=== PATIENT | male | born 1940 | race Caucasian/White ===

== ENCOUNTER 2016-11-17 15:06 | Inpatient (IN) | payer MEDICARE, OTHER ==
[~2016-11-17] VITALS: Ht 179.1 cm; Wt 107.3 kg
[~2016-11-17 15:06] MED LIST: AC500T PO; ACET650S13 PO; ACID1TAB PO; ALBU17AE3 IH; ALBU8.5H2 IH; AMIT50TA3 PO; AMT50T PO; CALC-80 PO; GLMP4T PO; HUM100VI4 SQ; INSA10V SC; INSA70301U SC; INSU100I10 SQ; INSU100I13 SQ; INSU100I4 SQ; INSU100V6 SQ; LACT1CAP45 PO; LISI-552 PO; LISI10TA PO; LISI20TA PO; LOVA40TA2 PO; LVF500T GT; LVST20T PO; METO-270 PO; METO25TA PO; METO5TAB79 PO; METR500T PO; MULT-930 PO; MULT-974 PO; MULT1TAB63; OMEP20TA33 PO; PNT40TEC PO; SIMV20TA3 PO
[2016-11-17] MEDS ORDERED: NS IV 1000 ML 1,000 ML IV ONE ×3 (15:18→15:59)
[2016-11-17 15:26] LABS: BASOPHILS % (AUTO) 0 % (0-10); EOSINOPHILS % (AUTO) 0 % (0-10); LYMPHOCYTES # (AUTO) 3.2 X 10^3 (1.0-4.0); LYMPHOCYTES % (AUTO) 15 % (12-44); MEAN CORPUSCULAR HEMOGLOBIN 28 PG (25-34); MEAN CORPUSCULAR HGB CONC 32 G/DL (32-36); MEAN CORPUSCULAR VOLUME 89 FL (80-99); MEAN PLATELET VOLUME 9.2 FL (7.4-10.4); MONOCYTES # (AUTO) 1.9 X 10^3 (0.0-1.0); MONOCYTES % (AUTO) 9 % (0-12); NEUTROPHILS # (AUTO) 15.7 X 10^3 (1.8-7.8); NEUTROPHILS % (AUTO) 75 % (42-75); PLATELET COUNT 265 10^3/uL (130-400); RED BLOOD COUNT 4.79 10^6/uL (4.35-5.85); WHITE BLOOD COUNT 20.9 10^3/uL (4.3-11.0)
[2016-11-17 15:39] LABS: BAND NEUTROPHILS 5 %; LYMPHOCYTES % (MANUAL) 28 %; NEUTROPHILS % (MANUAL) 50 %
[2016-11-17 15:40] LABS: BASOPHILS % (MANUAL) 0 %; EOSINOPHILS % (MANUAL) 0 %; INR 1.4 (0.8-1.4); PROTHROMBIN TIME PATIENT 17.6 SEC (12.2-14.7)
--- NOTE | 2016-11-17 15:42 | Diagnostic Imaging Report ---
INDICATION: Hypotension and chills. Frontal chest obtained at 3:31 p.m. Heart and mediastinal silhouette are normal in appearance. The lungs are clear. There is no pneumothorax or pleural fluid. IMPRESSION: No acute process in the chest. No change from 10/11/2015. Dictated by: Dictated on workstation # [id number]
[2016-11-17 15:47] LABS: ALBUMIN 3.8 GM/DL (3.2-4.5); BILIRUBIN,TOTAL 0.5 MG/DL (0.1-1.0); CALCIUM 10.5 MG/DL (8.5-10.1); CREATININE SERUM 2.33 MG/DL (0.60-1.30); POTASSIUM 3.9 MMOL/L (3.6-5.0); TOTAL PROTEIN 7.6 GM/DL (6.4-8.2)
[2016-11-17] MEDS ORDERED: cefTRIAXone INJECTION 1,000 MG in NS (IVPB) 50 ML IV ONE (16:00)
[2016-11-17 16:15] LABS: BILIRUBIN,URINE NEGATIVE (NEGATIVE); KETONES,URINE NEGATIVE (NEGATIVE); LEUKOCYTE ESTERASE ,URINE NEGATIVE (NEGATIVE); NITRITE,URINE NEGATIVE (NEGATIVE); PH,URINE 6 (5-9); PROTEIN,URINE NEGATIVE (NEGATIVE); UROBILINOGEN,URINE NORMAL (NORMAL)
[2016-11-17] MEDS ORDERED: metroNIDAZOLE 500MG/100ML IVPB 100 ML IV ONE (16:15)
[2016-11-17 16:21] LABS: SQUAMOUS EPITHELIAL CELL,UR 0-2 /HPF
[2016-11-17] MEDS ORDERED: CIPROFLOXACIN IV 400MG/200ML 200 ML IV ONE (17:00)
--- NOTE | 2016-11-17 17:00 | Diagnostic Imaging Report ---
PROCEDURE: CT abdomen and pelvis without contrast. TECHNIQUE: Multiple contiguous axial images were obtained through the abdomen and pelvis without the use of intravenous contrast. INDICATION: Constipation. The patient has not had a bowel movement for four days. FINDINGS: The lung bases demonstrate mild fibrotic changes. There is fluid distention of the stomach and a moderate hiatal hernia that is also distended with fluid. Small bowel loops are generally normal in caliber. There is significant thickening and surrounding inflammatory changes seen within the sigmoid colon and the distal descending colon suggestive of colitis. This is a longer segment than is usually seen with diverticulitis, and other inflammatory or infectious colitis is possible. There is moderate amount of fecal material seen in the rectum and distal sigmoid. The right colon demonstrates mild distention with fluid, particularly the cecum. The appendix is normal. There is no significant free fluid or fluid collection in the abdomen or pelvis seen. The urinary bladder is decompressed with a Thomson catheter. No free air. No air in the portal venous system is seen. The liver, the gallbladder, the spleen, the adrenals, and the pancreas appear unremarkable. The kidneys have no hydronephrosis, and no ureteric stones are seen. The osseous structures demonstrate degenerative changes in the thoracic and lumbar spine. There are surgical clips seen in the pelvis. Correlate with prior surgical history. IMPRESSION: 1. Prominent colonic wall thickening and inflammatory changes are seen in the sigmoid colon and distal descending colon suggestive of colitis which is probably related to inflammatory or infectious etiology rather than diverticulitis based on the appearance. No abscess or evidence of perforation. 2. Moderate amount of fecal material in the colon and distal sigmoid. 3. Fluid distention of the stomach. There is prominent fluid content within a moderate-sized hiatal hernia. The findings were discussed with Dr. Nino at the time of dictation. Dictated by: Dictated on workstation # [id number]
--- NOTE | 2016-11-17 17:30 | ED General ---
General Chief Complaint: Dizziness/Syncope Stated Complaint: SYNCOPAL Nursing Triage Note: PT BROUGHT IN BY [facility] WITH C/O SYNCOPAL EPISODE AT HOME. PT REPORTS TO EMS THAT PT IS ON SEVERAL MEDICATIONS FOR HTN AND HAS HAD SEVERAL SYNCOPAL EPISODES OVER THE LAST FEW DAYS. UPON ARRIVAL TO ED PT IS A&I X 4. HE IS LETHARGIC AND HYPOTENSIVE. Nursing Sepsis Screen: Possible Severe Sepsis Risk Source of Information: Patient Exam Limitations: No Limitations History of Present Illness Time Seen by Provider: 15:07 Initial Comments This 75-year-old gentleman presents to the emergency room via EMS after having a syncopal episode at home. EMS comments that he appeared very chilled when they picked him up where he was sitting under an air conditioner. He is alert and oriented but somnolent and weak. He is afebrile. EMS reported he was hypotensive with systolic blood pressures in the 80s and had oxygen saturations in the 80s prior to application of oxygen by nasal cannula. Patient denied any recent fever, cough, dysuria, vomiting, diarrhea, or pain. His comments he has not had a bowel movement in several days. Patient appeared to have poor perfusion on assessment with easy mottling of skin with application of the blood pressure cuff. Capillary refill was noted to be poor at greater than 6 seconds in the feet. Sepsis was presumed and septic workup was initiated. Initial systolic blood pressure was 89. IV fluids were infusing as started by EMS. Patient denied feeling colder chilled but appeared to be shivering. Allergies and Home Medications Allergies Coded Allergies: No Known Drug Allergies (Verified , 01/29/07) Home Medications Calcium Carbonate/Vitamin D3 1 Each Tablet, 1 TAB PO BID, (Reported) Insulin Glargine,Hum.rec.anlog 100 Unit/1 Ml Insuln.pen, 40 UNITS SQ HS, ( Reported) Insuln Asp Prt/Insulin Aspart 300 Units/3 Ml Solution, 20 UNITS SQ AC, (Reported ) Lisinopril 20 Mg Tablet, 20 MG PO DAILY, (Reported) Lovastatin 40 Mg Tablet, 40 MG PO HS, (Reported) Metoprolol Succinate 25 Mg Tab.er.24h, 25 MG PO DAILY, (Reported) Multivitamin 1 Each Tablet, 1 TAB PO DAILY, (Reported) Omeprazole Magnesium 20 Mg Tablet.dr, 20 MG PO BID, (Reported) Constitutional: see HPI EENTM: no symptoms reported Respiratory: see HPI Cardiovascular: see HPI Gastrointestinal: see HPI Genitourinary: no symptoms reported Musculoskeletal: no symptoms reported Skin: no symptoms reported Psychiatric/Neurological: See HPI Hematologic/Lymphatic: No Symptoms Reported Past Dwgkuen-Eefrsy-Cdbfth Hx Patient Social History Alcohol Use: Denies Use Recreational Drug Use: No Smoking Status: Former Smoker Type Used: Cigarettes Former Smoker, Quit: July 08, 1992 2nd Hand Smoke Exposure: No Recent Foreign Travel: No Contact w/Someone Who Travel: No Recent Infectious Disease Expo: No Recent Hopitalizations: No Physical Abuse: No Sexual Abuse: No Immunizations Up To Date Tetanus Booster (TDap): Unknown Date of Pneumonia Vaccine: Dec 14, 2011 Date of Influenza Vaccine: Feb 13, 2014 Seasonal Allergies Seasonal Allergies: No Surgeries History of Surgeries: Yes (TONSELECTOMY, PROSTATE) Surgeries: Prostatectomy Respiratory History of Respiratory Disorde: Yes Respiratory Disorders: Pneumonia Cardiovascular History of Cardiac Disorders: Yes Cardiac Disorders: High Cholesterol, Hypertension Neurological History of Neurological Disord: Yes (NEUROPATHY DUE TO DIABETES) Reproductive System Hx Reproductive Disorders: No Sexually Transmitted Disease: No HIV/AIDS: No Genitourinary History of Genitourinary Disor: Yes Genitourinary Disorders: Prostate Problems Gastrointestinal History of Gastrointestinal Di: Yes Gastrointestinal Disorders: Colitis, Gastroesophageal Reflux Musculoskeletal History of Musculoskeletal Dis: Yes Musculoskeletal Disorders: Degenerate Disk Disease, Arthritis Endocrine History of Endocrine Disorders: Yes Endocrine Disorders: Diabetes, Insulin dep HEENT History of HEENT Disorders: Yes Hearing Impairment: Hard of Hearing Cancer History of Cancer: Yes Cancer: Prostate Psychosocial History of Psychiatric Problem: No Suicide Risk Score: 0 Integumentary History of Skin or Integumenta: No Blood Transfusions History of Blood Disorders: No Adverse Reaction to a Blood Tr: No Family Medical History Significant Family History: Heart Disease, Cancer, Diabetes, Hypertension Family Medial History: Cancer G8 SISTER ( of lung cancer) History of - disorder 19 MOTHER (mother of old age) History of - respiratory disease 17 FATHER (worked in coal mines of resp disease from working in coal mines) Physical Exam-Suspected Sepsis Physical Exam Vital Signs Vital Sign - Last 12Hours 11/17/16 15:06 Temp 96.4 Pulse 106 Resp 20 B/P (MAP) 89/64 Pulse Ox 95 O2 Delivery Nasal Cannula O2 Flow Rate 2.00 Capillary Refill : Less Than 3 Seconds Blood Pressure Mean: 72 General Appearance: WD/WN, Mild Distress, Other (appears uncomfortable and chilled) HEENT: PERRL/EOMI, Normal ENT Inspection, Pharynx Normal Neck: Normal Inspection Respiratory: Lungs Clear, Normal Breath Sounds, No Accessory Muscle Use, No Respiratory Distress Cardiovascular: No Edema, No Murmur, Tachycardia Gastrointestinal: Normal Bowel Sounds, Soft, Distended Extremity: No Pedal Edema, Other (fingers and toes are somewhat cool. Peripheral pulses are normal. Capillary refill is delayed by more than 6 seconds) Neurologic/Psychiatric: Alert, Oriented x3, No Motor/Sensory Deficits, mold forms builder II- XII Norm as Tested, Other (patient's level of alertness is decreased. He appears somnolent with told cognition. He is technically alert and oriented.) Skin: other (see above) Focused Exam Evaluation Sepsis Stage: Severe Sepsis Possible Source: GI Tract/Intra-Abdominal Lactate Level Laboratory Tests 11/17/16 15:10: Lactic Acid Level 11.06*H 11/17/16 17:10: Time of Focused Exam: 17:04 Respiratory: Lungs Clear, Normal Breath Sounds, No Accessory Muscle Use, No Respiratory Distress Cardiovascular: No Edema, Tachycardia Capillary Refill: Greater Than 3 Seconds Skin: normal color, warm/dry, other (skin color has improved and is brighter pink in the distal extremities. Capillary refill is still delayed to about 5 or 6 seconds but has improved from prior) Lactic Acid Level Laboratory Tests Test 11/17/16 15:10 11/17/16 17:10 Lactic Acid Level 11.06 MMOL/L (0.50-2.00) *H Progress/Results/Core Measures Suspected Sepsis Recent Fever Within 48 Hours: No Infection Criteria Present: Suspected New Infection New/Unexplained Altered Menta: No Sepsis Screen: Possible Severe Sepsis Risk Sepsis Diagnosis: SIRS Temperature:96.4 Pulse: 106 Respiratory Rate: 20 Laboratory Tests 11/17/16 15:10: White Blood Count 20.9H Blood Pressure 89 /64 Mean: 72 Laboratory Tests 11/17/16 15:10: Lactic Acid Level 11.06*H 11/17/16 17:10: Laboratory Tests 11/17/16 15:10: Creatinine 2.33H, INR Comment 1.4, Platelet Count 265, Total Bilirubin 0.5 Results/Orders Lab Results Laboratory Tests Test 11/17/16 15:10 11/17/16 16:00 11/17/16 17:10 11/17/16 17:45 Range/Units White Blood Count 20.9 H 4.3-11.0 10^3/uL Red Blood Count 4.79 4.35-5.85 10^6/uL Hemoglobin 13.6 13.3-17.7 G/DL Hematocrit 42 40-54 % Mean Corpuscular Volume 89 80-99 FL Mean Corpuscular Hemoglobin 28 25-34 PG Mean Corpuscular Hemoglobin Concent 32 32-36 G/DL Red Cell Distribution Width 13.0 10.0-14.5 % Platelet Count 265 130-400 10^3/uL Mean Platelet Volume 9.2 7.4-10.4 FL Neutrophils (%) (Auto) 75 42-75 % Lymphocytes (%) (Auto) 15 12-44 % Monocytes (%) (Auto) 9 0-12 % Eosinophils (%) (Auto) 0 0-10 % Basophils (%) (Auto) 0 0-10 % Neutrophils # (Auto) 15.7 H 1.8-7.8 X 10^3 Lymphocytes # (Auto) 3.2 1.0-4.0 X 10^3 Monocytes # (Auto) 1.9 H 0.0-1.0 X 10^3 Eosinophils # (Auto) 0.0 0.0-0.3 10^3/uL Basophils # (Auto) 0.0 0.0-0.1 10^3/uL Neutrophils % (Manual) 50 % Lymphocytes % (Manual) 28 % Monocytes % (Manual) 7 % Eosinophils % (Manual) 0 % Basophils % (Manual) 0 % Band Neutrophils 5 % Blood Morphology Comment NORMAL Prothrombin Time 17.6 H 12.2-14.7 SEC INR Comment 1.4 0.8-1.4 Activated Partial Thromboplast Time 35 24-35 SEC Sodium Level 137 135-145 MMOL/L Potassium Level 3.9 3.6-5.0 MMOL/L Chloride Level 101 98-107 MMOL/L Carbon Dioxide Level 15 L 21-32 MMOL/L Anion Gap 21 H 5-14 MMOL/L Blood Urea Nitrogen 27 H 7-18 MG/DL Creatinine 2.33 H 0.60-1.30 MG/DL Estimat Glomerular Filtration Rate 27 BUN/Creatinine Ratio 12 Glucose Level 257 H 70-105 MG/DL Lactic Acid Level 11.06 *H 0.50-2.00 MMOL/L Calcium Level 10.5 H 8.5-10.1 MG/DL Total Bilirubin 0.5 0.1-1.0 MG/DL Aspartate Amino Transf (AST/SGOT) 35 H 5-34 U/L Alanine Aminotransferase (ALT/SGPT) 25 0-55 U/L Alkaline Phosphatase 77 40-136 U/L Total Protein 7.6 6.4-8.2 GM/DL Albumin 3.8 3.2-4.5 GM/DL Urine Color YELLOW Urine Clarity CLEAR Urine pH 6 5-9 Urine Specific [place] 1.015 L 1.016-1.022 Urine Protein NEGATIVE NEGATIVE Urine Glucose (UA) NEGATIVE NEGATIVE Urine Ketones NEGATIVE NEGATIVE Urine Nitrite NEGATIVE NEGATIVE Urine Bilirubin NEGATIVE NEGATIVE Urine Urobilinogen NORMAL NORMAL MG/DL Urine Leukocyte Esterase NEGATIVE NEGATIVE Urine RBC (Auto) NEGATIVE NEGATIVE Urine RBC NONE /HPF Urine WBC NONE /HPF Urine Squamous Epithelial Cells 0-2 /HPF Urine Crystals NONE /LPF Urine Bacteria NONE /HPF Urine Casts NONE /LPF Urine Mucus NEGATIVE /LPF Urine Culture Indicated NO My Orders Orders - LESTER NINO MD Cbc With Automated Diff (11/17/16 15:18) Comprehensive Metabolic Panel (11/17/16 15:18) Lactic Acid Analyzer (11/17/16 15:18) Blood Culture (11/17/16 15:18) Sputum Culture (11/17/16 15:18) Ua Culture If Indicated (11/17/16 15:18) Protime With Inr (11/17/16 15:18) Partial Thromboplastin Time (11/17/16 15:18) Chest 1 View, Ap/Pa Only (11/17/16 15:18) O2 (11/17/16 15:18) Saline Lock/Iv-Start (11/17/16 15:18) Saline Lock/Iv-Start (11/17/16 15:18) Vital Signs Adult Sepsis Patie Q1HR (11/17/16 15:18) Remove Rings In Anticipation O (11/17/16 15:18) Saline Lock/Iv-Start (11/17/16 15:18) Ns Iv 1000 Ml (Sodium Chloride 0.9%) (11/17/16 15:18) Thomson Cath Insertion (11/17/16 15:19) Manual Differential (11/17/16 15:10) Ekg Tracing (11/17/16 15:36) Ns Iv 1000 Ml (Sodium Chloride 0.9%) (11/17/16 15:48) Ceftriaxone Injection (Rocephin Injectio (11/17/16 16:00) Ct Abdomen/Pelvis Wo (11/17/16 15:59) Ns Iv 1000 Ml (Sodium Chloride 0.9%) (11/17/16 15:59) Metronidazole 500mg/100ml Ivpb (Flagyl 5 (11/17/16 16:15) Ciprofloxacin Iv 400mg/200ml (Cipro Iv S (11/17/16 17:00) Stool Culture (11/17/16 17:01) Fecal Wbc (11/17/16 17:01) C Difficile Ag + Toxin A/B. (11/17/16 17:01) Occult Blood Stool (11/17/16 17:43) Medications Given in ED Current Medications Medications Dose Ordered Sig/Pascale Route Start Time Stop Time Status Last Admin Dose Admin Ceftriaxone Sodium 1000 mg/ Sodium Chloride 50 ml @ 100 mls/hr ONCE ONCE IV 11/17/16 16:00 11/17/16 16:29 DC 11/17/16 17:30 100 MLS/HR Ciprofloxacin/ Dextrose 200 ml @ 200 mls/hr ONCE ONCE IV 11/17/16 17:00 11/17/16 17:59 DC 11/17/16 17:30 200 MLS/HR Metronidazole 100 ml @ 100 mls/hr ONCE ONCE IV 11/17/16 16:15 11/17/16 17:14 DC 11/17/16 17:30 100 MLS/HR Sodium Chloride 1,000 ml @ 0 mls/hr Q0M ONCE IV 11/17/16 15:18 11/17/16 15:20 DC 11/17/16 15:15 0 MLS/HR Sodium Chloride 1,000 ml @ 0 mls/hr Q0M ONCE IV 11/17/16 15:48 11/17/16 15:49 DC 11/17/16 15:45 0 MLS/HR Sodium Chloride 1,000 ml @ 0 mls/hr Q0M ONCE IV 11/17/16 15:59 11/17/16 16:01 DC 11/17/16 17:30 0 MLS/HR Vital Signs/I&O Vital Sign - Last 12Hours 11/17/16 11/17/16 15:06 15:10 Temp 96.4 Pulse 106 Resp 20 B/P (MAP) 89/64 Pulse Ox 95 95 O2 Delivery Nasal Cannula Nasal Cannula O2 Flow Rate 2.00 2.00 Intake and Output 11/18/16 00:00 Intake Total 2500 ml Balance 2500 ml Capillary Refill : Less Than 3 Seconds Blood Pressure Mean: 72 Progress Note #1: Progress Note Septic workup was initiated immediately after patient arrival. Fluid resuscitation was started with normal saline boluses. He received 500 mL as started by EMS. An additional 3 L of saline was ordered in the ER. He was receiving the third liter at the time of admission. This was greater than 30 ML per kilogram. Patient eventually commented that he had abdominal pain although he denied pain on initial assessment. Abdomen was reexamined and found to be somewhat distended and firm. CT of the abdomen was obtained and revealed sigmoid colitis. Patient then had a large liquidy bowel movement that appeared grossly bloody. Broad-spectrum antibiotic therapy was ordered including Rocephin, Cipro, and Flagyl. His abdominal pain improved with the bowel movement. Administration of the antibiotics was delayed a bit due to difficulty drawing the second blood culture. Antibiotics were administered in the emergency room. Stool cultures were sent for processing. Progress Note #2: Time: 18:09 Progress Note Case history and plan reviewed with the eICU physician. ECG Initial ECG Impression Date: Nov 17, 2016 Initial ECG Impression Time: 15:21 Initial ECG Rate: 92 Initial ECG Rhythm: Normal Sinus Comment Normal sinus rhythm with borderline tachycardia. No ST elevation or depression. No axis deviation. Diagnostic Imaging Diagonstic Imaging: Xray Plain Films/CT/US/NM/MRI: chest Comments NAME: ERIC SULLIVAN [facility] REC#: [id number] PT STATUS: REG ER : 1940 PHYSICIAN: LESTER NINO MD ADMIT DATE: 11/17/16/ER Signed Date of Exam: 11/17/16 CHEST 1 VIEW, AP/PA ONLY INDICATION: Hypotension and chills. Frontal chest obtained at 3:31 p.m. Heart and mediastinal silhouette are normal in appearance. The lungs are clear. There is no pneumothorax or pleural fluid. IMPRESSION: No acute process in the chest. No change from 10/11/2015. Dictated by: Dictated on workstation # [id number] Dict: 11/17/16 1540 Trans: 11/17/16 1655 Interpreted by: ARIELLE ALARCON MD Electronically signed by: ARIELLE ALARCON MD 11/17/16 165 Diagonstic Imaging: CT Plain Films/CT/US/NM/MRI: abdomen, pelvis Comments CT abdomen and pelvis viewed by me and report reviewed. See report below: NAME: ERIC SULLIVAN [facility] REC#: [id number] PT STATUS: REG ER : 1940 PHYSICIAN: LESTER NINO MD ADMIT DATE: 11/17/16/ER Signed Date of Exam: 11/17/16 CT ABDOMEN/PELVIS WO PROCEDURE: CT abdomen and pelvis without contrast. TECHNIQUE: Multiple contiguous axial images were obtained through the abdomen and pelvis without the use of intravenous contrast. INDICATION: Constipation. The patient has not had a bowel movement for four days. FINDINGS: The lung bases demonstrate mild fibrotic changes. There is fluid distention of the stomach and a moderate hiatal hernia that is also distended with fluid. Small bowel loops are generally normal in caliber. There is significant thickening and surrounding inflammatory changes seen within the sigmoid colon and the distal descending colon suggestive of colitis. This is a longer segment than is usually seen with diverticulitis, and other inflammatory or infectious colitis is possible. There is moderate amount of fecal material seen in the rectum and distal sigmoid. The right colon demonstrates mild distention with fluid, particularly the cecum. The appendix is normal. There is no significant free fluid or fluid collection in the abdomen or pelvis seen. The urinary bladder is decompressed with a Thomson catheter. No free air. No air in the portal venous system is seen. The liver, the gallbladder, the spleen, the adrenals, and the pancreas appear unremarkable. The kidneys have no hydronephrosis, and no ureteric stones are seen. The osseous structures demonstrate degenerative changes in the thoracic and lumbar spine. There are surgical clips seen in the pelvis. Correlate with prior surgical history. IMPRESSION: 1. Prominent colonic wall thickening and inflammatory changes are seen in the sigmoid colon and distal descending colon suggestive of colitis which is probably related to inflammatory or infectious etiology rather than diverticulitis based on the appearance. No abscess or evidence of perforation. 2. Moderate amount of fecal material in the colon and distal sigmoid. 3. Fluid distention of the stomach. There is prominent fluid content within a moderate-sized hiatal hernia. The findings were discussed with Dr. Nino at the time of dictation. Dictated by: Dictated on workstation # [id number] Dict: 11/17/16 1630 Trans: 11/17/161700 Interpreted by: MAGDY GILLIS MD Electronically signed by: MAGDY GILLIS MD 11/17/161700 Departure Communication (Admissions) Time/Spoke to Admitting Phy: 17:00 Communication Case reviewed with Dr. Dewitt who agrees to admission to the ICU for treatment of severe sepsis and colitis. She is very familiar with this patient and has experienced similar episodes with him in the past. She agrees with the ICU consult. Time/Spoke to Consulting Phy: 16:50 Communication/Consulting Case was reviewed with Dr. Ballard. We discussed antibiotics. Rocephin was the initial antibiotic ordered in the ER. This will be followed by Caridad and Josse to cover for right is. In compliance with the severe sepsis protocols, vancomycin was also ordered. Impression Impression: Primary Impression: Severe sepsis Additional Impressions: Colitis Acute on chronic renal failure Qualified Codes: N17.9 - Acute kidney failure, unspecified; N18.9 - Chronic kidney disease, unspecified Disposition: ADMITTED INPATIENT Condition: Improved Admissions Decision to Admit Reason: Admit from ER (General) Decision to Admit/Date: Nov 17, 2016 Time/Decision to Admit Time: 15:10 Departure-Patient Inst. Referrals: MOISÉS ARMSTRONG MD (PCP/Family) Primary Care Physician LESTER NINO MD Nov 17, 2016 17:30
[2016-11-17 18:40] VITALS: BP 108/51
[2016-11-17 19:00] VITALS: BP 113/78
[2016-11-17] MEDS ORDERED: ONDANSETRON 4 MG/2 ML (SDV) Z0FRAN IV PRN (19:15)
[2016-11-17] MEDS ORDERED: VASOPRESSIN INJECTION 20 UNIT in NS (IVPB) 100 ML IV SCH (19:26)
[2016-11-17] MEDS ORDERED: CATHETER FLUSH 10 ML SYR IV PRN (19:30)
[2016-11-17] MEDS: NS IV 1000 ML 1,000 ML IV SCH (19:38)
[2016-11-17 20:00] VITALS: BP 100/82
[2016-11-17] MEDS ORDERED: VANCOMYCIN 2000 MG/NS 500 ML IVPB IV NR ×2 (20:00)
[2016-11-17] MEDS: PHENYLEPHRINE FOR DRIPS 10 MG in D5W 250 ML (IVPB) 250 ML IV SCH ×2 (20:07→23:49)
[2016-11-17] MEDS: NOREPINEPHRINE 4 MG in D5W 250 ML (IVPB) 250 ML IV SCH ×2 (20:07→22:35)
[2016-11-17] MEDS: inSUlin (REGULAR) HUMAN 1 UNIT/0.01 ML (CHARGE PER UNIT) SC SCH (20:11)
[2016-11-17 21:00] VITALS: BP 87/57
[2016-11-17 22:00] VITALS: BP 103/63
[2016-11-17 23:00] VITALS: BP 114/54
[2016-11-17] MEDS ORDERED: NOREPINEPHRINE 4 MG in D5W 250 ML (IVPB) 250 ML IV SCH (23:00)
[2016-11-18] VITALS (37 sets, daily range): BP systolic 79–142; BP diastolic 40–81
--- NOTE | 2016-11-18 | Consultation ---
History of Present Illness History of Present Illness Patient Consulted On(terri/time) 11/17/16 23:53 Date Seen by Provider: Nov 17, 2016 Time Seen by Provider: 22:37 History of Present Illness Surgery asked to consult regarding abdominal pain, hypotension, sepsis. HPI: This 75-year-old gentleman presented to the emergency room via EMS after having a syncopal episode at home. EMS comments that he appeared very chilled when they picked him up where he was sitting under an air conditioner. He is alert and oriented but somnolent and weak. He is afebrile. EMS reported he was hypotensive with systolic blood pressures in the 80s and had oxygen saturations in the 80s prior to application of oxygen by nasal cannula. Patient denied any recent fever, cough, dysuria, vomiting, or diarrhea. Pt and his state he has not had a bowel movement in several days. Per ER Physician: Patient appeared to have poor perfusion on assessment with easy mottling of skin with application of the blood pressure cuff. Capillary refill was noted to be poor at greater than 6 seconds in the feet. Sepsis was presumed and septic workup was initiated. Initial systolic blood pressure was 89. IV fluids were infusing as started by EMS. Patient denied feeling cold or chilled but appeared to be shivering. When seen in the ICU he has Levophed running through peripheral IV and barely keeping his SBP above 100 and he has already "blown" 3 peripherals. He states he came in for pain but it is better. Appears comfortable. Allergies and Home Medications Allergies Coded Allergies: No Known Drug Allergies (Verified , 01/29/07) Home Medications Calcium Carbonate/Vitamin D3 1 Each Tablet, 1 TAB PO BID, (Reported) Insulin Glargine,Hum.rec.anlog 100 Unit/1 Ml Insuln.pen, 40 UNITS SQ HS, ( Reported) Insuln Asp Prt/Insulin Aspart 300 Units/3 Ml Solution, 20 UNITS SQ AC, (Reported ) Lisinopril 20 Mg Tablet, 20 MG PO DAILY, (Reported) Lovastatin 40 Mg Tablet, 40 MG PO HS, (Reported) Metoprolol Succinate 25 Mg Tab.er.24h, 25 MG PO DAILY, (Reported) Multivitamin 1 Each Tablet, 1 TAB PO DAILY, (Reported) Omeprazole Magnesium 20 Mg Tablet.dr, 20 MG PO BID, (Reported) Past Ucwayrd-Anqneo-Lrbpyt Hx Patient Social History Alcohol Use: Denies Use Recreational Drug Use: No Smoking Status: Former Smoker Former Smoker, Quit: July 08, 1992 Type Used: Cigarettes 2nd Hand Smoke Exposure: No Recent Foreign Travel: No Contact w/Someone Who Travel: No Recent Infectious Disease Expo: No Recent Hopitalizations: No Physical Abuse Screen: No Sexual Abuse: No Immunizations Up To Date Tetanus Booster (TDap): Unknown Date of Pneumonia Vaccine: Dec 14, 2011 Date of Influenza Vaccine: Feb 13, 2014 Seasonal Allergies Seasonal Allergies: No Surgeries History of Surgeries: Yes (TONSELECTOMY, PROSTATE) Surgeries: Prostatectomy Respiratory History of Respiratory Disorde: Yes Respiratory Disorders: Pneumonia Cardiovascular History of Cardiac Disorders: Yes Cardiac Disorders: High Cholesterol, Hypertension Neurological History of Neurological Disord: Yes (NEUROPATHY DUE TO DIABETES) Reproductive System Hx Reproductive Disorders: No Sexually Transmitted Disease: No HIV/AIDS: No Genitourinary History of Genitourinary Disor: Yes Genitourinary Disorders: Prostate Problems Gastrointestinal History of Gastrointestinal Di: Yes Gastrointestinal Disorders: Colitis, Gastroesophageal Reflux Musculoskeletal History of Musculoskeletal Dis: Yes Musculoskeletal Disorders: Degenerate Disk Disease, Arthritis Endocrine History of Endocrine Disorders: Yes Endocrine Disorders: Diabetes, Insulin dep HEENT History of HEENT Disorders: Yes Hearing Impairment: Hard of Hearing Cancer History of Cancer: Yes Cancer: Prostate Psychosocial History of Psychiatric Problem: No Integumentary History of Skin or Integumenta: No Blood Transfusions History of Blood Disorders: No Adverse Reaction to a Blood Tr: No Family Medical History Significant Family History: Heart Disease, Cancer, Diabetes, Hypertension Family Medial History: Cancer G8 SISTER ( of lung cancer) History of - disorder 17 MOTHER (mother of old age) History of - respiratory disease 17 FATHER (worked in coal [place] of resp disease from working in coal mines) Review of Systems-General Constitutional: chills, diaphoresis, dizziness, malaise, weakness EENTM: hearing loss, vision loss, No epistaxis, No throat swelling Respiratory: cough, dyspnea on exertion, No hemoptysis, No stridor Cardiovascular: No chest pain, No edema, No palpitations Gastrointestinal: LLQ, constipation, No hematemesis, No jaundice Genitourinary: frequency, hesitancy, incontinence, nocturia Musculoskeletal: back pain, joint pain, muscle pain, muscle stiffness Skin: No lumps, No pruritus, No rash Psychiatric/Neurological: Denies Anxiety, Denies Depressed, Denies Seizure, Weakness Other Denies heat or cold intolerance. Denies any abnormal bruising or bleeding. Physical Exam-General Problems Physical Exam Vital Signs Vital Sign - Last 12Hours 11/17/16 15:06 Temp 96.4 Pulse 106 Resp 20 B/P (MAP) 89/64 Pulse Ox 95 O2 Delivery Nasal Cannula O2 Flow Rate 2.00 Capillary Refill : Less Than 3 Seconds General Appearance: WD/WN, moderate distress Eyes: Bilateral Eye PERRL, Bilateral Eye EOMI HEENT: pharynx normal, No scleral icterus (R), No scleral icterus (L), No pale conjunctivae (R), No pale conjunctivae (L) Neck: non-tender, supple, No thyromegaly Respiratory: lungs clear, normal breath sounds, accessory muscle use Cardiovascular: no edema, no murmur, tachycardia Gastrointestinal: soft, no organomegaly, tenderness (mild, LLQ and suprapubic) Rectal: deferred Extremities: no pedal edema, no calf tenderness, normal capillary refill Neurologic/Psychiatric: brewery pumper II-XII nml as tested, no motor/sensory deficits, alert, normal mood/affect, oriented x 3 Skin: cool, pallor Lymphatic: no adenopathy (neck, axilla or groin) Data Review Labs Laboratory Tests 11/17/16 15:10: White Blood Count 20.9H, Red Blood Count 4.79, Hemoglobin 13.6, Hematocrit 42, Mean Corpuscular Volume 89, Mean Corpuscular Hemoglobin 28, Mean Corpuscular Hemoglobin Concent 32, Red Cell Distribution Width 13.0, Platelet Count 265, Mean Platelet Volume 9.2, Neutrophils (%) (Auto) 75, Lymphocytes (%) (Auto) 15, Monocytes (%) (Auto) 9, Eosinophils (%) (Auto) 0, Basophils (%) (Auto) 0, Neutrophils # (Auto) 15.7H, Lymphocytes # (Auto) 3.2, Monocytes # (Auto) 1.9H, Eosinophils # (Auto) 0.0, Basophils # (Auto) 0.0, Neutrophils % (Manual) 50, Lymphocytes % (Manual) 28, Monocytes % (Manual) 7, Eosinophils % (Manual) 0, Basophils % (Manual) 0, Band Neutrophils 5, Blood Morphology Comment NORMAL, Prothrombin Time 17.6H, INR Comment 1.4, Activated Partial Thromboplast Time 35 , Sodium Level 137, Potassium Level 3.9, Chloride Level 101, Carbon Dioxide Level 15L, Anion Gap 21H, Blood Urea Nitrogen 27H, Creatinine 2.33H, Estimat Glomerular Filtration Rate 27, BUN/Creatinine Ratio 12, Glucose Level 257H, Lactic Acid Level 11.06*H, Calcium Level 10.5H, Total Bilirubin 0.5, Aspartate Amino Transf (AST/SGOT) 35H, Alanine Aminotransferase (ALT/SGPT) 25, Alkaline Phosphatase 77, Total Protein 7.6, Albumin 3.8 11/17/16 16:00: Urine Color YELLOW, Urine Clarity CLEAR, Urine pH 6, Urine Specific Zoe 1.015L, Urine Protein NEGATIVE, Urine Glucose (UA) NEGATIVE, Urine Ketones NEGATIVE, Urine Nitrite NEGATIVE, Urine Bilirubin NEGATIVE, Urine Urobilinogen NORMAL, Urine Leukocyte Esterase NEGATIVE, Urine RBC (Auto) NEGATIVE, Urine RBC NONE, Urine WBC NONE, Urine Squamous Epithelial Cells 0-2, Urine Crystals NONE, Urine Bacteria NONE, Urine Casts NONE, Urine Mucus NEGATIVE, Urine Culture Indicated NO 11/17/16 17:45: Stool Occult Blood Immunoassay POSITIVEH 11/17/16 18:20: Lactic Acid Level 6.65*H 11/17/16 19:54: Glucometer 261H 11/17/16 21:05: Lactic Acid Level 7.20*H 11/17/16 23:30: Assessment/Plan Assessment/Plan Assessment/Plan 1. Colitis on CT 2. Hypotension/Sepsis 3. Venous Insufficiency 4. Acute on Chronic Renal Failure 5. Leukocytosis 6. Elevated Lactic Acid 7. Dehydration Pt has thickened colon on CT (per radiologist); no free air, free fluid and no mention of pneumotosis. Hemoccult positive, C. Diff study pending. This is most likely the cause of his leukocytosis. He has not been drinking enough fluids and this is probably causing some of his hypotension and Acute renal failure. He has been started on ABX. Needs IVF and Levophed now to keep his MAP above 65. He needs maximal medical managment. He will need a colonoscopy, depending on his C. Diff lab result. At this point he does not need any surgery, but will need a Central line secondary to venous insufficiency and fluid managment. Clinical Quality Measures DVT/VTE Risk/Contraindication: Risk Factor Score Per Nursin RFS Level Per Nursing on Admit: 4+=Very High DIDI REDMAN DO Nov 18, 2016 00:00
--- NOTE | 2016-11-18 00:15 | Progress Note-Post Operative ---
Post-Operative Progess Note Surgeon (s)/Animal Trainer Supervisor (s) Surgeon DIDI REDMAN DO Animal Trainer Supervisor: none Pre-Operative Diagnosis hypotenension, sepsis, Venous insufficiency, Acute renal failure, abd pain Post-Operative Diagnosis same Procedure & Operative Findings Date of Procedure 11/18/16 Procedure Performed/Findings Central line placement, RIJ with US guidance Anesthesia Type local lidocaine Estimated Blood Loss Estimated blood loss (mL): scant Specimens/Packing Specimens Removed none DIDI REDMAN DO Nov 18, 2016 00:15
[2016-11-18] MEDS: NS IV 1000 ML 1,000 ML IV SCH ×4 (00:24→21:18)
[2016-11-18] MEDS: inSUlin (REGULAR) HUMAN 1 UNIT/0.01 ML (CHARGE PER UNIT) SC SCH (00:24)
[2016-11-18] MEDS: PHENYLEPHRINE FOR DRIPS 10 MG in D5W 250 ML (IVPB) 250 ML IV SCH (02:35)
[2016-11-18] MEDS ORDERED: inSUlin REGULAR TPN/DRIP ONLY 250 UNITS in NORMAL SALINE 250 ML IV SCH (04:15)
[2016-11-18] MEDS ORDERED: inSUlin (REGULAR) HUMAN 1 UNIT/0.01 ML (CHARGE PER UNIT) IV ONE (04:15)
[2016-11-18 04:36] LABS: BASOPHILS % (AUTO) 0 % (0-10); EOSINOPHILS % (AUTO) 0 % (0-10); LYMPHOCYTES # (AUTO) 1.1 X 10^3 (1.0-4.0); LYMPHOCYTES % (AUTO) 8 % (12-44); MEAN CORPUSCULAR HEMOGLOBIN 29 PG (25-34); MEAN CORPUSCULAR HGB CONC 33 G/DL (32-36); MEAN CORPUSCULAR VOLUME 87 FL (80-99); MEAN PLATELET VOLUME 9.8 FL (7.4-10.4); MONOCYTES % (AUTO) 7 % (0-12); NEUTROPHILS # (AUTO) 12.1 X 10^3 (1.8-7.8); NEUTROPHILS % (AUTO) 85 % (42-75); PLATELET COUNT 214 10^3/uL (130-400); RED BLOOD COUNT 4.02 10^6/uL (4.35-5.85); RED CELL DISTRIBUTION WIDTH 12.7 % (10.0-14.5); WHITE BLOOD COUNT 14.2 10^3/uL (4.3-11.0)
[2016-11-18 04:46] LABS: INR 1.3 (0.8-1.4); PROTHROMBIN TIME PATIENT 16.4 SEC (12.2-14.7)
[2016-11-18 04:57] LABS: ALBUMIN 2.5 GM/DL (3.2-4.5); BILIRUBIN,TOTAL 0.4 MG/DL (0.1-1.0); CALCIUM 7.1 MG/DL (8.5-10.1); CREATININE SERUM 2.13 MG/DL (0.60-1.30); MAGNESIUM 1.5 MG/DL (1.8-2.4); PHOSPHORUS 1.7 MG/DL (2.3-4.7); TOTAL PROTEIN 4.8 GM/DL (6.4-8.2)
[2016-11-18] MEDS ORDERED: metroNIDAZOLE 500 MG/100 ML IVPB (PRE-MIX) IV SCH (05:00)
[2016-11-18 05:01] LABS: POTASSIUM 6.9 MMOL/L (3.6-5.0)
[2016-11-18] MEDS ORDERED: MAGNESIUM 1 GM/100 ML IVPB 200 ML IV ONE (05:12)
[2016-11-18] MEDS: POTASSIUM CL 10MEQ/50ML IVPB 50 ML IV SCH (05:32)
[2016-11-18] MEDS: MAGNESIUM 1 GM/100 ML IVPB 100 ML IV SCH ×3 (05:32→06:41)
[2016-11-18] MEDS: KCL 20 MEQ TAB (K-DUR) PO SCH (05:33)
[2016-11-18] MEDS ORDERED: SODIUM PHOSPHATE INJ ONE (05:45)
[2016-11-18] MEDS ORDERED: NS INJ ONE (05:45)
[2016-11-18] MEDS ORDERED: CIPROFLOXACIN 400 MG/D5W 200 ML (PRE-MIX) IV SCH (06:00)
[2016-11-18] MEDS: PHENYLEPHRINE INJECTION 10 MG in D5W 250 ML (IVPB) 250 ML IV SCH ×5 (07:09→23:22)
--- NOTE | 2016-11-18 08:26 | History & Physicial ---
History of Present Illness History of Present Illness Reason for visit/HPI PT IS A 75 Y/O MALE WHO IS KNOWN TO ME FROM CLINIC. ERIC HAS HISTORY OF SIMILAR EPISODES OF SUSPECTED SEPSIS WITH HEMATOCHEZIA, HYPOTENSION, LETHARGY - AFTER ONE TO TWO DAYS IN THE HOSPITAL HE HAS RESOLUTION OF SYMPTOMS, WITH RESOLUTION OF ABDOMINAL PAIN AND RETURN TO NORMAL FUNCTION. HIS WORK-UP IN THE PAST HAS BEEN NEGATIVE FOR ANY SPECIFIC COLONIC SOURCE OF DISEASE PROCESS. HE REPORTS THAT ON THIS OCCASION THAT NECESSITATED ADMISSION THROUGH THE EMERGENCY DEPARTMENT, HE HAD NOT HAD A BOWEL MOVEMENT IN OVER 8 DAYS, HE HAD BEEN STRAINING TO HAVE HIS BOWELS MOVE, BUT HAD NOT BEEN SUCCESSFUL. HE REPORTS FEELING BETTER TODAY. Date of Admission Nov 17, 2016 at 17:30 Date Seen by Provider: Nov 18, 2016 Time Seen by Provider: 08:15 I consulted on this patient on 11/18/16 08:20 Attending Physician Moisés Alfaro MD Admitting Physician Moisés Alfaro MD Consult Allergies and Home Medications Allergies Coded Allergies: No Known Drug Allergies (Verified , 01/29/07) Home Medications Amitriptyline HCl 50 Mg Tablet, 50 MG PO BID, (Reported) Calcium Carbonate/Vitamin D3 1 Each Tablet, 1 TAB PO BID, (Reported) Insulin Aspart 100 Unit/1 Ml Susp, 20 UNITS SC AC, (Reported) Insulin Glargine,Hum.rec.anlog 100 Unit/1 Ml Vial, 40 UNITS SC HS, (Reported) Lisinopril 20 Mg Tablet, 20 MG PO DAILY, (Reported) Lovastatin 40 Mg Tablet, 40 MG PO HS, (Reported) Metoprolol Succinate 25 Mg Tab.er.24h, 25 MG PO DAILY, (Reported) Multivitamin 1 Each Tablet, 1 TAB PO DAILY, (Reported) Omeprazole Magnesium 20 Mg Tablet.dr, 20 MG PO BID, (Reported) Past Wxvxpkp-Osrwli-Iqwhrn Hx Patient Social History Marrital Status: Living Status: LIVES AT HOME WITH HIS Employed/Student: retired Alcohol Use: Denies Use Recreational Drug Use: No Smoking Status: Former Smoker Former Smoker, Quit: July 08, 1992 Type Used: Cigarettes 2nd Hand Smoke Exposure: No Physical Abuse Screen: No Sexual Abuse: No Recent Foreign Travel: No Contact w/other who traveled: No Recent Hopitalizations: No Recent Infectious Disease Expo: No Immunizations Up To Date Tetanus Booster (TDap): Unknown Date of Pneumonia Vaccine: Dec 14, 2011 Date of Influenza Vaccine: Feb 13, 2014 Seasonal Allergies Seasonal Allergies: No Surgeries Yes (TONSELECTOMY, PROSTATE) Prostatectomy Respiratory Yes Currently Using CPAP: No Currently Using BIPAP: No Cardiovascular Yes High Cholesterol, Hypertension Neurological Yes (NEUROPATHY DUE TO DIABETES) Reproductive System Hx Reproductive Disorders: No Sexually Transmitted Disease: No HIV/AIDS: No Genitourinary Yes Prostate Problems Gastrointestinal Yes Colitis, Gastroesophageal Reflux Musculoskeletal Yes Degenerate Disk Disease, Arthritis Endocrine History of Endocrine Disorders: Yes Endocrine Disorders: Diabetes, Insulin dep HEENT History of HEENT Disorders: Yes Hearing Impairment: Hard of Hearing Cancer Yes Prostate Psychosocial History of Psychiatric Problem: No Integumentary History of Skin or Integumenta: No Blood Transfusions History of Blood Disorders: No Adverse Reaction to a Blood Tr: No Reviewed Nursing Assessment Reviewed/Agree w Nursing PMH: Yes Family Medical History Significant Family History: Heart Disease, Cancer, Diabetes, Hypertension Family Hx: Cancer G8 SISTER ( of lung cancer) History of - disorder 19 MOTHER (mother of old age) History of - respiratory disease 19 FATHER (worked in coal mines of resp disease from working in coal mines) Constitutional: No chills, No diaphoresis, No fever, weakness EENTM: hearing loss, No mouth pain, No throat swelling Respiratory: No cough, dyspnea on exertion Gastrointestinal: RLQ, LLQ, abdominal pain Genitourinary: no symptoms reported Musculoskeletal: No back pain, No muscle weakness Skin: no symptoms reported Psychiatric/Neurological: Denies Anxiety, Denies Depressed All Other Systems Reviewed Negative Unless Noted: Yes Physical Exam Vital Signs Vital Sign - Last 12Hours 11/17/16 15:06 Temp 96.4 Pulse 106 Resp 20 B/P (MAP) 89/64 Pulse Ox 95 O2 Delivery Nasal Cannula O2 Flow Rate 2.00 Capillary Refill : Less Than 3 Seconds General Appearance: No Apparent Distress, WD/WN Eyes: Bilateral Eye Normal Inspection, Bilateral Eye PERRL, Bilateral Eye EOMI HEENT: PERRL/EOMI Neck: Full Range of Motion, Supple Respiratory: Chest Non Tender, Decreased Breath Sounds, Wheezing Cardiovascular: Regular Rate, Rhythm, No Edema, Systolic Murmur Gastrointestinal: Soft, Tenderness (RLQ, LLQ, SUPRAPUBIC), Other (DECREASED BOWEL SOUNDS) Rectal: Deferred Back: Normal Inspection, No Vertebral Tenderness Extremity: Normal Capillary Refill, Non Tender, No Calf Tenderness, No Pedal Edema Neurologic/Psychiatric: Alert, Oriented x3, Normal Mood/Affect, postdoctoral fellow II-XII Norm as Tested (HEARING LOSS) Skin: Normal Color, Warm/Dry, Tattoos/Piercings (LARGE TATTOO LEFT NECK/ SHOULDER) Lymphatic: No Adenopathy Assessment/Plan Assessment and Plan SEPSIS HYPOTENSION DIARRHEA POOR VENOUS ACCESS ACUTE ON CHRONIC RENAL INSUFFICIENCY HYPERKALEMIA LACTIC ACIDOSIS HYPOMAGNESEMIA HYPOPHOSPHATEMIA HYPONATREMIA DIABETES MELLITUS HYPERLIPIDEMIA PT STARTED ON SEPSIS PROTOCOL. DR. DOBBS NOT AVAILABLE AT THIS TIME - WILL MANAGE PATIENT WITHOUT ICU ATTENDING INPUT. HYPOTENSION- PUSHING IV FLUIDS, PT CURRENTLY ON PRESSORS - WILL WEAN SOON ABLE. - DISCUSSED WITH NURSING STAFF - HE IS ON 5MCG PRESORS - WEANING DOWN PT HAS PRESSURE IN THE 116 - 120/60 RANGE FAIRLY CONSISTENTLY OVER THE PAST 4 HOURS HEMATOCHEZIA/DIARRHEA - CHECK STOOL STUDIES - CDIFF NEGATIVE AT THIS TIME. POOR VENOUS ACCESS - DR. REDMAN HAS BEEN CONSULTED FOR CENTRAL LINE PLACEMENT. ACUTE ON CHRONIC RENAL INSUFFICIENCY - REPLENISH FLUIDS, MONITOR SYMPTOMS, CHECK LABS IN THE MORNING. HYPERKALEMIA - RECHECK POTASSIUM NOW. - IT WAS STILL ELEVATED, PT TO BE GIVEN DOSE OF KAYEXALATE LACTIC ACIDOSIS - IMPROVED FROM ADMISSION - IT WAS 11 ON ADMIT, NOW AT 3.9 HYPONATREMIA - NORMAL SALINE IV, MONITOR LABS. HYPOMAGNESEMIA AND HYPOPHOSPHATEMIA - WILL REPLENISH MAGNESIUM AND PHOS THROUGH IV. DIABETES - STARTED ON INSULIN DRIP - WILL BE TAPERED OFF WELL ONCE BLOOD GLUCOSE READINGS ARE IMPROVED - STARTED LEVEMIR 20 UNITS HS HYPERLIPIDEMIA -HOLD HOME MEDICATIONS DVT PROPHYLAXIS WITH SCD'S - NO LOVENOX DUE TO BLOODY STOOLS GI PROPHYLAXIS WITH PROTONIX BID Problems: Admission Diagnosis SEPSIS HYPOTENSION DIARRHEA POOR VENOUS ACCESS ACUTE ON CHRONIC RENAL INSUFFICIENCY HYPERKALEMIA LACTIC ACIDOSIS HYPOMAGNESEMIA HYPOPHOSPHATEMIA HYPONATREMIA DIABETES MELLITUS HYPERLIPIDEMIA Clinical Quality Measures DVT/VTE Risk/Contraindication: Risk Factor Score Per Nursin RFS Level Per Nursing on Admit: 4+=Very High MOISÉS ALFARO MD Nov 18, 2016 08:26
[2016-11-18] MEDS ORDERED: INSU100V6 SC (08:29)
[2016-11-18] MEDS ORDERED: CALC-6 PO (08:29)
[2016-11-18] MEDS ORDERED: AMIT50TA3 PO (08:29)
[2016-11-18] MEDS ORDERED: INSU100V16 SC (08:29)
[2016-11-18] MEDS ORDERED: MULT-35 PO (08:29)
--- NOTE | 2016-11-18 08:51 | Diagnostic Imaging Report ---
EXAMINATION: Portable upright radiograph of the chest. INDICATION: Dyspnea. FINDINGS: The lungs are clear. The heart size is mildly enlarged. There is a left opacity near the cardiac apex, likely from a prominent pericardial fat pad. No definite pleural effusion. No pneumothorax. There is a right internal jugular venous line with the tip at the SVC level. IMPRESSION: Cardiomegaly. Dictated by: Dictated on workstation # [id number]
[2016-11-18] MEDS ORDERED: SODIUM PHOSPHATE INJ 15 MM in NS (IVPB) 100 ML IV ONE ×2 (09:00→14:00)
[2016-11-18] MEDS ORDERED: PIPERACILLIN/TAZOBACTAM 4.5 GM/NS100 ML IVPB IV NR ×2 (09:11)
[2016-11-18 09:53] LABS: ALBUMIN 2.4 GM/DL (3.2-4.5); CREATININE SERUM 1.94 MG/DL (0.60-1.30); PHOSPHORUS 1.7 MG/DL (2.3-4.7); POTASSIUM 6.1 MMOL/L (3.6-5.0)
[2016-11-18] MEDS: NOREPINEPHRINE 4 MG in D5W 250 ML (IVPB) 250 ML IV SCH ×3 (10:04→21:19)
[2016-11-18] MEDS: PANTOPRAZOLE 40 MG/10 ML (PROTONIX) VIAL IV SCH ×2 (10:18→20:57)
[2016-11-18] MEDS ORDERED: SOD POLYSTERENE 15 GM/60 ML (KAYEXALATE) UNIT DOSE PO NR (11:45)
--- NOTE | 2016-11-18 11:47 | Progress Note ---
Subjective Time Seen by Provider: 11:22 Subjective/Events-last exam Pt seen and examined. He states he is doing ok, did have small BM today. He thinks he does have a little bit more abdominal pain today, compared to yesterday. Nurse states the BM was runny and may have looked "possibly a little bloody". Pt rates pain as 4 out of 10. Review of Systems General: Chills, Fatigue HEENT: No Dysphasia, No Sore Throat Pulmonary: No Dyspnea, No Cough Cardiovascular: No: Palpitations Gastrointestinal: Abdominal Pain, Diarrhea, Constipation, Hematochezia Genitourinary: Frequency, Incontinence Objective Exam Vital Signs Date Time Temp Pulse Resp B/P (MAP) Pulse Ox O2 Delivery O2 Flow Rate FiO2 11/18/16 11:00 99.6 93 28 99/59 98 Nasal Cannula 2.00 11/18/16 09:44 Nasal Cannula 2.00 11/18/16 08:22 99.2 11/18/16 08:00 Nasal Cannula 2.00 11/18/16 07:00 94 11/18/16 06:00 93 101/47 98 Nasal Cannula 2.00 11/18/16 05:00 98 29 91/64 98 Nasal Cannula 2.00 11/18/16 04:00 Nasal Cannula 2.00 11/18/16 04:00 98 36 120/45 97 Nasal Cannula 2.00 11/18/16 03:00 99 33 92/81 98 Nasal Cannula 2.00 11/18/16 02:28 94 Nasal Cannula 2.00 11/18/16 02:00 102 31 105/64 98 Nasal Cannula 2.00 11/18/16 01:13 103 11/18/16 01:00 102 30 122/53 98 Nasal Cannula 2.00 11/18/16 00:00 Nasal Cannula 2.00 11/18/16 00:00 105 29 106/80 98 Nasal Cannula 2.00 11/18/16 00:00 97.4 11/17/16 23:00 Nasal Cannula 2.00 11/17/16 23:00 103 19 114/54 99 Nasal Cannula 2.00 11/17/16 22:00 105 12 103/63 Nasal Cannula 2.00 11/17/16 21:45 96 Nasal Cannula 2.00 11/17/16 21:00 111 12 87/57 Nasal Cannula 2.00 11/17/16 20:00 Nasal Cannula 2.00 11/17/16 20:00 112 32 100/82 Nasal Cannula 2.00 11/17/16 19:46 97.2 Nasal Cannula 2.00 11/17/16 19:10 109 11/17/16 19:00 111 21 113/78 Nasal Cannula 2.00 11/17/16 18:40 97.0 112 14 108/51 96 Nasal Cannula 2.00 11/17/16 18:32 96.4 106 20 95 Nasal Cannula 2.00 11/17/16 15:10 95 Nasal Cannula 2.00 11/17/16 15:06 96.4 106 20 89/64 95 Nasal Cannula 2.00 I & O 11/19/16 07:00 Intake Total 600 ml Output Total 1450 ml Balance -850 ml Capillary Refill : Less Than 3 Seconds General Appearance: WD/WN, Mild Distress, Other HEENT: PERRL/EOMI, Pharynx Normal Neck: Normal Inspection, No Thyromegaly Respiratory: Lungs Clear, Normal Breath Sounds, No Accessory Muscle Use, No Respiratory Distress Cardiovascular: Regular Rate, Rhythm, No Edema Gastrointestinal: soft, no organomegaly, tenderness (more so today compared to yesterday and mostly RLQ and suprapubic, some LLQ) Extremity: No Pedal Edema Neurologic/Psychiatric: Alert, Oriented x3, No Motor/Sensory Deficits, 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 Norm as Tested Results Lab Laboratory Tests 11/17/16 15:10: White Blood Count 20.9H, Red Blood Count 4.79, Hemoglobin 13.6, Hematocrit 42, Mean Corpuscular Volume 89, Mean Corpuscular Hemoglobin 28, Mean Corpuscular Hemoglobin Concent 32, Red Cell Distribution Width 13.0, Platelet Count 265, Mean Platelet Volume 9.2, Neutrophils (%) (Auto) 75, Lymphocytes (%) (Auto) 15, Monocytes (%) (Auto) 9, Eosinophils (%) (Auto) 0, Basophils (%) (Auto) 0, Neutrophils # (Auto) 15.7H, Lymphocytes # (Auto) 3.2, Monocytes # (Auto) 1.9H, Eosinophils # (Auto) 0.0, Basophils # (Auto) 0.0, Neutrophils % (Manual) 50, Lymphocytes % (Manual) 28, Monocytes % (Manual) 7, Eosinophils % (Manual) 0, Basophils % (Manual) 0, Band Neutrophils 5, Blood Morphology Comment NORMAL, Prothrombin Time 17.6H, INR Comment 1.4, Activated Partial Thromboplast Time 35 , Sodium Level 137, Potassium Level 3.9, Chloride Level 101, Carbon Dioxide Level 15L, Anion Gap 21H, Blood Urea Nitrogen 27H, Creatinine 2.33H, Estimat Glomerular Filtration Rate 27, BUN/Creatinine Ratio 12, Glucose Level 257H, Lactic Acid Level 11.06*H, Calcium Level 10.5H, Total Bilirubin 0.5, Aspartate Amino Transf (AST/SGOT) 35H, Alanine Aminotransferase (ALT/SGPT) 25, Alkaline Phosphatase 77, Total Protein 7.6, Albumin 3.8 11/17/16 16:00: Urine Color YELLOW, Urine Clarity CLEAR, Urine pH 6, Urine Specific [place] 1.015L, Urine Protein NEGATIVE, Urine Glucose (UA) NEGATIVE, Urine Ketones NEGATIVE, Urine Nitrite NEGATIVE, Urine Bilirubin NEGATIVE, Urine Urobilinogen NORMAL, Urine Leukocyte Esterase NEGATIVE, Urine RBC (Auto) NEGATIVE, Urine RBC NONE, Urine WBC NONE, Urine Squamous Epithelial Cells 0-2, Urine Crystals NONE, Urine Bacteria NONE, Urine Casts NONE, Urine Mucus NEGATIVE, Urine Culture Indicated NO 11/17/16 17:45: Stool Occult Blood Immunoassay POSITIVEH 11/17/16 18:20: Lactic Acid Level 6.65*H 11/17/16 19:54: Glucometer 261H 11/17/16 21:05: Lactic Acid Level 7.20*H 11/17/16 23:30: Lactic Acid Level 5.94*H 11/18/16 00:16: Glucometer 240H 11/18/16 03:59: Glucometer 344H 11/18/16 04:27: White Blood Count 14.2H, Red Blood Count 4.02L, Hemoglobin 11.7L, Hematocrit 35L , Mean Corpuscular Volume 87, Mean Corpuscular Hemoglobin 29, Mean Corpuscular Hemoglobin Concent 33, Red Cell Distribution Width 12.7, Platelet Count 214, Mean Platelet Volume 9.8, Neutrophils (%) (Auto) 85H, Lymphocytes (%) (Auto) 8L , Monocytes (%) (Auto) 7, Eosinophils (%) (Auto) 0, Basophils (%) (Auto) 0, Neutrophils # (Auto) 12.1H, Lymphocytes # (Auto) 1.1, Monocytes # (Auto) 1.0, Eosinophils # (Auto) 0.0, Basophils # (Auto) 0.0, Prothrombin Time 16.4H, INR Comment 1.3, Activated Partial Thromboplast Time 32, Sodium Level 128L, Potassium Level 6.9#*H, Chloride Level 106, Carbon Dioxide Level 12L, Anion Gap 10, Blood Urea Nitrogen 41H, Creatinine 2.13H, Estimat Glomerular Filtration Rate 30, BUN/Creatinine Ratio 19, Glucose Level 374H, Lactic Acid Level 5.04*H, Calcium Level 7.1L, Phosphorus Level 1.7L, Magnesium Level 1.5L, Total Bilirubin 0.4, Aspartate Amino Transf (AST/SGOT) 32, Alanine Aminotransferase ( ALT/SGPT) 21, Alkaline Phosphatase 40, B-Type Natriuretic Peptide 190.5H, Total Protein 4.8L, Albumin 2.5L 11/18/16 05:58: Glucometer 297H 11/18/16 06:45: Lactic Acid Level 3.90*H 11/18/16 09:30: Sodium Level 126L, Potassium Level 6.1H, Chloride Level 104, Carbon Dioxide Level 16L, Anion Gap 6, Blood Urea Nitrogen 43H, Creatinine 1.94H, Estimat Glomerular Filtration Rate 34, BUN/Creatinine Ratio 22, Glucose Level 303H, Calcium Level 7.0L, Phosphorus Level 1.7L, Albumin 2.4L Microbiology 11/17/16 C. difficile GDH Antigen & Toxins - Final, Complete Assessment/Plan Assessment/Plan Assessment/Plan 1. Colitis on CT - because of the cyclical nature of this, I am leaning more toward an ischemic colitis that occurs with dehydration, etc. 2. Hypotension/Sepsis - improving with IV fluids and ABX, still needing some Levophed 3. Venous Insufficiency- central line placed and being used 4. Acute on Chronic Renal Failure - somewhat better but Cr still basically 2 today, continue fluids gently 5. Leukocytosis - improving 6. Elevated Lactic Acid - coming down 7. Dehydration Pt has thickened colon on CT (per radiologist); no free air, free fluid and no mention of pneumotosis. Hemoccult positive, C. Diff study pending. He needs maximal medical managment. He will need a colonoscopy; timing will be the main question (most likely better to do as outpt, but not wait to long to see if we can get a look at the intestinal thickening). At this point he does not need any surgery. Dr. Walker will cover over the weekend. Clinical Quality Measures DVT/VTE Risk/Contraindication: Risk Factor Score Per Nursin RFS Level Per Nursing on Admit: 4+=Very High Contraindications-Pharm: Other *list below* Other: PT HAD HEMATOCHEZIA ON ADMISSION - CONTRAINDICATION FOR LOVENOX DIDI REDMAN DO Nov 18, 2016 11:47
[2016-11-18] MEDS: methylPREDNISolone 40 MG/ML (Solu-MEDROL) VIAL IV SCH ×3 (12:20→23:21)
--- NOTE | 2016-11-18 12:59 | OPERATIVE REPORT ---
DATE OF SERVICE: 11/17/2016 PREOPERATIVE DIAGNOSES: 1. Hypertension. 2. Sepsis. 3. Venous insufficiency. 4. Colitis. 5. Acute renal failure. 6. Leukocytosis. POSTOPERATIVE DIAGNOSES: 1. Hypertension. 2. Sepsis. 3. Venous insufficiency. 4. Colitis. 5. Acute renal failure. 6. Leukocytosis. PROCEDURE: Insertion of central line right IJ with ultrasound guidance. SURGEON: Dr. Berger. HELMET BINDER: None. ANESTHESIA: Local lidocaine. BLOOD LOSS: Scant. FLUIDS: None. SPECIMENS: None. INDICATION FOR PROCEDURE: The patient is a 75-year-old male who came in with sepsis, constipation, colitis, leukocytosis, hypotension, unable to keep his blood pressure up after fluids, needed a central line and also was having a little bit of abdominal pain. FINDINGS: The patient had a right IJ placed with ultrasound guidance. PROCEDURE NOTE: After informed consent was obtained, the patient was in his bed. He was sterilely prepped and draped in normal fashion. Local lidocaine was used to infiltrate the skin in the neck. Then using an ultrasound probe, watched the needle go into the right IJ. Good flash of blood. Removed the syringe, placed a guidewire down the needle using the Seldinger technique. I checked with ultrasound and I could see the guidewire down the IJ. Removed the needle. At this point then made a stab incision with an #11 blade and then over the guidewire using the Seldinger technique, advanced the dilator. I then removed the dilator and then over the guidewire placed the triple lumen catheter using Seldinger technique. It went in easily. Removed the guidewire and then easily aspirated. Good aspiration of blood and then flushed easily in all 3 ports. Sutured the central line in place with a 2-0 silk suture. Area was then cleaned and dried and the nurse placed the Op-Site with the circular antibiotic sponge around the central line. The patient tolerated the procedure. Job ID: [id number] DocumentID: [id number] Dictated Date: 11/18/2016 00:18:22 Coagulating Bath Mixer Date: 11/18/2016 12:59:18 Dictated By: DIDI BERGER DO
[2016-11-18] MEDS: PIPERACILLIN SODIUM/TAZOBACTAM 4.5 GM in NS (IVPB) 100 ML IV SCH ×2 (15:14→23:21)
[2016-11-18] MEDS ORDERED: VANCOMYCIN 1500 MG/NS 500 ML IVPB IV SCH ×2 (18:00)
[2016-11-18] MEDS: inSUlin DETERMIR 1 UNIT/0.01 ML (LEVEMIR) CHARGE PER UNIT SQ SCH (21:19)
[2016-11-19] VITALS (24 sets, daily range): BP systolic 96–145; BP diastolic 45–103
[2016-11-19] MEDS: PHENYLEPHRINE INJECTION 10 MG in D5W 250 ML (IVPB) 250 ML IV SCH ×5 (03:53→20:14)
[2016-11-19] MEDS: NOREPINEPHRINE 4 MG in D5W 250 ML (IVPB) 250 ML IV SCH ×3 (03:53→18:59)
[2016-11-19 04:28] LABS: BASOPHILS % (AUTO) 0 % (0-10); EOSINOPHILS % (AUTO) 0 % (0-10); LYMPHOCYTES # (AUTO) 0.8 X 10^3 (1.0-4.0); LYMPHOCYTES % (AUTO) 6 % (12-44); MEAN CORPUSCULAR HEMOGLOBIN 29 PG (25-34); MEAN CORPUSCULAR HGB CONC 34 G/DL (32-36); MEAN CORPUSCULAR VOLUME 85 FL (80-99); MEAN PLATELET VOLUME 9.3 FL (7.4-10.4); MONOCYTES # (AUTO) 0.8 X 10^3 (0.0-1.0); MONOCYTES % (AUTO) 5 % (0-12); NEUTROPHILS # (AUTO) 12.4 X 10^3 (1.8-7.8); NEUTROPHILS % (AUTO) 89 % (42-75); PLATELET COUNT 159 10^3/uL (130-400); RED BLOOD COUNT 3.49 10^6/uL (4.35-5.85); RED CELL DISTRIBUTION WIDTH 12.9 % (10.0-14.5)
[2016-11-19 04:39] LABS: INR 1.3 (0.8-1.4); PROTHROMBIN TIME PATIENT 15.8 SEC (12.2-14.7)
[2016-11-19 04:50] LABS: ALBUMIN 2.4 GM/DL (3.2-4.5); BILIRUBIN,TOTAL 0.6 MG/DL (0.1-1.0); CREATININE SERUM 1.73 MG/DL (0.60-1.30); MAGNESIUM 1.7 MG/DL (1.8-2.4); PHOSPHORUS 3.5 MG/DL (2.3-4.7); POTASSIUM 4.7 MMOL/L (3.6-5.0); TOTAL PROTEIN 4.5 GM/DL (6.4-8.2)
[2016-11-19] MEDS: KCL 20 MEQ TAB (K-DUR) PO SCH (05:08)
[2016-11-19] MEDS: POTASSIUM CL 10MEQ/50ML IVPB 50 ML IV SCH (05:08)
[2016-11-19] MEDS: methylPREDNISolone 40 MG/ML (Solu-MEDROL) VIAL IV SCH ×3 (05:19→18:58)
[2016-11-19] MEDS: inSUlin (REGULAR) HUMAN 1 UNIT/0.01 ML (CHARGE PER UNIT) SC SCH ×4 (05:20→21:19)
[2016-11-19] MEDS: NS IV 1000 ML 1,000 ML IV SCH ×3 (05:21→21:19)
[2016-11-19] MEDS: PIPERACILLIN SODIUM/TAZOBACTAM 4.5 GM in NS (IVPB) 100 ML IV SCH ×2 (06:08→15:41)
[2016-11-19] MEDS: MAGNESIUM 1 GM/100 ML IVPB 100 ML IV SCH (06:10)
--- NOTE | 2016-11-19 07:37 | Diagnostic Imaging Report ---
INDICATION: Shortness of breath COMPARISON: 11/18/16 FINDINGS: Single view of the chest demonstrates stable right IJ catheter. The heart is prominent without overt pulmonary edema. There is some basilar atelectasis without infiltrate or effusion. There is no pneumothorax. IMPRESSION: 1. Cardiac enlargement without pulmonary edema 2. New basilar atelectasis Dictated by: Dictated on workstation # [id number]
[2016-11-19] MEDS: PANTOPRAZOLE 40 MG/10 ML (PROTONIX) VIAL IV SCH ×2 (08:39→21:19)
--- NOTE | 2016-11-19 11:00 | Progress Note (SOAP) ---
Subjective Date Seen by Provider: Nov 19, 2016 Time Seen by Provider: 10:50 Subjective/Events-last exam doing better. minimal abdominal pain. mutiple liquid BM's. Objective Exam Vital Signs Date Time Temp Pulse Resp B/P (MAP) Pulse Ox O2 Delivery O2 Flow Rate FiO2 11/19/16 09:00 101 10 145/85 99 Nasal Cannula 2.00 11/19/16 08:00 105 24 120/58 96 Nasal Cannula 2.00 11/19/16 07:30 Nasal Cannula 2.00 11/19/16 07:30 97.3 Nasal Cannula 2.00 11/19/16 07:00 101 11/19/16 07:00 105 26 127/60 96 Nasal Cannula 2.00 11/19/16 06:00 101 26 114/61 98 Nasal Cannula 2.00 11/19/16 05:00 101 112/62 97 Nasal Cannula 2.00 11/19/16 04:00 96 Nasal Cannula 2.00 11/19/16 04:00 99.3 101 111/54 96 Nasal Cannula 2.00 11/19/16 03:00 102 124/68 96 Nasal Cannula 2.00 11/19/16 02:00 101 134/45 97 Nasal Cannula 2.00 11/19/16 01:00 102 11/19/16 01:00 102 18 105/67 97 Nasal Cannula 2.00 11/19/16 00:00 96 Nasal Cannula 2.00 11/19/16 00:00 98.7 103 31 99/52 96 Nasal Cannula 2.00 11/18/16 23:02 105 29 98/67 97 Nasal Cannula 2.00 11/18/16 22:07 Nasal Cannula 2.00 11/18/16 22:01 107 35 121/77 98 Nasal Cannula 2.00 11/18/16 21:00 105 30 117/55 98 Nasal Cannula 2.00 11/18/16 20:00 96 Nasal Cannula 2.00 11/18/16 20:00 97 29 120/40 98 Nasal Cannula 2.00 11/18/16 20:00 98.2 11/18/16 19:00 97 31 142/54 97 Nasal Cannula 2.00 11/18/16 19:00 97 11/18/16 18:00 93 27 95/71 98 Nasal Cannula 2.00 11/18/16 17:00 98 29 107/65 Nasal Cannula 2.00 11/18/16 16:20 97.4 Nasal Cannula 2.00 11/18/16 16:20 Nasal Cannula 2.00 11/18/16 16:00 92 27 102/55 Nasal Cannula 2.00 11/18/16 15:00 96 22 111/67 96 Nasal Cannula 2.00 11/18/16 14:00 99 30 120/62 96 Nasal Cannula 2.00 11/18/16 13:00 98 11/18/16 13:00 96 18 115/66 97 Nasal Cannula 2.00 11/18/16 12:45 98 22 117/62 98 Nasal Cannula 2.00 11/18/16 12:30 93 15 115/65 95 Nasal Cannula 2.00 11/18/16 12:15 99.0 98 35 117/62 98 Nasal Cannula 2.00 11/18/16 12:00 Nasal Cannula 2.00 11/18/16 12:00 101 35 117/62 98 Nasal Cannula 2.00 11/18/16 11:45 98 16 100/74 96 Nasal Cannula 2.00 11/18/16 11:30 96 17 90/52 97 Nasal Cannula 2.00 11/18/16 11:15 96 14 99/59 97 Nasal Cannula 2.00 11/18/16 11:00 99.6 93 28 99/59 98 Nasal Cannula 2.00 I & O 11/20/16 07:00 Intake Total 100 ml Output Total 400 ml Balance -300 ml Capillary Refill : Less Than 3 Seconds General Appearance: No Apparent Distress HEENT: PERRL/EOMI Neck: Full Range of Motion Respiratory: Chest Non Tender, Rales Cardiovascular: Regular Rate, Rhythm Gastrointestinal: normal bowel sounds, soft Extremity: Normal Capillary Refill Neurologic/Psychiatric: Alert, Oriented x3 Skin: Normal Color Lymphatic: No Adenopathy Results Lab Laboratory Tests 11/18/16 11:13: Glucometer 225H 11/18/16 12:01: Glucometer 252H 11/18/16 12:11: Lactic Acid Level 2.17*H 11/18/16 12:58: Glucometer 180H 11/18/16 14:06: Glucometer 134H 11/18/16 14:55: Glucometer 100 11/18/16 14:56: Lactic Acid Level 2.08*H 11/18/16 16:20: Glucometer 70 11/18/16 16:52: Glucometer 75 11/18/16 17:24: Glucometer 84 11/18/16 18:24: Glucometer 98 11/18/16 19:00: Lactic Acid Level 1.84 11/18/16 19:26: Glucometer 132H 11/18/16 21:01: Glucometer 178H 11/18/16 23:18: Glucometer 208H 11/19/16 04:20: White Blood Count 14.0H, Red Blood Count 3.49L, Hemoglobin 10.1L, Hematocrit 30L , Mean Corpuscular Volume 85, Mean Corpuscular Hemoglobin 29, Mean Corpuscular Hemoglobin Concent 34, Red Cell Distribution Width 12.9, Platelet Count 159, Mean Platelet Volume 9.3, Neutrophils (%) (Auto) 89H, Lymphocytes (%) (Auto) 6L , Monocytes (%) (Auto) 5, Eosinophils (%) (Auto) 0, Basophils (%) (Auto) 0, Neutrophils # (Auto) 12.4H, Lymphocytes # (Auto) 0.8L, Monocytes # (Auto) 0.8, Eosinophils # (Auto) 0.0, Basophils # (Auto) 0.0, Prothrombin Time 15.8H, INR Comment 1.3, Activated Partial Thromboplast Time 32, Sodium Level 131L, Potassium Level 4.7, Chloride Level 110H, Carbon Dioxide Level 14L, Anion Gap 7 , Blood Urea Nitrogen 41H, Creatinine 1.73H, Estimat Glomerular Filtration Rate 38, BUN/Creatinine Ratio 24, Glucose Level 254H, Lactic Acid Level 1.58, Calcium Level 7.0L, Phosphorus Level 3.5, Magnesium Level 1.7L, Total Bilirubin 0.6, Aspartate Amino Transf (AST/SGOT) 34, Alanine Aminotransferase (ALT/SGPT) 18, Alkaline Phosphatase 36L, Total Protein 4.5L, Albumin 2.4L Microbiology 11/17/16 Blood Culture - Preliminary, Resulted No growth 11/17/16 C. difficile GDH Antigen & Toxins - Final, Complete Assessment/Plan Assessment/Plan Assess & Plan/Chief Complaint ischemic colitis. continue abx. advance diet. Clinical Quality Measures DVT/VTE Risk/Contraindication: Risk Factor Score Per Nursin RFS Level Per Nursing on Admit: 4+=Very High Contraindications-Pharm: Other *list below* Other: PT HAD HEMATOCHEZIA ON ADMISSION - CONTRAINDICATION FOR LOVENOX MARCELINO RENE MD Nov 19, 2016 11:00
--- NOTE | 2016-11-19 11:59 | Progress Note-Hospitalist ---
Progress Note Progress Notes/Assess & Plan Date Seen 11/19/16 Time Seen by Provider: 11:20 Diagonsis/Assessment & Plan PATIENT DOING MUCH BETTER AND HAS NO ABDOMINAL PAIN CONFERRED WITH RN WHO SPOKE WITH DR. WALKER AND EVERYTHING STABLE ON HIS AND LOOKS MORE MORE LIKE ISCHEMIC COLITIS EPISODES THAT CAUSED THE SEVERELY ELEVATED LACTIC ACID AND SEPSIS WITH NEGATIVE WORKUP IN THE PAST AND BLOODY STOOLS STILL WITH LOOSE STOOLS WORKUP NEGATIVE THUS FAR AFVSS, pleasant, improved, pale, chronically ill RRR, CTAB no rales noted No edema Laboratory Tests 11/19/16 04:[address] Alfaro notes: PT STARTED ON SEPSIS PROTOCOL. EICU FOLLOWING HYPOTENSION- S/P 7 LITERS OF IV FLUIDS ON ADMIT NOW AT 125CC/HR, PT CURRENTLY OFF PRESSORS - DISCUSSED WITH NURSING STAFF - PT HAS PRESSURE IN THE 97/56 AND STABLE HEMATOCHEZIA/DIARRHEA - NEGATIVE STOOL STUDIES THUS FAR - C DIFF NEGATIVE- APPEARS TO BE ISCHEMIC COLITIS EPISODES PER DR WALKER. POOR VENOUS ACCESS - DR. REDMAN PLACED RIJ CENTRAL LINE ON ADMIT. ACUTE ON CHRONIC RENAL INSUFFICIENCY - CONTINUE TO REPLENISH FLUIDS, MONITOR SYMPTOMS, CHECK LABS IN THE MORNING. CREAT 1.73 TODAY HYPERKALEMIA - S/P KAYEXALATE DOSE NOW 4.7 LACTIC ACIDOSIS - IMPROVED FROM ADMISSION - IT WAS 11 ON ADMIT, NOW AT 1.58 HYPONATREMIA - NORMAL SALINE IV, MONITOR LABS. 131 TODAY HYPOMAGNESEMIA AND HYPOPHOSPHATEMIA - WILL REPLENISH MAGNESIUM AND PHOS THROUGH IV PER PROTOCOL BUT GENTLY DUE TO RENAL INSUFF DIABETES - S/P INSULIN DRIP - WILL BE TAPERED OFF WELL ONCE BLOOD GLUCOSE READINGS ARE IMPROVED - STARTED LEVEMIR 20 UNITS HS HYPERLIPIDEMIA -HOLD HOME MEDICATIONS DVT PROPHYLAXIS WITH SCD'S - NO LOVENOX DUE TO BLOODY STOOLS GI PROPHYLAXIS WITH PROTONIX BID Plan: Continue IVF Monitor labs Monitor respiratory status Pain control Assessment and Plan Problems: (1) Hyperglycemia, unspecified Status: Acute Assessment & Plan: On Insulin drip Lantus added (2) Severe sepsis Status: Acute Assessment & Plan: s/p protocol of aggressive IVF of 7 liters NS 125cc/hr currently (3) Colitis Status: Acute Assessment & Plan: Conservative approach currently Dr Walker help appreciated Hold Lovenox due to bloody stools (4) Acute on chronic renal failure Status: Acute Qualifiers: Qualified Codes: N17.9 - Acute kidney failure, unspecified; N18.9 - Chronic kidney disease, unspecified Assessment & Plan: IVF improved (5) Hypotension Status: Acute Qualifiers: Qualified Codes: I95.9 - Hypotension, unspecified Assessment & Plan: due to sepsis (6) Leukocytosis Status: Acute Qualifiers: Qualified Codes: D72.829 - Elevated white blood cell count, unspecified JAIMIE VALENCIA DO Nov 19, 2016 11:59
[2016-11-19] MEDS: inSUlin DETERMIR 1 UNIT/0.01 ML (LEVEMIR) CHARGE PER UNIT SQ SCH (21:19)
[2016-11-20] VITALS (13 sets, daily range): BP systolic 121–162; BP diastolic 67–99
[2016-11-20] MEDS: methylPREDNISolone 40 MG/ML (Solu-MEDROL) VIAL IV SCH ×3 (00:44→20:22)
[2016-11-20] MEDS: PIPERACILLIN SODIUM/TAZOBACTAM 4.5 GM in NS (IVPB) 100 ML IV SCH ×4 (00:44→23:04)
[2016-11-20] MEDS: PHENYLEPHRINE INJECTION 10 MG in D5W 250 ML (IVPB) 250 ML IV SCH ×3 (00:46→09:15)
[2016-11-20] MEDS: NOREPINEPHRINE 4 MG in D5W 250 ML (IVPB) 250 ML IV SCH ×2 (01:09→07:30)
[2016-11-20 04:59] LABS: BASOPHILS % (AUTO) 0 % (0-10); EOSINOPHILS % (AUTO) 0 % (0-10); LYMPHOCYTES # (AUTO) 0.7 X 10^3 (1.0-4.0); LYMPHOCYTES % (AUTO) 6 % (12-44); MEAN CORPUSCULAR HEMOGLOBIN 29 PG (25-34); MEAN CORPUSCULAR HGB CONC 34 G/DL (32-36); MEAN CORPUSCULAR VOLUME 85 FL (80-99); MEAN PLATELET VOLUME 9.7 FL (7.4-10.4); MONOCYTES # (AUTO) 0.8 X 10^3 (0.0-1.0); MONOCYTES % (AUTO) 6 % (0-12); NEUTROPHILS # (AUTO) 11.8 X 10^3 (1.8-7.8); NEUTROPHILS % (AUTO) 88 % (42-75); PLATELET COUNT 156 10^3/uL (130-400); RED BLOOD COUNT 3.13 10^6/uL (4.35-5.85); RED CELL DISTRIBUTION WIDTH 12.9 % (10.0-14.5); WHITE BLOOD COUNT 13.4 10^3/uL (4.3-11.0)
[2016-11-20 05:08] LABS: INR 1.1 (0.8-1.4); PROTHROMBIN TIME PATIENT 14.4 SEC (12.2-14.7)
[2016-11-20 05:19] LABS: ALBUMIN 2.4 GM/DL (3.2-4.5); BILIRUBIN,TOTAL 0.4 MG/DL (0.1-1.0); CALCIUM 6.8 MG/DL (8.5-10.1); CREATININE SERUM 1.29 MG/DL (0.60-1.30); MAGNESIUM 1.6 MG/DL (1.8-2.4); PHOSPHORUS 2.1 MG/DL (2.3-4.7); POTASSIUM 3.7 MMOL/L (3.6-5.0); TOTAL PROTEIN 4.7 GM/DL (6.4-8.2)
[2016-11-20] MEDS: POTASSIUM CL 10MEQ/50ML IVPB 50 ML IV SCH (05:57)
[2016-11-20] MEDS: KCL 20 MEQ TAB (K-DUR) PO SCH (05:57)
[2016-11-20] MEDS: MAGNESIUM 1 GM/100 ML IVPB 100 ML IV SCH ×3 (05:59→07:30)
[2016-11-20] MEDS: NS IV 1000 ML 1,000 ML IV SCH (06:11)
[2016-11-20] MEDS: inSUlin (REGULAR) HUMAN 1 UNIT/0.01 ML (CHARGE PER UNIT) SC SCH ×4 (06:11→21:16)
--- NOTE | 2016-11-20 09:50 | Progress Note (SOAP) ---
Subjective Date Seen by Provider: Nov 20, 2016 Time Seen by Provider: 09:45 Subjective/Events-last exam doing better. tolerating soft diet. still having loose brown BM's. no fever/ chills. Objective Exam Vital Signs Date Time Temp Pulse Resp B/P (MAP) Pulse Ox O2 Delivery O2 Flow Rate FiO2 11/20/16 08:00 98 Nasal Cannula 1.00 11/20/16 08:00 99 11/20/16 07:10 Nasal Cannula 3.00 11/20/16 07:00 96 11/20/16 07:00 98.9 99 17 149/72 94 Nasal Cannula 1.00 11/20/16 06:00 102 21 151/81 99 Nasal Cannula 1.00 11/20/16 05:00 104 24 156/84 99 Nasal Cannula 1.00 11/20/16 04:00 99 Nasal Cannula 1.00 11/20/16 04:00 102 14 151/70 99 Nasal Cannula 1.00 11/20/16 04:00 98.0 11/20/16 03:00 103 35 133/70 100 Nasal Cannula 1.00 11/20/16 02:00 104 23 121/73 100 Nasal Cannula 1.00 11/20/16 01:00 102 11/20/16 01:00 101 26 124/79 99 Nasal Cannula 1.00 11/20/16 00:47 97.2 11/20/16 00:00 97 Nasal Cannula 1.00 11/20/16 00:00 107 19 98 Nasal Cannula 1.00 11/19/16 23:00 106 28 142/87 97 Nasal Cannula 1.00 11/19/16 22:00 101 25 121/81 99 Nasal Cannula 1.00 11/19/16 21:00 108 10 116/103 97 Nasal Cannula 1.00 11/19/16 20:10 98.1 103 24 123/69 98 Nasal Cannula 1.00 11/19/16 20:00 98 Nasal Cannula 1.00 11/19/16 19:00 104 11/19/16 19:00 104 23 123/58 99 Nasal Cannula 1.00 11/19/16 18:00 104 24 125/68 97 Nasal Cannula 1.00 11/19/16 17:00 105 20 124/82 97 Nasal Cannula 1.00 11/19/16 16:13 98.8 Nasal Cannula 1.00 11/19/16 16:00 102 10 109/79 97 Nasal Cannula 1.00 11/19/16 15:00 105 12 106/58 97 Nasal Cannula 1.00 11/19/16 14:00 102 20 123/66 97 Nasal Cannula 1.00 11/19/16 13:00 103 11/19/16 13:00 103 14 126/64 98 Nasal Cannula 1.00 11/19/16 12:00 99 12 109/62 98 Nasal Cannula 1.00 11/19/16 11:37 99 Nasal Cannula 1.00 11/19/16 11:36 97.6 Nasal Cannula 2.00 11/19/16 11:00 100 24 96/69 98 Nasal Cannula 2.00 11/19/16 10:00 100 20 116/50 98 Nasal Cannula 2.00 Capillary Refill : Less Than 3 Seconds General Appearance: No Apparent Distress HEENT: PERRL/EOMI Neck: Full Range of Motion Respiratory: Rales, Rhonci Cardiovascular: Regular Rate, Rhythm Gastrointestinal: soft, tenderness Extremity: Normal Capillary Refill Neurologic/Psychiatric: Alert, Oriented x3 Skin: Normal Color Lymphatic: No Adenopathy Results Lab Laboratory Tests 11/19/16 11:21: Glucometer 244H 11/19/16 16:12: Glucometer 243H 11/19/16 20:48: Glucometer 246H 11/20/16 04:50: White Blood Count 13.4H, Red Blood Count 3.13L, Hemoglobin 9.1L, Hematocrit 27L , Mean Corpuscular Volume 85, Mean Corpuscular Hemoglobin 29, Mean Corpuscular Hemoglobin Concent 34, Red Cell Distribution Width 12.9, Platelet Count 156, Mean Platelet Volume 9.7, Neutrophils (%) (Auto) 88H, Lymphocytes (%) (Auto) 6L , Monocytes (%) (Auto) 6, Eosinophils (%) (Auto) 0, Basophils (%) (Auto) 0, Neutrophils # (Auto) 11.8H, Lymphocytes # (Auto) 0.7L, Monocytes # (Auto) 0.8, Eosinophils # (Auto) 0.0, Basophils # (Auto) 0.0, Prothrombin Time 14.4, INR Comment 1.1, Activated Partial Thromboplast Time 27, Sodium Level 136, Potassium Level 3.7, Chloride Level 114H, Carbon Dioxide Level 15L, Anion Gap 7 , Blood Urea Nitrogen 30H, Creatinine 1.29, Estimat Glomerular Filtration Rate 54, BUN/Creatinine Ratio 23, Glucose Level 188H, Lactic Acid Level 0.77, Calcium Level 6.8L, Phosphorus Level 2.1L, Magnesium Level 1.6L, Total Bilirubin 0.4, Aspartate Amino Transf (AST/SGOT) 30, Alanine Aminotransferase ( ALT/SGPT) 19, Alkaline Phosphatase 35L, Total Protein 4.7L, Albumin 2.4L Microbiology 11/17/16 Blood Culture - Preliminary, Resulted No growth 11/17/16 C. difficile GDH Antigen & Toxins - Final, Complete Assessment/Plan Assessment/Plan Assess & Plan/Chief Complaint ischemic colitis. continue abx. advance diet. transfer to floor. Clinical Quality Measures DVT/VTE Risk/Contraindication: Risk Factor Score Per Nursin RFS Level Per Nursing on Admit: 4+=Very High Contraindications-Pharm: Other *list below* Other: PT HAD HEMATOCHEZIA ON ADMISSION - CONTRAINDICATION FOR LOVENOX MARCELINO RENE MD Nov 20, 2016 09:50
[2016-11-20] MEDS: PANTOPRAZOLE 40 MG/10 ML (PROTONIX) VIAL IV SCH (09:51)
--- NOTE | 2016-11-20 10:17 | Diagnostic Imaging Report ---
INDICATION: Dyspnea. TECHNIQUE: Single-view chest 5:18 AM. CORRELATION STUDY: 11/19/2016. FINDINGS: Heart size enlarged, mediastinum prominent. Vasculature slightly increased from prior study. Additionally, slight increased interstitial markings are present as well. Probable small effusions. No significant infiltrate. A right IJ central line remains in place, tip largely obscured but likely over the level of the right atrium. IMPRESSION: Cardiac enlargement with vasculature slightly increased from prior study. Small effusions with likely minimal basilar atelectasis. Dictated by: Dictated on workstation # [id number]
[2016-11-20] MEDS: PANTOPRAZOLE 40 MG (PROTONIX) TAB PO SCH (11:34)
[2016-11-20] MEDS ORDERED: FUROSEMIDE 40 MG/4 ML INJ (LASIX) IVP ONE (11:45)
--- NOTE | 2016-11-20 12:13 | Progress Note-Hospitalist ---
Progress Note Progress Notes/Assess & Plan Date Seen 11/20/16 Time Seen by Provider: 11:00 Diagonsis/Assessment & Plan Patient doing much better and now blood pressures actually elevated due to volume overload considering amount of fluid that was given due to severe sepsis with hypotension Patient denies any abdominal pain I conferred again with Dr. Walker who also assumes this is ischemic colitis episodes because of all his risk factors Loose stools are much improved Will discontinue catheter Will transfer to fourth floor today Very weak likely will need swing bed or inpatient rehabilitation AFVSS, pleasant, improved, pale, chronically ill, up in chair RRR, CTAB no rales noted Noted 1+ edema all extremities Laboratory Tests 11/20/16 04:[address] Alfaro notes: PT STARTED ON SEPSIS PROTOCOL. now resolved HYPOTENSION- S/P 7 LITERS OF IV FLUIDS ON ADMIT NOW HLIVF DUE TO VOLUME OVERLOAD AND GIVING LASIX HEMATOCHEZIA/DIARRHEA - NEGATIVE STOOL STUDIES THUS FAR - C DIFF NEGATIVE- APPEARS TO BE ISCHEMIC COLITIS EPISODES PER DR WALKER. POOR VENOUS ACCESS - DR. REDMAN PLACED RIJ CENTRAL LINE ON ADMIT. ACUTE ON CHRONIC RENAL INSUFFICIENCY - CONTINUE TO REPLENISH FLUIDS, MONITOR SYMPTOMS, CHECK LABS IN THE MORNING. CREAT 1.73 YESTERDAY BUT NOW 1.29 HYPERKALEMIA - S/P KAYEXALATE DOSE WAS 4.7 YESTERDAY NOW 3.7 LACTIC ACIDOSIS - IMPROVED FROM ADMISSION - IT WAS 11 ON ADMIT, NOW AT .88 HYPONATREMIA - NORMAL SALINE IV, MONITOR LABS. 131 YESTERDAY AND 137 TODAY HYPOMAGNESEMIA AND HYPOPHOSPHATEMIA - REPLENISHED MAGNESIUM AND PHOS THROUGH IV PER PROTOCOL BUT GENTLY DUE TO RENAL INSUFF DIABETES - S/P INSULIN DRIP - TAPERED OFF WELL ONCE BLOOD GLUCOSE READINGS ARE IMPROVED - STARTED LEVEMIR 20 UNITS HS AND ADDED SSI NOW HYPERLIPIDEMIA -HOLD HOME MEDICATIONS DVT PROPHYLAXIS WITH SCD'S - NO LOVENOX DUE TO BLOODY STOOLS GI PROPHYLAXIS WITH PROTONIX BID Severe weakness Plan: HLIVF Monitor labs Transfer to [facility] Pain control Needs rehab? JAIMIE VALENCIA DO Nov 20, 2016 12:13
[2016-11-20] MEDS: AMITRIPTYLINE 50 MG (ELAVIL) TAB PO SCH (20:21)
[2016-11-20] MEDS: inSUlin DETERMIR 1 UNIT/0.01 ML (LEVEMIR) CHARGE PER UNIT SQ SCH (21:16)
[2016-11-21 00:23] VITALS: BP 147/68
[2016-11-21 04:22] VITALS: BP 140/72
[2016-11-21] MEDS: inSUlin (REGULAR) HUMAN 1 UNIT/0.01 ML (CHARGE PER UNIT) SC SCH ×3 (05:18→16:26)
[2016-11-21 05:41] LABS: BASOPHILS % (AUTO) 0 % (0-10); EOSINOPHILS % (AUTO) 0 % (0-10); LYMPHOCYTES # (AUTO) 1.1 X 10^3 (1.0-4.0); LYMPHOCYTES % (AUTO) 11 % (12-44); MEAN CORPUSCULAR HEMOGLOBIN 29 PG (25-34); MEAN CORPUSCULAR HGB CONC 34 G/DL (32-36); MEAN CORPUSCULAR VOLUME 84 FL (80-99); MEAN PLATELET VOLUME 9.4 FL (7.4-10.4); MONOCYTES # (AUTO) 0.6 X 10^3 (0.0-1.0); MONOCYTES % (AUTO) 6 % (0-12); NEUTROPHILS # (AUTO) 8.7 X 10^3 (1.8-7.8); NEUTROPHILS % (AUTO) 84 % (42-75); PLATELET COUNT 162 10^3/uL (130-400); RED BLOOD COUNT 3.08 10^6/uL (4.35-5.85); WHITE BLOOD COUNT 10.4 10^3/uL (4.3-11.0)
[2016-11-21 06:04] LABS: ALBUMIN 2.6 GM/DL (3.2-4.5); BILIRUBIN,TOTAL 0.4 MG/DL (0.1-1.0); CALCIUM 7.1 MG/DL (8.5-10.1); CREATININE SERUM 1.2 MG/DL (0.60-1.30); POTASSIUM 3.4 MMOL/L (3.6-5.0); TOTAL PROTEIN 4.9 GM/DL (6.4-8.2)
[2016-11-21] MEDS: PIPERACILLIN SODIUM/TAZOBACTAM 4.5 GM in NS (IVPB) 100 ML IV SCH ×2 (06:11→15:10)
[2016-11-21] MEDS: PANTOPRAZOLE 40 MG (PROTONIX) TAB PO SCH (06:11)
--- NOTE | 2016-11-21 07:57 | Pulmonary Consultation ---
History of Present Illness History of Present Illness Date of Consultation 11/21/16 07:52 Time Seen by Provider: 07:52 Date of Admission History of Present Illness 75yo presented to ED on 11/17 secondary to syncopal episode and found to have hypotension. Pt was dx with sepsis and admitted to ICU. Pt continued to improve through the weekend and was transferred to 4th floor. I was consulted on admission however I was off. PT is currently doing well on 4th floor. Allergies and Home Medications Allergies Coded Allergies: No Known Drug Allergies (Verified , 01/29/07) Home Medications Amitriptyline HCl 50 Mg Tablet, 50 MG PO BID, (Reported) Calcium Carbonate/Vitamin D3 1 Each Tablet, 1 TAB PO BID, (Reported) Insulin Aspart 100 Unit/1 Ml Susp, 20 UNITS SC AC, (Reported) Insulin Glargine,Hum.rec.anlog 100 Unit/1 Ml Vial, 40 UNITS SC HS, (Reported) Lisinopril 20 Mg Tablet, 20 MG PO DAILY, (Reported) Lovastatin 40 Mg Tablet, 40 MG PO HS, (Reported) Metoprolol Succinate 25 Mg Tab.er.24h, 25 MG PO DAILY, (Reported) Multivitamin 1 Each Tablet, 1 TAB PO DAILY, (Reported) Omeprazole Magnesium 20 Mg Tablet.dr, 20 MG PO BID, (Reported) Past Cpcknlv-Zutdxv-Fhfahl Hx Patient Social History Alcohol Use: Denies Use Recreational Drug Use: No Smoking Status: Former Smoker Type Used: Cigarettes Former Smoker, Quit: July 08, 1992 2nd Hand Smoke Exposure: No Recent Foreign Travel: No Contact w/Someone Who Travel: No Recent Infectious Disease Expo: No Recent Hopitalizations: No Physical Abuse: No Sexual Abuse: No Immunizations Up To Date Tetanus Booster (TDap): Unknown Date of Pneumonia Vaccine: Dec 14, 2011 Date of Influenza Vaccine: Feb 13, 2014 Seasonal Allergies Seasonal Allergies: No Surgeries History of Surgeries: Yes (TONSELECTOMY, PROSTATE) Surgeries: Prostatectomy Respiratory History of Respiratory Disorde: Yes Respiratory Disorders: Pneumonia Currently Using CPAP: No Currently Using BIPAP: No Cardiovascular History of Cardiac Disorders: Yes Cardiac Disorders: High Cholesterol, Hypertension Neurological History of Neurological Disord: Yes (NEUROPATHY DUE TO DIABETES) Reproductive System Hx Reproductive Disorders: No Sexually Transmitted Disease: No HIV/AIDS: No Genitourinary History of Genitourinary Disor: Yes Genitourinary Disorders: Prostate Problems Gastrointestinal History of Gastrointestinal Di: Yes Gastrointestinal Disorders: Colitis, Gastroesophageal Reflux Musculoskeletal History of Musculoskeletal Dis: Yes Musculoskeletal Disorders: Degenerate Disk Disease, Arthritis Endocrine History of Endocrine Disorders: Yes Endocrine Disorders: Diabetes, Insulin dep HEENT History of HEENT Disorders: Yes Hearing Impairment: Hard of Hearing Cancer History of Cancer: Yes Cancer: Prostate Psychosocial History of Psychiatric Problem: No Suicide Risk Score: 0 Integumentary History of Skin or Integumenta: No Blood Transfusions History of Blood Disorders: No Adverse Reaction to a Blood Tr: No Reviewed Nursing Assessment Reviewed/Agree w Nursing PMH: Yes Family Medical History Significant Family History: Heart Disease, Cancer, Diabetes, Hypertension Family Medial History: Cancer G8 SISTER ( of lung cancer) History of - disorder 19 MOTHER (mother of old age) History of - respiratory disease 19 FATHER (worked in coal mines of resp disease from working in coal mines) Review of Systems Time Seen by Provider: 08:23 Constitutional: Fever, Chills, Sweats, Weakness, Malaise, No: Other Eyes: No: Pain, Vision change, Conjunctivae inflammation, Eyelid inflammation, Other, Redness ENT: No: Ear pain, Ear discharge, Nose pain, Nose discharge, Nose congestion, Mouth pain, Mouth swelling, Throat pain, Throat swelling, Other Respiratory: No: Cough, Dry, Shortness of breath, SOB with excertion, Wheezing , Hemoptysis, Pleuritic Pain, Sputum, Wheezing, Other Skin: No: Rash, Lesions, Jaundice, Bruising, Other Neurological: Weakness, Incoordination Exam Exam Vital Signs Date Time Temp Pulse Resp B/P (MAP) Pulse Ox O2 Delivery O2 Flow Rate FiO2 11/21/16 04:22 98.0 93 18 140/72 94 Room Air 11/21/16 00:23 98.7 91 18 147/68 94 Room Air 11/20/16 20:20 98 Room Air 11/20/16 19:46 99.2 106 24 142/76 94 Room Air 0.00 11/20/16 16:00 97.5 107 22 146/67 96 Nasal Cannula 1.00 11/20/16 13:00 98 11/20/16 11:38 98.5 11/20/16 11:00 101 10 162/99 98 Nasal Cannula 1.00 11/20/16 10:00 101 17 152/81 98 Nasal Cannula 1.00 11/20/16 09:00 100 18 143/74 98 Nasal Cannula 1.00 11/20/16 08:00 99 7 149/72 99 Nasal Cannula 1.00 11/20/16 08:00 98 Nasal Cannula 1.00 11/20/16 08:00 99 General Appearance: No Apparent Distress HEENT: PERRL/EOMI Neck: Full Range of Motion Respiratory: Rales, Rhonci Cardiovascular: Regular Rate, Rhythm Capillary Refill: Less Than 3 Seconds Gastrointestinal: soft, tenderness Extremity: Normal Capillary Refill Neurologic/Psychiatric: Alert, Oriented x3 Skin: Normal Color Lymphatic: No Adenopathy Results Lab Laboratory Tests 11/20/16 04:50 11/21/16 05:35 Assessment/Plan Assessment/Plan Sepsis - improved - Pt is improving on zosyn Hypotension- resolved Hematochezia/Diarrhea secondary to ischemic colitis -Surgery consulted -Cdiff negative Labs and radiology reviewed. Surgery is following. PT is on RA with Sp02 around 94%. Case reviewed pt is improving and not having any significant pulmonary issues. I am going to sign off please contact me with any questions or concerns. 254 Diagnosis/Problems Problems/Diagonsis (1) Hyperglycemia, unspecified Status: Acute Assessment & Plan: On Insulin drip Lantus added (2) Severe sepsis Status: Acute Assessment & Plan: s/p protocol of aggressive IVF of 7 liters NS 125cc/hr currently (3) Colitis Status: Acute Assessment & Plan: Conservative approach currently Dr Denise ruff appreciated Hold Lovenox due to bloody stools (4) Acute on chronic renal failure Status: Acute Assessment & Plan: IVF improved Qualifiers: Qualified Codes: N17.9 - Acute kidney failure, unspecified; N18.9 - Chronic kidney disease, unspecified (5) Hypotension Status: Acute Assessment & Plan: due to sepsis Qualifiers: Qualified Codes: I95.9 - Hypotension, unspecified (6) Leukocytosis Status: Acute Qualifiers: Qualified Codes: D72.829 - Elevated white blood cell count, unspecified Clinical Quality Measures DVT/VTE Risk/Contraindication: Risk Factor Score Per Nursin RFS Level Per Nursing on Admit: 4+=Very High Contraindications-Pharm: Other *list below* Other: PT HAD HEMATOCHEZIA ON ADMISSION - CONTRAINDICATION FOR LOVENOX CHAO DOBBS DO Nov 21, 2016 07:57
[2016-11-21 08:00] VITALS: BP 135/62
--- NOTE | 2016-11-21 08:06 | Progress Note (SOAP) ---
Subjective Date Seen by Provider: Nov 21, 2016 Time Seen by Provider: 08:35 Subjective/Events-last exam PT REPORTS THAT HE IS FEELING A LOT BETTER, WOULD LIKE TO GO HOME TODAY, BUT HE IS STILL PRETTY WEAK PER HIS . HE STATES THAT HE IS NOT HAVING CHEST PAIN, SHORTNESS OF BREATH, HE IS NOT HAVING ABDOMINAL PAIN, DIZZINESS. HE REPORTS TWO SMALL BOWEL MOVEMENTS IN THE PAST 24 HOURS. Review of Systems General: No Chills, Fatigue HEENT: No Dysphasia Pulmonary: No Dyspnea, No Cough Cardiovascular: No: Chest Pain Gastrointestinal: No: Nausea, Abdominal Pain Genitourinary: No Dysuria Neurological: No: Weakness, Confusion Objective Exam Vital Signs Date Time Temp Pulse Resp B/P (MAP) Pulse Ox O2 Delivery O2 Flow Rate FiO2 11/21/16 04:22 98.0 93 18 140/72 94 Room Air 11/21/16 00:23 98.7 91 18 147/68 94 Room Air 11/20/16 20:20 98 Room Air 11/20/16 19:46 99.2 106 24 142/76 94 Room Air 0.00 11/20/16 16:00 97.5 107 22 146/67 96 Nasal Cannula 1.00 11/20/16 13:00 98 11/20/16 11:38 98.5 11/20/16 11:00 101 10 162/99 98 Nasal Cannula 1.00 11/20/16 10:00 101 17 152/81 98 Nasal Cannula 1.00 11/20/16 09:00 100 18 143/74 98 Nasal Cannula 1.00 Capillary Refill : Less Than 3 Seconds General Appearance: No Apparent Distress, WD/WN HEENT: PERRL/EOMI, Pharynx Normal Neck: Full Range of Motion, Supple Respiratory: Chest Non Tender, Decreased Breath Sounds, Wheezing Cardiovascular: Regular Rate, Rhythm Gastrointestinal: normal bowel sounds, non tender, soft, no organomegaly Extremity: Normal Capillary Refill, Pedal Edema Neurologic/Psychiatric: Alert, Oriented x3, Normal Mood/Affect Skin: Warm/Dry Lymphatic: No Adenopathy Results Lab Laboratory Tests 11/20/16 11:17: Glucometer 267H 11/20/16 16:08: Glucometer 282H 11/20/16 20:41: Glucometer 181H 11/21/16 05:16: Glucometer 105 11/21/16 05:35: White Blood Count 10.4, Red Blood Count 3.08L, Hemoglobin 8.8L, Hematocrit 26L, Mean Corpuscular Volume 84, Mean Corpuscular Hemoglobin 29, Mean Corpuscular Hemoglobin Concent 34, Red Cell Distribution Width 13.0, Platelet Count 162, Mean Platelet Volume 9.4, Neutrophils (%) (Auto) 84H, Lymphocytes (%) (Auto) 11L , Monocytes (%) (Auto) 6, Eosinophils (%) (Auto) 0, Basophils (%) (Auto) 0, Neutrophils # (Auto) 8.7H, Lymphocytes # (Auto) 1.1, Monocytes # (Auto) 0.6, Eosinophils # (Auto) 0.0, Basophils # (Auto) 0.0, Sodium Level 137, Potassium Level 3.4L, Chloride Level 112H, Carbon Dioxide Level 19L, Anion Gap 6, Blood Urea Nitrogen 27H, Creatinine 1.20, Estimat Glomerular Filtration Rate 59, BUN/ Creatinine Ratio 23, Glucose Level 107H, Calcium Level 7.1L, Total Bilirubin 0.4 , Aspartate Amino Transf (AST/SGOT) 27, Alanine Aminotransferase (ALT/SGPT) 21, Alkaline Phosphatase 33L, Total Protein 4.9L, Albumin 2.6L Microbiology 11/17/16 Blood Culture - Preliminary, Resulted No growth 11/17/16 C. difficile GDH Antigen & Toxins - Final, Complete Assessment/Plan Assessment/Plan Assess & Plan/Chief Complaint SEPSIS HYPOTENSION DIARRHEA 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 HEMATOCHEZIA/DIARRHEA - CHECK STOOL STUDIES - CDIFF NEGATIVE, STOOL CULTURE NEGATIVE DR. RENE IS SUSPICIOUS OF ISCHEMIC COLITIS - DISCUSSION THIS MORNING - HE HAS RECOMMENDED PT TO GO HOME ON ORAL ANTIBIOTICS X 7 DAYS - AUGMENTIN. HE DOES NOT FEEL A REPEAT COLONOSCOPY IS NECESSARY AT THIS TIME HE HAD A COLONOSCOPY ON 09/18/13 - IT SHOWED DIVERTICULOSIS OF SIGMOID COLON. POOR VENOUS ACCESS - DR. REDMAN PLACED CENTRAL LINE. ACUTE ON CHRONIC RENAL INSUFFICIENCY - IMPROVED - CONTINUE SUPPORTIVE CARE. HYPERKALEMIA - RESOLVED AFTER KAYEXALATE. LACTIC ACIDOSIS -RESOLVED - IMPROVED FROM ADMISSION - IT WAS 11 ON ADMIT, NOW NORMAL HYPONATREMIA - RESOLVED WITH IV FLUIDS. HYPOMAGNESEMIA AND HYPOPHOSPHATEMIA - RESOLVED. DIABETES - IMPROVED WITH LESS STEROIDS - CONTINUE WITH LEVEMIR 20 UNITS HS AND SLIDING SCALE INSULIN HYPERLIPIDEMIA -HOLD HOME MEDICATIONS DVT PROPHYLAXIS WITH SCD'S - NO LOVENOX DUE TO BLOODY STOOLS GI PROPHYLAXIS WITH PROTONIX BID PLANNING ON DISCHARGE TO HOME TOMORROW WITH OUTPATIENT PHYSICAL THERAPY, AUGMENTIN, LOW RESIDUE DIET. Clinical Quality Measures DVT/VTE Risk/Contraindication: Risk Factor Score Per Nursin RFS Level Per Nursing on Admit: 4+=Very High Contraindications-Pharm: Other *list below* Other: PT HAD HEMATOCHEZIA ON ADMISSION - CONTRAINDICATION FOR LOVENOX MOISÉS ARMSTRONG MD Nov 21, 2016 08:06
[2016-11-21] MEDS: AMITRIPTYLINE 50 MG (ELAVIL) TAB PO SCH (08:19)
[2016-11-21] MEDS: methylPREDNISolone 40 MG/ML (Solu-MEDROL) VIAL IV SCH (08:19)
[2016-11-21] MEDS ORDERED: lisINopril 20 MG (ZESTRIL) TAB PO SCH (09:00)
[2016-11-21] MEDS ORDERED: DOCUSATE SODIUM 100 MG (COLACE) CAP PO NR (09:30)
[2016-11-21 12:00] VITALS: BP 125/65
--- NOTE | 2016-11-21 13:17 | Physical Therapy Evaluation ---
PT Evaluation-General Medical Diagnosis Admission Date Nov 17, 2016 at 17:30 Medical Diagnosis: sepsis/colitis Onset Date: Nov 17, 2016 Therapy Diagnosis Therapy Diagnosis: debility Height/Weight Height (Feet): 5 Height (Inches): 10.50 Weight (Pounds): 236 Weight (Ounces): 8.0 Precautions Precautions/Isolations: Fall Prevention, Standard Precautions Referral Physician: Dominic Reason for Referral: Evaluation/Treatment Medical History Pertinent Medical History: Arthritis, DM, GERD, HTN, Neuropathy Additional Medical History acute/chronic renal failure Current History EMS to ED secondary to syncopal episode at home Reviewed History: Yes Social History Home: Single Level Current Living Status: Spouse Prior/Core FIM Prior Level of Function Functional Posey Measure 0=Not Assessed/NA 4=Minimal Assistance 1=Total Assistance 5=Supervision or Setup 2=Maximal Assistance 6=Modified Posey 3=Moderate Assistance 7=Complete Posey Bed Mobility: 7 Transfers (B,C,W/C) (FIM): 7 Gait: 7 PT Evaluation-Current Subjective Patient agrees to PT. No c/o at this time. Pain Numeric Pain Scale: 0-No Pain Location: No Pain Reported Objective Patient Orientation: Normal For Age Problem Solving: Good ROM/Strength ROM Lower Extremities bilateral LE WNL Strenght Lower Extremities bilateral LE WNL Integumentary/Posture Integumentary refer to nursing notes Bowel Incontinence: No Bladder Incontinence: No Posture WNL Neuromuscular (Tone, Coordination, Reflexes) grossly intact Sensory Vision: Functional Hearing: Impaired Sensation Right Lower Extremit: Impaired Sensation Left Lower Extremity: Impaired Transfers Functional Posey Measure 0=Not Assessed/NA 4=Minimal Assistance 1=Total Assistance 5=Supervision or Setup 2=Maximal Assistance 6=Modified Posey 3=Moderate Assistance 7=Complete Posey Transfers (B, C, W/C) (FIM): 7 Scootin Rollin Supine to/from Sit: 7 Sit to/from Stand: 7 Gait Mode of Locomotion: Walk Anticipated Mode of Locomotion: Walk Gait (FIM): 6 Distance (FIM): 3=150 ft Distance: 400' Gait Level of Assist: 6 Gait Assistive Device: FWW Comments/Gait Description slight trunk flexed posture in FWW, however, without FWW WNL Balance Sitting Static: Normal Sitting Dynamic: Normal Standing Static: Normal Standing Dynamic: Normal Assessment/Needs 75 y.o. male, will be seen for 2 sessions to ensure patient's functional mobility remains as stated above. Patient agrees to treatment plan. Rehab Potential: Good PT Short Term Goals Short Term Goals Time Frame: Nov 22, 2016 Transfers (B,C,W/C) (FIM): 7 Gait (FIM): 6 Distance (FIM): 3=150 ft Gait Level of Assist: 6 Gait Assistive Device: None, FWW PT Plan Treatment/Plan Treatment Plan: Continue Plan of Care Treatment Plan: Education, Functional Activity [place], Functional Strength, Gait , Safety, Therapeutic Exercise, Transfers Treatment Duration: Nov 21, 2016 Frequency: 2 times per week Estimated Hrs Per Day: .25 hour per day Patient and/or Family Agrees t: Yes Safety Risks/Education Patient Education: Safety Issues Teaching Recipient: Patient Teaching Methods: Discussion Response to Teaching: Verbalize Understanding Discharge Recommendations Therapy D/C Recommendations: Home w/ Family Support Time/GCodes Time In: 1215 Time Out: 1230 Total Billed Treatment Time: 15 Total Billed Treatment 1 visit EVLowC 15 min MELISA LIANG PT Nov 21, 2016 13:17
--- NOTE | 2016-11-21 14:25 | Progress Note ---
Subjective Date Seen by Provider: Nov 21, 2016 Time Seen by Provider: 14:01 Subjective/Events-last exam Pt seen and examined. States no abdominal pain, tolerating diet and liquids. + BM. He is asking if he could go home today. Review of Systems General: No Chills, No Night Sweats Pulmonary: No Dyspnea, No Cough Cardiovascular: No: Chest Pain, Palpitations Gastrointestinal: No: Nausea, Vomiting, Abdominal Pain Objective Exam Vital Signs Date Time Temp Pulse Resp B/P (MAP) Pulse Ox O2 Delivery O2 Flow Rate FiO2 11/21/16 12:00 98.4 96 20 125/65 94 Room Air 11/21/16 09:04 Room Air 11/21/16 08:00 98.5 94 18 135/62 97 Room Air 11/21/16 04:22 98.0 93 18 140/72 94 Room Air 11/21/16 00:23 98.7 91 18 147/68 94 Room Air 11/20/16 20:20 98 Room Air 11/20/16 19:46 99.2 106 24 142/76 94 Room Air 0.00 11/20/16 16:00 97.5 107 22 146/67 96 Nasal Cannula 1.00 I & O 11/22/16 07:00 Intake Total 600 ml Balance 600 ml Capillary Refill : Less Than 3 Seconds General Appearance: No Apparent Distress, WD/WN HEENT: PERRL/EOMI, Pharynx Normal Neck: Full Range of Motion, Supple Respiratory: Chest Non Tender, Lungs Clear, No Accessory Muscle Use Cardiovascular: Regular Rate, Rhythm Gastrointestinal: normal bowel sounds, non tender, soft, no organomegaly Extremity: Normal Capillary Refill, Pedal Edema Neurologic/Psychiatric: Alert, Oriented x3, Normal Mood/Affect Skin: Warm/Dry Lymphatic: No Adenopathy Results Lab Laboratory Tests 11/20/16 16:08: Glucometer 282H 11/20/16 20:41: Glucometer 181H 11/21/16 05:16: Glucometer 105 11/21/16 05:35: White Blood Count 10.4, Red Blood Count 3.08L, Hemoglobin 8.8L, Hematocrit 26L, Mean Corpuscular Volume 84, Mean Corpuscular Hemoglobin 29, Mean Corpuscular Hemoglobin Concent 34, Red Cell Distribution Width 13.0, Platelet Count 162, Mean Platelet Volume 9.4, Neutrophils (%) (Auto) 84H, Lymphocytes (%) (Auto) 11L , Monocytes (%) (Auto) 6, Eosinophils (%) (Auto) 0, Basophils (%) (Auto) 0, Neutrophils # (Auto) 8.7H, Lymphocytes # (Auto) 1.1, Monocytes # (Auto) 0.6, Eosinophils # (Auto) 0.0, Basophils # (Auto) 0.0, Sodium Level 137, Potassium Level 3.4L, Chloride Level 112H, Carbon Dioxide Level 19L, Anion Gap 6, Blood Urea Nitrogen 27H, Creatinine 1.20, Estimat Glomerular Filtration Rate 59, BUN/ Creatinine Ratio 23, Glucose Level 107H, Calcium Level 7.1L, Total Bilirubin 0.4 , Aspartate Amino Transf (AST/SGOT) 27, Alanine Aminotransferase (ALT/SGPT) 21, Alkaline Phosphatase 33L, Total Protein 4.9L, Albumin 2.6L 11/21/16 11:47: Glucometer 186H Microbiology 11/17/16 Blood Culture - Preliminary, Resulted No growth 11/17/16 C. difficile GDH Antigen & Toxins - Final, Complete Assessment/Plan Assessment/Plan Assessment/Plan 1. Hematochezia; most likely secondary to ischemic colitis 2. Sepis, Lactic acidosis, Leukocytosis, Renal insufficiency - all resolved 3. DM - medical managament Had discussion with pt regarding colonoscopy; normally would wait 6 weeks to do , but I believe problem would be resolved by then and we wouldn't see anything. I don't think there is a good reason to do colonoscopy now. Pt was told he must keep hydrated, recommended he severely cut back his pepsi intake and must increase his protein. Labs today show his protein is low, probably Protein Calorie Malnutrition. He does not need to see me in the office, but I would be happy to see him if anything changes (he can also go see Dr. Walker, who he saw before) . I did warn him that if he lets this happen again he could be at risk for perforation. All questions answered to his satisfaction and from surgery standpoint he could go home today if ok with medicine. Diagnosis/Problems Diagnosis/Problems (1) Hyperglycemia, unspecified Status: Acute Assessment & Plan: On Insulin drip Lantus added (2) Severe sepsis Status: Acute Assessment & Plan: s/p protocol of aggressive IVF of 7 liters NS 125cc/hr currently (3) Colitis Status: Acute Assessment & Plan: Conservative approach currently Dr Denise ruff appreciated Hold Lovenox due to bloody stools (4) Acute on chronic renal failure Status: Acute Assessment & Plan: IVF improved Qualifiers: Qualified Codes: N17.9 - Acute kidney failure, unspecified; N18.9 - Chronic kidney disease, unspecified (5) Hypotension Status: Acute Assessment & Plan: due to sepsis Qualifiers: Qualified Codes: I95.9 - Hypotension, unspecified (6) Leukocytosis Status: Acute Qualifiers: Qualified Codes: D72.829 - Elevated white blood cell count, unspecified Clinical Quality Measures DVT/VTE Risk/Contraindication: Risk Factor Score Per Nursin RFS Level Per Nursing on Admit: 4+=Very High Contraindications-Pharm: Other *list below* Other: PT HAD HEMATOCHEZIA ON ADMISSION - CONTRAINDICATION FOR LOVENOX DIDI REDMAN DO Nov 21, 2016 14:25
[2016-11-21 15:25] VITALS: BP 147/79
--- NOTE | 2016-11-21 15:45 | Discharge Summary ---
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 ERIC HAS HISTORY OF SIMILAR EPISODES OF SUSPECTED SEPSIS WITH HEMATOCHEZIA, HYPOTENSION, LETHARGY - AFTER ONE TO TWO DAYS IN THE HOSPITAL HE HAS RESOLUTION OF SYMPTOMS, WITH RESOLUTION OF ABDOMINAL PAIN AND RETURN TO NORMAL FUNCTION. HIS WORK-UP IN THE PAST HAS BEEN NEGATIVE FOR ANY SPECIFIC COLONIC SOURCE OF DISEASE PROCESS. HE REPORTS THAT ON THIS OCCASION THAT NECESSITATED ADMISSION THROUGH THE EMERGENCY DEPARTMENT, HE HAD NOT HAD A BOWEL MOVEMENT IN OVER 8 DAYS, HE HAD BEEN STRAINING TO HAVE HIS BOWELS MOVE, BUT HAD NOT BEEN SUCCESSFUL. HE REPORTS FEELING BETTER TODAY. Discharge Summary Consultations dr. redman Discharge Physical Examination Allergies: Coded Allergies: No Known Drug Allergies (Verified , 01/29/07) Vitals & I&Os Vital Signs Date Time Temp Pulse Resp B/P (MAP) Pulse Ox O2 Delivery O2 Flow Rate FiO2 11/21/16 12:00 98.4 96 20 125/65 94 Room Air 11/20/16 19:46 0.00 General Appearance: Alert, Oriented X3, Cooperative, No Acute Distress HEENT: Atraumatic Respiratory: Clear to Auscultation Cardiovascular: Regular Rate Abdominal: Normal Bowel Sounds, Soft Extremities: No Clubbing Skin: No Rashes Neuro: Cranial Nerves 3-12 NL (hard of hearing) Psych/Mental Status: Mental Status NL, Mood NL Hospital Course SEPSIS HYPOTENSION DIARRHEA 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 HEMATOCHEZIA/DIARRHEA - CHECK STOOL STUDIES - CDIFF NEGATIVE, STOOL CULTURE NEGATIVE DR. RENE IS SUSPICIOUS OF ISCHEMIC COLITIS - DISCUSSION THIS MORNING - HE HAS RECOMMENDED PT TO GO HOME ON ORAL ANTIBIOTICS X 7 DAYS - AUGMENTIN. HE DOES NOT FEEL A REPEAT COLONOSCOPY IS NECESSARY AT THIS TIME HE HAD A COLONOSCOPY ON 09/18/13 - IT SHOWED DIVERTICULOSIS OF SIGMOID COLON. POOR VENOUS ACCESS - DR. REDMAN PLACED CENTRAL LINE. ACUTE ON CHRONIC RENAL INSUFFICIENCY - IMPROVED - CONTINUE SUPPORTIVE CARE. HYPERKALEMIA - RESOLVED AFTER KAYEXALATE. LACTIC ACIDOSIS -RESOLVED - IMPROVED FROM ADMISSION - IT WAS 11 ON ADMIT, NOW NORMAL HYPONATREMIA - RESOLVED WITH IV FLUIDS. HYPOMAGNESEMIA AND HYPOPHOSPHATEMIA - RESOLVED. DIABETES - IMPROVED WITH LESS STEROIDS - CONTINUE WITH LEVEMIR 20 UNITS HS AND SLIDING SCALE INSULIN HYPERLIPIDEMIA -HOLD HOME MEDICATIONS DVT PROPHYLAXIS WITH SCD'S - NO LOVENOX DUE TO BLOODY STOOLS GI PROPHYLAXIS WITH PROTONIX BID PLANNING ON DISCHARGE TO HOME TOMORROW WITH OUTPATIENT PHYSICAL THERAPY, AUGMENTIN, LOW RESIDUE DIET. Pending Labs Laboratory Tests 11/21/16 11:47: Glucometer 186 11/21/16 15:28: Glucometer 278 Discharge Condition at discharge improving Instructions to patient/family Please see electronic discharge instructions given to patient. Discharge Medications Reviewed and agree with Discharge Medication list on patient's Discharge Instruction sheet Clinical Quality Measures DVT/VTE Risk/Contraindication: Risk Factor Score Per Nursin RFS Level Per Nursing on Admit: 4+=Very High Contraindications-Pharm: Other *list below* Other: PT HAD HEMATOCHEZIA ON ADMISSION - CONTRAINDICATION FOR LOVENOX MOISÉS ARMSTRONG MD Nov 21, 2016 15:45
[2016-11-21] MEDS ORDERED: AMOX-358 PO (15:51)
[2016-11-21] MEDS ORDERED: DOCU-143 PO (15:56)
[2016-11-21] MEDS ORDERED: LACT1CAP72 PO (15:56)
--- NOTE | 2016-11-21 15:57 | Discharge Inst-Complex ---
PDI Med Rec & Follow Up Appt. New Medications: Amoxicillin/Potassium Clav (Augmentin 875-125 Tablet) 1 Each Tablet 1 EACH PO BID for 7 Days, #14 TAB Docusate Sodium (Colace) 100 Mg Capsule 100 MG PO DAILY for 30 Days, #30 CAP 6 Refills Lactobacillus Combo No.10 (Probiotic) 1 Each Capsule 1 EACH PO BID for 30 Days, #60 CAP 6 Refills Continued Medications: Amitriptyline HCl (Amitriptyline HCl) 50 Mg Tablet 50 MG PO BID, TAB Calcium Carbonate/Vitamin D3 (Calcium 600 + Vit D 200 Tablet) 1 Each Tablet 1 TAB PO BID, TAB Insulin Aspart (Novolog) 100 Unit/1 Ml Susp 20 UNITS SC AC, EA Insulin Glargine,Hum.rec.anlog (Lantus) 100 Unit/1 Ml Vial 40 UNITS SC HS, EA Lisinopril (Lisinopril) 20 Mg Tablet 20 MG PO DAILY, TAB Lovastatin (Lovastatin) 40 Mg Tablet 40 MG PO HS, TAB Metoprolol Succinate (Metoprolol Succinate) 25 Mg Tab.er.24h 25 MG PO DAILY, TAB Multivitamin (Daily Multiple Vitamin) 1 Each Tablet 1 TAB PO DAILY, TAB Omeprazole Magnesium (Prilosec Otc) 20 Mg Tablet.dr 20 MG PO BID, TAB Prescription: Transmitted to Pharmacy Activity, Diet and PDI Resume Normal Activity: Yes Discharge Diet: Low Residue Diet for 24 Hours: No Hester Foods, No Spicy Foods Diet After 24 Hours: Clear Liquid if Nauseous Drink 6-8 Glasses of Fluid/Day: Yes Driving Instructions: No Driving for 24 Hours Return to The Hospital For: any concern for worsening abdominal pain, increase in constipation, any concern for lifethreatening illness or injury Symptoms to Reoprt to : Appetite Changes, Pain Increased, Fever Over 101 Degrees F, Pain/Pressure in Chest, Cough Up/Vomit Blood, Diarrhea(Persistant), Shortness of Breath For Problems or Questions: Contact Your Physician, Go to Emergency Room MOISÉS ARMSTRONG MD Nov 21, 2016 15:55
[2016-11-21] MEDS ORDERED: DOCUSATE SODIUM 100 MG (COLACE) CAP PO SCH (21:00)
[2016-11-22] MEDS ORDERED: methylPREDNISolone 40 MG/ML (Solu-MEDROL) VIAL IV SCH (09:00)
== END 2016-11-21 17:37 | disposition home or self-care (01) | DRG 872 ==
LOC: EDUNIT# 15:06 → ER 15:07 → ICU 17:30 → 4TH 11-20 14:12
PROVIDERS: ADMIT Family Medicine; ATTEND Family Medicine
PROC: 02HV33Z Insertion of Infusion Device into Superior Vena Cava, Percutaneous Approach (ICD-10-PCS; principal; 2016-11-17)
DX: A41.9 Sepsis, unspecified organism (principal); R65.20 Severe sepsis without septic shock; N17.9 Acute kidney failure, unspecified; K55.9 Vascular disorder of intestine, unspecified; E87.1 Hypo-osmolality and hyponatremia; E46 Unspecified protein-calorie malnutrition; E86.0 Dehydration; I12.9 Hypertensive chronic kidney disease with stage 1 through stage 4 chronic kidney disease, or unspecified chronic kidney disease; N18.9 Chronic kidney disease, unspecified; E78.00 Pure hypercholesterolemia, unspecified; E78.5 Hyperlipidemia, unspecified; E11.40 Type 2 diabetes mellitus with diabetic neuropathy, unspecified; E11.65 Type 2 diabetes mellitus with hyperglycemia; E11.22 Type 2 diabetes mellitus with diabetic chronic kidney disease; I87.2 Venous insufficiency (chronic) (peripheral); K21.9 Gastro-esophageal reflux disease without esophagitis; E87.5 Hyperkalemia; E83.42 Hypomagnesemia; E83.39 Other disorders of phosphorus metabolism; E87.70 Fluid overload, unspecified; M19.91 Primary osteoarthritis, unspecified site; Z79.4 Long term (current) use of insulin; Z87.891 Personal history of nicotine dependence; Z85.46 Personal history of malignant neoplasm of prostate; Z90.79 Acquired absence of other genital organ(s)
CPT/HCPCS: 36415; 51702; 71010; 74176; 80053; 80069; 81000; 82274; 82962; 83605; 83735; 83880; 84100; 84132; 85007; 85025; 85027; 85610; 85730; 87040; 87045; 87046; 87324; 87449; 93005; 96361; 96365; 96367; 96368

== ENCOUNTER → 2016-12-01 | Outpatient (CLI) | payer MEDICARE, OTHER ==
[~2016-12-01] MED LIST changes: +AMOX-358 PO; +CALC-6 PO; +DOCU-143 PO; +INSU100V16 SC; +INSU100V6 SC; +LACT1CAP72 PO; +MULT-35 PO
--- NOTE | 2016-12-01 16:24 | Diagnostic Imaging Report ---
INDICATION: Cough x2 weeks. PA and lateral chest. FINDINGS: Heart size and pulmonary vascularity are normal. Lungs are clear. There are no effusions or pneumothoraces. IMPRESSION: Negative chest. Dictated by: Dictated on workstation # [id number]
== END ==
LOC: RAD 16:08
PROVIDERS: ATTEND Nurse Practitioner Family
DX: R05 Cough (principal)
CPT/HCPCS: 71020

== ENCOUNTER 2018-02-26 14:59 | Inpatient (IN) | payer MEDICARE, OTHER ==
[~2018-02-26] VITALS: Ht 175.3 cm; Wt 104.4 kg
[2018-02-26] VITALS (7 sets, daily range): BP systolic 102–132; BP diastolic 59–71
[~2018-02-26 14:59] MED LIST changes: -METO-270 PO; +METO-387 PO
[2018-02-26] MEDS ORDERED: NS IV 1000 ML 1,000 ML IV SCH (15:22)
[2018-02-26 15:24] LABS: BASOPHILS % (AUTO) 0 % (0-10); EOSINOPHILS % (AUTO) 0 % (0-10); HEMATOCRIT 41 % (40-54); HEMOGLOBIN 13.2 G/DL (13.3-17.7); LYMPHOCYTES # (AUTO) 1.4 X 10^3 (1.0-4.0); LYMPHOCYTES % (AUTO) 7 % (12-44); MEAN CORPUSCULAR HEMOGLOBIN 27 PG (25-34); MEAN CORPUSCULAR HGB CONC 33 G/DL (32-36); MEAN CORPUSCULAR VOLUME 82 FL (80-99); MEAN PLATELET VOLUME 9.3 FL (7.4-10.4); MONOCYTES # (AUTO) 1.5 X 10^3 (0.0-1.0); MONOCYTES % (AUTO) 7 % (0-12); NEUTROPHILS # (AUTO) 18.8 X 10^3 (1.8-7.8); NEUTROPHILS % (AUTO) 86 % (42-75); PLATELET COUNT 275 10^3/uL (130-400); RED BLOOD COUNT 4.93 10^6/uL (4.35-5.85); RED CELL DISTRIBUTION WIDTH 17.2 % (10.0-14.5); WHITE BLOOD COUNT 21.7 10^3/uL (4.3-11.0)
[2018-02-26 15:41] LABS: ANISOCYTOSIS SLIGHT; BAND NEUTROPHILS 0 %; BASOPHILS % (MANUAL) 0 %; EOSINOPHILS % (MANUAL) 0 %; LYMPHOCYTES % (MANUAL) 3 %; MONOCYTES % (MANUAL) 6 %; NEUTROPHILS % (MANUAL) 91 %
[2018-02-26 15:48] LABS: BILIRUBIN,TOTAL 0.5 MG/DL (0.1-1.0); CALCIUM 10.4 MG/DL (8.5-10.1); CREATININE SERUM 2.58 MG/DL (0.60-1.30); POTASSIUM 4.4 MMOL/L (3.6-5.0); TOTAL PROTEIN 7.9 GM/DL (6.4-8.2)
[2018-02-26 16:27] LABS: BILIRUBIN,URINE NEGATIVE (NEGATIVE); CLARITY,URINE CLEAR; COLOR,URINE YELLOW; GLUCOSE, URINE (UA) 2+ (NEGATIVE); KETONES,URINE NEGATIVE (NEGATIVE); LEUKOCYTE ESTERASE ,URINE 1+ (NEGATIVE); NITRITE,URINE NEGATIVE (NEGATIVE); PH,URINE 6 (5-9); PROTEIN,URINE 3+ (NEGATIVE); UROBILINOGEN,URINE 1 MG/DL (NORMAL)
[2018-02-26 16:38] LABS: BACTERIA,URINE NEGATIVE /HPF
--- NOTE | 2018-02-26 16:45 | NUR ---
PT CLEASED OF STOOL AND PLACED IN BRIEF, NEW SHEETS AND BLANKETS PROVIDED
--- NOTE | 2018-02-26 17:10 | ED GI ---
General Chief Complaint: Rect Problems Stated Complaint: RECTAL BLEEDING Nursing Triage Note: PT STATES THAT AFTER A BM THIS AFTERNOON HE HAD INOCENTE BLOOD PRESENT IN HIS STOOL. PT VISIBLY SKAING UPON PRESENTATION, PT STATES HE DOES THIS WHEN HIS BLOOD SUGAR IS HIGH, BLOOD SUGAR RESULTED 296, PROVIDER NOTIFIED. Sepsis Screen: Possible Severe Sepsis Risk Source of Information: Patient Exam Limitations: No Limitations History of Present Illness Date Seen by Provider: Feb 26, 2018 Time Seen by Provider: 15:15 Initial Comments Here by EMS with report of bloody diarrhea. Apparently he had to go to the bathroom was going. He states that he had to push quite a bit and then afterwards had blood. He showed his who then called EMS. He arrives shaking persistently and reports chills. He states this happens when his blood sugar gets high. Denies nausea or vomiting. Blood sugar noted to be 296. Has had persistent episodes of diarrhea since his bowel movement. Denies chest pain or breathing problems. Blood pressure noted to be quite low on arrival Timing/Duration: 1-3 Hours Severity/Quality: Moderate, Cramping Location: Generalized Abdomen Radiation: No Radiation Activities at Onset: None Modifying Factors: Worsens With Defecating; Improves With Resting Associated Symptoms: No Back Pain, No Chest Pain; Fever/Chills, Fatigue; No Nausea/Vomiting, No Shortness of Air; Weakness Allergies and Home Medications Allergies Coded Allergies: No Known Drug Allergies (Verified , 01/29/07) Home Medications Amitriptyline HCl 50 Mg Tablet, 50 MG PO BID, (Reported) Insulin Aspart 100 Unit/1 Ml Susp, 35 UNIT SQ 1200, (Reported) Insulin Aspart 100 Unit/1 Ml Susp, 30 UNIT SQ DINNER, (Reported) Lisinopril 5 Mg Tablet, 5 MG PO DAILY, (Reported) Lovastatin 40 Mg Tablet, 40 MG PO HS, (Reported) Metoprolol Succinate 25 Mg Tab.er.24h, 25 MG PO DAILY, (Reported) Patient Home Medication List Home Medication List Reviewed: Yes Review of Systems Review of Systems Constitutional: see HPI, chills, fever EENTM: No Symptoms Reported Respiratory: Denies Shortness of Air, Denies Wheezing Cardiovascular: Lightheadedness; Denies Palpitations Gastrointestinal: Abdominal Pain, Diarrhea; Denies Nausea; Rectal Bleeding; Denies Vomiting Genitourinary: No Symptoms Reported Musculoskeletal: no symptoms reported Skin: no symptoms reported Psychiatric/Neurological: Tremors, Weakness Endocrine: No Symptoms Reported All Other Systems Reviewed Negative Unless Noted: Yes Past Iknfgrj-Ggzdgi-Jyrgor Hx Past Med/Social Hx: Reviewed Nursing Past Med/Soc Hx Patient Social History Alcohol Use: Denies Use Alcohol Beverage of Choice: Wine Smoking Status: Former Smoker Type Used: Cigarettes Former Smoker, Quit: July 08, 1992 2nd Hand Smoke Exposure: No Recent Foreign Travel: No Contact w/Someone Who Travel: No Recent Infectious Disease Expo: No Recent Hopitalizations: No Immunizations Up To Date Tetanus Booster (TDap): Unknown Date of Pneumonia Vaccine: Dec 14, 2011 Date of Influenza Vaccine: Feb 13, 2014 Seasonal Allergies Seasonal Allergies: No Past Medical History Surgeries: Yes (TONSELECTOMY, PROSTATE) Prostatectomy, Tonsillectomy Respiratory: Yes Pneumonia Currently Using CPAP: No Currently Using BIPAP: No Cardiac: Yes High Cholesterol, Hypertension Neurological: Yes (NEUROPATHY DUE TO DIABETES) Reproductive Disorders: No Sexually Transmitted Disease: No HIV/AIDS: No Genitourinary: Yes Prostate Problems Gastrointestinal: Yes Colitis, Gastroesophageal Reflux Musculoskeletal: Yes Degenerate Disk Disease, Arthritis Endocrine: Yes Diabetes, Insulin dep HEENT: Yes Hearing Impairment: Hard of Hearing Cancer: Yes Prostate Psychosocial: No Integumentary: No Blood Disorders: No Adverse Reaction/Blood Tranf: No Family Medical History Reviewed Nursing Family Hx Cancer G8 SISTER ( of lung cancer) History of - disorder 19 MOTHER (mother of old age) History of - respiratory disease 17 FATHER (worked in coal mines of resp disease from working in coal mines) Heart Disease, Cancer, Diabetes, Hypertension Physical Exam Vital Signs Vital Signs - First Documented 02/26/18 15:00 Temp 97.7 Pulse 109 Resp 22 B/P (MAP) 78/49 (59) Pulse Ox 96 O2 Delivery Room Air Capillary Refill : Less Than 3 Seconds Height/Weight/BMI Height: 5'10.50" Weight: 236lbs. 8.0oz. 107.661662bv; 30.3 BMI Method:Estimated General Appearance: WD/WN, moderate distress HEENT: PERRL/EOMI, pharynx normal Neck: full range of motion, supple Respiratory: lungs clear, normal breath sounds Cardiovascular: no murmur, tachycardia Gastrointestinal: non tender, soft Genital/Rectal: decreased rectal tone, heme positive stool Extremities: non-tender, normal inspection, no pedal edema, no calf tenderness Back: normal inspection, no CVA tenderness, no vertebral tenderness Neurologic/Psychiatric: alert, normal mood/affect Skin: normal color, cool Focused Exam Lactate Level 02/26/18 15:20: Lactic Acid Level 8.99*H Lactic Acid Level Laboratory Tests Test 02/26/18 15:20 Lactic Acid Level 8.99 MMOL/L (0.50-2.00) *H Progress/Results/Core Measures Results/Orders Lab Results Laboratory Tests Test 02/26/18 15:07 02/26/18 15:15 02/26/18 15:20 02/26/18 16:19 Range/Units Glucometer 296 H 70-110 MG/DL White Blood Count 21.7 H 4.3-11.0 10^3/uL Red Blood Count 4.93 4.35-5.85 10^6/uL Hemoglobin 13.2 L 13.3-17.7 G/DL Hematocrit 41 40-54 % Mean Corpuscular Volume 82 80-99 FL Mean Corpuscular Hemoglobin 27 25-34 PG Mean Corpuscular Hemoglobin Concent 33 32-36 G/DL Red Cell Distribution Width 17.2 H 10.0-14.5 % Platelet Count 275 130-400 10^3/uL Mean Platelet Volume 9.3 7.4-10.4 FL Neutrophils (%) (Auto) 86 H 42-75 % Lymphocytes (%) (Auto) 7 L 12-44 % Monocytes (%) (Auto) 7 0-12 % Eosinophils (%) (Auto) 0 0-10 % Basophils (%) (Auto) 0 0-10 % Neutrophils # (Auto) 18.8 H 1.8-7.8 X 10^3 Lymphocytes # (Auto) 1.4 1.0-4.0 X 10^3 Monocytes # (Auto) 1.5 H 0.0-1.0 X 10^3 Eosinophils # (Auto) 0.0 0.0-0.3 10^3/uL Basophils # (Auto) 0.0 0.0-0.1 10^3/uL Neutrophils % (Manual) 91 % Lymphocytes % (Manual) 3 % Monocytes % (Manual) 6 % Eosinophils % (Manual) 0 % Basophils % (Manual) 0 % Band Neutrophils 0 % Anisocytosis SLIGHT Sodium Level 135 135-145 MMOL/L Potassium Level 4.4 3.6-5.0 MMOL/L Chloride Level 101 98-107 MMOL/L Carbon Dioxide Level 13 L 21-32 MMOL/L Anion Gap 21 H 5-14 MMOL/L Blood Urea Nitrogen 30 H 7-18 MG/DL Creatinine 2.58 H 0.60-1.30 MG/DL Estimat Glomerular Filtration Rate 24 BUN/Creatinine Ratio 12 Glucose Level 322 H 70-105 MG/DL Calcium Level 10.4 H 8.5-10.1 MG/DL Corrected Calcium 10.4 H 8.5-10.1 MG/DL Total Bilirubin 0.5 0.1-1.0 MG/DL Aspartate Amino Transf (AST/SGOT) 41 H 5-34 U/L Alanine Aminotransferase (ALT/SGPT) 28 0-55 U/L Alkaline Phosphatase 114 40-136 U/L Total Protein 7.9 6.4-8.2 GM/DL Albumin 4.0 3.2-4.5 GM/DL Amylase Level 268 H 25-125 U/L Lipase 40 8-78 U/L Lactic Acid Level 8.99 *H 0.50-2.00 MMOL/L C-Reactive Protein High Sensitivity 0.76 H 0.00-0.50 MG/DL Urine Color YELLOW Urine Clarity CLEAR Urine pH 6 5-9 Urine Specific [place] 1.010 L 1.016-1.022 Urine Protein 3+ H NEGATIVE Urine Glucose (UA) 2+ H NEGATIVE Urine Ketones NEGATIVE NEGATIVE Urine Nitrite NEGATIVE NEGATIVE Urine Bilirubin NEGATIVE NEGATIVE Urine Urobilinogen 1 NORMAL MG/DL Urine Leukocyte Esterase 1+ H NEGATIVE Urine RBC (Auto) 2+ H NEGATIVE Urine RBC 2-5 H /HPF Urine WBC 2-5 /HPF Urine Crystals NONE /LPF Urine Bacteria NEGATIVE /HPF Urine Casts PRESENT /LPF Urine Hyaline Casts 2-5 H /LPF Urine Mucus LARGE H /LPF Urine Culture Indicated NO Micro Results Microbiology 02/26/18 Blood Culture - Preliminary, Resulted Staph, Coag Neg (CASSERO[employer]) See Comments 02/26/18 Blood Culture - Preliminary, Resulted No growth My Orders Orders - DEBORAH DELACRUZ MD Hs C Reactive Protein (02/26/18 15:22) Lactic Acid Analyzer (02/26/18 15:22) Blood Culture (02/26/18 15:22) Chest 1 View, Ap/Pa Only (02/26/18 15:22) Saline Lock/Iv-Start (02/26/18 15:22) Ns Iv 1000 Ml (Sodium Chloride 0.9%) (02/26/18 15:22) Fecal Occult Bedside (02/26/18 15:22) Ekg Tracing (02/26/18 15:22) Catheter(Urinary) Insert & Ass 03,15 (02/26/18 16:05) Piperacillin Sodium/Tazobactam (Zosyn Vi (02/26/18 17:15) Medications Given in ED Vital Signs/I&O 02/26/18 15:00 Temp 97.7 Pulse 109 Resp 22 B/P (MAP) 78/49 (59) Pulse Ox 96 O2 Delivery Room Air Blood Pressure Mean: 59 Progress Progress Note : Progress Note Seen and evaluated. IV, labs, UA, EKG and chest x-ray ordered. Initial blood pressures 80s over 50s and worsened on the next few checks. Normal saline 1 L bolus initiated and repeated one second IV site initiated. Due to persistence of hypotension, central line will be placed. Consent signed and on chart for emergent placement. Third liter normal saline initiated after lactic acid noted to be greater than 8. Patient tolerated central line procedure well. Pending UA and chest x-ray. 1714: Blood pressure markedly improved after fluids. I did discuss the case with Dr. Hoyt. Since then 4.5 g IV initiated for concerns of pneumonia and septic shock. No need for pressors at this point as blood pressure has improved with fluids. We will continue those in the ICU. I have consulted Dr. Ballard, Dr. Darby and Dr. Walker for evaluation as well per request of Dr. Hoyt. Those were completed at 1720. 1735: I attest to focused exam at this time. Diagnostic Imaging Diagonstic Imaging: Xray Plain Films/CT/US/NM/MRI: chest Comments [facility]. [place], [place] NAME: ERIC [facility] REC#: [id number] PT STATUS: REG ER : 1940 PHYSICIAN: DEBORAH DELACRUZ MD ADMIT DATE: 02/26/18/ER Draft Date of Exam:02/26/18 CHEST 1 VIEW, AP/PA ONLY INDICATION: Line placement. TECHNIQUE: Single view chest at 05:03 p.m. CORRELATION STUDY: 12/01/2016. FINDINGS: Right IJ central has been placed with tip projected over the cavoatrial junction. Heart size is enlarged. Vasculature appears slightly increased from prior study. Scattered pulmonary parenchymal densities particularly in the perihilar and basilar regions appear increased. Probable small effusions. No pneumothorax. IMPRESSION: 1. Right IJ central line has been placed with tip projected over the cavoatrial junction. 2. There appears to be increasing severity of vascular congestion from prior study. Dictated on workstation # [id number] Dict: 02/26/18 1731 Trans: 02/26/18 1741 [id number] Interpreted by: JJ CROFT DO Electronically signed by: Departure Communication (Admissions) Time/Spoke to Admitting Phy: 17:14 Time/Spoke to Consulting Phy: 17:18 Impression Primary Impression: Septic shock Additional Impression: Pneumonia of both lower lobes Qualified Codes: J18.1 - Lobar pneumonia, unspecified organism Disposition: ADMITTED INPATIENT Condition: Stable Admissions Decision to Admit Reason: Admit from ER (General) Decision to Admit/Date: Feb 26, 2018 Time/Decision to Admit Time: 17:14 Departure-Patient Inst. Referrals: MOISÉS ARMSTRONG MD (PCP/Family) Primary Care Physician DEBORAH DELACRUZ MD Feb 26, 2018 17:10
[2018-02-26] MEDS ORDERED: PIPERACILLIN SODIUM/TAZOBACTAM 4.5 GM in NS (IVPB) 100 ML IV ONE (17:15)
--- NOTE | 2018-02-26 17:42 | Diagnostic Imaging Report ---
INDICATION: Line placement. TECHNIQUE: Single view chest at 05:03 p.m. CORRELATION STUDY: 12/01/2016. FINDINGS: Right IJ central has been placed with tip projected over the cavoatrial junction. Heart size is enlarged. Vasculature appears slightly increased from prior study. Scattered pulmonary parenchymal densities particularly in the perihilar and basilar regions appear increased. Probable small effusions. No pneumothorax. IMPRESSION: 1. Right IJ central line has been placed with tip projected over the cavoatrial junction. 2. There appears to be increasing severity of vascular congestion from prior study. Dictated by: Dictated on workstation # [id number]
[2018-02-26] MEDS ORDERED: NS IV 1000 ML 1,000 ML IV ONE (18:34)
[2018-02-26] MEDS: NS IV 1000 ML 1,000 ML IV SCH ×2 (19:13→23:01)
[2018-02-26] MEDS ORDERED: ONDANSETRON 4 MG/2 ML (SDV) Z0FRAN IVP PRN (19:15)
[2018-02-26] MEDS ORDERED: MELATONIN 3 MG TABLET PO PRN (19:15)
[2018-02-26] MEDS ORDERED: diphenhydrAMINE 25 MG TAB (BENADRYL) PO PRN (19:15)
[2018-02-26] MEDS ORDERED: ALPRAZolam 0.25 MG (XANAX) TAB PO PRN (19:15)
[2018-02-26] MEDS ORDERED: DOCUSATE SODIUM 100 MG (COLACE) CAP PO PRN (19:15)
[2018-02-26] MEDS ORDERED: CALCIUM CARBONATE 500 MG (TUMS) TAB.CHEW PO PRN (19:15)
[2018-02-26] MEDS ORDERED: fentaNYL INJECTION 100 MCG/2 ML AMP IVP PRN (19:15)
[2018-02-26] MEDS ORDERED: HYDROcodone/APAP 5 MG/325 MG (LORTAB) TAB PO PRN (19:15)
[2018-02-26] MEDS: ACETAMINOPHEN 500 MG TAB (TYLENOL) PO PRN (19:34)
[2018-02-26] MEDS ORDERED: FLU QUADRIvalent (5+ YOA) 2018-2019 (AFLURIA) 0.5 ML IM ONE (19:45)
[2018-02-26] MEDS: PIPERACILLIN/TAZO 4.5 GM/NS 100 ML IV SCH ×2 (22:59)
[2018-02-26] MEDS: inSUlin ASPART (NovoLOG) 1 UNIT/0.01 ML (CHARGE PER UNIT) SQ SCH (23:10)
[2018-02-27] VITALS (25 sets, daily range): BP systolic 85–142; BP diastolic 49–107
[2018-02-27] MEDS: ACETAMINOPHEN 500 MG TAB (TYLENOL) PO PRN ×3 (01:06→23:38)
[2018-02-27] MEDS: NS IV 1000 ML 1,000 ML IV SCH ×4 (03:03→22:31)
[2018-02-27 03:23] LABS: BASOPHILS % (AUTO) 0 % (0-10); EOSINOPHILS % (AUTO) 0 % (0-10); HEMATOCRIT 31 % (40-54); HEMOGLOBIN 10.3 G/DL (13.3-17.7); LYMPHOCYTES # (AUTO) 1.8 X 10^3 (1.0-4.0); LYMPHOCYTES % (AUTO) 14 % (12-44); MEAN CORPUSCULAR HEMOGLOBIN 27 PG (25-34); MEAN CORPUSCULAR HGB CONC 33 G/DL (32-36); MEAN CORPUSCULAR VOLUME 82 FL (80-99); MEAN PLATELET VOLUME 9.2 FL (7.4-10.4); MONOCYTES # (AUTO) 0.9 X 10^3 (0.0-1.0); MONOCYTES % (AUTO) 7 % (0-12); NEUTROPHILS # (AUTO) 10.8 X 10^3 (1.8-7.8); NEUTROPHILS % (AUTO) 80 % (42-75); PLATELET COUNT 179 10^3/uL (130-400); RED BLOOD COUNT 3.83 10^6/uL (4.35-5.85); RED CELL DISTRIBUTION WIDTH 16.1 % (10.0-14.5); WHITE BLOOD COUNT 13.5 10^3/uL (4.3-11.0)
[2018-02-27 03:50] LABS: ALBUMIN 2.8 GM/DL (3.2-4.5); BILIRUBIN,TOTAL 0.6 MG/DL (0.1-1.0); CALCIUM 7.5 MG/DL (8.5-10.1); CREATININE SERUM 1.87 MG/DL (0.60-1.30); MAGNESIUM 1.3 MG/DL (1.8-2.4); PHOSPHORUS 3.5 MG/DL (2.3-4.7); POTASSIUM 4.5 MMOL/L (3.6-5.0); TOTAL PROTEIN 5.1 GM/DL (6.4-8.2)
[2018-02-27] MEDS: inSUlin ASPART (NovoLOG) 1 UNIT/0.01 ML (CHARGE PER UNIT) SQ SCH ×4 (05:03→23:35)
--- NOTE | 2018-02-27 06:23 | Pulmonary Consultation ---
History of Present Illness History of Present Illness Date of Consultation 02/27/18 06:18 Time Seen by Provider: 06:18 Date of Admission History of Present Illness Pt presented to ED via EMS secondary to diarrhea and hematochezia. No N/V. Pt was found to be hypotensive and tachycardia on admission and BS was 296 on admission. No CP or SOB. PT has been running persistent fever upto 102. He is also very SOB especially with exertion. Since admission he has had 3BRB stools. No prior episodes like this in the past. I am consulted for ICU management. Allergies and Home Medications Allergies Coded Allergies: No Known Drug Allergies (Verified , 01/29/07) Home Medications Amitriptyline HCl 50 Mg Tablet, 50 MG PO BID, (Reported) Amoxicillin/Potassium Clav 1 Each Tablet, 1 EACH PO BID Prescribed by: MOISÉS ARMSTRONG on 11/21/16 155 Calcium Carbonate/Vitamin D3 1 Each Tablet, 1 TAB PO BID, (Reported) Docusate Sodium 100 Mg Capsule, 100 MG PO DAILY Prescribed by: MOISÉS ARMSTRONG on 11/21/161555 Insulin Aspart 100 Unit/1 Ml Susp, 20 UNITS SC AC, (Reported) Insulin Glargine,Hum.rec.anlog 100 Unit/1 Ml Vial, 40 UNITS SC HS, (Reported) Lactobacillus Combo No.10 1 Each Capsule, 1 EACH PO BID Prescribed by: MOISÉS ARMSTRONG on 11/21/161555 Lisinopril 20 Mg Tablet, 20 MG PO DAILY, (Reported) Lovastatin 40 Mg Tablet, 40 MG PO HS, (Reported) Metoprolol Succinate 25 Mg Tab.er.24h, 25 MG PO DAILY, (Reported) Multivitamin 1 Each Tablet, 1 TAB PO DAILY, (Reported) Omeprazole Magnesium 20 Mg Tablet.dr, 20 MG PO BID, (Reported) Past Jcmfwvd-Rgmkaa-Dlslfn Hx Past Med/Social Hx: Reviewed Nursing Past Med/Soc Hx Patient Social History Alcohol Use: Denies Use Alcohol Beverage of Choice: Wine Recreational Drug Use: No Smoking Status: Former Smoker Type Used: Cigarettes Former Smoker, Quit: July 08, 1992 2nd Hand Smoke Exposure: No Recent Foreign Travel: No Contact w/Someone Who Travel: No Recent Infectious Disease Expo: No Recent Hopitalizations: No Immunizations Up To Date Tetanus Booster (TDap): Unknown PED Vaccines UTD: Yes Date of Pneumonia Vaccine: Dec 14, 2011 Date of Influenza Vaccine: Feb 13, 2014 Seasonal Allergies Seasonal Allergies: No Past Medical History Surgeries: Yes (TONSELECTOMY, PROSTATE) Prostatectomy, Tonsillectomy Respiratory: Yes Pneumonia Currently Using CPAP: No Currently Using BIPAP: No Cardiac: Yes High Cholesterol, Hypertension Neurological: Yes (NEUROPATHY DUE TO DIABETES) Reproductive Disorders: No Sexually Transmitted Disease: No HIV/AIDS: No Genitourinary: Yes Prostate Problems Gastrointestinal: Yes Colitis, Gastroesophageal Reflux Musculoskeletal: Yes Degenerate Disk Disease, Arthritis Endocrine: Yes Diabetes, Insulin dep HEENT: Yes Hearing Impairment: Hard of Hearing Cancer: Yes Prostate Psychosocial: No Integumentary: No Blood Disorders: No Adverse Reaction/Blood Tranf: No Family Medical History Reviewed Nursing Family Hx Cancer G8 SISTER ( of lung cancer) History of - disorder 19 MOTHER (mother of old age) History of - respiratory disease 17 FATHER (worked in [place] of resp disease from working in coal mines) Heart Disease, Cancer, Diabetes, Hypertension Review of Systems Time Seen by Provider: 06:33 Constitutional: Fever, Chills, Sweats, Weakness, Malaise, Other Eyes: No: Pain, Vision change, Conjunctivae inflammation, Eyelid inflammation, Other, Redness ENT: No: Ear pain, Ear discharge, Nose pain, Nose discharge, Nose congestion, Mouth pain, Mouth swelling, Throat pain, Throat swelling, Other Respiratory: Cough, Dry, Shortness of breath, SOB with excertion, Wheezing, Wheezing; No: Hemoptysis, Pleuritic Pain, Sputum Cardiovascular: Palpitations, Orthopnea, Paroxysmal Noc. Dyspnea; No: Chest Pain Gastrointestinal: Abdominal Pain, Diarrhea, Hematochezia Genitourinary: No Dysuria, No Frequency, No Incontinence, No Hematuria, No Retention, No Other Neurological: Weakness, Incoordination, Confusion Sepsis Event Evaluation Height, Weight, BMI Height: 5'9.00" Weight: 211lbs. 4.0oz. 95.185445yn; 31.2 BMI Method:Estimated Exam Exam Vital Signs Date Time Temp Pulse Resp B/P (MAP) Pulse Ox O2 Delivery O2 Flow Rate FiO2 02/27/18 06:00 86 28 117/107 (110) 100 Nasal Cannula 2.00 02/27/18 05:00 87 20 108/53 (71) 100 Nasal Cannula 2.00 02/27/18 04:00 98 Room Air 2.00 02/27/18 04:00 86 21 103/55 (71) 100 Nasal Cannula 2.00 02/27/18 03:00 87 26 107/53 (71) 99 Nasal Cannula 2.00 02/27/18 02:00 90 16 105/67 (80) 100 Nasal Cannula 2.00 02/27/18 01:17 101.0 02/27/18 01:00 97 22 127/95 (106) 100 Nasal Cannula 2.00 02/27/18 01:00 97 02/27/18 00:00 100 20 101/67 (78) 100 Nasal Cannula 2.00 02/27/18 00:00 97 Room Air 2.00 02/26/18 23:17 Nasal Cannula 2.00 02/26/18 23:00 99 22 130/62 (84) 100 Nasal Cannula 2.00 02/26/18 22:00 101.8 02/26/18 22:00 100 25 132/59 (83) 100 Nasal Cannula 2.00 02/26/18 21:52 107 99 28 02/26/18 21:00 100 12 128/62 (84) 100 Nasal Cannula 2.00 02/26/18 20:00 97 Room Air 2.00 02/26/18 20:00 102.9 02/26/18 20:00 107 24 111/71 (84) 99 Nasal Cannula 2.00 02/26/18 19:35 111 02/26/18 19:01 98.3 107 22 114/63 (80) 96 Nasal Cannula 2.00 02/26/18 19:00 101.9 116 24 102/67 (79) 99 Nasal Cannula 2.00 02/26/18 18:55 101.9 116 12 102/67 (79) 98 Nasal Cannula 2.00 02/26/18 18:20 98.5 110 22 104/36 96 Nasal Cannula 2.00 02/26/18 15:00 97.7 109 22 78/49 (59) 96 Room Air I & O 02/27/18 07:00 Intake Total 4450 ml Output Total 500 ml Balance 3950 ml Height & Weight Height: 5'9.00" Weight: 211lbs. 4.0oz. 95.394939al; 31.2 BMI Method:Estimated General Appearance: Anxious, Moderate Distress HEENT: Normal ENT Inspection, Pharynx Normal Neck: Full Range of Motion, Non Tender, Supple Respiratory: Chest Non Tender, Accessory Muscle Use, Crackles, Decreased Breath Sounds Cardiovascular: Regular Rate, Rhythm, No Murmur, Normal Peripheral Pulses Capillary Refill: Less Than 3 Seconds Gastrointestinal: non tender, soft Extremity: Normal Capillary Refill, Normal Inspection Neurologic/Psychiatric: Alert, Oriented x3 Skin: Normal Color, Warm/Dry Lymphatic: No Adenopathy Results Lab Laboratory Tests 02/26/18 15:15 02/27/18 03:18 Assessment/Plan Assessment/Plan Acute GIB probable lower with hematochezia -Check stool cultures and Cdiff -Surgery is following -IVF -Serial Q6H&H -Protonix 40mg IV BID Pneumonia with severe sepsis -IVF -Severe sepsis protocol -Continue Zosyn Metabolic acidosis -2 amps of bicarb -IVF continue NS at 150 Acute renal failure -IVF -Monitor Hyponatremia -Monitor Hypotension - resolved -PT has received about 5 liters of NS Dehydration Hypomag -replace CHAO DOBBS DO Feb 27, 2018 06:23
[2018-02-27] MEDS ORDERED: SODIUM BICARB 8.4% 50 MEQ/50 ML (ABBOTT) SYR IV ONE (06:30)
[2018-02-27] MEDS: RT-ALBUTEROL/IPRATROPIUM 3 ML (DUONEB) VIAL INH SCH ×2 (06:34→21:34)
[2018-02-27] MEDS: MAGNESIUM 1 GM/100 ML IVPB 100 ML IV SCH ×3 (06:39→08:47)
[2018-02-27] MEDS: PIPERACILLIN/TAZO 4.5 GM/NS 100 ML IV SCH ×6 (06:40→23:30)
[2018-02-27] MEDS: PANTOPRAZOLE 40 MG (PROTONIX) VIAL IV SCH ×2 (08:12→20:33)
--- NOTE | 2018-02-27 08:39 | Consultation-Cardiology ---
HPI-Cardiology Cardiology Consultation Date of Consultation 02/27/18 Date of Admission Time Seen by Provider: 08:33 Indication: hypotension HPI 77 years old gentleman with a history of diabetes mellitus. Started to having bright red blood per rectum. He has been having some shortness of breath. Came into the emergency room and noted to be hypotensive and septic. Blood sugar was elevated. He denied any chest pain. Denied any palpitation. Denied any syncope. Currently feeling better, blood pressure is better after receiving IV fluid. Home Medications & Allergies Allergies: Coded Allergies: No Known Drug Allergies (Verified , 01/29/07) Home Medication List Reviewed: Yes [id number]-[id number] Hx Patient Social History Employed/Student: retired Alcohol Use: Denies Use Recreational Drug Use: No Smoking Status: Former Smoker Former smoker/When Quit: Dec 13, 1996 Type Used: Cigarettes 2nd Hand Smoke Exposure: No Recent Foreign Travel: No Recent Infectious Disease Expo: No Recent Hopitalizations: No Immunizations Up To Date Tetanus Booster (TDap): Unknown Date of Pneumonia Vaccine: Dec 14, 2011 Date of Influenza Vaccine: Feb 13, 2014 Past Medical History past medical history as described below Family Medical History Significant Family History: Heart Disease, Cancer, Diabetes, Hypertension Family History: Cancer G8 SISTER ( of lung cancer) History of - disorder 19 MOTHER (mother of old age) History of - respiratory disease 19 FATHER (worked in coal 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 of resp disease from working in coal mines) Review of Systems Constitutional: see HPI, malaise EENTM: see HPI, no symptoms reported Respiratory: see HPI, cough, dyspnea on exertion; No hemoptysis, No orthopnea, No phlegm, No short of breath, No stridor, No wheezing, No other Cardiovascular: see HPI; No chest pain, No edema, No Hx of Intervention, No palpitations, No syncope, No vascular heart diseas, No other Gastrointestinal: no symptoms reported, see HPI, other (blood in the stool) Genitourinary: no symptoms reported, see HPI Musculoskeletal: no symptoms reported, see HPI Skin: no symptoms reported, see HPI Psychiatric/Neurological: No Symptoms Reported, See HPI Reviewed Test Results Reviewed Test Results Lab Laboratory Tests Test 02/26/18 15:07 02/26/18 15:15 02/26/18 15:20 02/26/18 16:19 Range/Units Glucometer 296 H 70-110 MG/DL White Blood Count 21.7 H 4.3-11.0 10^3/uL Red Blood Count 4.93 4.35-5.85 10^6/uL Hemoglobin 13.2 L 13.3-17.7 G/DL Hematocrit 41 40-54 % Mean Corpuscular Volume 82 80-99 FL Mean Corpuscular Hemoglobin 27 25-34 PG Mean Corpuscular Hemoglobin Concent 33 32-36 G/DL Red Cell Distribution Width 17.2 H 10.0-14.5 % Platelet Count 275 130-400 10^3/uL Mean Platelet Volume 9.3 7.4-10.4 FL Neutrophils (%) (Auto) 86 H 42-75 % Lymphocytes (%) (Auto) 7 L 12-44 % Monocytes (%) (Auto) 7 0-12 % Eosinophils (%) (Auto) 0 0-10 % Basophils (%) (Auto) 0 0-10 % Neutrophils # (Auto) 18.8 H 1.8-7.8 X 10^3 Lymphocytes # (Auto) 1.4 1.0-4.0 X 10^3 Monocytes # (Auto) 1.5 H 0.0-1.0 X 10^3 Eosinophils # (Auto) 0.0 0.0-0.3 10^3/uL Basophils # (Auto) 0.0 0.0-0.1 10^3/uL Neutrophils % (Manual) 91 % Lymphocytes % (Manual) 3 % Monocytes % (Manual) 6 % Eosinophils % (Manual) 0 % Basophils % (Manual) 0 % Band Neutrophils 0 % Anisocytosis SLIGHT Sodium Level 135 135-145 MMOL/L Potassium Level 4.4 3.6-5.0 MMOL/L Chloride Level 101 98-107 MMOL/L Carbon Dioxide Level 13 L 21-32 MMOL/L Anion Gap 21 H 5-14 MMOL/L Blood Urea Nitrogen 30 H 7-18 MG/DL Creatinine 2.58 H 0.60-1.30 MG/DL Estimat Glomerular Filtration Rate 24 BUN/Creatinine Ratio 12 Glucose Level 322 H 70-105 MG/DL Calcium Level 10.4 H 8.5-10.1 MG/DL Corrected Calcium 10.4 H 8.5-10.1 MG/DL Total Bilirubin 0.5 0.1-1.0 MG/DL Aspartate Amino Transf (AST/SGOT) 41 H 5-34 U/L Alanine Aminotransferase (ALT/SGPT) 28 0-55 U/L Alkaline Phosphatase 114 40-136 U/L Total Protein 7.9 6.4-8.2 GM/DL Albumin 4.0 3.2-4.5 GM/DL Amylase Level 268 H 25-125 U/L Lipase 40 8-78 U/L Lactic Acid Level 8.99 *H 0.50-2.00 MMOL/L C-Reactive Protein High Sensitivity 0.76 H 0.00-0.50 MG/DL Urine Color YELLOW Urine Clarity CLEAR Urine pH 6 5-9 Urine Specific [place] 1.010 L 1.016-1.022 Urine Protein 3+ H NEGATIVE Urine Glucose (UA) 2+ H NEGATIVE Urine Ketones NEGATIVE NEGATIVE Urine Nitrite NEGATIVE NEGATIVE Urine Bilirubin NEGATIVE NEGATIVE Urine Urobilinogen 1 NORMAL MG/DL Urine Leukocyte Esterase 1+ H NEGATIVE Urine RBC (Auto) 2+ H NEGATIVE Urine RBC 2-5 H /HPF Urine WBC 2-5 /HPF Urine Crystals NONE /LPF Urine Bacteria NEGATIVE /HPF Urine Casts PRESENT /LPF Urine Hyaline Casts 2-5 H /LPF Urine Mucus LARGE H /LPF Urine Culture Indicated NO Test 02/26/18 18:40 02/26/18 23:06 02/27/18 03:18 02/27/18 08:21 Range/Units Lactic Acid Level 3.65 *H 1.43 0.50-2.00 MMOL/L Glucometer 198 H 70-110 MG/DL White Blood Count 13.5 H 4.3-11.0 10^3/uL Red Blood Count 3.83 L 4.35-5.85 10^6/uL Hemoglobin 10.3 #L 13.3-17.7 G/DL Hematocrit 31 L 40-54 % Mean Corpuscular Volume 82 80-99 FL Mean Corpuscular Hemoglobin 27 25-34 PG Mean Corpuscular Hemoglobin Concent 33 32-36 G/DL Red Cell Distribution Width 16.1 H 10.0-14.5 % Platelet Count 179 130-400 10^3/uL Mean Platelet Volume 9.2 7.4-10.4 FL Neutrophils (%) (Auto) 80 H 42-75 % Lymphocytes (%) (Auto) 14 12-44 % Monocytes (%) (Auto) 7 0-12 % Eosinophils (%) (Auto) 0 0-10 % Basophils (%) (Auto) 0 0-10 % Neutrophils # (Auto) 10.8 H 1.8-7.8 X 10^3 Lymphocytes # (Auto) 1.8 1.0-4.0 X 10^3 Monocytes # (Auto) 0.9 0.0-1.0 X 10^3 Eosinophils # (Auto) 0.0 0.0-0.3 10^3/uL Basophils # (Auto) 0.0 0.0-0.1 10^3/uL Sodium Level 134 L 135-145 MMOL/L Potassium Level 4.5 3.6-5.0 MMOL/L Chloride Level 110 H 98-107 MMOL/L Carbon Dioxide Level 14 L 21-32 MMOL/L Anion Gap 10 5-14 MMOL/L Blood Urea Nitrogen 26 H 7-18 MG/DL Creatinine 1.87 H 0.60-1.30 MG/DL Estimat Glomerular Filtration Rate 35 BUN/Creatinine Ratio 14 Glucose Level 175 H 70-105 MG/DL Calcium Level 7.5 L 8.5-10.1 MG/DL Corrected Calcium 8.5 8.5-10.1 MG/DL Phosphorus Level 3.5 2.3-4.7 MG/DL Magnesium Level 1.3 L 1.8-2.4 MG/DL Total Bilirubin 0.6 0.1-1.0 MG/DL Aspartate Amino Transf (AST/SGOT) 32 5-34 U/L Alanine Aminotransferase (ALT/SGPT) 20 0-55 U/L Alkaline Phosphatase 53 40-136 U/L Total Protein 5.1 L 6.4-8.2 GM/DL Albumin 2.8 L 3.2-4.5 GM/DL Physical Exam Vital Signs Vital Signs - First Documented 02/26/18 02/26/18 02/26/18 15:00 18:20 21:52 Temp 97.7 Pulse 109 Resp 22 B/P (MAP) 78/49 (59) Pulse Ox 96 O2 Delivery Room Air O2 Flow Rate 2.00 FiO2 28 Capillary Refill : Less Than 3 Seconds Height, Weight, BMI Height: 5'9.00" Weight: 223lbs. 4.0oz. 101.049400rl; 31.2 BMI Method:Estimated General Appearance: No Apparent Distress, WD/WN Eyes: Bilateral Eye Normal Inspection, Bilateral Eye PERRL, Bilateral Eye EOMI HEENT: PERRL/EOMI, TMs Normal, Normal ENT Inspection, Pharynx Normal Neck: Full Range of Motion, Normal Inspection, Non Tender, Supple, Carotid Bruit Respiratory: Chest Non Tender, Lungs Clear, Normal Breath Sounds, No Accessory Muscle Use, No Respiratory Distress Cardiovascular: Regular Rate, Rhythm, No Edema, No Gallop, No JVD, No Murmur, Normal Peripheral Pulses Gastrointestinal: Normal Bowel Sounds, No Organomegaly, No Pulsatile Mass, Non Tender, Soft Back: Normal Inspection, No CVA Tenderness, No Vertebral Tenderness Extremity: Normal Capillary Refill, Normal Inspection, Normal Range of Motion, Non Tender, No Calf Tenderness, No Pedal Edema Neurologic/Psychiatric: Alert, Oriented x3, No Motor/Sensory Deficits, Normal Mood/Affect Skin: Normal Color, Warm/Dry Lymphatic: No Adenopathy A/P-Cardiology Admission Diagnosis Pneumonia Sepsis Lower GI bleed Hypotension Assessment/Plan Pneumonia with sepsis, started on antibiotic, improving, and is by primary care team. Hematochezia, started yesterday. Still having bleeding at this time. Workup is in progress, surgery were consulted. Hypotension secondary to above, responded to IV fluid. Improving. Continue to monitor History of hypertension, old blood pressure medication for now and monitor blood pressure Hyperlipidemia, maintained on lovastatin as an outpatient, hold it for now and monitor Acute on chronic renal failure, improving, continue to monitor renal function, continue on IV fluid No reported previous cardiac history. Diabetes mellitus, but sugar is better controlled at this time. Continue to monitor Clinical Quality Measures DVT/VTE Risk/Contraindication: Risk Factor Score Per Nursin RFS Level Per Nursing on Admit: 4+=Very High INDIGO BULL MD Feb 27, 2018 08:38
--- NOTE | 2018-02-27 10:42 | CONSULTATION REPORT ---
DATE OF SERVICE: 02/27/2018 ATTENDING PRIMARY CARE PHYSICIAN: Marybeth Alfaro MD. ADMITTING PHYSICIAN: Melissa Hoyt DO. HISTORY OF PRESENT ILLNESS: The patient is a 77-year-old male who we have seen before in the past. He has a history of coronary artery disease, hypertension, diabetes as well as prostate cancer. This gentleman presented with a syncopal episode. He reports straining upon defecation and did have a hard large bowel movement and this was followed by rectal bleeding. He also felt short of breath and also felt mild tremors which he normally does when he becomes hyperglycemic, which he was found to be in the Emergency Department. Upon further evaluation, he was found to have a pneumonia. Since being admitted, he has been stable. He has had some loose stools with some blood mixed with it. We have done a previous colonoscopy on him before in 2013, where he was found to have a moderate sigmoid diverticulosis as well as hemorrhoids. Due to his history of hemorrhoids, as well as diverticulosis and the history of constipation, the most likely etiology of his bleeding is secondary to a diverticular bleed or hemorrhoids. At this time, as he is stable, we will proceed with conservative management and continue to monitor his hemoglobin to allow the bleeding to stop on its own. PAST MEDICAL HISTORY: Hypertension, coronary artery disease, diabetes, and prostate cancer. PAST SURGICAL HISTORY: Prostatectomy in 2002, tonsillectomy. ALLERGIES: No known drug allergies. MEDICATIONS: Amitriptyline 75 mg q.a.m. and 150 mg each day at bedtime, glimepiride 4 mg daily, NovoLog insulin 65 units q.a.m. and 45 units q.p.m., lisinopril 10 mg daily, metoprolol 25 mg daily, omeprazole 20 mg daily, Colace 100 mg daily, and lovastatin 40 mg daily. SOCIAL HISTORY: Previous smoker, negative alcohol. FAMILY HISTORY: Sister, lung cancer. REVIEW OF SYSTEMS: Well-nourished male, currently in no acute distress. He is not experiencing any shortness of breath or difficulty breathing. He does have occasional coughs, which are not productive of sputum. No hemoptysis. No nausea or vomiting. He has had several episodes of loose stools with red blood mixed within. No abdominal pain. He did have fevers at home and none since being admitted. No recent inadvertent weight loss. All other review of systems is negative. PHYSICAL EXAMINATION: VITAL SIGNS: Temperature is 98.0, blood pressure 126/58, pulse 85, respirations 21, and pulse ox 100% on 2 liters nasal cannula. CHEST: Scattered rales and expiratory wheezes bilaterally. HEART: Regular, no murmurs. EXTREMITIES: No lower extremity edema. Negative Homans sign. HEENT: No scleral icterus. NECK: No cervical lymphadenopathy. ABDOMEN: Soft, nontender, and nondistended. SKIN: Warm, dry. LABORATORY DATA: WBC is 13.5, hemoglobin 10.3, hematocrit 31, and platelets 179. BUN is 26, and creatinine 1.87. ASSESSMENT AND PLAN: This is a 77-year-old male with pneumonia, septicemia, hyperglycemia, constipation and rectal bleed, most likely secondary to internal hemorrhoidal irritation versus a diverticular bleed. At this time, he is stable and we will continue to monitor his hemoglobin and allow the hemorrhoid or diverticular bleed to stop on its own, which most do spontaneously over time. If he does have significant continued blood loss, we will then proceed with intervention with a colonoscopy or sigmoidoscopy. For now, we will start a diabetic diet. We will also recommend continued promotion of soft stools with a high fiber diet. Job ID: [id number] DocumentID: [id number] Dictated Date: 02/27/2018 09:58:27 Physics Tutor Date: 02/27/2018 10:42:02 Dictated By: MARCELINO RENE MD
[2018-02-27] MEDS ORDERED: LISI-556 PO (11:43)
[2018-02-27] MEDS ORDERED: INSU100V16 SQ ×2 (11:51)
--- NOTE | 2018-02-27 11:51 | NUR ---
SPOKE TO PATIENT HE WAS UNSURE OF WHAT HE TOOK. CALLED [facility] FOR RECENTLY FILLED MEDICATIONS.
--- NOTE | 2018-02-27 12:34 | History & Physical-Hospitalist ---
History of Present Illness HPI/Chief Complaint CC: Bilateral pneumonia HPI: This is a 77-year-old white male clinic patient of Dr. Alfaro who presented to the ER with hematochezia but was found to have severely low blood pressure of systolic of 60 requiring severe sepsis protocol aggressive IV fluid resuscitation without pressors in the ER. Further workup ensued revealing bilateral pneumonia and acute renal failure with hyperglycemia. reports bloody stools 3 and hemoglobin stable at 13 that require general surgery consultation and case bloody stools recurred. Patient denies any history of pneumonia does not wear oxygen at home and overall feels like he is in pretty good health. Currently he is still a little bit short of breath but feels better but weakened since admission. Patient was placed on IV antibiotics of Zosyn along with nebulizer treatments and oxygen supplementation along with maintained IV fluid resuscitation. Hemoglobin decreased to 11 and renal insufficiency improved with IV fluids. Source: patient, RN/MD Exam Limitations: no limitations Date Seen 02/27/18 Time Seen by a Provider: 11:00 Attending Physician Marybeth Alfaro MD PCP Marybeth Alfaro MD Referring Physician Date of Admission Feb 26, 2018 at 17:24 Home Medications & Allergies Home Medications Reviewed patient Home Medication Reconciliation performed by pharmacy medication reconciliations recycling technician and/or nursing. Patients Allergies have been reviewed. 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) Alcohol Use: Denies Use Alcohol Beverage of Choice: Wine Recreational Drug Use: No Smoking Status: Former Smoker Former Smoker, Quit: July 08, 1992 Type Used: Cigarettes 2nd Hand Smoke Exposure: No Recent Foreign Travel: No Contact w/other who traveled: No Recent Hopitalizations: No Recent Infectious Disease Expo: No Immunizations Up To Date Tetanus Booster (TDap): Unknown Pediatric: Yes Date of Pneumonia Vaccine: Dec 14, 2011 Date of Influenza Vaccine: Feb 13, 2014 Seasonal Allergies Seasonal Allergies: No Past Medical History Surgeries: Prostatectomy, Tonsillectomy Currently Using CPAP: No Currently Using BIPAP: No Cardiac: High Cholesterol, Hypertension Reproductive: No Sexually Transmitted Disease: No HIV/AIDS: No Genitourinary: Prostate Problems Gastrointestinal: Colitis, Gastroesophageal Reflux Musculoskeletal: Degenerate Disk Disease, Arthritis Endocrine: Diabetes, Insulin dep Hearing Impairment: Hard of Hearing Cancer: Prostate History of Blood Disorders: No Adverse Reaction to Blood [place]: No Family History Reviewed Nursing Family Hx Cancer G8 SISTER ( of lung cancer) History of - disorder 19 MOTHER (mother of old age) History of - respiratory disease 19 FATHER (worked in coal mines of resp disease from working in coal mines) Heart Disease, Cancer, Diabetes, Hypertension Review of Systems Constitutional: see HPI, chills, diaphoresis, dizziness, fever, malaise, weakness, weight loss EENTM: no symptoms reported Respiratory: cough, dyspnea on exertion, short of breath, wheezing Cardiovascular: no symptoms reported Gastrointestinal: heartburn, melena Genitourinary: decreased output Musculoskeletal: back pain, joint pain Skin: no symptoms reported Psychiatric/Neurological: No Symptoms Reported All Other Systems Reviewed Negative Unless Noted: Yes Physical Exam Physical Exam Vital Signs Vital Signs - First Documented 02/26/18 02/26/18 02/26/18 15:00 18:20 21:52 Temp 97.7 Pulse 109 Resp 22 B/P (MAP) 78/49 (59) Pulse Ox 96 O2 Delivery Room Air O2 Flow Rate 2.00 FiO2 28 Capillary Refill : Less Than 3 Seconds Height, Weight, BMI Height: 5'9.00" Weight: 223lbs. 4.0oz. 101.863499uo; 31.2 BMI Method:Estimated General Appearance: WD/WN, Anxious, Chronically ill, Mild Distress, Obese Eyes: Bilateral Eye Normal Inspection, Bilateral Eye PERRL HEENT: PERRL/EOMI, Normal ENT Inspection, Pharynx Normal Neck: Full Range of Motion, Normal Inspection, Non Tender, Supple, Carotid Bruit Respiratory: Chest Non Tender, No Accessory Muscle Use, No Respiratory Distress , Crackles, Decreased Breath Sounds, Wheezing Cardiovascular: Regular Rate, Rhythm, No Edema, No Gallop, No JVD, No Murmur, Normal Peripheral Pulses Gastrointestinal: Normal Bowel Sounds, No Organomegaly, No Pulsatile Mass, Non Tender, Soft Back: Normal Inspection, No CVA Tenderness, No Vertebral Tenderness Extremity: Normal Capillary Refill, Normal Inspection, Normal Range of Motion, Non Tender, No Calf Tenderness, No Pedal Edema Neurologic/Psychiatric: Alert, Oriented x3, No Motor/Sensory Deficits, Normal Mood/Affect Skin: Normal Color, Warm/Dry Lymphatic: No Adenopathy Results Results/Procedures Labs Laboratory Tests 02/26/18 15:15 02/27/18 03:18 02/27/18 12:29 Patient resulted labs reviewed. Assessment/Plan Admission Diagnosis Assessment: Acute GIB probable lower with hematochezia Pneumonia with severe sepsis Metabolic acidosis Acute renal failure Hyponatremia Hypotension - resolved Dehydration Hypomag Plan: Maintain in ICU today Monitor closely Monitor hypotension IV antibiotics Appreciate general surgery, cardiology, rheumatology consultations Admission Status: Inpatient Order (span 2 midnights) Reason for Inpatient Admission: Severe sepsis will require aggressive IV fluids and antibiotics Diagnosis/Problems Diagnosis/Problems (1) Severe sepsis Status: Acute (2) Pneumonia of both lower lobes Status: Acute Qualifiers: Pneumonia type: due to unspecified organism Qualified Codes: J18.1 - Lobar pneumonia, unspecified organism (3) Presbycusis Status: Chronic Qualifiers: Laterality: bilateral Qualified Codes: H91.13 - Presbycusis, bilateral (4) Leukocytosis Status: Acute Qualifiers: Leukocytosis type: leukemoid reaction Qualified Codes: D72.823 - Leukemoid reaction (5) GI bleed Status: Acute Qualifiers: GI bleed type/associated pathology: unspecified gastrointestinal hemorrhage type Qualified Codes: K92.2 - Gastrointestinal hemorrhage, unspecified (6) Acute renal failure Status: Acute Qualifiers: Acute renal failure type: unspecified Qualified Codes: N17.9 - Acute kidney failure, unspecified (7) Hyperglycemia, unspecified Status: Acute (8) Hypotension Status: Resolved Qualifiers: Hypotension type: unspecified hypotension type Qualified Codes: I95.9 - Hypotension, unspecified Clinical Quality Measures DVT/VTE Risk/Contraindication: Risk Factor Score Per Nursin RFS Level Per Nursing on Admit: 4+=Very High JAIMIE VALENCIA DO Feb 27, 2018 12:34
[2018-02-27] MEDS: inSUlin ASPART (NovoLOG) 1 UNIT/0.01 ML (CHARGE PER UNIT) SC SCH (17:25)
[2018-02-27 18:22] LABS: HEMOGLOBIN 9.6 G/DL (13.3-17.7)
[2018-02-27] MEDS: AMITRIPTYLINE 50 MG (ELAVIL) TAB PO SCH (20:33)
[2018-02-28] VITALS (14 sets, daily range): BP systolic 101–135; BP diastolic 53–90
[2018-02-28 00:48] LABS: HEMOGLOBIN 8.8 G/DL (13.3-17.7)
[2018-02-28 04:51] LABS: BASOPHILS % (AUTO) 0 % (0-10); EOSINOPHILS # (AUTO) 0.1 10^3/uL (0.0-0.3); EOSINOPHILS % (AUTO) 1 % (0-10); HEMATOCRIT 28 % (40-54); LYMPHOCYTES # (AUTO) 2.4 X 10^3 (1.0-4.0); LYMPHOCYTES % (AUTO) 25 % (12-44); MEAN CORPUSCULAR HEMOGLOBIN 27 PG (25-34); MEAN CORPUSCULAR HGB CONC 32 G/DL (32-36); MEAN CORPUSCULAR VOLUME 83 FL (80-99); MEAN PLATELET VOLUME 9.1 FL (7.4-10.4); MONOCYTES # (AUTO) 0.8 X 10^3 (0.0-1.0); MONOCYTES % (AUTO) 9 % (0-12); NEUTROPHILS # (AUTO) 6.3 X 10^3 (1.8-7.8); NEUTROPHILS % (AUTO) 66 % (42-75); PLATELET COUNT 168 10^3/uL (130-400); RED BLOOD COUNT 3.37 10^6/uL (4.35-5.85); RED CELL DISTRIBUTION WIDTH 16.8 % (10.0-14.5); WHITE BLOOD COUNT 9.6 10^3/uL (4.3-11.0)
[2018-02-28 05:06] LABS: ALBUMIN 2.5 GM/DL (3.2-4.5); BILIRUBIN,TOTAL 0.6 MG/DL (0.1-1.0); CALCIUM 7.4 MG/DL (8.5-10.1); CREATININE SERUM 1.38 MG/DL (0.60-1.30); MAGNESIUM 1.7 MG/DL (1.8-2.4); PHOSPHORUS 2.6 MG/DL (2.3-4.7); POTASSIUM 3.7 MMOL/L (3.6-5.0); TOTAL PROTEIN 4.9 GM/DL (6.4-8.2)
[2018-02-28] MEDS: inSUlin ASPART (NovoLOG) 1 UNIT/0.01 ML (CHARGE PER UNIT) SQ SCH ×4 (05:24→20:35)
[2018-02-28] MEDS: NS IV 1000 ML 1,000 ML IV SCH ×3 (05:27→22:17)
[2018-02-28] MEDS: MAGNESIUM 1 GM/100 ML IVPB 100 ML IV SCH ×2 (05:30→06:28)
[2018-02-28] MEDS ORDERED: POTASSIUM CL 10MEQ/50ML IVPB 50 ML IV SCH (06:00)
[2018-02-28] MEDS ORDERED: MAGNESIUM 1 GM/100 ML IVPB 100 ML IV SCH (06:00)
[2018-02-28] MEDS ORDERED: KCL 20 MEQ TAB (K-DUR) PO SCH (06:00)
[2018-02-28] MEDS: RT-ALBUTEROL/IPRATROPIUM 3 ML (DUONEB) VIAL INH SCH ×2 (06:20→20:22)
--- NOTE | 2018-02-28 07:13 | Pulmonary Progress Note ---
Subjective Time Seen by a Provider: 07:15 Subjective/Events-last exam PT is doing better. SOB is improved but still requiring oxygen. BRBPR has resolved. Sepsis Event Evaluation Height, Weight, BMI Height: 5'9.00" Weight: 230lbs. 4.0oz. 104.789297ii; 31.2 BMI Method:Estimated Focused Exam Lactate Level 02/26/18 15:20: Lactic Acid Level 8.99*H 02/26/18 18:40: Lactic Acid Level 3.65*H 02/27/18 03:18: Lactic Acid Level 1.43 Exam Exam Vital Signs Date Time Temp Pulse Resp B/P (MAP) Pulse Ox O2 Delivery O2 Flow Rate FiO2 02/28/18 06:20 100 Nasal Cannula 2.00 02/28/18 06:00 86 26 119/61 (80) 100 Nasal Cannula 2.00 02/28/18 05:00 89 18 122/66 (84) 100 Nasal Cannula 2.00 02/28/18 04:00 87 19 101/54 (70) 98 Nasal Cannula 2.00 02/28/18 04:00 98.1 02/28/18 04:00 Nasal Cannula 2.00 02/28/18 03:00 90 26 124/59 (80) 100 Nasal Cannula 2.00 02/28/18 02:00 100 22 129/64 (85) 100 Nasal Cannula 2.00 02/28/18 01:00 96 12 108/73 (85) 100 Nasal Cannula 2.00 02/28/18 01:00 96 02/28/18 00:42 100.5 02/28/18 00:08 100.5 02/28/18 00:00 97 23 111/55 (73) 100 Nasal Cannula 2.00 02/28/18 00:00 Nasal Cannula 2.00 02/27/18 23:38 101.3 02/27/18 23:34 101.3 02/27/18 23:00 105 21 128/58 (81) 100 Nasal Cannula 2.00 02/27/18 22:00 107 16 142/55 (84) 100 Nasal Cannula 2.00 02/27/18 21:35 100 Nasal Cannula 2.00 02/27/18 21:00 105 35 103/61 (75) 100 Nasal Cannula 2.00 02/27/18 20:00 98 26 139/74 (95) 100 Nasal Cannula 2.00 02/27/18 20:00 Nasal Cannula 2.00 02/27/18 19:31 100.0 Nasal Cannula 2.00 02/27/18 19:00 95 02/27/18 19:00 95 18 107/62 (77) 100 Nasal Cannula 2.00 02/27/18 18:00 88 21 107/57 (74) 100 Nasal Cannula 2.00 02/27/18 17:00 56 24 110/55 (73) 100 Nasal Cannula 2.00 02/27/18 16:10 90 20 113/54 (73) 100 Nasal Cannula 2.00 02/27/18 16:08 99.8 02/27/18 16:00 89 17 85/56 (66) 100 Nasal Cannula 2.00 02/27/18 15:35 100.4 02/27/18 15:16 100.4 02/27/18 15:02 Nasal Cannula 2.00 02/27/18 15:00 100.6 02/27/18 15:00 92 35 94/64 (74) 100 Nasal Cannula 2.00 02/27/18 14:59 100.6 02/27/18 14:00 87 120/61 (80) 100 Nasal Cannula 2.00 02/27/18 13:00 86 19 119/59 (79) 100 Nasal Cannula 2.00 02/27/18 12:43 90 02/27/18 12:18 99.5 02/27/18 12:14 Nasal Cannula 2.00 02/27/18 12:00 85 16 118/62 (80) 100 Nasal Cannula 2.00 02/27/18 11:24 99.2 02/27/18 11:00 86 22 120/57 (78) 100 Nasal Cannula 2.00 02/27/18 10:41 98.4 02/27/18 10:00 85 22 115/49 (71) 100 Nasal Cannula 2.00 02/27/18 09:00 85 21 126/58 (80) 100 Nasal Cannula 2.00 02/27/18 08:13 98.0 02/27/18 08:00 87 23 118/58 (78) 100 Nasal Cannula 2.00 02/27/18 08:00 Nasal Cannula 2.00 02/27/18 07:10 91 I & O 02/28/18 07:00 Intake Total 3850 ml Output Total 2255 ml Balance 1595 ml Height & Weight Height: 5'9.00" Weight: 230lbs. 4.0oz. 104.023326ld; 31.2 BMI Method:Estimated General Appearance: WD/WN, Anxious, Chronically ill, Mild Distress, Obese HEENT: PERRL/EOMI, Normal ENT Inspection, Pharynx Normal Neck: Full Range of Motion, Normal Inspection, Non Tender, Supple, Carotid Bruit Respiratory: Chest Non Tender, No Accessory Muscle Use, No Respiratory Distress , Crackles, Decreased Breath Sounds, Wheezing Cardiovascular: Regular Rate, Rhythm, No Edema, No Gallop, No JVD, No Murmur, Normal Peripheral Pulses Capillary Refill: Less Than 3 Seconds Gastrointestinal: non tender, soft Extremity: Normal Capillary Refill, Normal Inspection, Normal Range of Motion, Non Tender, No Calf Tenderness, No Pedal Edema Neurologic/Psychiatric: Alert, Oriented x3, No Motor/Sensory Deficits, Normal Mood/Affect Skin: Normal Color, Warm/Dry Lymphatic: No Adenopathy Results Lab Laboratory Tests 02/26/18 15:15 02/27/18 03:18 02/27/18 12:29 02/27/18 18:10 02/28/18 00:45 02/28/18 04:40 Assessment/Plan Assessment/Plan Acute GIB probable lower with hematochezia -BRBPR has resolved -Check stool cultures and Cdiff -Surgery is following -IVF -D/C Serial Q6H&H - HB is stable -Protonix 40mg IV BID - change to po daily Pneumonia with severe sepsis -IVF -Severe sepsis protocol -Continue Zosyn Metabolic acidosis -2 amps of bicarb -IVF continue NS at 150 Acute renal failure -IVF -Monitor Hyponatremia -Monitor Hypotension - resolved -PT has received about 5 liters of NS Dehydration Hypomag -replace If ok with surgery transfer to 4th floor and continue to monitor. CHAO DOBBS DO Feb 28, 2018 07:13
[2018-02-28] MEDS ORDERED: KCL 10 MEQ TAB (MICRO K) PO NR (07:15)
[2018-02-28] MEDS ORDERED: SODIUM BICARB 8.4% 50 MEQ/50 ML (ABBOTT) SYR IV NR (07:15)
[2018-02-28] MEDS: PIPERACILLIN/TAZO 4.5 GM/NS 100 ML IV SCH ×6 (07:41→22:17)
[2018-02-28] MEDS: AMITRIPTYLINE 50 MG (ELAVIL) TAB PO SCH ×2 (07:46→20:35)
[2018-02-28] MEDS: PANTOPRAZOLE 40 MG (PROTONIX) VIAL IV SCH (07:46)
--- NOTE | 2018-02-28 07:55 | Diagnostic Imaging Report ---
INDICATION: Pneumonia and sepsis Comparison is made with prior examination from 02/26/2018. FINDINGS: There is cardiomegaly. There is venous congestion. There is no pleural effusion, pneumothorax or pneumonia. Mediastinum is unremarkable. IMPRESSION: Cardiomegaly and moderate central pulmonary venous congestion. Dictated by: Dictated on workstation # [id number]
--- NOTE | 2018-02-28 08:31 | Progress Note ---
Subjective Date Seen by a Provider: Feb 28, 2018 Time Seen by a Provider: 08:30 Subjective/Events-last exam PT REPORTS THAT HIS ABDOMEN IS NOT HURTING, HE REPORTS THAT HE DOES NOT HAVE ANY MORE DIARRHEA, HE DENIES CHEST PAIN, SHORTNESS OF BREATH. Review of Systems General: No Chills; Fatigue HEENT: No Head Aches Pulmonary: No Dyspnea, No Cough Cardiovascular: No: Chest Pain, Palpitations Gastrointestinal: No: Nausea, Abdominal Pain Genitourinary: No Dysuria; Other (ODELL IN PLACE) Neurological: Weakness; No: Confusion Focused Exam Lactate Level 02/26/18 15:20: Lactic Acid Level 8.99*H 02/26/18 18:40: Lactic Acid Level 3.65*H 02/27/18 03:18: Lactic Acid Level 1.43 Objective Exam Last Set of Vital Signs Vital Signs Date Time Temp Pulse Resp B/P (MAP) Pulse Ox O2 Delivery O2 Flow Rate FiO2 02/28/18 08:20 Nasal Cannula 2.00 02/28/18 07:20 98.3 02/28/18 06:20 100 02/28/18 06:00 86 26 119/61 (80) 02/26/18 21:52 28 Capillary Refill : Less Than 3 Seconds I&O Intake and Output 02/28/18 00:00 Intake Total 4860 ml Output Total 1730 ml Balance 3130 ml Intake Oral 1260 ml IV Total 3600 ml Output Urine Total 1730 ml # Bowel Movements 9 General: Alert, Oriented X3, Cooperative, No Acute Distress HEENT: Atraumatic, PERRLA Neck: Supple Lungs: Clear to Auscultation Heart: Regular Rate Abdomen: Normal Bowel Sounds, Soft Extremities: No Clubbing Psych/Mental Status: Mental Status NL, Mood NL Results Lab Laboratory Tests 02/27/18 11:19: Glucometer 283H 02/27/18 12:29: Hemoglobin 10.0L, Hematocrit 30L 02/27/18 17:19: Glucometer 199H 02/27/18 18:10: Hemoglobin 9.6L, Hematocrit 30L 02/27/18 20:37: Glucometer 55*L 02/27/18 21:03: Glucometer 77 02/27/18 21:54: Glucometer 88 02/27/18 23:31: Glucometer 98 02/28/18 00:45: Hemoglobin 8.8L, Hematocrit 27L 02/28/18 04:40: Hemoglobin 9.0L, Hematocrit 28L, White Blood Count 9.6, Red Blood Count 3.37L, Mean Corpuscular Volume 83, Mean Corpuscular Hemoglobin 27, Mean Corpuscular Hemoglobin Concent 32, Red Cell Distribution Width 16.8H, Platelet Count 168, Mean Platelet Volume 9.1, Neutrophils (%) (Auto) 66, Lymphocytes (%) (Auto) 25, Monocytes (%) (Auto) 9, Eosinophils (%) (Auto) 1, Basophils (%) (Auto) 0, Neutrophils # (Auto) 6.3, Lymphocytes # (Auto) 2.4, Monocytes # (Auto) 0.8, Eosinophils # (Auto) 0.1, Basophils # (Auto) 0.0, Sodium Level 135, Potassium Level 3.7, Chloride Level 111H, Carbon Dioxide Level 15L, Anion Gap 9, Blood Urea Nitrogen 16, Creatinine 1.38H, Estimat Glomerular Filtration Rate 50, BUN/ Creatinine Ratio 12, Glucose Level 118H, Calcium Level 7.4L, Corrected Calcium 8.6, Phosphorus Level 2.6, Magnesium Level 1.7L, Total Bilirubin 0.6, Aspartate Amino Transf (AST/SGOT) 35H, Alanine Aminotransferase (ALT/SGPT) 17, Alkaline Phosphatase 38L, Total Protein 4.9L, Albumin 2.5L Microbiology 02/26/18 Blood Culture - Preliminary, Resulted Staph, Coag Neg (GRAVE DIGGER) See Comments 02/27/18 C. difficile GDH Antigen & Toxins - Final, Resulted 02/27/18 Stool Culture, Resulted Pending 02/27/18 Gram Stain - Final, Resulted 02/27/18 Sputum Culture, Resulted Pending Assessment/Plan Assessment/Plan Assess & Plan/Chief Complaint ACUTE GASTROINTESTINAL BLEEDING WITH HEMATOCHEZIA PNEUMONIA WITH SEVERE SEPSIS METABOLIC ACIDOSIS ACUTE RENAL FAILURE HYPONATREMIA HYPOTENSION DEHYDRATION HYPOMAGNESEMIA ACUTE GASTROINTESTINAL BLEEDING WITH HEMATOCHEZIA - DEFER TO DR. RENE - PT HAD COLONOSCOPY IN 2013 AFTER HIS LAST EPISODE LIKE THIS - CONTINUE WITH SUPPORTIVE CARE, CHECK SERIAL HGB. PNEUMONIA WITH SEVERE SEPSIS - CONTINUE WITH BROAD SPECTRUM IV ANTIBIOTICS. METABOLIC ACIDOSIS - SUPPORTIVE CARE - SYMPTOMS IMPROVED. ACUTE RENAL FAILURE - IMPROVED WITH IV FLUIDS HYPONATREMIA - IMPROVED WITH IV FLUIDS. HYPOTENSION - IMPROVED DEHYDRATION - IMPROVED WITH HYDRATION HYPOMAGNESEMIA - REPLENISH WITH IV FLUIDS Clinical Quality Measures DVT/VTE Risk/Contraindication: Risk Factor Score Per Nursin RFS Level Per Nursing on Admit: 4+=Very High MOISÉS ARMSTRONG MD Feb 28, 2018 08:30
--- NOTE | 2018-02-28 08:54 | Cardiology Progress Note ---
Subjective Date Seen by Provider: Feb 28, 2018 Time Seen by Provider: 08:52 Subjective/Events-last exam patient is sitting in a chair, feeling better, reporting improvement in his dyspnea. Review of Systems General: No Chills, No Night Sweats, No Fatigue, No Malaise, No Appetite, No Other HEENT: No Head Aches, No Visual Changes, No Eye Pain, No Ear Pain, No Dysphasia , No Sinus Congestion, No Post Nasal Drip, No Sore Throat, No Other Pulmonary: No Dyspnea, No Cough, No Pleuritic Chest Pain, No Other Cardiovascular: Edema; No: Chest Pain, Palpitations, Orthopnea, Paroxysmal Noc. Dyspnea, Lt Headedness, Other Focused Exam Lactate Level 02/26/18 15:20: Lactic Acid Level 8.99*H 02/26/18 18:40: Lactic Acid Level 3.65*H 02/27/18 03:18: Lactic Acid Level 1.43 Objective-Cardiology Exam Last Set of Vital Signs Vital Signs 02/26/18 02/28/18 02/28/18 02/28/18 02/28/18 21:52 06:00 06:20 07:20 08:20 Temp 98.3 Pulse 86 Resp 26 B/P (MAP) 119/61 (80) Pulse Ox 100 O2 Delivery Nasal Cannula O2 Flow Rate 2.00 FiO2 28 Capillary Refill : Less Than 3 Seconds I&O Intake and Output 02/28/18 00:00 Intake Total 4860 ml Output Total 1730 ml Balance 3130 ml Intake Oral 1260 ml IV Total 3600 ml Output Urine Total 1730 ml # Bowel Movements 9 General: Alert, Oriented X3, Cooperative HEENT: Atraumatic, PERRLA Neck: Supple, No JVD, No Thyromegaly Lungs: Normal Air Movement, Other (bilateral rhonchi) Heart: Regular Rate, Normal S1, Normal S2, No Murmurs Abdomen: Normal Bowel Sounds, Soft, No Tenderness, No Hepatosplenomegaly, No Masses Extremities: No Clubbing, No Cyanosis, No Edema, Normal Pulses, No Tenderness/ Swelling Skin: No Rashes, No Breakdown, No Significant Lesion Neuro: Normal Gait, Normal Speech, Strength at 5/5 X4 Ext, Normal Tone, Sensation Intact Psych/Mental Status: Mental Status NL, Mood NL Results Lab Laboratory Tests 1/1/19 12:29 02/27/18 18:10 02/28/18 00:45 02/28/18 04:40 A/P-Cardiology Admission Diagnosis Pneumonia Sepsis Lower GI bleed Hypotension Assessment/Plan Pneumonia with sepsis, receiving antibiotic, reporting improvement. Managed by primary care team Hematochezia, bright red blood per rectum, improved today, H&H is monitored and surgical consult for cold. Hypotension better at this time, continue to monitor blood pressure History of hypertension, continue to hold medication and monitor blood pressure Hyperlipidemia, maintained on lovastatin as an outpatient, hold it for now and monitor Acute on chronic renal failure, improving, continue to monitor renal function, No reported previous cardiac history. Diabetes mellitus, followed and managed by primary care physician Clinical Quality Measures DVT/VTE Risk/Contraindication: Risk Factor Score Per Nursin RFS Level Per Nursing on Admit: 4+=Very High INDIGO BULL MD Feb 28, 2018 08:54
--- NOTE | 2018-02-28 10:58 | NUR ---
PT TRANSFERRED TO ROOM 405 VIA W/ STAFF, FAMILY AND PERSONAL BELONGINGS. REPORT GIVEN TO MANDY WHATLEY, NO QUESTIONS/CONCERNS VOICED.
--- NOTE | 2018-02-28 11:44 | Progress Note (SOAP) ---
Subjective Date Seen by a Provider: Feb 28, 2018 Time Seen by a Provider: 11:00 Subjective/Events-last exam doing well today. more solid brown BM today. tolerating diet. respiratory status improving. Focused Exam Lactate Level 02/26/18 15:20: Lactic Acid Level 8.99*H 02/26/18 18:40: Lactic Acid Level 3.65*H 02/27/18 03:18: Lactic Acid Level 1.43 Objective Exam Vital Signs Date Time Temp Pulse Resp B/P (MAP) Pulse Ox O2 Delivery O2 Flow Rate FiO2 02/28/18 10:00 93 123/63 (83) 100 Nasal Cannula 2.00 02/28/18 09:00 89 21 111/53 (72) 100 Nasal Cannula 2.00 02/28/18 08:20 Nasal Cannula 2.00 02/28/18 08:00 99 23 123/64 (83) 100 Nasal Cannula 2.00 02/28/18 07:20 98.3 02/28/18 07:00 95 25 120/90 (100) 100 Nasal Cannula 2.00 02/28/18 07:00 89 02/28/18 06:20 100 Nasal Cannula 2.00 02/28/18 06:00 86 26 119/61 (80) 100 Nasal Cannula 2.00 02/28/18 05:00 89 18 122/66 (84) 100 Nasal Cannula 2.00 02/28/18 04:00 87 19 101/54 (70) 98 Nasal Cannula 2.00 02/28/18 04:00 98.1 02/28/18 04:00 Nasal Cannula 2.00 02/28/18 03:00 90 26 124/59 (80) 100 Nasal Cannula 2.00 02/28/18 02:00 100 22 129/64 (85) 100 Nasal Cannula 2.00 02/28/18 01:00 96 12 108/73 (85) 100 Nasal Cannula 2.00 02/28/18 01:00 96 02/28/18 00:42 100.5 02/28/18 00:08 100.5 02/28/18 00:00 97 23 111/55 (73) 100 Nasal Cannula 2.00 02/28/18 00:00 Nasal Cannula 2.00 02/27/18 23:38 101.3 02/27/18 23:34 101.3 02/27/18 23:00 105 21 128/58 (81) 100 Nasal Cannula 2.00 02/27/18 22:00 107 16 142/55 (84) 100 Nasal Cannula 2.00 02/27/18 21:35 100 Nasal Cannula 2.00 02/27/18 21:00 105 35 103/61 (75) 100 Nasal Cannula 2.00 02/27/18 20:00 98 26 139/74 (95) 100 Nasal Cannula 2.00 02/27/18 20:00 Nasal Cannula 2.00 02/27/18 19:31 100.0 Nasal Cannula 2.00 02/27/18 19:00 95 02/27/18 19:00 95 18 107/62 (77) 100 Nasal Cannula 2.00 02/27/18 18:00 88 21 107/57 (74) 100 Nasal Cannula 2.00 02/27/18 17:00 56 24 110/55 (73) 100 Nasal Cannula 2.00 02/27/18 16:10 90 20 113/54 (73) 100 Nasal Cannula 2.00 02/27/18 16:08 99.8 02/27/18 16:00 89 17 85/56 (66) 100 Nasal Cannula 2.00 02/27/18 15:35 100.4 02/27/18 15:16 100.4 02/27/18 15:02 Nasal Cannula 2.00 02/27/18 15:00 100.6 02/27/18 15:00 92 35 94/64 (74) 100 Nasal Cannula 2.00 02/27/18 14:59 100.6 02/27/18 14:00 87 120/61 (80) 100 Nasal Cannula 2.00 02/27/18 13:00 86 19 119/59 (79) 100 Nasal Cannula 2.00 02/27/18 12:43 90 02/27/18 12:18 99.5 02/27/18 12:14 Nasal Cannula 2.00 02/27/18 12:00 85 16 118/62 (80) 100 Nasal Cannula 2.00 I & O 02/28/18 07:00 Intake Total 3850 ml Output Total 2255 ml Balance 1595 ml Capillary Refill : Less Than 3 Seconds General Appearance: No Apparent Distress HEENT: PERRL/EOMI Neck: Full Range of Motion Respiratory: Chest Non Tender, Decreased Breath Sounds Cardiovascular: Regular Rate, Rhythm Gastrointestinal: soft Extremity: Normal Capillary Refill Neurologic/Psychiatric: Alert, Oriented x3 Skin: Normal Color Lymphatic: No Adenopathy Results Lab Laboratory Tests 02/27/18 12:29: Hemoglobin 10.0L, Hematocrit 30L 02/27/18 17:19: Glucometer 199H 02/27/18 18:10: Hemoglobin 9.6L, Hematocrit 30L 02/27/18 20:37: Glucometer 55*L 02/27/18 21:03: Glucometer 77 02/27/18 21:54: Glucometer 88 02/27/18 23:31: Glucometer 98 02/28/18 00:45: Hemoglobin 8.8L, Hematocrit 27L 02/28/18 04:40: White Blood Count 9.6, Red Blood Count 3.37L, Hemoglobin 9.0L, Hematocrit 28L, Mean Corpuscular Volume 83, Mean Corpuscular Hemoglobin 27, Mean Corpuscular Hemoglobin Concent 32, Red Cell Distribution Width 16.8H, Platelet Count 168, Mean Platelet Volume 9.1, Neutrophils (%) (Auto) 66, Lymphocytes (%) (Auto) 25, Monocytes (%) (Auto) 9, Eosinophils (%) (Auto) 1, Basophils (%) (Auto) 0, Neutrophils # (Auto) 6.3, Lymphocytes # (Auto) 2.4, Monocytes # (Auto) 0.8, Eosinophils # (Auto) 0.1, Basophils # (Auto) 0.0, Sodium Level 135, Potassium Level 3.7, Chloride Level 111H, Carbon Dioxide Level 15L, Anion Gap 9, Blood Urea Nitrogen 16, Creatinine 1.38H, Estimat Glomerular Filtration Rate 50, BUN/ Creatinine Ratio 12, Glucose Level 118H, Calcium Level 7.4L, Corrected Calcium 8.6, Phosphorus Level 2.6, Magnesium Level 1.7L, Total Bilirubin 0.6, Aspartate Amino Transf (AST/SGOT) 35H, Alanine Aminotransferase (ALT/SGPT) 17, Alkaline Phosphatase 38L, Total Protein 4.9L, Albumin 2.5L Microbiology 02/26/18 Blood Culture - Preliminary, Resulted Staph, Coag Neg (STAFF ATTORNEY) See Comments 02/27/18 C. difficile GDH Antigen & Toxins - Final, Resulted 02/27/18 Stool Culture, Resulted Pending 02/27/18 Gram Stain - Final, Resulted 02/27/18 Sputum Culture - Preliminary, Resulted Usual upper respiratory nata Assessment/Plan Assessment/Plan Assess & Plan/Chief Complaint pnuemonia, sepsis, lower GI bleed. improving with medical therapy, previous colonoscopy done 14'. rectal bleed improving. high fiber diet skilled nursing, colace 100mg BID for now. Clinical Quality Measures DVT/VTE Risk/Contraindication: Risk Factor Score Per Nursin RFS Level Per Nursing on Admit: 4+=Very High MARCELINO RENE MD Feb 28, 2018 11:44
[2018-02-28] MEDS: inSUlin ASPART (NovoLOG) 1 UNIT/0.01 ML (CHARGE PER UNIT) SC SCH ×2 (13:21→18:01)
[2018-02-28] MEDS: PANTOPRAZOLE 40 MG (PROTONIX) TAB PO SCH (18:00)
--- NOTE | 2018-02-28 20:25 | NUR ---
[facility] notifies this RN that the patient's blood sugar is 44. This RN enters the room and finds patient in bed watching TV. Patient is alert and oriented and doesn't feel any different that normal. This RN advises that his blood sugar is low. Patient is given peanut butter, crackers, orange juice, ensure and pudding. Blood sugar is rechecked at 20:48 with 59 as the result. Patient states he is full and cant eat or drink anymore. Blood sugar is rechecked at 21:13 with 107 as the result. Will continue to monitor.
[2018-03-01] VITALS (7 sets, daily range): BP systolic 121–164; BP diastolic 60–82
[2018-03-01] MEDS: PANTOPRAZOLE 40 MG (PROTONIX) TAB PO SCH ×2 (06:06→16:44)
[2018-03-01] MEDS: PIPERACILLIN/TAZO 4.5 GM/NS 100 ML IV SCH ×6 (06:06→23:22)
[2018-03-01 06:13] LABS: BASOPHILS % (AUTO) 0 % (0-10); EOSINOPHILS # (AUTO) 0.3 10^3/uL (0.0-0.3); EOSINOPHILS % (AUTO) 4 % (0-10); HEMATOCRIT 27 % (40-54); HEMOGLOBIN 8.8 G/DL (13.3-17.7); LYMPHOCYTES # (AUTO) 1.7 X 10^3 (1.0-4.0); LYMPHOCYTES % (AUTO) 25 % (12-44); MEAN CORPUSCULAR HEMOGLOBIN 26 PG (25-34); MEAN CORPUSCULAR HGB CONC 32 G/DL (32-36); MEAN CORPUSCULAR VOLUME 81 FL (80-99); MEAN PLATELET VOLUME 8.8 FL (7.4-10.4); MONOCYTES # (AUTO) 0.7 X 10^3 (0.0-1.0); MONOCYTES % (AUTO) 10 % (0-12); NEUTROPHILS % (AUTO) 60 % (42-75); PLATELET COUNT 175 10^3/uL (130-400); RED BLOOD COUNT 3.34 10^6/uL (4.35-5.85); RED CELL DISTRIBUTION WIDTH 16.9 % (10.0-14.5); WHITE BLOOD COUNT 6.6 10^3/uL (4.3-11.0)
[2018-03-01 07:01] LABS: ALANINE AMINOTRANSFERASE 17 U/L (0-55); ALBUMIN 2.6 GM/DL (3.2-4.5); ALKALINE PHOSPHATASE 43 U/L (40-136); BILIRUBIN,TOTAL 0.5 MG/DL (0.1-1.0); BUN/CREATININE RATIO 8; CALCIUM 7.4 MG/DL (8.5-10.1); CARBON DIOXIDE 19 MMOL/L (21-32); CHLORIDE 110 MMOL/L (98-107); CREATININE SERUM 1.07 MG/DL (0.60-1.30); GFR ESTIMATED > 60; GLUCOSE 169 MG/DL (70-105); MAGNESIUM 1.5 MG/DL (1.8-2.4); PHOSPHORUS 1.4 MG/DL (2.3-4.7); POTASSIUM 3.9 MMOL/L (3.6-5.0); SODIUM 135 MMOL/L (135-145)
[2018-03-01] MEDS: RT-ALBUTEROL/IPRATROPIUM 3 ML (DUONEB) VIAL INH SCH ×2 (07:36→19:24)
--- NOTE | 2018-03-01 08:03 | Diagnostic Imaging Report ---
INDICATION: Sepsis, pneumonia. TECHNIQUE: Frontal view of the chest. COMPARISON: 02/28/2018 FINDINGS: Lung volumes are normal. There is cardiomegaly with bilateral interstitial opacities and central vascular congestion. No focal consolidation is seen. There is no pneumothorax or large pleural effusion. The tip of the right jugular line projects over the low SVC. IMPRESSION: 1. Cardiomegaly with central vascular congestion and mild interstitial edema. Overall aeration appears stable since the prior study. Dictated by: Dictated on workstation # [id number]
--- NOTE | 2018-03-01 08:45 | NUR ---
THIS RN SPOKE WITH DR ARMSTRONG RELATED TO PATIENTS SLIDING SCALE AND SCHEDULED INSULIN. NEW ORDER RECEIVED TO STOP SLIDING SCALE INSULIN AND CONTINUE WITH SCHEDULED INSULIN.
[2018-03-01] MEDS: NS IV 1000 ML 1,000 ML IV SCH ×2 (08:57→19:24)
[2018-03-01] MEDS: AMITRIPTYLINE 50 MG (ELAVIL) TAB PO SCH ×2 (08:57→21:08)
--- NOTE | 2018-03-01 08:58 | Pulmonary Progress Note ---
Subjective Time Seen by a Provider: 08:56 Subjective/Events-last exam NO respiratory complications noted. Pt did become hypoglycemia last night. Sepsis Event Evaluation Height, Weight, BMI Height: 5'9.00" Weight: 230lbs. 4.0oz. 104.912975la; 31.2 BMI Method:Estimated Focused Exam Lactate Level 02/26/18 15:20: Lactic Acid Level 8.99*H 02/26/18 18:40: Lactic Acid Level 3.65*H 02/27/18 03:18: Lactic Acid Level 1.43 Exam Exam Vital Signs Date Time Temp Pulse Resp B/P (MAP) Pulse Ox O2 Delivery O2 Flow Rate FiO2 03/01/18 08:48 99.3 92 20 135/61 (85) 96 Nasal Cannula 2.00 03/01/18 07:37 99 Nasal Cannula 2.00 03/01/18 07:00 94 03/01/18 04:39 97.6 92 20 136/60 (85) 98 Nasal Cannula 2.00 03/01/18 01:00 92 03/01/18 00:25 98.3 97 20 132/63 (86) 96 Nasal Cannula 2.00 02/28/18 20:25 99 Nasal Cannula 2.00 02/28/18 20:00 Nasal Cannula 2.00 02/28/18 19:57 99.1 92 20 129/60 (83) 98 Nasal Cannula 2.00 02/28/18 19:00 90 02/28/18 16:00 99.3 89 21 135/64 (87) 98 Nasal Cannula 2.00 02/28/18 13:00 80 02/28/18 11:00 97.8 87 20 121/64 (83) 97 Nasal Cannula 2.00 02/28/18 10:00 93 123/63 (83) 100 Nasal Cannula 2.00 02/28/18 09:00 89 21 111/53 (72) 100 Nasal Cannula 2.00 I & O 03/01/18 07:00 Intake Total 4340 ml Output Total 2025 ml Balance 2315 ml Height & Weight Height: 5'9.00" Weight: 230lbs. 4.0oz. 104.690028la; 31.2 BMI Method:Estimated General Appearance: No Apparent Distress HEENT: PERRL/EOMI Neck: Full Range of Motion Respiratory: Chest Non Tender, Decreased Breath Sounds Cardiovascular: Regular Rate, Rhythm Capillary Refill: Less Than 3 Seconds Gastrointestinal: non tender, soft Extremity: Normal Capillary Refill Neurologic/Psychiatric: Alert, Oriented x3 Skin: Normal Color Lymphatic: No Adenopathy Results Lab Laboratory Tests 02/27/18 12:29 02/27/18 18:10 02/28/18 00:45 02/28/18 04:40 03/01/18 06:06 Assessment/Plan Assessment/Plan Acute GIB probable lower with hematochezia -BRBPR has resolved -Surgery is following Pneumonia with severe sepsis -Severe sepsis protocol -Continue Zosyn Metabolic acidosis -monitor Acute renal failure -IVF -Monitor Hypophos, hypomag -replace Dehydration CHAO DOBBS DO Mar 01, 2018 08:58
[2018-03-01] MEDS ORDERED: MAGNESIUM 1 GM/100 ML IVPB 100 ML IV SCH (09:00)
[2018-03-01] MEDS ORDERED: SODIUM PHOSPHATE INJ 30 MM in NS (IVPB) 250 ML IV NR (09:00)
[2018-03-01] MEDS: inSUlin ASPART (NovoLOG) 1 UNIT/0.01 ML (CHARGE PER UNIT) SQ SCH (09:13)
[2018-03-01] MEDS ORDERED: FLU QUADRIvalent (5+ YOA) 2018-2019 (AFLURIA) 0.5 ML IM ONE (09:13)
--- NOTE | 2018-03-01 09:21 | Progress Note ---
Subjective Date Seen by a Provider: Mar 01, 2018 Time Seen by a Provider: 09:21 Subjective/Events-last exam PT REPORTS THAT HE IS FEELING MUCH BETTER, HE DENIES DIARRHEA, HE STATES THAT HE WOULD LIKE TO GO BACK HOME TODAY. STAFF REPORTS THAT HE IS DOING MUCH BETTER WITH AMBULATION...HE STATES THAT HE IS NOT HAVING ANY CHEST PAIN, NAUSEA, BLOOD PER RECTUM. Review of Systems General: Fatigue HEENT: No Head Aches Pulmonary: No Dyspnea, No Cough Cardiovascular: No: Chest Pain Gastrointestinal: No: Nausea, Abdominal Pain, Constipation Genitourinary: Other (ODELL IN PLACE) Neurological: Weakness Focused Exam Lactate Level 02/26/18 15:20: Lactic Acid Level 8.99*H 02/26/18 18:40: Lactic Acid Level 3.65*H 02/27/18 03:18: Lactic Acid Level 1.43 Objective Exam Last Set of Vital Signs Vital Signs Date Time Temp Pulse Resp B/P (MAP) Pulse Ox O2 Delivery O2 Flow Rate FiO2 03/01/18 08:48 99.3 92 20 135/61 (85) 96 Nasal Cannula 2.00 02/26/18 21:52 28 Capillary Refill : Less Than 3 Seconds I&O Intake and Output 03/01/18 00:00 Intake Total 4510 ml Output Total 2400 ml Balance 2110 ml Intake Oral 3210 ml IV Total 1300 ml Output Urine Total 2400 ml # Bowel Movements 9 General: Alert, Oriented X3, Cooperative HEENT: Atraumatic, PERRLA Neck: Supple, No JVD, No Thyromegaly Lungs: Normal Air Movement, Other (bilateral rhonchi) Heart: Regular Rate, Normal S1, Normal S2, No Murmurs Abdomen: Normal Bowel Sounds, Soft, No Tenderness, No Hepatosplenomegaly, No Masses Extremities: No Clubbing, No Cyanosis, No Edema, Normal Pulses, No Tenderness/ Swelling Skin: No Rashes, No Breakdown, No Significant Lesion Neuro: Normal Gait, Normal Speech, Strength at 5/5 X4 Ext, Normal Tone, Sensation Intact Psych/Mental Status: Mental Status NL, Mood NL Results Lab Laboratory Tests 02/28/18 11:14: Glucometer 259H 02/28/18 16:51: Glucometer 156H 02/28/18 20:25: Glucometer 44*L 02/28/18 20:48: Glucometer 59*L 02/28/18 21:13: Glucometer 107 03/01/18 05:03: Glucometer 184H 03/01/18 06:06: White Blood Count 6.6, Red Blood Count 3.34L, Hemoglobin 8.8L, Hematocrit 27L, Mean Corpuscular Volume 81, Mean Corpuscular Hemoglobin 26, Mean Corpuscular Hemoglobin Concent 32, Red Cell Distribution Width 16.9H, Platelet Count 175, Mean Platelet Volume 8.8, Neutrophils (%) (Auto) 60, Lymphocytes (%) (Auto) 25, Monocytes (%) (Auto) 10, Eosinophils (%) (Auto) 4, Basophils (%) (Auto) 0, Neutrophils # (Auto) 4.0, Lymphocytes # (Auto) 1.7, Monocytes # (Auto) 0.7, Eosinophils # (Auto) 0.3, Basophils # (Auto) 0.0, Sodium Level 135, Potassium Level 3.9, Chloride Level 110H, Carbon Dioxide Level 19L, Anion Gap 6, Blood Urea Nitrogen 9, Creatinine 1.07, Estimat Glomerular Filtration Rate > 60, BUN/ Creatinine Ratio 8, Glucose Level 169H, Calcium Level 7.4L, Corrected Calcium 8.5, Phosphorus Level 1.4L, Magnesium Level 1.5L, Total Bilirubin 0.5, Aspartate Amino Transf (AST/SGOT) 30, Alanine Aminotransferase (ALT/SGPT) 17, Alkaline Phosphatase 43, Total Protein 5.0L, Albumin 2.6L Microbiology 02/26/18 Blood Culture - Preliminary, Resulted 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 difficile GDH Antigen & Toxins - Final, Resulted 02/27/18 Stool Culture - Preliminary, Resulted Culture In Progress 02/27/18 Gram Stain - Final, Resulted 02/27/18 Sputum Culture - Preliminary, Resulted Usual upper respiratory nata Assessment/Plan Assessment/Plan Assess & Plan/Chief Complaint ACUTE GASTROINTESTINAL BLEEDING WITH HEMATOCHEZIA PNEUMONIA WITH SEVERE SEPSIS METABOLIC ACIDOSIS ACUTE RENAL FAILURE HYPONATREMIA HYPOTENSION DEHYDRATION HYPOMAGNESEMIA DIABETES MELLITUS PT DOING BETTER TODAY -HEMOGLOBIN HAS BEEN STABLE PLANNING ON DISCHARGE MONDAY TO GIVE TIME FOR FURTHER IV ANTIBIOTICS AND FURTHER DOCUMENTATION OF HEMOGLOBIN STABILITY ACUTE GASTROINTESTINAL BLEEDING WITH HEMATOCHEZIA - DEFER TO DR. RENE - PT HAD COLONOSCOPY IN 2013 AFTER HIS LAST EPISODE LIKE THIS - CONTINUE WITH SUPPORTIVE CARE, CHECK SERIAL HGB. PNEUMONIA WITH SEVERE SEPSIS - CONTINUE WITH BROAD SPECTRUM IV ANTIBIOTICS. METABOLIC ACIDOSIS - SUPPORTIVE CARE - SYMPTOMS IMPROVED. ACUTE RENAL FAILURE - IMPROVED WITH IV FLUIDS HYPONATREMIA - IMPROVED WITH IV FLUIDS. HYPOTENSION - IMPROVED DEHYDRATION - IMPROVED WITH HYDRATION HYPOMAGNESEMIA - REPLENISH WITH IV FLUIDS Clinical Quality Measures DVT/VTE Risk/Contraindication: Risk Factor Score Per Nursin RFS Level Per Nursing on Admit: 4+=Very High MOISÉS ARMSTRONG MD Mar 01, 2018 09:21
--- NOTE | 2018-03-01 09:53 | NUR ---
CLARIFIED MAGNESIUM ORDER WITH DR DOBBS, CONTINUE WITH A TOTAL OF 3 GRAMS TODAY.
[2018-03-01] MEDS: MAGNESIUM 1 GM/100 ML IVPB 100 ML IV SCH ×3 (10:19→12:26)
[2018-03-01] MEDS: inSUlin ASPART (NovoLOG) 1 UNIT/0.01 ML (CHARGE PER UNIT) SC SCH ×2 (12:26→16:44)
--- NOTE | 2018-03-01 12:45 | Cardiology Progress Note ---
Subjective Date Seen by Provider: Mar 01, 2018 Time Seen by Provider: 12:44 Subjective/Events-last exam Patient is in bed, denies any chest pain or increased dyspnea. Review of Systems General: No Night Sweats, No Fatigue, No Malaise HEENT: No Visual Changes, No Dysphasia Pulmonary: Dyspnea; No Cough, No Pleuritic Chest Pain Cardiovascular: No: Chest Pain, Palpitations, Paroxysmal Noc. Dyspnea, Edema Gastrointestinal: No: Nausea, Vomiting Genitourinary: No Dysuria, No Frequency Musculoskeletal: No: neck pain, back pain Neurological: No: Weakness, Numbness, Change in speech, Confusion Focused Exam Lactate Level 02/26/18 15:20: Lactic Acid Level 8.99*H 02/26/18 18:40: Lactic Acid Level 3.65*H 02/27/18 03:18: Lactic Acid Level 1.43 Objective-Cardiology Exam Last Set of Vital Signs Vital Signs 02/26/18 03/01/18 21:52 11:46 Temp 99.1 Pulse 86 Resp 20 B/P (MAP) 136/68 (90) Pulse Ox 97 O2 Delivery Nasal Cannula O2 Flow Rate 2.00 FiO2 28 Capillary Refill : Less Than 3 Seconds I&O Intake and Output 03/01/18 00:00 Intake Total 4510 ml Output Total 2400 ml Balance 2110 ml Intake Oral 3210 ml IV Total 1300 ml Output Urine Total 2400 ml # Bowel Movements 9 General: Alert, Oriented X3, Cooperative HEENT: Atraumatic, PERRLA Neck: Supple, No JVD, No Thyromegaly Lungs: Normal Air Movement, Other (bilateral exp wheezing) Heart: Regular Rate, Normal S1, Normal S2, No Murmurs Abdomen: Normal Bowel Sounds, Soft, No Tenderness, No Hepatosplenomegaly, No Masses Extremities: No Clubbing, No Cyanosis, No Edema, Normal Pulses, No Tenderness/ Swelling Skin: No Rashes, No Breakdown, No Significant Lesion Neuro: Normal Gait, Normal Speech, Strength at 5/5 X4 Ext, Normal Tone, Sensation Intact Psych/Mental Status: Mental Status NL, Mood NL Results Lab Laboratory Tests 03/01/18 06:06 A/P-Cardiology Admission Diagnosis Pneumonia Sepsis Lower GI bleed Hypotension Assessment/Plan Pneumonia with sepsis, receiving antibiotic, reporting improvement. Managed by primary care team Hematochezia, bright red blood per rectum, improved today, monitor H/H. Dr. Walker following. Hypotension better at this time, continue to monitor blood pressure Hyperlipidemia, maintained on lovastatin as an outpatient, hold it for now and monitor Acute on chronic renal failure, improving, continue to monitor renal function, No reported previous cardiac history. Diabetes mellitus, followed and managed by primary care physician Clinical Quality Measures DVT/VTE Risk/Contraindication: Risk Factor Score Per Nursin RFS Level Per Nursing on Admit: 4+=Very High JEFF GARZA Mar 01, 2018 12:45
--- NOTE | 2018-03-01 13:59 | Cardiology Progress Note ---
Subjective Date Seen by Provider: Mar 01, 2018 Time Seen by Provider: 08:00 Subjective/Events-last exam patient was seen and evaluated, feeling better. No new complaint. Review of Systems General: No Chills, No Night Sweats, No Fatigue, No Malaise, No Appetite, No Other HEENT: No Head Aches, No Visual Changes, No Eye Pain, No Ear Pain, No Dysphasia , No Sinus Congestion, No Post Nasal Drip, No Sore Throat, No Other Pulmonary: Dyspnea; No Cough, No Pleuritic Chest Pain, No Other Cardiovascular: No: Chest Pain, Palpitations, Orthopnea, Paroxysmal Noc. Dyspnea, Edema, Lt Headedness, Other Focused Exam Lactate Level 02/26/18 15:20: Lactic Acid Level 8.99*H 02/26/18 18:40: Lactic Acid Level 3.65*H 02/27/18 03:18: Lactic Acid Level 1.43 Objective-Cardiology Exam Last Set of Vital Signs Vital Signs 02/26/18 03/01/18 03/01/18 21:52 11:46 13:00 Temp 99.1 Pulse 83 Resp 20 B/P (MAP) 136/68 (90) Pulse Ox 97 O2 Delivery Nasal Cannula O2 Flow Rate 2.00 FiO2 28 Capillary Refill : Less Than 3 Seconds I&O Intake and Output 03/01/18 00:00 Intake Total 4510 ml Output Total 2400 ml Balance 2110 ml Intake Oral 3210 ml IV Total 1300 ml Output Urine Total 2400 ml # Bowel Movements 9 General: Alert, Oriented X3, Cooperative HEENT: Atraumatic, PERRLA Neck: Supple, No JVD, No Thyromegaly Lungs: Normal Air Movement, Other (bilateral exp wheezing) Heart: Regular Rate, Normal S1, Normal S2, No Murmurs Abdomen: Normal Bowel Sounds, Soft, No Tenderness, No Hepatosplenomegaly, No Masses Extremities: No Clubbing, No Cyanosis, No Edema, Normal Pulses, No Tenderness/ Swelling Skin: No Rashes, No Breakdown, No Significant Lesion Neuro: Normal Gait, Normal Speech, Strength at 5/5 X4 Ext, Normal Tone, Sensation Intact Psych/Mental Status: Mental Status NL, Mood NL Results Lab Laboratory Tests 03/01/18 06:06 A/P-Cardiology Admission Diagnosis Pneumonia Sepsis Lower GI bleed Hypotension Assessment/Plan Pneumonia with sepsis, receiving antibiotic, reporting improvement. Managed by primary care team Hematochezia, bright red blood per rectum, improved today, monitor H/H. Dr. Walker following. Hypotension better at this time, continue to monitor blood pressure Hyperlipidemia, maintained on lovastatin as an outpatient, hold it for now and monitor Acute on chronic renal failure, improving, continue to monitor renal function, No reported previous cardiac history. Diabetes mellitus, followed and managed by primary care physician Clinical Quality Measures DVT/VTE Risk/Contraindication: Risk Factor Score Per Nursin RFS Level Per Nursing on Admit: 4+=Very High INDIGO BULL MD Mar 01, 2018 13:59
--- NOTE | 2018-03-01 16:20 | NUR ---
DR ARMSTRONG NOTIFIED BY THIS RN OF PATIENT'S FSBS 51. NEW ORDER AT THIS TIME TO CHECK PT FSBS BEFORE DINNER IF 180 OR GREATER GIVE 20 UNITS. RECHECK 2 HOURS AFTER DINNER AND CALL WITH RESULTS.
[2018-03-02] MEDS: RT-ALBUTEROL/IPRATROPIUM 3 ML (DUONEB) VIAL INH PRN ×2 (03:00→10:55)
--- NOTE | 2018-03-02 03:00 | NUR ---
PATIENT WAS FOUND SITTING ON SIDE OF BED. OXYGEN FLOW METER WAS BROKEN, AND AIR WAS BLOWING FULL FORCE. PATIENT WAS ATTEMPTING TO REMOVE IJ AND PULLED OFF THE DRESSING. AREA WAS CLEANED USING STERILE DRESSING KIT. AND NEW DRESSING APPLIED. PATIENT CONTINUES TO BE CONFUSED AND INSISTS WE ARE COVERING UP HURTING HIM, THE BREATHING TREATMENT HAD POISON IN IT SO HE DIDNT WANT TO COMPLETE IT. PATIENT BEGAN PUSHING THIS NURSE WANTING TO GET UP AND GET DRESSED TO GO HOME. ATTEMPTED TO REORIENT PATIENT TO TIME OF DAY AND THAT HE IS UNABLE TO LEAVE AT THIS TIME. PATIENT CONTINUES TO INSIST WE HAVE MELTED THE IJ/DRESSING TO HIM. PATIENT WANTS TO BE TRANSFERRED TO [facility], [facility], OR [facility] TO GET OUT OF HERE. HE WANTS AN AMBULANCE CALLED. ADVISED PATIENT THAT [facility] IS CLOSED, [facility] WOULD SEND HIM BACK HERE AND THERE IS NO MEDICAL NECESSITY TO SEND TO [facility]. PATIENT STILL INSISTS SOMETHING "HAPPENED TO HIM"
[2018-03-02 04:20] VITALS: BP 176/81
[2018-03-02 04:44] LABS: BASOPHILS % (AUTO) 0 % (0-10); EOSINOPHILS # (AUTO) 0.3 10^3/uL (0.0-0.3); EOSINOPHILS % (AUTO) 5 % (0-10); HEMATOCRIT 27 % (40-54); LYMPHOCYTES # (AUTO) 1.8 X 10^3 (1.0-4.0); LYMPHOCYTES % (AUTO) 25 % (12-44); MEAN CORPUSCULAR HEMOGLOBIN 27 PG (25-34); MEAN CORPUSCULAR HGB CONC 33 G/DL (32-36); MEAN CORPUSCULAR VOLUME 81 FL (80-99); MEAN PLATELET VOLUME 8.7 FL (7.4-10.4); MONOCYTES # (AUTO) 0.8 X 10^3 (0.0-1.0); MONOCYTES % (AUTO) 12 % (0-12); NEUTROPHILS % (AUTO) 58 % (42-75); PLATELET COUNT 220 10^3/uL (130-400); RED BLOOD COUNT 3.38 10^6/uL (4.35-5.85); WHITE BLOOD COUNT 6.9 10^3/uL (4.3-11.0)
[2018-03-02 05:22] LABS: ALANINE AMINOTRANSFERASE 25 U/L (0-55); ALBUMIN 2.7 GM/DL (3.2-4.5); ALKALINE PHOSPHATASE 43 U/L (40-136); BILIRUBIN,TOTAL 0.5 MG/DL (0.1-1.0); BUN/CREATININE RATIO 6; CALCIUM 7.6 MG/DL (8.5-10.1); CARBON DIOXIDE 17 MMOL/L (21-32); CHLORIDE 109 MMOL/L (98-107); CREATININE SERUM 1.09 MG/DL (0.60-1.30); GFR ESTIMATED > 60; GLUCOSE 196 MG/DL (70-105); MAGNESIUM 1.6 MG/DL (1.8-2.4); PHOSPHORUS 1.9 MG/DL (2.3-4.7); POTASSIUM 3.7 MMOL/L (3.6-5.0); SODIUM 136 MMOL/L (135-145); TOTAL PROTEIN 5.3 GM/DL (6.4-8.2)
[2018-03-02] MEDS: PANTOPRAZOLE 40 MG (PROTONIX) TAB PO SCH (06:15)
[2018-03-02] MEDS: PIPERACILLIN/TAZO 4.5 GM/NS 100 ML IV SCH ×2 (06:16)
--- NOTE | 2018-03-02 06:55 | Pulmonary Progress Note ---
Subjective Time Seen by a Provider: 06:48 Subjective/Events-last exam NO complications noted. Sepsis Event Evaluation Height, Weight, BMI Height: 5'9.00" Weight: 230lbs. 4.0oz. 104.635243px; 31.2 BMI Method:Estimated Exam Exam Vital Signs Date Time Temp Pulse Resp B/P (MAP) Pulse Ox O2 Delivery O2 Flow Rate FiO2 03/02/18 04:20 98.6 103 20 176/81 (112) 98 Nasal Cannula 2.00 03/02/18 03:00 92 Nasal Cannula 3.00 03/02/18 01:00 94 03/01/18 23:19 99.4 88 20 164/82 (109) 97 Nasal Cannula 2.00 03/01/18 20:00 Nasal Cannula 2.00 03/01/18 19:30 98.6 88 20 154/78 (103) 97 Nasal Cannula 2.00 03/01/18 19:24 85 97 03/01/18 19:24 97 Nasal Cannula 2.00 03/01/18 19:00 85 03/01/18 15:40 97.2 96 16 121/79 (93) 92 Nasal Cannula 2.00 03/01/18 13:00 83 03/01/18 11:46 99.1 86 20 136/68 (90) 97 Nasal Cannula 2.00 03/01/18 08:48 99.3 92 20 135/61 (85) 96 Nasal Cannula 2.00 03/01/18 08:00 Nasal Cannula 2.00 03/01/18 07:37 99 Nasal Cannula 2.00 03/01/18 07:00 94 I & O 03/02/18 07:00 Intake Total 4570 ml Output Total 4000 ml Balance 570 ml Height & Weight Height: 5'9.00" Weight: 230lbs. 4.0oz. 104.579873oc; 31.2 BMI Method:Estimated General Appearance: No Apparent Distress HEENT: PERRL/EOMI Neck: Full Range of Motion Respiratory: Chest Non Tender, Decreased Breath Sounds Cardiovascular: Regular Rate, Rhythm Capillary Refill: Less Than 3 Seconds Gastrointestinal: non tender, soft Extremity: Normal Capillary Refill Neurologic/Psychiatric: Alert, Oriented x3 Skin: Normal Color Lymphatic: No Adenopathy Results Lab Laboratory Tests 03/01/18 06:06 03/02/18 04:34 Assessment/Plan Assessment/Plan Acute GIB probable lower with hematochezia - resolved -Surgery is following Pneumonia with severe sepsis -Change to Omnicef PO x 3 days then D/C Metabolic acidosis -monitor Hypomag, hypophos -replace Acute renal failure - resolved -IVF -KVO -Monitor Dehydration Pt is ok for discharge from pulmonary standpoint. Will do home 02 qualification testing. CHAO DOBBS DO Mar 02, 2018 06:55
[2018-03-02] MEDS ORDERED: POTASSIUM PHOSPHATE INJ 30 MM in NS (IVPB) 250 ML IV NR (07:00)
[2018-03-02] MEDS: MAGNESIUM 1 GM/100 ML IVPB 100 ML IV SCH ×4 (07:41→09:27)
[2018-03-02 08:00] VITALS: BP 172/86
[2018-03-02] MEDS ORDERED: RT-ALBUTEROL/IPRATROPIUM 3 ML (DUONEB) VIAL INH SCH (08:00)
[2018-03-02] MEDS: AMITRIPTYLINE 50 MG (ELAVIL) TAB PO SCH (08:38)
[2018-03-02] MEDS ORDERED: CEFDINIR 300 MG (OMNICEF) CAP PO SCH (09:00)
--- NOTE | 2018-03-02 09:30 | NUR ---
Per Dr. Darby, lisinopril and metoprolol to start today 03/02/18.
--- NOTE | 2018-03-02 09:38 | Cardiology Progress Note ---
Subjective Date Seen by Provider: Mar 02, 2018 Time Seen by Provider: 09:36 Subjective/Events-last exam patient is laying down in bed, feeling well. Denied any chest pain, breathing is better Review of Systems General: No Chills, No Night Sweats, No Fatigue, No Malaise, No Appetite, No Other HEENT: No Head Aches, No Visual Changes, No Eye Pain, No Ear Pain, No Dysphasia , No Sinus Congestion, No Post Nasal Drip, No Sore Throat, No Other Pulmonary: No Dyspnea, No Cough, No Pleuritic Chest Pain, No Other Cardiovascular: No: Chest Pain, Palpitations, Orthopnea, Paroxysmal Noc. Dyspnea, Edema, Lt Headedness, Other Objective-Cardiology Exam Last Set of Vital Signs Vital Signs 02/26/18 03/02/18 03/02/18 03/02/18 21:52 04:20 07:01 07:17 Temp 98.6 Pulse 99 Resp 20 B/P (MAP) 176/81 (112) Pulse Ox 100 O2 Delivery Nasal Cannula O2 Flow Rate 3.00 FiO2 28 Capillary Refill : Less Than 3 Seconds I&O Intake and Output 03/02/18 00:00 Intake Total 4690 ml Output Total 3800 ml Balance 890 ml Intake Oral 2040 ml IV Total 2650 ml Output Urine Total 3800 ml # Bowel Movements 5 General: Alert, Oriented X3, Cooperative HEENT: Atraumatic, PERRLA Neck: Supple, No JVD, No Thyromegaly Lungs: Normal Air Movement, Other (bilateral exp wheezing) Heart: Regular Rate, Normal S1, Normal S2, No Murmurs Abdomen: Normal Bowel Sounds, Soft, No Tenderness, No Hepatosplenomegaly, No Masses Extremities: No Clubbing, No Cyanosis, No Edema, Normal Pulses, No Tenderness/ Swelling Skin: No Rashes, No Breakdown, No Significant Lesion Neuro: Normal Gait, Normal Speech, Strength at 5/5 X4 Ext, Normal Tone, Sensation Intact Psych/Mental Status: Mental Status NL, Mood NL Results Lab Laboratory Tests 03/02/18 04:34 A/P-Cardiology Admission Diagnosis Pneumonia Sepsis Lower GI bleed Hypotension Assessment/Plan Pneumonia with sepsis, receiving antibiotic, reporting improvement. Managed by primary care team Hematochezia, bright red blood per rectum, improved, monitor H/H. Dr. Walker following. Hypertension, status post hypotensive episode, currently blood pressure is elevated, I will restart lisinopril and metoprolol and monitor blood pressure response Hyperlipidemia, maintained on lovastatin as an outpatient, hold it for now and monitor Acute on chronic renal failure, improving, continue to monitor renal function No reported previous cardiac history. Diabetes mellitus, followed and managed by primary care physician Clinical Quality Measures DVT/VTE Risk/Contraindication: Risk Factor Score Per Nursin RFS Level Per Nursing on Admit: 4+=Very High INDIGO BULL MD Mar 02, 2018 09:37
[2018-03-02] MEDS ORDERED: lisINopril 5 MG (PRINIVIL) TABLET PO SCH (09:45)
[2018-03-02] MEDS ORDERED: CEFD300C3 PO (10:03)
[2018-03-02] MEDS ORDERED: PANT40TA3 PO (10:03)
[2018-03-02] MEDS ORDERED: DOCU100C37 PO (10:03)
--- NOTE | 2018-03-02 10:06 | Discharge Inst-Complex ---
PDI Med Rec & Follow Up Appt. New Medications: Cefdinir (Cefdinir) 300 Mg Capsule 300 MG PO BID, #14 CAP Docusate Sodium (Docusate Sodium) 100 Mg Capsule 100 MG PO DAILY, #30 CAP 3 Refills Pantoprazole Sodium (Pantoprazole Sodium) 40 Mg Tablet.dr 40 MG PO BID@0700,1700, #60 TAB 3 Refills Continued Medications: Amitriptyline HCl (Amitriptyline HCl) 50 Mg Tablet 50 MG PO BID, TAB Insulin Aspart (Novolog) 100 Unit/1 Ml Susp 35 UNIT SQ 1200, EACH Insulin Aspart (Novolog) 100 Unit/1 Ml Susp 30 UNIT SQ DINNER, EACH Lisinopril (Lisinopril) 5 Mg Tablet 5 MG PO DAILY, TAB Lovastatin (Lovastatin) 40 Mg Tablet 40 MG PO HS, TAB Metoprolol Succinate (Metoprolol Succinate) 25 Mg Tab.er.24h 25 MG PO DAILY, TAB Prescription: Transmitted to Pharmacy Activity, Diet and PDI Resume Normal Activity: Yes Discharge Diet: ADA Diet Diet for 24 Hours: No Alcohol Drink 6-8 Glasses of Fluid/Day: Yes Driving Instructions: No Driving for 24 Hours Return to The Hospital For: ANY CONCERN FOR LIFETHREATENING ILLNESS OR INJURY Symptoms to Reoprt to : Appetite Changes, Fever Over 101 Degrees F, Pain/ Pressure in Chest, Heart Beat Irreg/Pounding, Pain/Pressure in Jaw, Diarrhea( Persistant) For Problems or Questions: Contact Your Physician, Go to Emergency Room MOISÉS ARMSTRONG MD Mar 02, 2018 10:06
--- NOTE | 2018-03-02 10:58 | NUR ---
SPO2 DROPPED TO 87% WITH EXERTION. REPLACED PT ON O2 @ 2 LPM. SPO2 STAYED ABOVE 90%. Addendum: 03/02/18 at 1058 by MAYRA MONROY RT Amended: Links added.
--- NOTE | 2018-03-02 11:11 | Discharge Summary ---
Diagnosis/Chief Complaint Date of Admission Feb 26, 2018 at 17:24 Date of Discharge Discharge Date: Mar 02, 2018 Discharge Time: 1030 Admission Diagnosis Admission Diagnosis ACUTE GASTROINTESTINAL BLEEDING WITH HEMATOCHEZIA PNEUMONIA WITH SEVERE SEPSIS METABOLIC ACIDOSIS ACUTE RENAL FAILURE HYPONATREMIA HYPOTENSION DEHYDRATION HYPOMAGNESEMIA DIABETES MELLITUS Discharge Diagnosis ACUTE GASTROINTESTINAL BLEEDING WITH HEMATOCHEZIA PNEUMONIA WITH SEVERE SEPSIS METABOLIC ACIDOSIS ACUTE RENAL FAILURE HYPONATREMIA HYPOTENSION DEHYDRATION HYPOMAGNESEMIA DIABETES MELLITUS Reason Hospital Visit This is a 77-year-old white male clinic patient of Dr. Alfaro who presented to the ER with hematochezia but was found to have severely low blood pressure of systolic of 60 requiring severe sepsis protocol aggressive IV fluid resuscitation without pressors in the ER. Further workup ensued revealing bilateral pneumonia and acute renal failure with hyperglycemia. reports bloody stools 3 and hemoglobin stable at 13 that require general surgery consultation and case bloody stools recurred. Patient denies any history of pneumonia does not wear oxygen at home and overall feels like he is in pretty good health. Currently he is still a little bit short of breath but feels better but weakened since admission. Patient was placed on IV antibiotics of Zosyn along with nebulizer treatments and oxygen supplementation along with maintained IV fluid resuscitation. Hemoglobin decreased to 11 and renal insufficiency improved with IV fluids. Discharge Summary Discharge Physical Examination Allergies: Coded Allergies: No Known Drug Allergies (Verified , 01/29/07) Vitals & I&Os Vital Signs Date Time Temp Pulse Resp B/P (MAP) Pulse Ox O2 Delivery O2 Flow Rate FiO2 03/02/18 10:55 96 Nasal Cannula 2.00 03/02/18 08:00 97.5 102 24 172/86 (114) 02/26/18 21:52 28 General Appearance: Alert, Oriented X3, Cooperative HEENT: Atraumatic, PERRLA Respiratory: Normal Air Movement, Other (bilateral exp wheezing) Cardiovascular: Regular Rate, Normal S1, Normal S2, No Murmurs Abdominal: Normal Bowel Sounds, Soft, No Tenderness, No Hepatosplenomegaly, No Masses Extremities: No Clubbing, No Cyanosis, No Edema, Normal Pulses, No Tenderness/ Swelling Skin: No Rashes, No Breakdown, No Significant Lesion Neuro: Normal Gait, Normal Speech, Strength at 5/5 X4 Ext, Normal Tone, Sensation Intact Psych/Mental Status: Mental Status NL, Mood NL Hospital Course ACUTE GASTROINTESTINAL BLEEDING WITH HEMATOCHEZIA PNEUMONIA WITH SEVERE SEPSIS METABOLIC ACIDOSIS ACUTE RENAL FAILURE HYPONATREMIA HYPOTENSION DEHYDRATION HYPOMAGNESEMIA DIABETES MELLITUS PT DOING BETTER TODAY -HEMOGLOBIN HAS BEEN STABLE PLANNING ON DISCHARGE MONDAY TO GIVE TIME FOR FURTHER IV ANTIBIOTICS AND FURTHER DOCUMENTATION OF HEMOGLOBIN STABILITY ACUTE GASTROINTESTINAL BLEEDING WITH HEMATOCHEZIA - DEFER TO DR. RENE - PT HAD COLONOSCOPY IN 2013 AFTER HIS LAST EPISODE LIKE THIS - CONTINUE WITH SUPPORTIVE CARE, CHECK SERIAL HGB - ALL HAVE BEEN STABLE - CONTINUE WITH SUPPORTIVE CARE OUTPATIENT, KEEP STOOLS SOFT, MIRALAX RX ON DISCHARGE. PNEUMONIA WITH SEVERE SEPSIS - IV ANTIBIOTICS IN THE HOSPITAL, CHANGE TO ORAL ANTIBIOTICS OUTPATIENT. METABOLIC ACIDOSIS - SUPPORTIVE CARE - SYMPTOMS IMPROVED. ACUTE RENAL FAILURE - IMPROVED WITH IV FLUIDS HYPONATREMIA - IMPROVED WITH IV FLUIDS. HYPOTENSION - IMPROVED DEHYDRATION - IMPROVED WITH HYDRATION HYPOMAGNESEMIA - REPLENISH WITH IV FLUIDS Pending Labs Laboratory Tests 03/02/18 11:27: Glucometer 281 Discharge Instructions to patient/family Please see electronic discharge instructions given to patient. Discharge Medications Reviewed and agree with Discharge Medication list on patient's Discharge Instruction sheet Clinical Quality Measures DVT/VTE Risk/Contraindication: Risk Factor Score Per Nursin RFS Level Per Nursing on Admit: 4+=Very High MOISÉS ALFARO MD Mar 02, 2018 11:11
--- NOTE | 2018-03-02 11:31 | NUR ---
CM DISCHARGE PLANNING: Patient is discharging home today with self care. He has new need for oxygen with exertion. Patient choice form presented to patient et they chose [facility]. Choice form signed et placed on chart. Referral faxed et DME contacted they will deliver portable oxygen to patient room prior to dismissal. Both patient et deny any further needs or concerns et voiced that they are ready to get home.
[2018-03-02] MEDS: inSUlin ASPART (NovoLOG) 1 UNIT/0.01 ML (CHARGE PER UNIT) SC SCH (12:16)
[2018-03-03] MEDS ORDERED: lisINopril 5 MG (PRINIVIL) TABLET PO SCH (09:00)
== END 2018-03-02 14:40 | disposition home or self-care (01) | DRG 871 ==
LOC: EDUNIT# 14:59 → ER 15:00 → ICU 17:24 → 4TH 02-28 11:00
PROVIDERS: ADMIT Internal Medicine; ATTEND Family Medicine
DX: A41.9 Sepsis, unspecified organism (principal); R65.21 Severe sepsis with septic shock; J18.1 Lobar pneumonia, unspecified organism; E87.2 Acidosis; N17.9 Acute kidney failure, unspecified; E87.1 Hypo-osmolality and hyponatremia; K57.31 Diverticulosis of large intestine without perforation or abscess with bleeding; K64.8 Other hemorrhoids; E86.0 Dehydration; I95.9 Hypotension, unspecified; K59.00 Constipation, unspecified; I12.9 Hypertensive chronic kidney disease with stage 1 through stage 4 chronic kidney disease, or unspecified chronic kidney disease; N18.9 Chronic kidney disease, unspecified; E11.40 Type 2 diabetes mellitus with diabetic neuropathy, unspecified; E78.00 Pure hypercholesterolemia, unspecified; E11.65 Type 2 diabetes mellitus with hyperglycemia; I25.10 Atherosclerotic heart disease of native coronary artery without angina pectoris; K21.9 Gastro-esophageal reflux disease without esophagitis; E83.42 Hypomagnesemia; M19.91 Primary osteoarthritis, unspecified site; H91.13 Presbycusis, bilateral; E83.39 Other disorders of phosphorus metabolism; Z87.891 Personal history of nicotine dependence; Z79.4 Long term (current) use of insulin; Z85.46 Personal history of malignant neoplasm of prostate; Z87.19 Personal history of other diseases of the digestive system; Z90.79 Acquired absence of other genital organ(s)
CPT/HCPCS: 36415; 51702; 71045; 80053; 81000; 82150; 82962; 83605; 83690; 83735; 84100; 85007; 85014; 85018; 85025; 85027; 86141; 86850; 86900; 86901; 87015; 87040; 87045; 87046; 87070; 87077; 87205; 87324; 87449; 87804; 87899; 90471; 90686; 93306; 94640; 94760; 94761; 96361; 96374

== ENCOUNTER 2019-02-11 20:34 | Emergency (ER) | payer MEDICARE, OTHER ==
[~2019-02-11] VITALS: Ht 175.3 cm; Wt 102.1 kg
[~2019-02-11 20:34] MED LIST changes: +CEFD300C3 PO; +DOCU100C37 PO; +INSU100V16 SQ; +LISI-556 PO; +PANT40TA3 PO
[2019-02-11] MEDS ORDERED: ONDANSETRON 4 MG/2 ML (SDV) Z0FRAN ONE (20:36)
[2019-02-11] MEDS ORDERED: NS IV 1000 ML 1,000 ML IV ONE (20:38)
[2019-02-11] MEDS ORDERED: ONDANSETRON 4 MG/2 ML (SDV) Z0FRAN IVP ONE (20:45)
--- NOTE | 2019-02-11 20:50 | ED Fall/Injury ---
General Stated Complaint: FALL Source: patient (LIMITED HISTORIAN--STATES "YOU'LL HAVE TO ASK MY --SHE KNOWS ALL THAT STUFF" IN REGARDS TO MEDICATIONS AND PAST MEDICAL HISTORY, ETC. DID NOT ACCOMPANY PT TO ER. ), EMS notes reviewed History of Present Illness Date Seen by Provider: Feb 11, 2019 Time Seen by Provider: 20:35 Initial Comments PT ARRIVES VIA EMS FROM HOME NO IMMOBILIZATION, NO IV, NO ACCUCHECK, NO MEDICATIONS GIVEN PT STATES HE GOT UP TO GO TO THE BATHROOM AND "JUST FELL" PT FELL BACKWARDS AND HIT THE BACK OF HIS HEAD ON THE WALL, AND MADE A LARGE HOLE IN THE WALL WITH HIS HEAD HEARD HIM FALL, AND FOUND HIM ON THE FLOOR --NO REPORTED LOSS OF CONSCIOUS. EMS REPORT THAT CERVICAL COLLAR WAS PLACED INITIALLY AND IV ESTABLISHED PT VOMITED SHORTLY AFTER EMS ARRIVED AT THE SCENE, AND CERVICAL COLLAR WAS REMOVED AND IV WAS PULLED OUT. EMS REPORT PT WAS HYPOTENSIVE AT THE SCENE WITH SYSTOLIC BP'S IN 70'S AND 80'S --LAST READING WAS 88/57. PT IS INSULIN DEPENDENT DIABETIC. PT STATES HE "HURTS ALL OVER" AND IS UNABLE TO LOCALIZE PAIN ANYWHERE DENIES PARESTHESIAS OR MOTOR DEFICITS. EMS REPORT THAT PT C/O ABDOMINAL PAIN AND GAVE HIM AN OXYCODONE 10/325 AND AN UNKNOWN DOSE OF HUMALOG JUST PRIOR TO ARRIVAL. PCP: DR. ARMSTRONG, PER OLD RECORDS, PT DOES NOT KNOW WHO IS IS--STATES "A FEMALE" Allergies and Home Medications Allergies Coded Allergies: No Known Drug Allergies (Verified , 01/29/07) Home Medications Amitriptyline HCl 50 Mg Tablet, 50 MG PO BID, (Reported) Cefdinir 300 Mg Capsule, 300 MG PO BID Prescribed by: MOISÉS ARMSTRONG on 03/02/18 1003 Docusate Sodium 100 Mg Capsule, 100 MG PO DAILY Prescribed by: MOISÉS ARMSTRONG on 03/02/18 1003 Insulin Aspart 100 Unit/1 Ml Susp, 35 UNIT SQ 1200, (Reported) Insulin Aspart 100 Unit/1 Ml Susp, 30 UNIT SQ DINNER, (Reported) Lisinopril 5 Mg Tablet, 5 MG PO DAILY, (Reported) Lovastatin 40 Mg Tablet, 40 MG PO HS, (Reported) Metoprolol Succinate 25 Mg Tab.er.24h, 25 MG PO DAILY, (Reported) Pantoprazole Sodium 40 Mg Tablet.dr 40 MG PO BID@0700,1700 Prescribed by: MOISÉS ARMSTRONG on 03/02/18 1003 Patient Home Medication List Home Medication List Reviewed: Yes Review of Systems Review of Systems Constitutional: other (PT IS LIMITED HISTORIAN--STATES HE "HURTS ALL OVER" AND CANNOT LOCALIZE PAIN. ) Respiratory: No short of breath Past Nriewuz-Dzyjvn-Edoqcm Hx Patient Social History Alcohol Use: Occasionally Uses Alcohol Beverage of Choice: Wine Recreational Drug Use: Yes (UDS + FOR THC 02/11/19) Drug of Choice: UDS + FOR THC 02/11/19 Smoking Status: Former Smoker Type Used: Cigarettes Former Smoker, Quit: July 08, 1992 2nd Hand Smoke Exposure: No Recent Hopitalizations: No Immunizations Up To Date Tetanus Booster (TDap): Unknown PED Vaccines UTD: Yes Date of Pneumonia Vaccine: Dec 14, 2011 Date of Influenza Vaccine: Feb 13, 2014 Seasonal Allergies Seasonal Allergies: No Past Medical History Surgeries: Yes (TONSELECTOMY, PROSTATECTOMY; COLONOSCOPIES/EGD'S ) Prostatectomy, Tonsillectomy Respiratory: Yes (HAS HAD SEVERE SEPSIS AND SEPTIC SHOCK DUE TO PNEUMONIA IN THE PAST; NO HX OF INTUBATION; FORMER SMOKER) Pneumonia Currently Using CPAP: No Currently Using BIPAP: No Cardiac: Yes High Cholesterol, Hypertension Neurological: Yes (NEUROPATHY DUE TO DIABETES) Neuropathy Reproductive Disorders: No Sexually Transmitted Disease: No HIV/AIDS: No Genitourinary: Yes (PROSTATECTOMY; CHRONIC RENAL INSUFFICIENCY ) Prostate Problems Gastrointestinal: Yes Colitis, Gastroesophageal Reflux, Gastrointestinal Bleed, Chronic Constipation, Diverticulosis, Hemorrhoids, Hiatal Hernia Musculoskeletal: Yes Degenerate Disk Disease, Arthritis, Chronic Back Pain Endocrine: Yes Diabetes, Insulin dep HEENT: Yes (EDENTULOUS/WEARS UPPER AND LOWER DENTURES) Hearing Impairment: Hard of Hearing Cancer: Yes Prostate Did You Recieve Any Treatments: Yes What Type of Treatment Did You: Surgical Intervention Psychosocial: No Integumentary: No Blood Disorders: No Adverse Reaction/Blood Tranf: No Family Medical History Cancer G8 SISTER ( of lung cancer) History of - disorder 19 MOTHER (mother of old age) History of - respiratory disease 17 FATHER (worked in coal mines of resp disease from working in coal mines) Heart Disease, Cancer, Diabetes, Hypertension HAS HAD ADMITS FOR SEVERE SEPSIS/SEPTIC SHOCK WITH PNEUMONIA, GI BLEEDING Physical Exam Vital Signs Vital Signs - First Documented Capillary Refill : Height, Weight, BMI Height: 5'9.00" Weight: 230lbs. 4.0oz. [id number]; 31.2 BMI Method:Estimated General Appearance: WD/WN, no apparent distress, other (MOANING AND MILDLY TREMULOUS/SHIVERING--STATES HE IS COLD ( IS VERY COLD OUTSIDE) ) HEENT: PERRL/EOMI (PUPILS PINPOINT, EQUAL), TMs normal, pharynx normal, other (EDENTULOUS/DENTURES REMOVED. NO EXTERNAL EVIDENCE OF TRAUMA TO HEAD NOTED AT THIS TIME. ) Neck: non-tender, full range of motion, supple, normal inspection, other (IN CERVICAL COLLAR ON ARRIVAL. EXAM DONE AFTER CERVICAL SPINE WAS READ NO ACUTE INJURY, BY RADIOLOGIST) Cardiovascular: normal peripheral pulses, regular rate, rhythm, no edema, no JVD, no murmur Respiratory: chest non-tender, normal breath sounds, no respiratory distress, no accessory muscle use Peripheral Pulses: 2+ Dorsalis Pedis (R), 2+ Left Dors-Pedis (L), 2+ Radial Pulses (R), 2+ Radial Pulses (L) Gastrointestinal: normal bowel sounds, no organomegaly, no pulsatile mass; No distended; guarding; No rebound; tenderness (DIFFUSE TENDERNESS, BUT HAS MARKED TENDERNESS AND SOME GUARDING ON PALPATION OF ENTIRE LOWER ABDOMEN. NO REBOUND. ); No hernia, No mass Back: other (MILD DIFFUSE TENDERNESS TO ENTIRE BACK. HAS MILD BRUISING AND ABRASION TO RIGHT POSTERIOR SHOUJLDER/UPPER SCAPULAR AREA. ) Extremities: normal range of motion, no pedal edema, no calf tenderness, normal capillary refill Neurologic/Psychiatric: engineering writer II-XII nml as tested, no motor/sensory deficits, alert, normal mood/affect, other (ORIENTED TO PERSON, PLACE, GROSSLY ORIENTED TO SITUATION, SOMEWHAT CONFUSED TO TIME. LIMITED MEMORY ???) Skin: normal color, warm/dry, ecchymosis (RIGHT POSTERIOR SHOUJLDER/UPPER SC APULAR AREA. ), tattoos/piercings (TATTOOS), other (CANDIDAL INTERTRIGO TO BILATERAL GROIN) [place] Coma Score Best Eye Response: (4) Open Spontaneously Best Verbal Response: (5) Oriented Best Motor Response: (6) Obeys Commands Tatiana Total: 15 Progress/Results/Core Measures Results/Orders Lab Results Laboratory Tests Test 02/11/19 20:43 02/11/19 20:45 02/11/19 21:05 02/11/19 22:48 Range/Units Glucometer 222 H 70-110 MG/DL White Blood Count 23.5 H 4.3-11.0 10^3/uL Red Blood Count 5.22 4.35-5.85 10^6/uL Hemoglobin 13.8 13.3-17.7 G/DL Hematocrit 42 40-54 % Mean Corpuscular Volume 81 80-99 FL Mean Corpuscular Hemoglobin 26 25-34 PG Mean Corpuscular Hemoglobin Concent 33 32-36 G/DL Red Cell Distribution Width 15.9 H 10.0-14.5 % Platelet Count 350 130-400 10^3/uL Mean Platelet Volume 9.1 7.4-10.4 FL Neutrophils (%) (Auto) 83 H 42-75 % Lymphocytes (%) (Auto) 7 L 12-44 % Monocytes (%) (Auto) 9 0-12 % Eosinophils (%) (Auto) 0 0-10 % Basophils (%) (Auto) 0 0-10 % Neutrophils # (Auto) 19.6 H 1.8-7.8 X 10^3 Lymphocytes # (Auto) 1.7 1.0-4.0 X 10^3 Monocytes # (Auto) 2.2 H 0.0-1.0 X 10^3 Eosinophils # (Auto) 0.0 0.0-0.3 10^3/uL Basophils # (Auto) 0.0 0.0-0.1 10^3/uL Neutrophils % (Manual) 64 % Lymphocytes % (Manual) 5 % Monocytes % (Manual) 8 % Band Neutrophils 23 % Blood Morphology Comment NORMAL Prothrombin Time 15.0 H 12.2-14.7 SEC INR Comment 1.1 0.8-1.4 Activated Partial Thromboplast Time 27 24-35 SEC Sodium Level 137 135-145 MMOL/L Potassium Level 3.9 3.6-5.0 MMOL/L Chloride Level 100 98-107 MMOL/L Carbon Dioxide Level 13 L 21-32 MMOL/L Anion Gap 24 H 5-14 MMOL/L Blood Urea Nitrogen 27 H 7-18 MG/DL Creatinine 2.60 H 0.60-1.30 MG/DL Estimat Glomerular Filtration Rate 24 BUN/Creatinine Ratio 10 Glucose Level 300 H 70-105 MG/DL Lactic Acid Level 9.66 *H 0.50-2.00 MMOL/L Calcium Level 9.9 8.5-10.1 MG/DL Corrected Calcium 9.8 8.5-10.1 MG/DL Magnesium Level 2.1 1.6-2.4 MG/DL Total Bilirubin 0.4 0.1-1.0 MG/DL Aspartate Amino Transf (AST/SGOT) 34 5-34 U/L Alanine Aminotransferase (ALT/SGPT) 27 0-55 U/L Alkaline Phosphatase 96 40-136 U/L Total Creatine Kinase 130 30-200 U/L Creatine Kinase MB 4.6 <6.6 NG/ML Myoglobin 509.4 H 10.0-92.0 NG/ML Troponin I < 0.028 <0.028 NG/ML B-Type Natriuretic Peptide 46.6 <100.0 PG/ML Total Protein 7.9 6.4-8.2 GM/DL Albumin 4.1 3.2-4.5 GM/DL Amylase Level 141 H 25-125 U/L Lipase 21 8-78 U/L Acetaminophen Level < 10 L 10-30 UG/ML Serum Alcohol < 10 <10 MG/DL Urine Color YELLOW Urine Clarity CLEAR Urine pH 6.0 5-9 Urine Specific [place] 1.015 L 1.016-1.022 Urine Protein NEGATIVE NEGATIVE Urine Glucose (UA) 1+ H NEGATIVE Urine Ketones NEGATIVE NEGATIVE Urine Nitrite NEGATIVE NEGATIVE Urine Bilirubin NEGATIVE NEGATIVE Urine Urobilinogen 0.2 < = 1.0 MG/DL Urine Leukocyte Esterase NEGATIVE NEGATIVE Urine RBC (Auto) TRACE-I NEGATIVE Urine RBC RARE /HPF Urine WBC 0-2 /HPF Urine Crystals NONE /LPF Urine Bacteria FEW H /HPF Urine Casts NONE /LPF Urine Mucus NEGATIVE /LPF Urine Culture Indicated NO Urine Opiates Screen NEGATIVE NEGATIVE Urine Oxycodone Screen NEGATIVE NEGATIVE Urine Methadone Screen NEGATIVE NEGATIVE Urine Propoxyphene Screen NEGATIVE NEGATIVE Urine Barbiturates Screen NEGATIVE NEGATIVE Ur Tricyclic Antidepressants Screen NEGATIVE NEGATIVE Urine Phencyclidine Screen NEGATIVE NEGATIVE Urine Amphetamines Screen NEGATIVE NEGATIVE Urine Methamphetamines Screen NEGATIVE NEGATIVE Urine Benzodiazepines Screen NEGATIVE NEGATIVE Urine Cocaine Screen NEGATIVE NEGATIVE Urine Cannabinoids Screen POSITIVE H NEGATIVE Stool Occult Blood Immunoassay POSITIVE H NEGATIVE Test 02/11/19 23:07 Range/Units Lactic Acid Level 7.98 *H 0.50-2.00 MMOL/L My Orders Orders - SAUL,PRANAY Binu DO Ondansetron Injection (Zofran Injectio (02/11/19 20:36) Accucheck Stat ONCE (02/11/19 20:38) Ed Iv/Invasive Line Start (02/11/19 20:38) Ekg Tracing (02/11/19 20:38) O2 (02/11/19 20:38) Monitor-Rhythm Ecg Trace Only (02/11/19 20:38) Ct Head/Cervical Spine Wo (02/11/19 20:38) Ct Thoracic/Lumbar Spine Wo (02/11/19 20:38) Chest 1 View, Ap/Pa Only (02/11/19 20:38) Acetaminophen (02/11/19 20:38) Alcohol (02/11/19 20:38) Amylase (02/11/19 20:38) BNP (02/11/19 20:38) Cbc With Automated Diff (02/11/19 20:38) Comprehensive Metabolic Panel (02/11/19 20:38) Creatine Kinase (02/11/19 20:38) Creatine Kinase Mb (02/11/19 20:38) Drug Screen Stat (Urine) (02/11/19 20:38) Lactic Acid Analyzer (02/11/19 20:38) Lipase (02/11/19 20:38) Magnesium (02/11/19 20:38) Protime With Inr (02/11/19 20:38) Partial Thromboplastin Time (02/11/19 20:38) Ua Culture If Indicated (02/11/19 20:38) Blood Culture (02/11/19 20:38) Myoglobin Serum (02/11/19 20:38) Troponin I (02/11/19 20:38) Cervical Collar (02/11/19 20:38) Ondansetron Injection (Zofran Injectio (02/11/19 20:45) Ed Iv/Invasive Line Start (02/11/19 20:38) Ns Iv 1000 Ml (Sodium Chloride 0.9%) (02/11/19 20:38) Pelvis (02/11/19 20:42) Catheter(Urinary) Insert & Ass 03,15 (02/11/19 20:50) Manual Differential (02/11/19 20:45) Urine Culture (02/11/19 21:10) Vital Signs Adult Sepsis Patie Q15M (02/11/19 21:10) Remove Rings In Anticipation O (02/11/19 21:10) Ed Iv/Invasive Line Start (02/11/19 21:10) Ns Iv 1000 Ml (Sodium Chloride 0.9%) (02/11/19 21:10) Ct Chest/Abdomen/Pelvis Wo (02/11/19 21:26) Metronidazole 500mg/100ml Ivpb (Flagyl 5 (02/11/19 22:30) Piperacillin Sodium/Tazobactam (Zosyn Vi (02/11/19 22:30) Vancomycin Injection (Vancomycin Injecti (02/11/19 22:30) Stool Culture (02/11/19 22:30) Occult Blood Stool (02/11/19 22:30) C Difficile Ag + Toxin A/B. (02/11/19 22:30) Fecal Wbc (02/11/19 22:30) Zinc Oxide/Petrolatum,White (Sensi-Care (02/11/19 23:00) Medications Given in ED Current Medications Medications Dose Ordered Sig/Pascale Route Start Time Stop Time Status Last Admin Dose Admin Metronidazole 100 ml @ 100 mls/hr ONCE ONCE IV 02/11/19 22:30 02/11/19 23:29 DC 02/11/19 23:11 100 MLS/HR Ondansetron HCl 8 mg ONCE ONCE IVP 02/11/19 20:45 02/11/19 20:46 DC 02/11/19 20:50 8 MG Petrolatum/Zinc Oxide PRN PRN TOP 02/11/19 23:00 02/12/19 00:04 1 GM Piperacillin Sod/ Tazobactam Sod 4.5 gm/Sodium Chloride 100 ml @ 200 mls/hr ONCE ONCE IV 02/11/19 22:30 02/11/19 22:59 DC 02/11/19 23:11 200 MLS/HR Sodium Chloride 1,000 ml @ 0 mls/hr Q0M ONCE IV 02/11/19 20:38 02/11/19 20:42 DC 02/11/19 20:51 0 MLS/HR Vancomycin HCl 1000 mg/Sodium Chloride 250 ml @ 250 mls/hr ONCE ONCE IV 02/11/19 22:30 02/11/19 23:29 DC 02/12/19 00:00 250 MLS/HR Vital Signs/I&O 02/11/19 02/11/19 20:35 20:35 Temp 36.1 Pulse 110 Resp 22 B/P (MAP) 131/81 (98) Pulse Ox 95 95 O2 Delivery Nasal Cannula Nasal Cannula O2 Flow Rate 3.00 3.00 02/12/19 00:00 Intake Total 3100 ml Balance 3100 ml Progress Progress Note : Progress Note PT WAS INCONTINENT OF MULTIPLE VERY SOFT MEDIUM BROWN STOOLS DURING ER STAY + HEMOCCULT NO GROSSLY BLOODY STOOLS NO DETERIORATION IN PT'S CONDITION DURING ER STAY. PT IS NO LONGER MOANING, AND PT IS MORE CONVERSIVE, AND SMILING AT TIMES HE IS TALKING. GIVEN ZOFRAN ON ARRIVAL, NO FURTHER EMESIS OR COMPLAINTS OF NAUSEA. GIVEN 3 LITERS OF SALINE GIVEN ZOSYN, FLAGYL AND VANCOMYCIN Initial ECG Impression Date: Feb 11, 2019 Initial ECG Impression Time: 21:02 Initial ECG Rate: 110 Initial ECG Rhythm: S.Tach (LAFB, MUCH ARTIFACT) Diagnostic Imaging Comments CXR--LARGE HIATAL HERNIA, NO ACUTE PROCESS, PER RADIOLOGIST REPORT PELVIS XRAYS--NO FRACTURE OR ACUTE BONY INJURY, LARGE AMOUNT OF STOOL IN THE RECTUM--PER RADIOLOGIST REPORT CT HEAD/CERVICAL SPINE--MULTIPLE PUNCTATE HEMORRHAGES IN BILATERAL FRONTAL LOBES/CEREBRAL CONTUSION. NO SUBDURAL HEMATOMA; GENERALIZED VOLUME LOSS WITH CHRONIC MICROVASCULAR DISEASE, NO ACUTE ISCHEMIA; DEGENERATIVE CHANGES OF CERVICAL SPINE, NO ACUTE BONY ABNORMALITY OF CERVICAL SPINE CT THORACIC/LUMBAR SPINE--DEGENERATIVE CHANGES OF SPINE, NO ACUTE BONY ABNORMALITY, OLD HEALED RIGHT L1 TRANSVERSE PROCESS FRACTURE CT CHEST/ABDOMEN/PELVIS--FINDINGS CONSISTENT WITH COLITIS, MARKED STOOL IN COLON AND RECTUM; LARGE HIATAL HERNIA WITH MARKED GASTROESOPHAGEAL REFLUX ALL PER RADIOLOGIST VIA PHONE AT 2205 Reviewed: Reviewed by Me, Discussed w/Radiologist Focused Exam Sepsis Stage: Severe Sepsis Possible Source: GI Tract/Intra-Abdominal Lactate Level 02/11/19 20:45: Lactic Acid Level 9.66*H 02/11/19 23:07: Lactic Acid Level 7.98*H Time of Focused Exam: 22:00 Respiratory: Chest Non Tender, Lungs Clear, Normal Breath Sounds, No Accessory Muscle Use, No Respiratory Distress Cardiovascular: Regular Rate, Rhythm, No Edema, No JVD, No Murmur, Normal Peripheral Pulses Capillary Refill: Less Than 3 Seconds Peripheral Pulses: 2+ Dorsalis Pedis (R), 2+ Left Dors-Pedis (L), 2+ Radial Pulses (R), 2+ Radial Pulses (L) Skin: normal color, warm/dry Lactic Acid Level Laboratory Tests Test 02/11/19 20:45 02/11/19 23:07 Lactic Acid Level 9.66 MMOL/L (0.50-2.00) *H 7.98 MMOL/L (0.50-2.00) *H Within 3hrs of presentation: Admin fluids, Admin 30ml/kg IBW due to BMI>30, Admin ABX, Blood cultures prior to ABX's, Focus exam, Lactate level Departure Communication (Admissions) Family Conversation 2312--CALLED PT'S AND UPDATE OF PT'S CONDITION GIVEN TO HER, AND INFORMED HER OF NEED FOR TRANSFER TO [facility], AND SHE IS AGREEABLE TO THIS/GIVES CONSENT. SHE REPORTS THAT SOMETIMES HE IS A LITTLE FORGETFUL-MOSTLY ABOUT THE DATE/DAY OF WEEK. SHE REPORTS THAT HE WAS AT NORMAL BASELINE MENTATION WHEN HE LEFT THE HOUSE. SHE REPORTS THAT HE IS VERY HARD OF HEARING. NO ICU BEDS AVAILABLE HERE--ON [facility] 2223--CALLED WILL, SHIFT CAPTAIN WITH [facility]. HE WILL CALL ME BACK REGARDING THEIR ABILITY TO TRANSFER, DUE TO WEATHER CONDITIONS 2233--WILL CALLED BACK, THEY WILL BE ABLE TO TRANSPORT PT 2234--CALLED [facility], SPOKE WITH ER PHYSICIAN DR. MARIEE, HE ADVISES THAT PT COULD BE DIRECT ADMITTED, AND DOES NOT NEED TO GO THROUGH ER AT THIS TIME. [facility] HOSPITALIST, DR. LOREDO. 2304--SPOKE WITH DR. LOREDO, HOSPITALIST, ACCEPTS PT FOR ADMIT. NO ADDITIONAL RECOMMENDATIONS AT THIS TIME. Impression Primary Impression: Status post fall Additional Impressions: SYNCOPAL/NEAR-SYNCOPAL EPISODE Severe sepsis CERBRAL CONTUSION WITH PUNCTATE HEMORRHAGES OF BILAT FRONTAL LOBES Acute on chronic renal insufficiency Hypotension Colitis Positive fecal occult blood test Marijuana use Disposition: XFER SHT-TRM HOSP Condition: Stable Transfer Transfer Reason: Diversion Transfer Facility: [facility], [facility] Method of Transfer: EMS Departure-Patient Inst. Referrals: MOISÉS ARMSTRONG MD (PCP/Family) Primary Care Physician PRANAY HUGHES DO Feb 11, 2019 20:50 POS
[2019-02-11 20:59] LABS: BASOPHILS % (AUTO) 0 % (0-10); EOSINOPHILS % (AUTO) 0 % (0-10); HEMATOCRIT 42 % (40-54); HEMOGLOBIN 13.8 G/DL (13.3-17.7); LYMPHOCYTES # (AUTO) 1.7 X 10^3 (1.0-4.0); LYMPHOCYTES % (AUTO) 7 % (12-44); MEAN CORPUSCULAR HEMOGLOBIN 26 PG (25-34); MEAN CORPUSCULAR HGB CONC 33 G/DL (32-36); MEAN CORPUSCULAR VOLUME 81 FL (80-99); MEAN PLATELET VOLUME 9.1 FL (7.4-10.4); MONOCYTES # (AUTO) 2.2 X 10^3 (0.0-1.0); MONOCYTES % (AUTO) 9 % (0-12); NEUTROPHILS # (AUTO) 19.6 X 10^3 (1.8-7.8); NEUTROPHILS % (AUTO) 83 % (42-75); PLATELET COUNT 350 10^3/uL (130-400); RED CELL DISTRIBUTION WIDTH 15.9 % (10.0-14.5); WHITE BLOOD COUNT 23.5 10^3/uL (4.3-11.0)
[2019-02-11 21:11] LABS: INR 1.1 (0.8-1.4)
[2019-02-11 21:14] LABS: BAND NEUTROPHILS 23 %; LYMPHOCYTES % (MANUAL) 5 %; MONOCYTES % (MANUAL) 8 %; NEUTROPHILS % (MANUAL) 64 %; RBC MORPH NORMAL
[2019-02-11 21:15] LABS: ALANINE AMINOTRANSFERASE 27 U/L (0-55); ALBUMIN 4.1 GM/DL (3.2-4.5); ALKALINE PHOSPHATASE 96 U/L (40-136); AMYLASE 141 U/L (25-125); BILIRUBIN,TOTAL 0.4 MG/DL (0.1-1.0); BUN/CREATININE RATIO 10; CALCIUM 9.9 MG/DL (8.5-10.1); CARBON DIOXIDE 13 MMOL/L (21-32); CHLORIDE 100 MMOL/L (98-107); CREATINE KINASE 130 U/L (30-200); GFR ESTIMATED 24; GLUCOSE 300 MG/DL (70-105); LIPASE 21 U/L (8-78); MAGNESIUM 2.1 MG/DL (1.6-2.4); POTASSIUM 3.9 MMOL/L (3.6-5.0); SODIUM 137 MMOL/L (135-145); TOTAL PROTEIN 7.9 GM/DL (6.4-8.2)
--- NOTE | 2019-02-11 21:15 | NUR ---
Pt experienced x1 episode of bowel incontinence. Pt cleaned and (brief) changed while maintaining c-spine stabilization.
[2019-02-11 21:16] LABS: BILIRUBIN,URINE NEGATIVE (NEGATIVE); CLARITY,URINE CLEAR; COLOR,URINE YELLOW; GLUCOSE, URINE (UA) 1+ (NEGATIVE); KETONES,URINE NEGATIVE (NEGATIVE); LEUKOCYTE ESTERASE ,URINE NEGATIVE (NEGATIVE); NITRITE,URINE NEGATIVE (NEGATIVE); PROTEIN,URINE NEGATIVE (NEGATIVE)
[2019-02-11 21:19] LABS: ACETAMINOPHEN < 10 UG/ML (10-30)
[2019-02-11 21:23] LABS: CREATINE KINASE MB 4.6 NG/ML (<6.6)
[2019-02-11 21:29] LABS: BACTERIA,URINE FEW /HPF; RBC,URINE RARE /HPF; WBC,URINE 0-2 /HPF
[2019-02-11 21:46] LABS: AMPHETAMINE SCREEN, URINE NEGATIVE (NEGATIVE); BARBITURATE SCREEN URINE NEGATIVE (NEGATIVE); BENZODIAZEPINES SCREEN URINE NEGATIVE (NEGATIVE); CANNABINOID SCREEN, URINE POSITIVE (NEGATIVE); COCAINE SCREEN URINE NEGATIVE (NEGATIVE); METHADONE STAT NEGATIVE (NEGATIVE); METHAMPHETAMINE SCREEN URINE S NEGATIVE (NEGATIVE); OPIATE SCREEN URINE NEGATIVE (NEGATIVE); OXYCODONE STAT NEGATIVE (NEGATIVE); PROPOXYPHENE STAT NEGATIVE (NEGATIVE); TRICYCLIC ANTIDEPRESSANTS SCRE NEGATIVE (NEGATIVE)
--- NOTE | 2019-02-11 22:00 | NUR ---
Pt experienced x2 episodes of bowel incontinence. Pt cleaned and changed while maintaining cervical spinal stabilization. No skin breakdown noted.
--- NOTE | 2019-02-11 22:02 | Diagnostic Imaging Report ---
PROCEDURE: CT thoracic and lumbar spine without contrast. TECHNIQUE: Multiple contiguous axial images were obtained through the thoracic and lumbar spine without the use of intravenous contrast. Sagittal and coronal reformations were then performed. INDICATION: Fall, back pain, trauma. COMPARISON: None FINDINGS: Alignment of the thoracic spine appears normal. No bony fragments or hyperdense fluid collections are seen in the spinal canal. There are moderate degenerative changes throughout the thoracic spine. No acute fracture is seen. Findings of the thorax are dictated separately. Alignment of the lumbar spine is normal. There are degenerative changes in the lumbar spine which are most pronounced at L4-L5 and L5-S1. There does appear to be bilateral foraminal stenosis at L5-S1. Vertebral body heights are preserved. No acute fracture is seen. There does appear to be an old healed fracture of the right L1 transverse process. There is facet arthropathy in the lower lumbar spine. Abdominal findings are dictated separately. IMPRESSION: 1. Degenerative changes throughout the thoracolumbar spine with no acute fracture seen. Dictated by: Dictated on workstation # [id number]
--- NOTE | 2019-02-11 22:09 | Diagnostic Imaging Report ---
PROCEDURE: CT head and CT cervical spine without contrast. TECHNIQUE: Multiple contiguous axial images were obtained through the brain and cervical spine without the use of intravenous contrast. Sagittal and coronal reformations through the cervical spine were then performed. Auto Exposure Controls were utilized during the CT exam to meet ALARA standards for radiation dose reduction. INDICATION:Fall, trauma, head and neck pain COMPARISON: 10/11/2015 FINDINGS: CT HEAD: The ventricles and cortical sulci are diffusely prominent. There is no midline shift or mass effect. There are areas of hypoattenuation in the white matter which may be from chronic microvascular disease. There are small foci of hyperdensity in the anterior frontal lobes bilaterally (image 22 series 2. The calvarium appears intact. CT CERVICAL SPINE: Alignment of the cervical spine is normal. There are moderate degenerative changes at C6-C7 and C1-C2. Mild degenerative changes are seen elsewhere in the cervical spine. There is marked facet arthropathy at C4-C5 on the left. No acute fracture is seen. There is mild motion artifact. No bony fragments or hyperdense fluid collections are seen in the spinal canal. The soft tissues about the spine demonstrate no acute abnormality. IMPRESSION: 1. Punctate hyperdensities in the anterior frontal lobes bilaterally, concerning for small petechial hemorrhages from contusion. No calvarium fracture is seen. 2. Generalized parenchymal volume loss with findings of chronic microvascular disease. No CT evidence of acute territorial ischemia. 3. Degenerative changes in the cervical spine with no acute fracture seen. Findings discussed with PRANAY HUGHES DO by Dr. Pritchett, on 02/11/2019 10:03 PM. Dictated by: Dictated on workstation # [id number]
--- NOTE | 2019-02-11 22:10 | Diagnostic Imaging Report ---
PROCEDURE: CT chest, abdomen, and pelvis without contrast. TECHNIQUE: Multiple contiguous axial images were obtained through the chest, abdomen, and pelvis without the use of intravenous contrast. Auto Exposure Controls were utilized during the CT exam to meet ALARA standards for radiation dose reduction. INDICATION: Fall, trauma COMPARISON: CT from 11/17/2016. FINDINGS: CHEST: The heart is normal in size. There is no pericardial effusion. There is coronary atherosclerosis. Extensive calcified lymph nodes from old granulomatous disease are seen in the mediastinum. There is a large hiatal hernia containing half of the stomach, with distention of the esophagus which is fluid-filled. There is dependent atelectasis in the lungs. No pleural effusion or pneumothorax is seen. No acute fracture is seen. Abdomen and pelvis: The liver demonstrates no focal lesions. The spleen has splenic granulomas. The pancreas is atrophic. The adrenal glands appear normal. The kidneys are unremarkable. There is moderate to marked stool in the colon. There is no appendicitis. There is wall thickening of the colon, particularly the sigmoid colon, descending colon, and transverse colon. There is marked stool at the rectum, which measures 7.8 cm in diameter. No acute osseous abnormality is seen. There is a fluid-filled right inguinal hernia without bowel involvement. There is trace free fluid in the pelvis. No free air is seen. IMPRESSION: 1. Findings consistent with colitis. There is also marked stool in the colon and at the rectum, concerning for constipation/impaction. No free air is seen. 2. Large hiatal hernia with marked gastroesophageal reflux. Findings discussed with PRANAY HUGHES DO by Dr. Pritchett, on 02/11/2019 10:03 PM. Dictated by: Dictated on workstation # [id number]
--- NOTE | 2019-02-11 22:11 | Diagnostic Imaging Report ---
HISTORY: Fall TECHNIQUE: Frontal view of the chest COMPARISON: 03/01/2018 FINDINGS: Lung volumes are mildly low. The cardiac silhouette is upper normal in size given technique. No pleural effusion or pneumothorax is seen. No focal consolidation is seen. There is a large hiatal hernia. IMPRESSION: 1. Large hiatal hernia. No acute pulmonary abnormality seen. Dictated by: Dictated on workstation # [id number]
--- NOTE | 2019-02-11 22:15 | Diagnostic Imaging Report ---
HISTORY: Fall COMPARISON: CT from 11/17/2016 TECHNIQUE: Frontal view of the pelvis FINDINGS: No acute fracture is seen in the pelvis. The femoral heads are well-seated in the acetabula bilaterally. Multiple surgical clips are seen in the pelvis. The sacroiliac joints are patent. There are degenerative changes in the lower lumbar spine. There is marked stool at the rectum. IMPRESSION: 1. No acute osseous abnormality is seen in the pelvis. 2. Marked stool at the rectum. Dictated by: Dictated on workstation # [id number]
[2019-02-11] MEDS: NS IV 1000 ML 1,000 ML IV SCH ×2 (22:20→23:10)
--- NOTE | 2019-02-11 22:25 | NUR ---
Cervical collar cleared and removed by Dr. Almendarez @ [phone].
[2019-02-11] MEDS ORDERED: metroNIDAZOLE 500MG/100ML IVPB 100 ML IV ONE (22:30)
[2019-02-11] MEDS ORDERED: PIPERACILLIN SODIUM/TAZOBACTAM 4.5 GM in NS (IVPB) 100 ML IV ONE (22:30)
[2019-02-11] MEDS ORDERED: VANCOMYCIN INJECTION 1,000 MG in NS (IVPB) 250 ML IV ONE (22:30)
[2019-02-11] MEDS ORDERED: ZINC OXIDE/PETRO (SENSI-CARE) 113 GM TUBE TOP PRN (23:00)
--- NOTE | 2019-02-12 00:10 | NUR ---
[facility] CALLED AND NOTIFIED OF NEED FOR TRANSFER, THEY ACCEPTED AND ADVISED THEY WILL HAVE A CREW ON THE WAY SOON POSSIBLE
--- NOTE | 2019-02-12 00:25 | NUR ---
Report called to PHYLICIA Dwyer (Gabrielle Alford). Upon arrival pt to room #692.
[2019-02-12 01:00] VITALS: BP 107/74
== END 2019-02-12 01:00 | disposition short-term general hospital (02) ==
LOC: EDUNIT# 20:34 → ER 20:35
DX: A41.9 Sepsis, unspecified organism (principal); R65.20 Severe sepsis without septic shock; S06.330A Contusion and laceration of cerebrum, unspecified, without loss of consciousness, initial encounter; R55 Syncope and collapse; E11.22 Type 2 diabetes mellitus with diabetic chronic kidney disease; I12.9 Hypertensive chronic kidney disease with stage 1 through stage 4 chronic kidney disease, or unspecified chronic kidney disease; N18.9 Chronic kidney disease, unspecified; I95.9 Hypotension, unspecified; K52.9 Noninfective gastroenteritis and colitis, unspecified; R19.5 Other fecal abnormalities; F12.90 Cannabis use, unspecified, uncomplicated; E78.00 Pure hypercholesterolemia, unspecified; E11.40 Type 2 diabetes mellitus with diabetic neuropathy, unspecified; K21.9 Gastro-esophageal reflux disease without esophagitis; R40.2142 Coma scale, eyes open, spontaneous, at arrival to emergency department; R40.2252 Coma scale, best verbal response, oriented, at arrival to emergency department; R40.2362 Coma scale, best motor response, obeys commands, at arrival to emergency department; Z79.4 Long term (current) use of insulin; Z87.891 Personal history of nicotine dependence; Z90.89 Acquired absence of other organs; Z85.46 Personal history of malignant neoplasm of prostate; Z80.1 Family history of malignant neoplasm of trachea, bronchus and lung; W18.39XA Other fall on same level, initial encounter; W22.8XXA Striking against or struck by other objects, initial encounter
CPT/HCPCS: 36415; 51702; 70450; 71045; 71250; 72125; 72128; 72131; 72170; 74176; 80053; 80306; 80320; 80329; 81000; 82150; 82274; 82550; 82553; 82962; 83605; 83690; 83735; 83874; 83880; 84484; 85007; 85027; 85610; 85730; 87015; 87040; 87045; 87046; 87088; 87324; 87449; 87899; 89055; 93005; 93041

== ENCOUNTER → 2019-05-01 | Outpatient (CLI) | payer MEDICARE, OTHER ==
[~2019-05-01] VITALS: Ht 175 cm; Wt 90.0 kg
[~2019-05-01] MED LIST changes: +CATHETER FLUSH 10 ML SYR IV PRN; -METO-387 PO; +MTP25TSR PO; +REGADENOSON 0.4 MG/5 ML SYR (LEXISCAN) IV ONE
--- NOTE | 2019-05-01 19:25 | STRESS TEST ---
DATE OF SERVICE: 05/01/2019 LEXISCAN MYOVIEW STRESS TEST REPORT REFERRING PHYSICIAN: Dr. Alfaro. Baseline heart rate is 93. Baseline blood pressure 139/75. Baseline EKG is sinus rhythm with no ischemic changes. In summary, the patient was injected with 10.89 mCi of technetium-99 Myoview and the resting images were obtained. Then, the patient received 0.4 mg of Lexiscan followed by 31.0 mCi of technetium-99 Myoview. Throughout the test, there were no EKG changes. The resting and stress images were reviewed and compared in the short axis, horizontal long axis, and vertical long axis views. Review of the images showed diaphragmatic attenuation with motion artifact, mild decreased uptake involving the mid to apical inferolateral wall with subtle reversibility, no significant ischemia was noted. SSS is 5, SDS 2, TID value 0.74. On the gated images, the left ventricle appeared to be in normal size with normal contractility. Calculated ejection fraction 70%. CONCLUSION: 1. The patient tolerated Lexiscan well. 2. Extracardiac attenuation affecting the quality of the images, no significant ischemia or infarction on SPECT images. 3. Normal left ventricular size with normal contractility. Calculated ejection fraction 70%. Job ID: [id number] DocumentID: [id number] Dictated Date: 05/01/2019 16:09:17 [employer] Cle[employer] Manager Date: 05/01/2019 19:24:27 Dictated By: INDIGO BULL MD
== END ==
LOC: CARD 11:37
PROVIDERS: ATTEND Internal Medicine Cardiovascular Disease
DX: I34.0 Nonrheumatic mitral (valve) insufficiency (principal); I44.4 Left anterior fascicular block; E78.2 Mixed hyperlipidemia; I10 Essential (primary) hypertension; E11.9 Type 2 diabetes mellitus without complications
CPT/HCPCS: 78452; 93017

== ENCOUNTER → 2019-05-03 | Outpatient (CLI) | payer MEDICARE, OTHER ==
[~2019-05-03] MED LIST changes: -CATHETER FLUSH 10 ML SYR IV PRN; -REGADENOSON 0.4 MG/5 ML SYR (LEXISCAN) IV ONE
== END ==
LOC: CARD 13:29
PROVIDERS: ATTEND Internal Medicine Cardiovascular Disease
DX: I34.0 Nonrheumatic mitral (valve) insufficiency (principal); I44.4 Left anterior fascicular block; I10 Essential (primary) hypertension; E11.9 Type 2 diabetes mellitus without complications; E78.2 Mixed hyperlipidemia
CPT/HCPCS: 93306

== ENCOUNTER 2020-02-04 12:23 | Inpatient (IN) | payer MEDICARE, OTHER ==
[~2020-02-04] VITALS: Ht 175.2 cm; Wt 86.4 kg
[~2020-02-04 12:23] MED LIST changes: -CALC-6 PO; +CALC1TAB84 PO; -PANT40TA3 PO; +PANT40TA52 PO
[2020-02-04] MEDS ORDERED: inSUlin (REGULAR) HUMAN 1 UNIT/0.01 ML (CHARGE PER UNIT) IV ONE (12:30)
[2020-02-04] MEDS ORDERED: NS IV 1000 ML 1,000 ML IV SCH (12:30)
--- NOTE | 2020-02-04 12:38 | ED General ---
General Stated Complaint: WEAKNESS,DECREASED MOBILITY Source of Information: Patient Exam Limitations: No Limitations History of Present Illness Date Seen by Provider: Feb 04, 2020 Time Seen by Provider: 12:36 Initial Comments To ER with reports of general weakness and hyperglycemia. Was feeling fine this morning, felt like he needed to have a bowel movement and went to the bathroom, fell on the way and was incontinent of bowel. He is a known diabetic. Upon EMS arrival they checked a blood sugar and it was too high to read. He denies any abdominal pain. Denies any nausea or vomiting. Denies any fevers chills cough or shortness of breath. He states that when he fell he is adamant that he did not hit his head. He does have an abrasion on his left knee but denies pain anywhere. He is alert and oriented. Timing/Duration: 1-2 Days Severity: Moderate Associated Systoms: Weakness Allergies and Home Medications Allergies Coded Allergies: No Known Drug Allergies (Verified , 01/29/07) Home Medications Amitriptyline HCl 50 Mg Tablet, 50 MG PO BID, (Reported) Cefdinir 300 Mg Capsule, 300 MG PO BID Prescribed by: MOISÉS ARMSTRONG on 03/02/18 1003 Docusate Sodium 100 Mg Capsule, 100 MG PO DAILY Prescribed by: MOISÉS ARMSTRONG on 03/02/18 1003 Insulin Aspart 100 Unit/1 Ml Susp, 35 UNIT SQ 1200, (Reported) Insulin Aspart 100 Unit/1 Ml Susp, 30 UNIT SQ DINNER, (Reported) Lisinopril 5 Mg Tablet, 5 MG PO DAILY, (Reported) Lovastatin 40 Mg Tablet, 40 MG PO HS, (Reported) Metoprolol Succinate 25 Mg Tab.er.24h, 25 MG PO DAILY, (Reported) Pantoprazole Sodium 40 Mg Tablet.dr, 40 MG PO BID@0700,1700 Prescribed by: MOISÉS ARMSTRONG on 03/02/18 1003 Patient Home Medication List Home Medication List Reviewed: Yes Review of Systems Review of Systems Constitutional: see HPI EENTM: see HPI Respiratory: no symptoms reported Cardiovascular: no symptoms reported Genitourinary: no symptoms reported Musculoskeletal: no symptoms reported Skin: no symptoms reported Psychiatric/Neurological: No Symptoms Reported Hematologic/Lymphatic: No Symptoms Reported Immunological/Allergic: no symptoms reported Past Hudgktd-Ascefk-Fdtmwk Hx Patient Social History Alcohol Beverage of Choice: Wine Drug of Choice: UDS + FOR THC 12/16/19 Type Used: Cigarettes Former Smoker, Quit: July 08, 1992 2nd Hand Smoke Exposure: No Recent Hopitalizations: No Immunizations Up To Date Tetanus Booster (TDap): Unknown PED Vaccines UTD: Yes Date of Pneumonia Vaccine: Dec 14, 2011 Date of Influenza Vaccine: Feb 13, 2014 Seasonal Allergies Seasonal Allergies: No Past Medical History Surgeries: Yes (TONSELECTOMY, PROSTATECTOMY; COLONOSCOPIES/EGD'S ) Prostatectomy, Tonsillectomy Respiratory: Yes Pneumonia Currently Using CPAP: No Currently Using BIPAP: No Cardiac: Yes High Cholesterol, Hypertension Neurological: Yes (NEUROPATHY DUE TO DIABETES) Neuropathy Reproductive Disorders: No Sexually Transmitted Disease: No HIV/AIDS: No Genitourinary: Yes (PROSTATECTOMY; CHRONIC RENAL INSUFFICIENCY ) Prostate Problems Gastrointestinal: Yes Colitis, Gastroesophageal Reflux, Gastrointestinal Bleed, Chronic Constipation, Diverticulosis, Hemorrhoids, Hiatal Hernia Musculoskeletal: Yes Degenerate Disk Disease, Arthritis, Chronic Back Pain Endocrine: Yes Diabetes, Insulin dep HEENT: Yes (EDENTULOUS/WEARS UPPER AND LOWER DENTURES) Hearing Impairment: Hard of Hearing Cancer: Yes Prostate Did You Recieve Any Treatments: Yes What Type of Treatment Did You: Surgical Intervention Psychosocial: No Integumentary: No Blood Disorders: No Adverse Reaction/Blood Tranf: No Family Medical History Cancer G8 SISTER ( of lung cancer) History of - disorder 17 MOTHER (mother of old age) History of - respiratory disease 17 FATHER (worked in coal mines of resp disease from working in coal mines) Heart Disease, Cancer, Diabetes, Hypertension HAS HAD ADMITS FOR SEVERE SEPSIS/SEPTIC SHOCK WITH PNEUMONIA, GI BLEEDING Physical Exam Vital Signs Vital Signs - First Documented 02/04/20 12:51 Temp 36.7 Pulse 88 Resp 25 B/P (MAP) 104/64 (77) Pulse Ox 96 O2 Delivery Room Air Capillary Refill : Height, Weight, BMI Height: 5'9.00" Weight: 230lbs. 4.0oz. 104.128091hg; 29.38 BMI Method:Estimated General Appearance: No Apparent Distress, WD/WN, Other (Alert and oriented though a little hard of hearing) Eyes: Bilateral Eye Normal Inspection, Bilateral Eye PERRL, Bilateral Eye EOMI Neck: Full Range of Motion, Normal Inspection Respiratory: Normal Breath Sounds, No Accessory Muscle Use, No Respiratory Distress Cardiovascular: Regular Rate, Rhythm, Normal Peripheral Pulses Gastrointestinal: Normal Bowel Sounds, Non Tender, Soft Extremity: Normal Capillary Refill, Normal Inspection Neurologic/Psychiatric: Alert, Oriented x3 Skin: Normal Color, Warm/Dry Progress/Results/Core Measures Suspected Sepsis SIRS Temperature: Pulse: Respiratory Rate: Laboratory Tests 02/04/20 12:40: White Blood Count 11.2H Blood Pressure / Mean: Laboratory Tests 02/04/20 12:40: Creatinine 3.70H, Platelet Count 333, Total Bilirubin 0.5 Results/Orders Lab Results Laboratory Tests Test 02/04/20 12:40 02/04/20 12:45 Range/Units White Blood Count 11.2 H 4.3-11.0 10^3/uL Red Blood Count 4.10 L 4.30-5.52 10^6/uL Hemoglobin 11.6 L 13.3-17.7 g/dL Hematocrit 35 L 40-54 % Mean Corpuscular Volume 86 80-99 fL Mean Corpuscular Hemoglobin 28 25-34 pg Mean Corpuscular Hemoglobin Concent 33 32-36 g/dL Red Cell Distribution Width 12.8 10.0-14.5 % Platelet Count 333 130-400 10^3/uL Mean Platelet Volume 8.9 L 9.0-12.2 fL Immature Granulocyte % (Auto) 1 % Neutrophils (%) (Auto) 75 42-75 % Lymphocytes (%) (Auto) 18 12-44 % Monocytes (%) (Auto) 7 0-12 % Eosinophils (%) (Auto) 0 0-10 % Basophils (%) (Auto) 0 0-10 % Neutrophils # (Auto) 8.4 H 1.8-7.8 10^3/uL Lymphocytes # (Auto) 2.0 1.0-4.0 10^3/uL Monocytes # (Auto) 0.7 0.0-1.0 10^3/uL Eosinophils # (Auto) 0.1 0.0-0.3 10^3/uL Basophils # (Auto) 0.0 0.0-0.1 10^3/uL Immature Granulocyte # (Auto) 0.1 0.0-0.1 10^3/uL Sodium Level 123 *L 135-145 MMOL/L Potassium Level 4.5 3.6-5.0 MMOL/L Chloride Level 93 L 98-107 MMOL/L Carbon Dioxide Level 19 L 21-32 MMOL/L Anion Gap 11 5-14 MMOL/L Blood Urea Nitrogen 41 H 7-18 MG/DL Creatinine 3.70 H 0.60-1.30 MG/DL Estimat Glomerular Filtration Rate 16 BUN/Creatinine Ratio 11 Glucose Level 600 *H 70-105 MG/DL Calcium Level 9.1 8.5-10.1 MG/DL Corrected Calcium 9.6 8.5-10.1 MG/DL Total Bilirubin 0.5 0.1-1.0 MG/DL Aspartate Amino Transf (AST/SGOT) 12 5-34 U/L Alanine Aminotransferase (ALT/SGPT) 13 0-55 U/L Alkaline Phosphatase 88 40-136 U/L Total Protein 7.8 6.4-8.2 GM/DL Albumin 3.4 3.2-4.5 GM/DL Beta-Hydroxybutyrate (Chem panel) 0.15 0.00-0.27 MMOL/L Glucometer 508 *H 70-110 MG/DL My Orders Orders - NAVID MURRELL APRN Cbc With Automated Diff (02/04/20 12:29) Comprehensive Metabolic Panel (02/04/20 12:29) Ua Culture If Indicated (02/04/20 12:29) Beta Hydroxybutyrate (02/04/20 12:29) Chest 1 View, Ap/Pa Only (02/04/20 12:29) Ns Iv 1000 Ml (Sodium Chloride 0.9%) (02/04/20 12:30) Insulin (Regular) Human (Novolin R (Per (02/04/20 12:30) Accucheck Stat ONCE (02/04/20 12:29) Insulin Determir (Per Unit) (Levemir (Pe (02/04/20 13:30) Lactated Ringers (Lr 1000 Ml Iv Solution (02/04/20 13:45) Medications Given in ED Current Medications Medications Dose Ordered Sig/Pascale Route Start Time Stop Time Status Last Admin Dose Admin Insulin Human Regular 10 unit ONCE ONCE IV 02/04/20 12:30 02/04/20 12:34 DC 02/04/20 12:48 10 UNIT Vital Signs/I&O 02/04/20 12:51 Temp 36.7 Pulse 88 Resp 25 B/P (MAP) 104/64 (77) Pulse Ox 96 O2 Delivery Room Air Capillary Refill : Diagnostic Imaging Diagonstic Imaging: Xray Comments NAME: ERIC [facility] REC#: [id number] PT STATUS: REG ER : 1940 PHYSICIAN: NAVID MURRELL APRN ADMIT DATE: 02/04/20/ER Draft Date of Exam:02/04/20 CHEST 1 VIEW, AP/PA ONLY INDICATION: Hyperglycemia. TECHNIQUE/COMPARISON: A frontal chest was obtained at 12:43 PM and compared to 02/11/2019. FINDINGS: There is cardiomegaly. There is no focal infiltrate, pneumothorax, or pleural fluid. IMPRESSION: Cardiomegaly with no acute process in the chest. Dictated on workstation # [id number] Dict: 02/04/20 1257 Trans: 02/04/20 1302 [id number] Interpreted by: ARIELLE ALARCON MD Electronically signed by: Departure Communication (Admissions) Time/Spoke to Admitting Phy: 13:[address] ARMSTRONG will admit the patient. He is receiving his second liter of IV fluids here in the emergency room. He also received 10 units of Levemir subcu and 10 units of regular insulin IV. Impression Primary Impression: Acute renal failure Additional Impression: Hyperglycemia Disposition: 01 HOME, SELF-CARE Condition: Stable Admissions Decision to Admit Reason: Admit from ER (General) Decision to Admit/Date: Feb 04, 2020 Time/Decision to Admit Time: 13:46 Departure-Patient Inst. Referrals: MOISÉS ARMSTRONG MD (PCP/Family) Primary Care Physician NAVID MURRELL APRN Feb 04, 2020 12:38
[2020-02-04 12:57] LABS: BASOPHILS % (AUTO) 0 % (0-10); EOSINOPHILS # (AUTO) 0.1 10^3/uL (0.0-0.3); EOSINOPHILS % (AUTO) 0 % (0-10); HEMATOCRIT 35 % (40-54); HEMOGLOBIN 11.6 g/dL (13.3-17.7); LYMPHOCYTES % (AUTO) 18 % (12-44); MEAN CORPUSCULAR HEMOGLOBIN 28 pg (25-34); MEAN CORPUSCULAR HGB CONC 33 g/dL (32-36); MEAN CORPUSCULAR VOLUME 86 fL (80-99); MEAN PLATELET VOLUME 8.9 fL (9.0-12.2); MONOCYTES # (AUTO) 0.7 10^3/uL (0.0-1.0); MONOCYTES % (AUTO) 7 % (0-12); NEUTROPHILS # (AUTO) 8.4 10^3/uL (1.8-7.8); NEUTROPHILS % (AUTO) 75 % (42-75); PLATELET COUNT 333 10^3/uL (130-400); WHITE BLOOD COUNT 11.2 10^3/uL (4.3-11.0)
--- NOTE | 2020-02-04 13:02 | Diagnostic Imaging Report ---
INDICATION: Hyperglycemia. TECHNIQUE/COMPARISON: A frontal chest was obtained at 12:43 PM and compared to 02/11/2019. FINDINGS: There is cardiomegaly. There is no focal infiltrate, pneumothorax, or pleural fluid. IMPRESSION: Cardiomegaly with no acute process in the chest. Dictated by: Dictated on workstation # [id number]
[2020-02-04 13:04] LABS: ALBUMIN 3.4 GM/DL (3.2-4.5); POTASSIUM 4.5 MMOL/L (3.6-5.0)
[2020-02-04 13:05] LABS: CALCIUM 9.1 MG/DL (8.5-10.1)
[2020-02-04 13:06] LABS: TOTAL PROTEIN 7.8 GM/DL (6.4-8.2)
[2020-02-04 13:08] LABS: BILIRUBIN,TOTAL 0.5 MG/DL (0.1-1.0)
[2020-02-04 13:10] LABS: CREATININE SERUM 3.7 MG/DL (0.60-1.30)
[2020-02-04] MEDS: LACTATED RINGERS 1,000 ML IV SCH ×4 (13:46→21:20)
--- NOTE | 2020-02-04 14:08 | NUR ---
4th floor nurse advised a urine is still needed.
[2020-02-04 14:30] VITALS: BP 156/67
[2020-02-04] MEDS ORDERED: MULT-646 PO (15:33)
[2020-02-04] MEDS ORDERED: INSU100I34 SC (15:33)
[2020-02-04] MEDS ORDERED: ATOR40TA70 PO (15:33)
[2020-02-04] MEDS ORDERED: FOLIC ACID PO (15:33)
[2020-02-04] MEDS ORDERED: PANT40TA52 PO (15:33)
[2020-02-04] MEDS ORDERED: DOCU-143 PO (15:33)
[2020-02-04] MEDS ORDERED: CALC1CAP26 PO (15:33)
[2020-02-04] MEDS ORDERED: THIA100T68 PO (15:33)
[2020-02-04] MEDS ORDERED: LISI-556 PO (15:33)
[2020-02-04 15:37] LABS: BILIRUBIN,URINE NEGATIVE (NEGATIVE); CLARITY,URINE CLOUDY; COLOR,URINE YELLOW; GLUCOSE, URINE (UA) 3+ (NEGATIVE); KETONES,URINE NEGATIVE (NEGATIVE); LEUKOCYTE ESTERASE ,URINE 2+ (NEGATIVE); NITRITE,URINE NEGATIVE (NEGATIVE); PROTEIN,URINE 1+ (NEGATIVE)
--- NOTE | 2020-02-04 15:39 | NUR ---
SPOKE WITH THE PTS (NURSE ALSO HAD A MED LIST), WENT THRU THE EXT MED HISTORY AND CALLED [facility] TO COMPLETE THE MED REC THE FOLLOWING FILL DATES ARE NOT SHOWN ON THE EXT MED HISTORY: 11-06-2019 LISINOPRIL 5MG #90/90DS 01-05-2020 PANTOPRAZOLE 40MG #60/30DS 01-10-2020 AMITRIPTYLINE 50MG #180/90DS I VERIFIED WITH QUINN THAT THE PT TAKING AMITRIPTYLINE 50MG TWICE DAILY ON THE MEDICATION LIST THERE HAVE BEEN SOME CORRECTIONS THAT MAY BE DIFFICULT TO READ- NOVOLOG DIRECTIONS ARE CURRENTLY 7 UNITS BID (SAYS ANJUM AND EVENING ON THE MED LIST) AND BASALGAR SHOWS 35 UNITS HS OTC MEDS: COMPLETE MTV CALCIUM W/ VIT D COLACE VIT B1 FOLIC ACID
[2020-02-04 15:45] LABS: BACTERIA,URINE LARGE /HPF; WBC,URINE 50-100 /HPF
[2020-02-04 15:53] VITALS: BP 113/68
[2020-02-04 16:08] VITALS: BP 113/68
--- NOTE | 2020-02-04 16:26 | History & Physical ---
ALISSA SOLIS MED STUDENT 02/04/20 1626: History of Present Illness History of Present Illness Reason for visit/HPI Jose Armando Gutierrez is an 79 YO male with history of DM, chronic renal insufficiency, HTN, and HLD who came to the ER after falling in his home this morning. Pt states he was on the way to the bathroom, but thinks he was going too fast and he slipped and fell. Denies any preceding dizziness or light-headedness and also denies hitting his head or any other injuries. Says he urinated and defecated when he fell, but says he had to use the bathroom and the fall "knocked it out of him". When EMS came, they found his blood sugar too high to read. Blood sugar in the ER was 600, now down to 355. CXR showed cardiomegaly but no infiltrates or acute abnormalities. WBC elevated at 11.2 and UA showed UTI. Creatinine is 3.7. Pt denies CP, SOB, N/V, abdominal pain, leg swelling, fever, chills, dysuria, weakness, or headache. Pt states he has been taking his home medications as prescribed. Says he feels fine and wants to go home. Pt is hard of hearing. Date of Admission Feb 04, 2020 at 13:27 Date Seen by a Provider: Feb 04, 2020 Time Seen by a Provider: 16:05 I consulted on this patient on 02/04/20 16:21 Attending Physician Moisés Alfaro MD Admitting Physician Moisés Alfaro MD Consult Allergies and Home Medications Allergies Coded Allergies: No Known Drug Allergies (Verified , 01/29/07) Home Medications Amitriptyline HCl 50 Mg Tablet, 50 MG PO BID, (Reported) Atorvastatin Calcium 40 Mg Tablet, 40 MG PO HS, (Reported) Calcium Carbonate/Vitamin D3 1 Each Capsule, 2 EACH PO DAILY, (Reported) Docusate Sodium 100 Mg Capsule, 2 MG PO DAILY, (Reported) Insulin Aspart 100 Unit/1 Ml Susp, 7 UNIT SQ BIDAC, (Reported) Insulin Glargine,Hum.rec.anlog 100 Unit/1 Ml Insuln.pen, 35 UNIT SC HS, (Reported) Lisinopril 5 Mg Tablet, 5 MG PO DAILY, (Reported) Metoprolol Succinate 25 Mg Tab.er.24h, 25 MG PO DAILY, (Reported) Multivits,-,Other Min 1 Each Tablet, 1 EACH PO DAILY, (Reported) Pantoprazole Sodium 40 Mg Tablet.dr, 40 MG PO BID, (Reported) Thiamine Mononitrate 100 Mg Tablet, 100 MG PO DAILY, (Reported) [Folic Acid] , 1 MG PO DAILY, (Reported) Past Jjiastf-Najxjy-Itqtui Hx Patient Social History Alcohol Use: Denies Use Alcohol Beverage of Choice: Wine Recreational Drug Use: No Drug of Choice: UDS + FOR THC 02/11/19 Smoking Status: Former Smoker Former Smoker, Quit: July 08, 1992 Type Used: Cigarettes 2nd Hand Smoke Exposure: No Recent Foreign Travel: No Contact w/other who traveled: No Recent Hopitalizations: No Recent Infectious Disease Expo: No Immunizations Up To Date Tetanus Booster (TDap): Unknown Pediatric: Yes Date of Pneumonia Vaccine: Dec 14, 2011 Date of Influenza Vaccine: Feb 13, 2014 Seasonal Allergies Seasonal Allergies: No Surgeries Yes (TONSELECTOMY, PROSTATECTOMY; COLONOSCOPIES/EGD'S ) Prostatectomy, Tonsillectomy Respiratory Yes Currently Using CPAP: No Currently Using BIPAP: No Cardiovascular Yes High Cholesterol, Hypertension Neurological Yes (NEUROPATHY DUE TO DIABETES) Neuropathy Reproductive System Hx Reproductive Disorders: No Sexually Transmitted Disease: No HIV/AIDS: No Genitourinary Yes (PROSTATECTOMY; CHRONIC RENAL INSUFFICIENCY ) Prostate Problems Gastrointestinal Yes Colitis, Gastroesophageal Reflux, Gastrointestinal Bleed, Chronic Constipation, Diverticulosis, Hemorrhoids, Hiatal Hernia Musculoskeletal Yes Degenerate Disk Disease, Arthritis, Chronic Back Pain Endocrine History of Endocrine Disorders: Yes Endocrine Disorders: Diabetes, Insulin dep HEENT History of HEENT Disorders: Yes (EDENTULOUS/WEARS UPPER AND LOWER DENTURES) Hearing Impairment: Hard of Hearing Cancer Yes Prostate Did You Recieve Any Treatments: Yes Type of Treatment: Surgical Intervention Psychosocial History of Psychiatric Problem: No Integumentary History of Skin or Integumenta: No Blood Transfusions History of Blood Disorders: No Adverse Reaction to a Blood Tr: No Family Medical History Significant Family History: Heart Disease, Cancer, Diabetes, Hypertension Other Significan Family Hx: HAS HAD ADMITS FOR SEVERE SEPSIS/SEPTIC SHOCK WITH PNEUMONIA, GI BLEEDING Family Hx: Cancer G8 SISTER ( of lung cancer) History of - disorder 19 MOTHER (mother of old age) History of - respiratory disease 17 FATHER (worked in coal [employer] of resp disease from working in coal mines) Review of Systems Constitutional: No chills, No fever, No weakness EENTM: No blurred vision, No double vision, No vision loss Respiratory: No cough, No short of breath Cardiovascular: No chest pain, No edema, No palpitations Gastrointestinal: No abdominal pain, No nausea, No vomiting Genitourinary: No dysuria, No frequency Musculoskeletal: No back pain, No neck pain Skin: No change in color, No change in hair/nails Psychiatric/Neurological: Denies Headache, Denies Numbness All Other Systems Reviewed Negative Unless Noted: Yes (Negative excepted noted.) Physical Exam Vital Signs Vital Signs - First Documented 02/04/20 12:51 Temp 36.7 Pulse 88 Resp 25 B/P (MAP) 104/64 (77) Pulse Ox 96 O2 Delivery Room Air Capillary Refill : Less Than 3 Seconds Height, Weight, BMI Height: 5'9.00" Weight: 230lbs. 4.0oz. 104.101691to; 27.95 BMI Method:Estimated General Appearance: No Apparent Distress, WD/WN Eyes: Bilateral Eye Normal Inspection, Bilateral Eye PERRL, Bilateral Eye EOMI HEENT: PERRL/EOMI, Normal ENT Inspection Neck: Normal Inspection, Supple Respiratory: Chest Non Tender, Lungs Clear, Normal Breath Sounds, No Accessory Muscle Use, No Respiratory Distress Cardiovascular: Regular Rate, Rhythm, No Edema, Normal Peripheral Pulses Gastrointestinal: Normal Bowel Sounds, Non Tender, Soft; No Guarding, No Rebound Rectal: Deferred Back: Normal Inspection, No CVA Tenderness Extremity: Normal Inspection, Non Tender, No Pedal Edema, Other (small abrasion to left knee) Neurologic/Psychiatric: Alert, No Motor/Sensory Deficits, Normal Mood/Affect Skin: Normal Color, Warm/Dry Lymphatic: No Adenopathy Assessment/Plan Assessment and Plan Hyperglycemia Mechanical fall UTI Leukocytosis Acute renal failure Hyponatremia Hyperglycemia -insulin -achs accuchecks Mechanical fall UTI with leukocytosis -Abx Acute renal failure -IV fluids -monitor urine output Hyponatremia -Replete with LR -repeat labs tomorrow SCD's and ambulate for DVT prophylaxis Clinical Quality Measures DVT/VTE Risk/Contraindication: Risk Factor Score Per Nursin RFS Level Per Nursing on Admit: 4+=Very High MOISÉS ALFARO MD 02/04/202033: History of Present Illness History of Present Illness Reason for visit/HPI TAMMIE GUTIERREZ IS AN 79 Y/O MALE WHO IS WELL KNOWN TO ME FROM CLINIC. HE PRESENTED TO THE ER AFTER FALLING AT HOME WHILE ON HIS WAY TO THE RESTRO[place]. HE HAD DIARRHEA WHEN HE FELL AND HIS WAS UNABLE TO GET HIM UP FROM HIS POSITION SO SHE CALLED EMS. HIS FSBS WAS OVER THE LIMIT OF THE GLUCOMETER AND HE WAS TRANSPORTED TO THE ER. IN THE ER HE WAS FOUND TO HAVE AN ELEVATED WHITE COUNT AND HIS CREATININE WAS GROSSLY ELEVATED AT 3.7. HE WAS ADMITTED TO THE HOSPITAL FOR RENAL FAILURE, HYPERGLYCEMIA, URINARY TRACT INFECTION, AND WEAKNESS AND FALLING. Date of Admission 02/04/2020 Time Seen by a Provider: 20:00 Attending Physician MOISÉS ALFARO MD Admitting Physician MOISÉS ALFARO MD Allergies and Home Medications Allergies Coded Allergies: No Known Drug Allergies (Verified , 01/29/07) Home Medications Amitriptyline HCl 50 Mg Tablet, 50 MG PO BID, (Reported) Atorvastatin Calcium 40 Mg Tablet, 40 MG PO HS, (Reported) Calcium Carbonate/Vitamin D3 1 Each Capsule, 2 EACH PO DAILY, (Reported) Docusate Sodium 100 Mg Capsule, 2 MG PO DAILY, (Reported) Insulin Aspart 100 Unit/1 Ml Susp, 7 UNIT SQ BIDAC, (Reported) Insulin Glargine,Hum.rec.anlog 100 Unit/1 Ml Insuln.pen, 35 UNIT SC HS, (Reported) Lisinopril 5 Mg Tablet, 5 MG PO DAILY, (Reported) Metoprolol Succinate 25 Mg Tab.er.24h, 25 MG PO DAILY, (Reported) Multivits,Th W-Fe,Other Min 1 Each Tablet, 1 EACH PO DAILY, (Reported) Pantoprazole Sodium 40 Mg Tablet.dr, 40 MG PO BID, (Reported) Thiamine Mononitrate 100 Mg Tablet, 100 MG PO DAILY, (Reported) [Folic Acid] , 1 MG PO DAILY, (Reported) Patient Home Medication List Home Medication List Reviewed: Yes Past Tqysdfg-Zuisql-Nnuqgh Hx Patient Social History Marrital Status: Living Status: LIVES WITH SPOUSE IN THEIR OWN HOME Employed/Student: retired Alcohol Use: Occasionally Uses Smoking Status: Former Smoker 2nd Hand Smoke Exposure: No Physical Abuse Screen: No Sexual Abuse: No Recent Foreign Travel: No Contact w/other who traveled: No Recent Hopitalizations: No Recent Infectious Disease Expo: No Surgeries Yes Appendectomy, Prostatectomy Respiratory No Currently Using CPAP: No Currently Using BIPAP: No Cardiovascular Yes High Cholesterol, Hypertension Neurological Yes Dementia Reproductive System Hx Reproductive Disorders: No Sexually Transmitted Disease: No HIV/AIDS: No Genitourinary No Gastrointestinal Yes Chronic Constipation Musculoskeletal Yes Arthritis Endocrine History of Endocrine Disorders: Yes Endocrine Disorders: Diabetes, Insulin dep HEENT History of HEENT Disorders: Yes Loss of Vision: Denies Hearing Impairment: Hard of Hearing Cancer Yes Prostate Did You Recieve Any Treatments: Yes Type of Treatment: Surgical Intervention Family Medical History Family Hx: Cancer G8 SISTER ( of lung cancer) History of - disorder 19 MOTHER (mother of old age) History of - respiratory disease 19 FATHER (worked in coal mines of resp disease from working in coal mines) Review of Systems Constitutional: No chills, No dizziness, No fever; malaise; No weakness EENTM: hearing loss Respiratory: No cough, No dyspnea on exertion, No short of breath Cardiovascular: No chest pain, No edema, No palpitations Gastrointestinal: No abdominal pain; diarrhea; No nausea, No vomiting Genitourinary: No dysuria, No frequency Musculoskeletal: back pain, muscle weakness; No neck pain Skin: no symptoms reported Psychiatric/Neurological: Denies Headache, Denies Numbness; Weakness All Other Systems Reviewed Negative Unless Noted: Yes (Negative excepted noted.) Physical Exam General Appearance: No Apparent Distress, WD/WN Eyes: Bilateral Eye Normal Inspection, Bilateral Eye PERRL, Bilateral Eye EOMI HEENT: PERRL/EOMI, Normal ENT Inspection Neck: Full Range of Motion, Normal Inspection, Non Tender, Supple Respiratory: Chest Non Tender, Lungs Clear, Normal Breath Sounds, No Accessory Muscle Use, No Respiratory Distress Cardiovascular: Regular Rate, Rhythm, No Edema, No Murmur, Normal Peripheral Pulses Gastrointestinal: Normal Bowel Sounds, Non Tender, Soft; No Guarding, No Rebound Rectal: Deferred Back: Normal Inspection, No CVA Tenderness, No Vertebral Tenderness Extremity: Normal Capillary Refill, Normal Inspection, Normal Range of Motion, Non Tender, No Calf Tenderness, No Pedal Edema Neurologic/Psychiatric: Alert, Oriented x3, No Motor/Sensory Deficits, Normal Mood/Affect Skin: Normal Color, Warm/Dry Lymphatic: No Adenopathy Assessment/Plan Assessment and Plan URINARY TRACT INFECTION ACUTE RENAL FAILURE HYPONATREMIA HYPERGLYCEMIA CHRONIC DIABETES MELLITUS - UNCONTROLLED FECAL INCONTINENCE, HX OF COLITIS FALLING EPISODE AT HOME DEMENTIA HYPERTENSION HYPERLIPIDEMIA URINARY TRACT INFECTION - PT TO BE ON ROCEPHIN -INJECTION TONIGHT - WAITING ON URINE CULTURE REPORT. ACUTE RENAL FAILURE - FLUIDS, MONITOR LABS, SUPPORTIVE CARE AND MODIFICATION OF MEDICATIONS BASED ON RENAL FUNCTION HYPONATREMIA - SUPPORTIVE CARE AND FLUIDS - REPEAT LABS HYPERGLYCEMIA - IMPROVED WITH FLUIDS AND INSULIN, MONITOR FSBS CHRONIC DIABETES MELLITUS - UNCONTROLLED - RESTART HOME REGIMEN TOMORROW. FALLING EPISODE AT HOME - WILL START THERAPY IF INDICATED BASED ON PT'S MOBILIZATION TOMORROW BY STAFF. DEMENTIA - SUPPORTIVE CARE HYPERTENSION - RESUME HOME REGIMEN OF TOPROL. HYPERLIPIDEMIA - HOLD HOME REGIMEN DVT PROPHYLAXIS WITH LOVENOX AND SCD'S GI PROPHYLAXIS WITH PEPCID AND PROBIOTICS Admission Diagnosis URINARY TRACT INFECTION ACUTE RENAL FAILURE HYPONATREMIA HYPERGLYCEMIA CHRONIC DIABETES MELLITUS - UNCONTROLLED FECAL INCONTINENCE, HX OF COLITIS FALLING EPISODE AT HOME DEMENTIA HYPERTENSION HYPERLIPIDEMIA Admission Status: Inpatient Order (span 2 midnights) Reason for Inpatient Admission: INPT ADMISSION FOR FLUIDS, MONITOR OF SYMPTOMS, TREATMENT OF UTI - WILL REQUIRE AT LEAST 48 HOURS ON FLUIDS AND ANTIBIOTICS Supervisory-Addendum Brief Verification & Attestation Participated in pt care: history, MDM, physical Personally performed: exam, history, MDM, supervision of care Care discussed with: Medical Student Procedures: n/a Results interpretation: Verified all documentation SEE MY DOCUMENTATION IN ALL CAPS WRITING - AGREE WITH STUDENT NOTE DOCUMENTED ALISSA SOLIS MED STUDENT Feb 04, 2020 16:26 MOISÉS ALFARO MD Feb 04, 2020 20:34
[2020-02-04] MEDS ORDERED: FLU QUAD HIGH DOSE 240 MCG/0.7 ML 2020-21 (FLUZONE) IM ONE (16:30)
[2020-02-04] MEDS: inSUlin ASPART (NovoLOG) 1 UNIT/0.01 ML (CHARGE PER UNIT) SC SCH ×2 (17:32→21:11)
[2020-02-04 19:29] VITALS: BP 135/71
[2020-02-04] MEDS ORDERED: cefTRIAXone FOR IV USE 1,000 MG in WATER (STERILE) FOR INJECTION 10 ML IV ONE (20:15)
[2020-02-04] MEDS: AMITRIPTYLINE 50 MG (ELAVIL) TAB PO SCH (21:10)
[2020-02-04] MEDS: ENOXAPARIN 30 MG/0.3 ML (LOVENOX) SYR SC SCH (21:10)
[2020-02-04] MEDS: PANTOPRAZOLE 40 MG (PROTONIX) TAB PO SCH (21:10)
[2020-02-04] MEDS: metroNIDAZOLE 500MG/100ML IVPB 100 ML IV SCH (22:10)
[2020-02-04] MEDS: FAMOTIDINE 20 MG (PEPCID) TABLET PO SCH (22:10)
[2020-02-05] VITALS (7 sets, daily range): BP systolic 118–165; BP diastolic 60–77
[2020-02-05] MEDS: LACTATED RINGERS 1,000 ML IV SCH ×3 (05:40→14:03)
[2020-02-05] MEDS: metroNIDAZOLE 500MG/100ML IVPB 100 ML IV SCH (05:42)
[2020-02-05] MEDS: inSUlin ASPART (NovoLOG) 1 UNIT/0.01 ML (CHARGE PER UNIT) SC SCH ×4 (06:32→21:20)
[2020-02-05 06:40] LABS: BASOPHILS % (AUTO) 0 % (0-10); EOSINOPHILS # (AUTO) 0.1 10^3/uL (0.0-0.3); EOSINOPHILS % (AUTO) 1 % (0-10); HEMATOCRIT 29 % (40-54); HEMOGLOBIN 9.5 g/dL (13.3-17.7); LYMPHOCYTES # (AUTO) 2.4 10^3/uL (1.0-4.0); LYMPHOCYTES % (AUTO) 20 % (12-44); MEAN CORPUSCULAR HEMOGLOBIN 28 pg (25-34); MEAN CORPUSCULAR HGB CONC 33 g/dL (32-36); MEAN CORPUSCULAR VOLUME 85 fL (80-99); MONOCYTES # (AUTO) 0.8 10^3/uL (0.0-1.0); MONOCYTES % (AUTO) 7 % (0-12); NEUTROPHILS # (AUTO) 8.5 10^3/uL (1.8-7.8); NEUTROPHILS % (AUTO) 72 % (42-75); PLATELET COUNT 311 10^3/uL (130-400); WHITE BLOOD COUNT 11.9 10^3/uL (4.3-11.0)
[2020-02-05 06:54] LABS: ALBUMIN 2.9 GM/DL (3.2-4.5); POTASSIUM 3.7 MMOL/L (3.6-5.0)
[2020-02-05 06:56] LABS: CALCIUM 8.5 MG/DL (8.5-10.1)
[2020-02-05 06:57] LABS: TOTAL PROTEIN 6.4 GM/DL (6.4-8.2)
[2020-02-05 06:58] LABS: BILIRUBIN,TOTAL 0.4 MG/DL (0.1-1.0)
[2020-02-05 07:00] LABS: CREATININE SERUM 2.6 MG/DL (0.60-1.30)
--- NOTE | 2020-02-05 07:58 | Progress Note ---
Subjective Subjective Date Seen by Provider: Feb 05, 2020 Time Seen by Provider: 07:40 Pt doing well today, states he feels the same as yesterday. Denies pain or any complaints. WBC today is 11.9, hgb is 9.5, sodium 134. Most recent glucose is 115 and creatinine down to 2.6. Review of Systems General: No Chills, No Fatigue HEENT: No Head Aches, No Eye Pain, No Ear Pain Pulmonary: No Dyspnea, No Cough Cardiovascular: No: Chest Pain, Palpitations Gastrointestinal: No: Nausea, Vomiting, Abdominal Pain Genitourinary: No Dysuria, No Hematuria Musculoskeletal: No: neck pain, shoulder pain Neurological: No: Weakness, Numbness All Other Systems Reviewed All Other Systems Reviewed: Yes (Negative excepted noted.) Objective Exam Vital Signs Vital Signs - First Documented 02/04/20 12:51 Temp 36.7 Pulse 88 Resp 25 B/P (MAP) 104/64 (77) Pulse Ox 96 O2 Delivery Room Air Capillary Refill : Less Than 3 Seconds General Appearance: No Apparent Distress, WD/WN Eyes: Bilateral Eye Normal Inspection, Bilateral Eye PERRL, Bilateral Eye EOMI HEENT: PERRL/EOMI, Normal ENT Inspection Neck: Full Range of Motion, Normal Inspection, Supple Respiratory: Chest Non Tender, Lungs Clear, Normal Breath Sounds, No Accessory Muscle Use, No Respiratory Distress Cardiovascular: Regular Rate, Rhythm, No Edema, No Murmur, Normal Peripheral Pulses Gastrointestinal: Non Tender, Soft; No Distended, No Guarding, No Rebound Rectal: Deferred Back: Normal Inspection Extremity: Normal Capillary Refill, Normal Inspection, Non Tender, No Calf Tenderness, No Pedal Edema Neurologic/Psychiatric: Alert, No Motor/Sensory Deficits, Normal Mood/Affect Skin: Normal Color, Warm/Dry Lymphatic: No Adenopathy Results Lab Laboratory Tests 02/04/20 12:40: White Blood Count 11.2H, Red Blood Count 4.10L, Hemoglobin 11.6L, Hematocrit 35L , Mean Corpuscular Volume 86, Mean Corpuscular Hemoglobin 28, Mean Corpuscular Hemoglobin Concent 33, Red Cell Distribution Width 12.8, Platelet Count 333, Mean Platelet Volume 8.9L, Immature Granulocyte % (Auto) 1, Neutrophils (%) (Auto) 75, Lymphocytes (%) (Auto) 18, Monocytes (%) (Auto) 7, Eosinophils (%) (Auto) 0, Basophils (%) (Auto) 0, Neutrophils # (Auto) 8.4H, Lymphocytes # (Auto) 2.0, Monocytes # (Auto) 0.7, Eosinophils # (Auto) 0.1, Basophils # (Auto) 0.0, Immature Granulocyte # (Auto) 0.1, Sodium Level 123*L, Potassium Level 4.5, Chloride Level 93L, Carbon Dioxide Level 19L, Anion Gap 11, Blood Urea Nitrogen 41H, Creatinine 3.70H, Estimat Glomerular Filtration Rate 16, BUN/Creatinine Ratio 11, Glucose Level 600*H, Calcium Level 9.1, Corrected Calcium 9.6, Total Bilirubin 0.5, Aspartate Amino Transf (AST/SGOT) 12, Alanine Aminotransferase (ALT/SGPT) 13, Alkaline Phosphatase 88, Total Protein 7.8, Albumin 3.4, Beta- Hydroxybutyrate (Chem panel) 0.15 02/04/20 12:45: Glucometer 508*H 02/04/20 15:30: Urine Color YELLOW, Urine Clarity CLOUDY, Urine pH 5.0, Urine Specific Blanket 1.015L, Urine Protein 1+H, Urine Glucose (UA) 3+H, Urine Ketones NEGATIVE, Urine Nitrite NEGATIVE, Urine Bilirubin NEGATIVE, Urine Urobilinogen 0.2, Urine Leukocyte Esterase 2+H, Urine RBC (Auto) 2+H, Urine RBC 5-10H, Urine WBC 50-100H , Urine Squamous Epithelial Cells NONE, Urine Crystals NONE, Urine Bacteria LARGEH, Urine Casts NONE, Urine Mucus NEGATIVE, Urine Culture Indicated YES 02/04/20 16:01: Glucometer 355H 02/04/20 20:40: Glucometer 330H 02/05/20 06:20: White Blood Count 11.9H, Red Blood Count 3.38L, Hemoglobin 9.5L, Hematocrit 29L, Mean Corpuscular Volume 85, Mean Corpuscular Hemoglobin 28, Mean Corpuscular Hemoglobin Concent 33, Red Cell Distribution Width 12.6, Platelet Count 311, Mean Platelet Volume 9.0, Immature Granulocyte % (Auto) 0, Neutrophils (%) (Auto) 72, Lymphocytes (%) (Auto) 20, Monocytes (%) (Auto) 7, Eosinophils (%) (Auto) 1, Basophils (%) (Auto) 0, Neutrophils # (Auto) 8.5H, Lymphocytes # (Auto) 2.4, Monocytes # (Auto) 0.8, Eosinophils # (Auto) 0.1, Basophils # (Auto) 0.0, Immature Granulocyte # (Auto) 0.0, Sodium Level 134L, Potassium Level 3.7, Chloride Level 106, Carbon Dioxide Level 18L, Anion Gap 10, Blood Urea Nitrogen 31H, Creatinine 2.60#H, Estimat Glomerular Filtration Rate 24, BUN/Creatinine Ratio 12, Glucose Level 113H, Calcium Level 8.5, Corrected Calcium 9.4, Total Bilirubin 0.4, Aspartate Amino Transf (AST/SGOT) 11, Alanine Aminotransferase (ALT/SGPT) 9, Alkaline Phosphatase 79, Total Protein 6.4, Albumin 2.9L 02/05/20 06:32: Glucometer 115H Assessment/Plan Assessment/Plan Assessment and Plan URINARY TRACT INFECTION ACUTE RENAL FAILURE HYPONATREMIA HYPERGLYCEMIA CHRONIC DIABETES MELLITUS - UNCONTROLLED FECAL INCONTINENCE, HX OF COLITIS FALLING EPISODE AT HOME DEMENTIA HYPERTENSION HYPERLIPIDEMIA ANEMIA URINARY TRACT INFECTION - PT GIVEN ROCEPHIN YESTERDAY, WAITING ON URINE CULTURE REPORT. ACUTE RENAL FAILURE - FLUIDS, MONITOR LABS, SUPPORTIVE CARE AND MODIFICATION OF MEDICATIONS BASED ON RENAL FUNCTION -creatinine improving HYPONATREMIA - improving - SUPPORTIVE CARE AND FLUIDS - REPEAT LABS HYPERGLYCEMIA - IMPROVED WITH FLUIDS AND INSULIN, MONITOR FSBS CHRONIC DIABETES MELLITUS - UNCONTROLLED - RESTART HOME REGIMEN FALLING EPISODE AT HOME - WILL START THERAPY IF INDICATED BASED ON PT'S MOBILIZATION BY STAFF. DEMENTIA - SUPPORTIVE CARE HYPERTENSION - RESUME HOME REGIMEN OF TOPROL. HYPERLIPIDEMIA - HOLD HOME REGIMEN ANEMIA -monitor labs, transfuse if needed DVT PROPHYLAXIS WITH LOVENOX AND SCD'S GI PROPHYLAXIS WITH PEPCID AND PROBIOTICS Admission Dx Hyperglycemia Mechanical fall UTI Leukocytosis Acute renal failure Hyponatremia Hyperglycemia -insulin -achs accuchecks Mechanical fall UTI with leukocytosis -Abx Acute renal failure -IV fluids -monitor urine output Hyponatremia -Replete with LR -repeat labs tomorrow SCD's and ambulate for DVT prophylaxis Clinical Quality Measures Admission Status Admission Dx Hyperglycemia Mechanical fall UTI Leukocytosis Acute renal failure Hyponatremia Hyperglycemia -insulin -achs accuchecks Mechanical fall UTI with leukocytosis -Abx Acute renal failure -IV fluids -monitor urine output Hyponatremia -Replete with LR -repeat labs tomorrow SCD's and ambulate for DVT prophylaxis DVT/VTE Risk/Contraindication: Risk Factor Score Per Nursin RFS Level Per Nursing on Admit: 4+=Very High Supervisory-Addendum Brief Verification & Attestation Participated in pt care: history, MDM, physical Personally performed: exam, history, MDM, supervision of care Care discussed with: Medical Student Procedures: n/a Results interpretation: Verified all documentation URINARY TRACT INFECTION ACUTE RENAL FAILURE HYPONATREMIA HYPERGLYCEMIA CHRONIC DIABETES MELLITUS - UNCONTROLLED FECAL INCONTINENCE, HX OF COLITIS FALLING EPISODE AT HOME DEMENTIA HYPERTENSION HYPERLIPIDEMIA URINARY TRACT INFECTION - PT TO BE ON ROCEPHIN -INJECTION TONIGHT - WAITING ON URINE CULTURE REPORT. ACUTE RENAL FAILURE - FLUIDS, MONITOR LABS, SUPPORTIVE CARE AND MODIFICATION OF MEDICATIONS BASED ON RENAL FUNCTION HYPONATREMIA - SUPPORTIVE CARE AND FLUIDS - REPEAT LABS HYPERGLYCEMIA - IMPROVED WITH FLUIDS AND INSULIN, MONITOR FSBS CHRONIC DIABETES MELLITUS - UNCONTROLLED - RESTARTED HOME REGIMEN TOMORROW. FALLING EPISODE AT HOME - WILL START THERAPY TODAY. DEMENTIA - SUPPORTIVE CARE HYPERTENSION - RESUME HOME REGIMEN OF TOPROL. HYPERLIPIDEMIA - HOLD HOME REGIMEN DVT PROPHYLAXIS WITH LOVENOX AND SCD'S GI PROPHYLAXIS WITH PEPCID AND PROBIOTICS ALISSA SOLIS MED STUDENT Feb 05, 2020 07:58 MOISÉS ARMSTRONG MD Feb 06, 2020 09:21
[2020-02-05] MEDS: AMITRIPTYLINE 50 MG (ELAVIL) TAB PO SCH ×2 (09:26→21:19)
[2020-02-05] MEDS: FAMOTIDINE 20 MG (PEPCID) TABLET PO SCH (09:26)
[2020-02-05] MEDS: PANTOPRAZOLE 40 MG (PROTONIX) TAB PO SCH ×2 (09:26→21:19)
[2020-02-05] MEDS: LACTOBACILLUS ACIDOPHILUS (PROBIOTIC) CAPSULE PO SCH ×3 (09:27→16:56)
--- NOTE | 2020-02-05 13:57 | NUR ---
RD ASSESSMENT PMHx: DM; chronic renal insufficiency; HTN; HLD; colitis; GERD; chronic constipation; diverticulosis; hiatal hernia; CA(prostate); PT INTERACTION: Pt was awake and pleasant during nutrition assessment. Pt states current appetite is okay. Note avg PO intake 100% x2meal, per chart review. Pt states following a regular diet at home, and has no issues with chewing/swallowing food. Pt states no recent issues with nausea, vomiting, constipation, or diarrhea, and that his last BM was 02/04. Note pt not currently on bowel regimen per chart review. Pt states no recent wt changes. Note recent 9# wt loss x9mon, per chart review. Pt states current DM management is okay, "I think it's good." Note unable to determine recent HbA1c, per chart review. ABNORMAL NUTRITION-RELATED LAB VALUES LOW: Na 133; alb 2.9; HIGH: BUN 31; cr 2.60; glu 113; Est. kcal needs: 1163-6756 kcal | 20-25 kcal/kg Est. Pro needs: 69-86 g Pro | 0.8-1.0 g Pro/kg PES STATEMENT: Given current PO intake, no nutrition diagnosis at this time (NO-1.1). INTERVENTION: Continue with current diet order of CHO 75g/m 0snack diet. Offered diet education on DM management, but pt declined at this time. Will attempt to offer again prior to discharge. Will continue to follow and reassess as pt needs, intake, and status change. Princess TAYLOR, MS RD LD [phone] cell
--- NOTE | 2020-02-05 14:16 | Physical Therapy Evaluation ---
PT Evaluation-General Medical Diagnosis Admission Date Feb 04, 2020 at 13:27 Medical Diagnosis: fall, weakness Onset Date: Feb 04, 2020 Therapy Diagnosis Therapy Diagnosis: impaired mobility, balance, safety awareness Height/Weight Height (Feet): 5 Height (Inches): 9.00 Weight (Pounds): 230 Weight (Ounces): 4.0 Precautions Precautions/Isolations: Fall Prevention, Standard Precautions Referral Physician: Dominic Reason for Referral: Evaluation/Treatment Medical History Pertinent Medical History: Arthritis, DM, GERD, HTN, Neuropathy Additional Medical History Surgeries Yes (TONSELECTOMY, PROSTATECTOMY; COLONOSCOPIES/EGD'S ) Prostatectomy, Tonsillectomy Respiratory Yes Currently Using CPAP: No Currently Using BIPAP: No Cardiovascular Yes High Cholesterol, Hypertension Neurological Yes (NEUROPATHY DUE TO DIABETES) Neuropathy Reproductive System Hx Reproductive Disorders: No Sexually Transmitted Disease: No HIV/AIDS: No Genitourinary Yes (PROSTATECTOMY; CHRONIC RENAL INSUFFICIENCY ) Prostate Problems Gastrointestinal Yes Colitis, Gastroesophageal Reflux, Gastrointestinal Bleed, Chronic Constipation, Diverticulosis, Hemorrhoids, Hiatal Hernia Musculoskeletal Yes Degenerate Disk Disease, Arthritis, Chronic Back Pain Endocrine History of Endocrine Disorders: Yes Endocrine Disorders: Diabetes, Insulin dep HEENT History of HEENT Disorders: Yes (EDENTULOUS/WEARS UPPER AND LOWER DENTURES) Hearing Impairment: Hard of Hearing Cancer Yes Prostate Did You Recieve Any Treatments: Yes Type of Treatment: Surgical Intervention Reviewed History: Yes Social History Home: Single Level Current Living Status: Alone Prior Prior Level of Function SCALE: Activities may be completed with or without assistive devices. 0-Ulyptfwccx-qmlaxja completes the activity by him/herself with no assistance from a helper. 5-Set-up or Clean-up Assistance-helper sets up or cleans up; patient completes activity. [place] assists only prior to or following the activity. 4-Supervision or Touching Assistance-helper provides verbal cues and/or touching/steadying and/or contact guard assistance as patient completes activity. Assistance may be provided throughout the activity or intermittently. 3-Partial/Moderate Assistance-helper does LESS THAN HALF the effort. [place] lifts, holds or supports trunk or limbs, but provides less than half the effort. 2-Substantial/Maximal Assistance-helper does MORE THAN HALF the effort. [place] lifts or holds trunk or limbs and provides more than half the effort. 3-Apgvlruxa-uxjkhb does ALL the effort. Patient does none of the effort to complete the activity. Or, the assistance of 2 or more helpers is required for the patient to complete the activity. If activity was not attempted, code reason: 7-Patient Refused. 9-Not Applicable-not attempted and the patient did not perform the activity before the current illness, exacerbation or injury. 10-Not Attempted due to Environmental Limitations-(lack of equipment, weather restraints, etc.). 88-Not Attempted due to Medical Conditions or Safety Concerns. Bed Mobility: 6 Transfers (B,C,W/C): 6 Gait: 6 Indoor Mobility (Ambulation): Independent Patient states he doesn't use an assistive device but nurse says he uses a single point cane. PT Evaluation-Current Subjective Patient in bed pre tx, agrees to PT, has no complaints of pain. Patient seems like he has some confusion. Pt/Family Goals none stated Objective Patient Orientation: Person, Confused Attachments: IV ROM/Strength ROM Lower Extremities WNL Strength Lower Extremities 5/5 gross BLE Sensory Hearing: Impaired Sensation Lower Extremities unable to test LE sensation, patient has a lot of difficulty understanding directions Transfers Roll Left to Right (QC): 6 Sit to Lying (QC): 6 Lying to Sitting/Side of Bed(Q: 6 Sit to Stand (QC): 4 Chair/Hym-yi-Hyjgy Xfer(QC): 3 Gait Does the Patient Walk?: Yes Mode of Locomotion: Walk Anticipated Mode of Locomotion: Walk Walk 10 feet (QC): 3 Walk 50 ft with 2 Turns(QC): 3 Walk 150 ft (QC): 3 Distance: 200' Gait Assistive Device: None Comments/Gait Description Patient seems steady standing at the side of the bed and he says he feels fine and doesn't usually use a walker. Patient ambulated 200' with min assist. He started out well but became wildly impulsive about usp through the ambulation and started ambulating extremely fast, leaning forward too much (therapist had to stop him and get somebody to push the IV pole so both hands could be used on patient to control his forward momentum), after getting back to his room he needed to urinate, went to the restroom extremely impulsively without thought of his IV line or his balance, needed min assist to maintain balance, used the restroom, and then went back to bed. Balance Sitting Static: Normal Sitting Dynamic: Normal Standing Static: Good Standing Dynamic: Poor Assessment/Needs Patient is very impulsive, confused, has poor safety awareness. Patient in bed post tx with nurse call, phone, tray, bed alarm on. Rehab Potential: Guarded PT Educator Senior Clinical Goals Senior Care Goals PT Educator Senior Clinical Goals Time Frame: Feb 12, 2020 Roll Left & Right (QC): 6 Sit to Lying (QC): 6 Lying-Sitting on Side/Bed(QC): 6 Sit to Stand (QC): 4 Chair/Feo-zl-Ufrqv Xfer(QC): 4 Walk 10 feet (QC): 4 Walk 50ft with 2 Turns (QC): 4 Walk 150 ft (QC): 4 PT Plan Problem List Problem List: Activity Tolerance, Functional Strength, Safety, Balance, Gait, Transfer Treatment/Plan Treatment Plan: Continue Plan of Care Treatment Plan: Education, Functional Activity [place], Functional Strength, Gait, Safety, Therapeutic Exercise, Transfers Treatment Duration: Feb 12, 2020 Frequency: 6 times per week Estimated Hrs Per Day: .25 hour per day Patient and/or Family Agrees t: Yes Safety Risks/Education Patient Education: Gait Training, Transfer Techniques, Correct Positioning, Safety Issues Teaching Recipient: Patient Teaching Methods: Demonstration, Discussion Response to Teaching: Reinforcement Needed Discharge Recommendations Plan Patient will perform bed mobility and transfer training, balance and endurance training, functional strengthening, stair training, gait training, and education, to improve functional mobility and independence at home. Therapy Discharge Recommendati: 24 Hour Supervision Time/GCodes Time In: 1348 Time Out: 1400 Total Billed Treatment Time: 12 Total Billed Treatment 1 visit SUZIE LANG PT Feb 05, 2020 14:16
--- NOTE | 2020-02-05 14:30 | Occupational Therapy Eval ---
OT Evaluation-General/PLF Medical Diagnosis Admission Date Feb 04, 2020 at 13:27 Medical Diagnosis: fall, weakness, UTI Onset Date: Feb 04, 2020 Therapy Diagnosis Therapy Diagnosis: Weakness Height/Weight Height (Feet): 5 Height (Inches): 9.00 Weight (Pounds): 230 Weight (Ounces): 4.0 Precautions Precautions/Isolations: Fall Prevention, Standard Precautions Weight Bear Status Weight Bearing Restriction: Weight Bearing/Tolerated Referral Physician: Dominic Referral Reason: Activity Tolerance, Self Care, Evaluation/Treatment, Strengthening/ROM Medical History Pertinent Medical History: Arthritis, DM, Dementia, GERD, HTN, Neuropathy Additional Medical History Prostatectomy Current History Pt. fell at home while ambulating to bathroom. Pt. incontinent, and spouse could not get him up. Called EMS. Blood sugar significantly high. Found to have UTI. Reviewed History: Yes Social History Home: Single Level Current Living Status: Spouse Entry Into Home: Level Entry ADL-Prior Level of Function SCALE: Activities may be completed with or without assistive devices. 3-Cutfvjfqsm-phbwipi completes the activity by him/herself with no assistance from a helper. 5-Set-up or Clean-up Assistance-helper sets up or cleans up; patient completes activity. [place] assists only prior to or following the activity. 4-Supervision or Touching Assistance-helper provides verbal cues and/or touching/steadying and/or contact guard assistance as patient completes activity. Assistance may be provided throughout the activity or intermittently. 3-Partial/Moderate Assistance-helper does LESS THAN HALF the effort. [place] lifts, holds or supports trunk or limbs, but provides less than half the effort. 2-Substantial/Maximal Assistance-helper does MORE THAN HALF the effort. [place] lifts or holds trunk or limbs and provides more than half the effort. 1-Ohrtmyktx-ieqtjo does ALL the effort. Patient does none of the effort to complete the activity. Or, the assistance of 2 or more helpers is required for the patient to complete the activity. If activity was not attempted, code reason: 7-Patient Refused. 9-Not Applicable-not attempted and the patient did not perform the activity before the current illness, exacerbation or injury. 10-Not Attempted due to Environmental Limitations-(lack of equipment, weather restraints, etc.). 88-Not Attempted due to Medical Conditions or Safety Concerns. ADL PLOF Comments Pt. very [place]. OT has to repeat self multiple times. Pt. states that he is typically independent with daily tasks. He does not use a walker at home. Self Care: Independent (per pt) Functional Cognition: Unknown OT Current Status Subjective No pain reported. Appearance Pt. in bed. Agrees to work with OT. Mental Status/Objective Patient Orientation: Person Attachments: IV Current Upper Extremity ROM WFL ADL-Treatment On/Off Footwear (QC): 4 (CGA seated on side of bed. Several LOB noted while bending over.) Other Treatments Pt. transferred supine-sit with SBA. Pt. able to doff slipper socks and don them with several brief LOB noted while bending over. Pt. able to stand at bedside x 2, with SBA. CGA to take steps toward HOB. Pt. sat back down and balances on side of bed while he talks about his granddaughter. OT offers to assist pt. to bathroom but he declines and states that he does not need to go. Pt. transferred sit-supine with SBA and all needs met. Bed alarm set. Education OT Patient Education: Correct positioning, Modified ADL techniques, Progress toward Goal/Update tx plan, Purpose of tx/functional activities, Reviewed precautions, Rehab process, Transfer techniques Teaching Recipient: Patient Teaching Methods: Demonstration, Discussion Response to Teaching: Verbalize Understanding, Return Demonstration, Reinforcement Needed OT Short Term Goals Short Term Goals Time Frame: Feb 05, 2020 OT Nursing Home Goals Nursing Home Goals Time Frame: Feb 19, 2020 Eating (QC): 6 Oral Hygiene (QC): 5 Toileting Hygiene (QC): 6 Shower/Bathe Self (QC): 4 Upper Body Dressing (QC): 5 Lower Body Dressing (QC): 4 On/Off Footwear (QC): 4 Additional Goals: 1-Demonstrate ADL Tasks, 2-Verbalize Understanding, 3- ImproveStrength/[place] 1=Demonstrate adherence to instructed precautions during ADL tasks. 2=Patient will verbalize/demonstrate understanding of assistive devices/modifications for ADL. 3=Patient will improve strength/tolerance for activity to enable patient to perform ADL's. OT Education/Plan Problem List/Assessment Assessment: Decreased Activ Tolerance, Impaired Funct Balance Discharge Recommendations Plan/Recommendations: Continue POC Therapy Discharge Recommendati: Home & Family, Post Acute OT Treatment Plan/Plan of Care Treatment,Training & Education: Yes Patient would benefit from OT for education, treatment and training to promote independence in ADL's, mobility, safety and/or upper extremity function for ADL's. Plan of Care: ADL Retraining, Functional Mobility, UE Funct Exercise/Act Treatment Duration: Feb 19, 2020 Frequency: 5 times per week Estimated Hrs Per Day: .25 hour per day Agreement: Yes Rehab Potential: Fair Time/GCodes Start Time: 13:20 Stop Time: 13:35 Total Time Billed (hr/min): 15 Billed Treatment Time 1, HELLEN MCINTOSH OT Feb 05, 2020 14:30
[2020-02-05] MEDS: ENOXAPARIN 30 MG/0.3 ML (LOVENOX) SYR SC SCH (21:20)
[2020-02-06 00:19] VITALS: BP 139/76
[2020-02-06 04:01] VITALS: BP 121/67
[2020-02-06] MEDS: inSUlin ASPART (NovoLOG) 1 UNIT/0.01 ML (CHARGE PER UNIT) SC SCH ×4 (06:02→21:31)
--- NOTE | 2020-02-06 07:54 | Progress Note ---
Subjective Subjective Date Seen by Provider: Feb 06, 2020 Time Seen by Provider: 08:50 Pt states he is doing well and denies any pain. Pt is oriented to time and self, but thinks he is at home and is asking about his and son. Nurse states pt has been intermittently confused and disoriented overnight. Review of Systems General: No Chills, No Fatigue HEENT: No Head Aches, No Eye Pain, No Ear Pain Pulmonary: No Dyspnea, No Cough Cardiovascular: No: Chest Pain, Palpitations Gastrointestinal: No: Nausea, Vomiting, Abdominal Pain Genitourinary: No Dysuria, No Hematuria Musculoskeletal: No: neck pain, shoulder pain Neurological: No: Weakness, Numbness All Other Systems Reviewed All Other Systems Reviewed: Yes (Negative excepted noted.) Objective Exam Vital Signs Vital Signs - First Documented 02/04/20 12:51 Temp 36.7 Pulse 88 Resp 25 B/P (MAP) 104/64 (77) Pulse Ox 96 O2 Delivery Room Air Capillary Refill : Less Than 3 Seconds General Appearance: No Apparent Distress, WD/WN Eyes: Bilateral Eye Normal Inspection, Bilateral Eye PERRL, Bilateral Eye EOMI HEENT: PERRL/EOMI, Normal ENT Inspection Neck: Full Range of Motion, Normal Inspection, Supple Respiratory: Chest Non Tender, Lungs Clear, Normal Breath Sounds, No Accessory Muscle Use, No Respiratory Distress Cardiovascular: Regular Rate, Rhythm, No Edema, No Murmur, Normal Peripheral Pulses Gastrointestinal: Non Tender, Soft; No Distended, No Guarding, No Rebound Rectal: Deferred Back: Normal Inspection Extremity: Normal Inspection, Non Tender, No Calf Tenderness, No Pedal Edema Neurologic/Psychiatric: Alert, No Motor/Sensory Deficits, Normal Mood/Affect, Other (oriented to self and year, not oriented to location) Skin: Normal Color, Warm/Dry Lymphatic: No Adenopathy Results Lab Laboratory Tests 02/05/20 11:57: Glucometer 207H 02/05/20 16:33: Glucometer 241H 02/05/20 21:06: Glucometer 252H 02/06/20 05:31: Glucometer 102 Microbiology 02/04/20 Urine Culture - Preliminary, Resulted Strep, Beta Hemolytic Group B Assessment/Plan Assessment/Plan Assessment and Plan URINARY TRACT INFECTION ACUTE RENAL FAILURE HYPONATREMIA HYPERGLYCEMIA CHRONIC DIABETES MELLITUS - UNCONTROLLED FECAL INCONTINENCE, HX OF COLITIS FALLING EPISODE AT HOME DEMENTIA HYPERTENSION HYPERLIPIDEMIA ANEMIA CONFUSION URINARY TRACT INFECTION - CULTURE REPORT SHOWS GROUP B STREP, SENSITIVITIES PENDING ACUTE RENAL FAILURE - FLUIDS, MONITOR LABS, SUPPORTIVE CARE AND MODIFICATION OF MEDICATIONS BASED ON RENAL FUNCTION HYPONATREMIA - improving - SUPPORTIVE CARE - REPEAT LABS HYPERGLYCEMIA - IMPROVED WITH FLUIDS AND INSULIN, MONITOR FSBS CHRONIC DIABETES MELLITUS - UNCONTROLLED - RESTART HOME REGIMEN FALLING EPISODE AT HOME - WILL START PT/OT - THEY ASSESSED PT YESTERDAY AND FOUND THAT HE HAS DECREASED SAFETY AWARENESS DEMENTIA - SUPPORTIVE CARE HYPERTENSION - RESUME HOME REGIMEN OF [place]. HYPERLIPIDEMIA - HOLD HOME REGIMEN ANEMIA -monitor labs, transfuse if needed -IV iron CONFUSION -keep pt in hospital for another day DVT PROPHYLAXIS WITH LOVENOX AND SCD'S GI PROPHYLAXIS WITH PEPCID AND PROBIOTICS DC'D IV FLUIDS Clinical Quality Measures DVT/VTE Risk/Contraindication: Risk Factor Score Per Nursin RFS Level Per Nursing on Admit: 4+=Very High Supervisory-Addendum Brief Verification & Attestation Participated in pt care: history, MDM, physical Personally performed: exam, history, MDM, supervision of care Care discussed with: Medical Student Procedures: n/a Results interpretation: Verified all documentation URINARY TRACT INFECTION ACUTE RENAL FAILURE HYPONATREMIA HYPERGLYCEMIA CHRONIC DIABETES MELLITUS - UNCONTROLLED FECAL INCONTINENCE, HX OF COLITIS FALLING EPISODE AT HOME DEMENTIA HYPERTENSION HYPERLIPIDEMIA URINARY TRACT INFECTION - PT TO BE ON ROCEPHIN GROUP B STREP ACUTE RENAL FAILURE - REPEAT LABS THIS MORNING - FLUIDS, MONITOR LABS, SUPPORTIVE CARE AND MODIFICATION OF MEDICATIONS BASED ON RENAL FUNCTION HYPONATREMIA - SUPPORTIVE CARE AND FLUIDS - REPEAT LABS HYPERGLYCEMIA - IMPROVED WITH FLUIDS AND INSULIN, MONITOR FSBS CHRONIC DIABETES MELLITUS - UNCONTROLLED - RESTART HOME REGIMEN TOMORROW. FALLING EPISODE AT HOME - IMPULSIVE PER HOSPITAL THERAPY - MONITOR SYMPTOMS. DEMENTIA - SUPPORTIVE CARE HYPERTENSION - RESUME HOME REGIMEN OF [place]. HYPERLIPIDEMIA - HOLD HOME REGIMEN DVT PROPHYLAXIS WITH LOVENOX AND SCD'S GI PROPHYLAXIS WITH PEPCID AND PROBIOTICS ALISSA OSLIS STUDENT Feb 06, 2020 07:54 MOISÉS ARMSTRONG MD Feb 06, 2020 09:23
[2020-02-06] MEDS: FAMOTIDINE 20 MG (PEPCID) TABLET PO SCH (08:34)
[2020-02-06] MEDS: LACTOBACILLUS ACIDOPHILUS (PROBIOTIC) CAPSULE PO SCH ×3 (08:34→17:06)
[2020-02-06] MEDS: PANTOPRAZOLE 40 MG (PROTONIX) TAB PO SCH ×2 (08:34→21:31)
[2020-02-06] MEDS: AMITRIPTYLINE 50 MG (ELAVIL) TAB PO SCH ×2 (08:37→21:31)
--- NOTE | 2020-02-06 10:08 | Physical Therapy Daily Note ---
PT Daily Note-Current Subjective Patient agrees to PT. No c/o. Mental Status Patient Orientation: Person, Time, Situation Transfers SCALE: Activities may be completed with or without assistive devices. 9-Lnvgitpuah-udfojpt completes the activity by him/herself with no assistance fr om a helper. 5-Set-up or Clean-up Assistance-helper sets up or cleans up; patient completes activity. [place] assists only prior to or following the activity. 4-Supervision or Touching Assistance-helper provides verbal cues and/or touching/steadying and/or contact guard assistance as patient completes activity. Assistance may be provided throughout the activity or intermittently. 3-Partial/Moderate Assistance-helper does LESS THAN HALF the effort. [place] lifts, holds or supports trunk or limbs, but provides less than half the effort. 2-Substantial/Maximal Assistance-helper does MORE THAN HALF the effort. [place] lifts or holds trunk or limbs and provides more than half the effort. 4-Vswlcjcoq-rlptrc does ALL the effort. Patient does none of the effort to complete the activity. Or, the assistance of 2 or more helpers is required for the patient to complete the activity. If activity was not attempted, code reason: 7-Patient Refused. 9-Not Applicable-not attempted and the patient did not perform the activity before the current illness, exacerbation or injury. 10-Not Attempted due to Environmental Limitations-(lack of equipment, weather restraints, etc.). 88-Not Attempted due to Medical Conditions or Safety Concerns. Sit to Lying (QC): 6 Sit to Stand (QC): 4 Chair/Hcw-zn-Arbcn Xfer(QC): 4 SBA for safety only (no deviation) Gait Training Does the Patient Walk?: Yes Distance: 500' Walk 10 feet (QC): 4 Walk 50 ft with 2 Turns(QC): 4 Walk 150 ft (QC): 4 Gait Assistive Device: FWW Patient utilized FWW for ambulation and remained in FWW and used appropriately with no deviation or impulsive behavior. Assessment Patient is up in recliner with chair alarm activated. Patient tolerated treatment well. PT Half-Way Goals Creative Services Coordinator Goals PT Half-Way Goals Time Frame: Feb 12, 2020 Roll Left & Right (QC): 6 Sit to Lying (QC): 6 Lying-Sitting on Side/Bed(QC): 6 Sit to Stand (QC): 4 Chair/Duf-rj-Hhbls Xfer(QC): 4 Walk 10 feet (QC): 4 Walk 50ft with 2 Turns (QC): 4 Walk 150 ft (QC): 4 PT Plan Treatment/Plan Treatment Plan: Continue Plan of Care Treatment Plan: Education, Functional Activity [place], Functional Strength, Gait, Safety, Therapeutic Exercise, Transfers Treatment Duration: Feb 12, 2020 Frequency: 6 times per week Estimated Hrs Per Day: .25 hour per day Patient and/or Family Agrees t: Yes Time/GCodes Time In: 900 Time Out: 914 Total Billed Treatment Time: 14 Total Billed Treatment 1 visit FA 14 min MELISA LIANG PT Feb 06, 2020 10:08
--- NOTE | 2020-02-06 10:10 | NUR ---
CM/SS visited with patient for discharge planning. The patient was sitting in the chair eating breakfast. He is hard of hearing. Per chart review,the patient was oriented x2 this a.m.; however, at the time of this sw visit, he was oriented x4. The patient was pleasant and willing to discuss discharge plans. Home: The patient lives at home with his , Timothy. The patient reports that he is independent at home and does not use a walker or cane to get around. He verbalized he only had one fall recently. Home Health/caregivers/homemaker: Patient denies having these services. CM/SS discussed with the patient that he may need additional support in the home. CM/SS discussed home health if physician felt that it is needed. He verbalized understanding. Meals: None. They are currently still cooking all of their meals. Supports: The patient reports that he has a grandson and his here in town that he is close with. He states they see and talk frequently. CM/SS will continue to follow.
--- NOTE | 2020-02-06 11:33 | Occupational Ther Daily Note ---
OT Current Status-Daily Note Subjective Pt seen in room, up in recliner, agreeable to OT. No pain mentioned. Appearance Alert, cooperative. Knew location and year ADL-Treatment Pt able to take slipper socks off and put them back on while seated in chair. very [place]. No LOB noted. His toenails caught in the socks a little and he might benefit from consult to trim them. He got up impulsively from recliner and walked SBA, FWW to bathroom. On/off toilet with SBA and managed clothing and hygiene SBA, FWW. He had some folded papers in his hand which he reluctantly let therapist put on table so that he could complete toilet hygiene. Transferred off toilet quickly and walked back to recliner with SBA, FWW. Pt left up in recliner, chair alarm on, all needs met. Therapy Code Descriptions/Definitions Functional Heard Measure: 0=Not Assessed/NA 4=Minimal Assistance 1=Total Assistance 5=Supervision or Setup 2=Maximal Assistance 6=Modified Heard 3=Moderate Assistance 7=Complete IndependenceSCALE: Activities may be completed with or without assistive devices. 7-Zvwpdburob-agugbec completes the activity by him/herself with no assistance from a helper. 5-Set-up or Clean-up Assistance-helper sets up or cleans up; patient completes activity. [place] assists only prior to or following the activity. 4-Supervision or Touching Assistance-helper provides verbal cues and/or touching/steadying and/or contact guard assistance as patient completes activity. Assistance may be provided throughout the activity or intermittently. 3-Partial/Moderate Assistance-helper does LESS THAN HALF the effort. [place] lifts, holds or supports trunk or limbs, but provides less than half the effort. 2-Substantial/Maximal Assistance-helper does MORE THAN HALF the effort. [place] lifts or holds trunk or limbs and provides more than half the effort. 7-Klshtqcep-jbrhly does ALL the effort. Patient does none of the effort to complete the activity. Or, the assistance of 2 or more helpers is required for the patient to complete the activity. If activity was not attempted, code reason: 7-Patient Refused. 9-Not Applicable-not attempted and the patient did not perform the activity before the current illness, exacerbation or injury. 10-Not Attempted due to Environmental Limitations-(lack of equipment, weather restraints, etc.). 88-Not Attempted due to Medical Conditions or Safety Concerns. Toileting Hygiene (QC): 4 Toilet Transfer (QC): 4 Education OT Patient Education: Purpose of tx/functional activities, Safety issues, Transfer techniques Teaching Recipient: Patient Teaching Methods: Demonstration, Discussion Response to Teaching: Return Demonstration, Reinforcement Needed OT Short Term Goals Short Term Goals Time Frame: Feb 05, 2020 OT Intermediate Goals Section Cutter Goals Time Frame: Feb 19, 2020 Eating (QC): 6 Oral Hygiene (QC): 5 Toileting Hygiene (QC): 6 Shower/Bathe Self (QC): 4 Upper Body Dressing (QC): 5 Lower Body Dressing (QC): 4 On/Off Footwear (QC): 4 Additional Goals: 1-Demonstrate ADL Tasks, 2-Verbalize Understanding, 3- ImproveStrength/[place] 1=Demonstrate adherence to instructed precautions during ADL tasks. 2=Patient will verbalize/demonstrate understanding of assistive devices/modifications for ADL. 3=Patient will improve strength/tolerance for activity to enable patient to perform ADL's. OT Education/Plan Discharge Recommendations Plan/Recommendations: Continue POC Treatment Plan/Plan of Care Patient would benefit from OT for education, treatment and training to promote independence in ADL's, mobility, safety and/or upper extremity function for ADL's. Plan of Care: ADL Retraining, Functional Mobility, UE Funct Exercise/Act Treatment Duration: Feb 19, 2020 Frequency: 5 times per week Estimated Hrs Per Day: .25 hour per day Agreement: Yes Rehab Potential: Fair Time/GCodes Start Time: 11:11 Stop Time: 11:21 Total Time Billed (hr/min): 10 Billed Treatment Time visit, 10 minutes ADL KIMBERLY PIEDRA OT Feb 06, 2020 11:33
[2020-02-06 12:00] VITALS: BP 126/69
[2020-02-06 15:45] VITALS: BP 129/65
[2020-02-06 19:47] VITALS: BP 132/72
[2020-02-06] MEDS: ENOXAPARIN 30 MG/0.3 ML (LOVENOX) SYR SC SCH (21:31)
--- NOTE | 2020-02-07 00:20 | NUR ---
Patient awoke confused and aggressive, trying to climb out of bed and pulling at rt wrist IV. Patient refused to let Irma SANDOVAL or this RN take vital signs at this time. This RN helped transfer patient to recliner, covered with blanket and elevated legs. Chair alarm set.
[2020-02-07 04:15] VITALS: BP 143/74
[2020-02-07] MEDS: inSUlin ASPART (NovoLOG) 1 UNIT/0.01 ML (CHARGE PER UNIT) SC SCH ×2 (05:44→11:18)
[2020-02-07 07:48] VITALS: BP 141/56
[2020-02-07] MEDS: FAMOTIDINE 20 MG (PEPCID) TABLET PO SCH (08:12)
[2020-02-07] MEDS: LACTOBACILLUS ACIDOPHILUS (PROBIOTIC) CAPSULE PO SCH (08:12)
[2020-02-07] MEDS: AMITRIPTYLINE 50 MG (ELAVIL) TAB PO SCH (08:12)
[2020-02-07] MEDS: PANTOPRAZOLE 40 MG (PROTONIX) TAB PO SCH (08:12)
--- NOTE | 2020-02-07 08:15 | Progress Note ---
Subjective Subjective Date Seen by Provider: Feb 07, 2020 Time Seen by Provider: 08:40 According to nursing, pt had some agitation and was trying to get out of bed around midnight when vitals were being taken. This morning, pt is asleep and difficult to arouse. Pt thinks he is at home and when asked the year, says "[birth year]- something". Knows his birthday, but when he looks at his wristband, says "that's not my name". Denies any complaints, does not want to eat breakfast. Review of Systems General: No Chills, No Fatigue HEENT: No Head Aches, No Eye Pain, No Ear Pain Pulmonary: No Dyspnea, No Cough Cardiovascular: No: Chest Pain, Palpitations Gastrointestinal: No: Nausea, Vomiting, Abdominal Pain Genitourinary: No Dysuria, No Hematuria Musculoskeletal: No: neck pain, shoulder pain Neurological: No: Weakness, Numbness All Other Systems Reviewed All Other Systems Reviewed: Yes (Negative excepted noted.) Objective Exam Vital Signs Vital Signs - First Documented 02/04/20 12:51 Temp 36.7 Pulse 88 Resp 25 B/P (MAP) 104/64 (77) Pulse Ox 96 O2 Delivery Room Air Capillary Refill : Less Than 3 SecondsLess Than 3 Seconds General Appearance: No Apparent Distress, WD/WN Eyes: Bilateral Eye Normal Inspection, Bilateral Eye PERRL, Bilateral Eye EOMI HEENT: PERRL/EOMI, Normal ENT Inspection Neck: Full Range of Motion, Normal Inspection, Supple Respiratory: Chest Non Tender, Lungs Clear, Normal Breath Sounds, No Accessory Muscle Use, No Respiratory Distress Cardiovascular: Regular Rate, Rhythm, No Edema, No Murmur, Normal Peripheral Pulses Gastrointestinal: Non Tender, Soft; No Distended, No Guarding, No Rebound Rectal: Deferred Back: Normal Inspection Extremity: Normal Inspection, Non Tender, No Calf Tenderness, No Pedal Edema Neurologic/Psychiatric: Alert, No Motor/Sensory Deficits, Normal Mood/Affect, Other (disoriented, hard of hearing) Skin: Normal Color, Warm/Dry Lymphatic: No Adenopathy Results Lab Laboratory Tests 02/06/20 10:52: Glucometer 250H 02/06/20 15:51: Glucometer 396H 02/06/20 20:07: Glucometer 295H 02/07/20 05:42: Glucometer 150H Microbiology 02/04/20 Urine Culture - Final, Complete Strep agalactiae Group B Assessment/Plan Assessment/Plan Assessment and Plan URINARY TRACT INFECTION ACUTE RENAL FAILURE HYPONATREMIA HYPERGLYCEMIA CHRONIC DIABETES MELLITUS - UNCONTROLLED FECAL INCONTINENCE, HX OF COLITIS FALLING EPISODE AT HOME DEMENTIA HYPERTENSION HYPERLIPIDEMIA ANEMIA CONFUSION URINARY TRACT INFECTION - CULTURE REPORT SHOWS GROUP B STREP, SENSITIVITIES PENDING -WILL GIVE SHOT OF ROCEPHIN PRIOR TO DISCHARGE ACUTE RENAL FAILURE HYPONATREMIA - improved -WILL GET CHEMISTRY PANEL PRIOR TO DISCHARGE HYPERGLYCEMIA - IMPROVED WITH FLUIDS AND INSULIN, MONITOR FSBS CHRONIC DIABETES MELLITUS - UNCONTROLLED - RESTART HOME REGIMEN FALLING EPISODE AT HOME - WORKING WITH PT/OT DEMENTIA - SUPPORTIVE CARE HYPERTENSION - RESUME HOME REGIMEN OF TOPROL. HYPERLIPIDEMIA - HOLD HOME REGIMEN ANEMIA -IV iron given yesterday CONFUSION/DISORIENTATION -likely due to delirium, plan to discharge home DVT PROPHYLAXIS WITH LOVENOX AND SCD'S GI PROPHYLAXIS WITH PEPCID AND PROBIOTICS Clinical Quality Measures DVT/VTE Risk/Contraindication: Risk Factor Score Per Nursin RFS Level Per Nursing on Admit: 4+=Very High Supervisory-Addendum Brief Verification & Attestation Participated in pt care: history, MDM, physical Personally performed: exam, history, MDM, supervision of care Care discussed with: Medical Student Procedures: n/a Results interpretation: Verified all documentation URINARY TRACT INFECTION ACUTE RENAL FAILURE HYPONATREMIA HYPERGLYCEMIA CHRONIC DIABETES MELLITUS - UNCONTROLLED FECAL INCONTINENCE, HX OF COLITIS FALLING EPISODE AT HOME DEMENTIA HYPERTENSION HYPERLIPIDEMIA URINARY TRACT INFECTION - PT TO BE ON ROCEPHIN GROUP B STREP - WILL TREAT WITH ORAL ANTIBIOTICS OUTPATIENT X 4 MORE DAYS ACUTE RENAL FAILURE - REPEAT LABS THIS MORNING (DID NOT GET DONE YESTERDAY) - FLUIDS, MONITOR LABS, SUPPORTIVE CARE AND MODIFICATION OF MEDICATIONS BASED ON RENAL FUNCTION HYPONATREMIA - SUPPORTIVE CARE AND FLUIDS - REPEAT LABS HYPERGLYCEMIA - IMPROVED WITH FLUIDS AND INSULIN, MONITOR FSBS CHRONIC DIABETES MELLITUS - UNCONTROLLED - RESTART HOME REGIMEN TOMORROW. FALLING EPISODE AT HOME - IMPULSIVE PER HOSPITAL THERAPY - MONITOR SYMPTOMS. DEMENTIA - SUPPORTIVE CARE HYPERTENSION - RESUME HOME REGIMEN OF TOPROL. HYPERLIPIDEMIA - HOLD HOME REGIMEN DVT PROPHYLAXIS WITH LOVENOX AND SCD'S GI PROPHYLAXIS WITH PEPCID AND PROBIOTICS ALISSA SOLIS MED STUDENT Feb 07, 2020 08:15 MOISÉS ARMSTRONG MD Feb 07, 2020 09:53
[2020-02-07] MEDS ORDERED: cefTRIAXone FOR IV USE 1,000 MG in WATER (STERILE) FOR INJECTION 10 ML IV SCH (09:00)
--- NOTE | 2020-02-07 09:23 | Physical Therapy Daily Note ---
PT Daily Note-Current Subjective Per nursing,patient had a difficulty night last night. Patient does agree to PT. Mental Status Patient Orientation: Confused Transfers SCALE: Activities may be completed with or without assistive devices. 4-Czevesfhfq-mgyiqkj completes the activity by him/herself with no assistance from a helper. 5-Set-up or Clean-up Assistance-helper sets up or cleans up; patient completes activity. [place] assists only prior to or following the activity. 4-Supervision or Touching Assistance-helper provides verbal cues and/or touching/steadying and/or contact guard assistance as patient completes activity. Assistance may be provided throughout the activity or intermittently. 3-Partial/Moderate Assistance-helper does LESS THAN HALF the effort. [place] lifts, holds or supports trunk or limbs, but provides less than half the effort. 2-Substantial/Maximal Assistance-helper does MORE THAN HALF the effort. [place] lifts or holds trunk or limbs and provides more than half the effort. 7-Cgbpnzgij-fibiph does ALL the effort. Patient does none of the effort to complete the activity. Or, the assistance of 2 or more helpers is required for the patient to complete the activity. If activity was not attempted, code reason: 7-Patient Refused. 9-Not Applicable-not attempted and the patient did not perform the activity before the current illness, exacerbation or injury. 10-Not Attempted due to Environmental Limitations-(lack of equipment, weather restraints, etc.). 88-Not Attempted due to Medical Conditions or Safety Concerns. Sit to Stand (QC): 4 Gait Training Does the Patient Walk?: Yes Distance: 250' Walk 10 feet (QC): 4 Walk 50 ft with 2 Turns(QC): 4 Walk 150 ft (QC): 4 Gait Assistive Device: FWW CGA for safety due to confusion and noted appearance of frustration Assessment Per physician, patient will dismiss to home on this date with spouse. patient tolerated treatment and is up in recliner with chair alarm activated. PT Occup Ther Goals Custodial Goals PT Occup Ther Goals Time Frame: Feb 12, 2020 Roll Left & Right (QC): 6 Sit to Lying (QC): 6 Lying-Sitting on Side/Bed(QC): 6 Sit to Stand (QC): 4 Chair/Lam-uv-Iudbj Xfer(QC): 4 Walk 10 feet (QC): 4 Walk 50ft with 2 Turns (QC): 4 Walk 150 ft (QC): 4 PT Plan Treatment/Plan Treatment Plan: Continue Plan of Care, Discontinue PT Treatment Plan: Education, Functional Activity [place], Functional Strength, Gait, Safety, Therapeutic Exercise, Transfers Treatment Duration: Feb 12, 2020 Frequency: 6 times per week Estimated Hrs Per Day: .25 hour per day Patient and/or Family Agrees t: Yes Time/GCodes Time In: 815 Time Out: 829 Total Billed Treatment Time: 14 Total Billed Treatment 1 visit FA 14 min MELISA LIANG PT Feb 07, 2020 09:23
--- NOTE | 2020-02-07 09:37 | NUR ---
CM/SS finalized discharge. Plan: The patient will discharge with home health. The patient's will pick him up around 11:00 this a.m. Home health: CM/SS provided patient with a patient preference form. He reports that he cannot pick and would like his to look at it. ROSINA/SS contacted the patient's Timothy and read the list off via phone. She chose [facility]. ROSINA/SS contacted the agency and spoke with Darlene to make referral. No further needs
[2020-02-07 09:40] LABS: ALBUMIN 3.2 GM/DL (3.2-4.5); BILIRUBIN,TOTAL 0.4 MG/DL (0.1-1.0); CALCIUM 9.2 MG/DL (8.5-10.1); CREATININE SERUM 2.46 MG/DL (0.60-1.30); POTASSIUM 4.5 MMOL/L (3.6-5.0); TOTAL PROTEIN 7.4 GM/DL (6.4-8.2)
[2020-02-07] MEDS ORDERED: AMOX-358 PO (09:44)
--- NOTE | 2020-02-07 09:49 | D/C HH Face to Face Order ---
D/C Face to Face Orders Reconcile Patient Problems Problems Reviewed?: Yes Instructions for Patient Via [email or web address], Patient Instructions/FollowUp: 1 week in [place] [facility] Physician to follow Patient: charles Discharge Diet for Home: ADA Diet Patient Problems: URINARY TRACT INFECTION ACUTE RENAL FAILURE HYPONATREMIA HYPERGLYCEMIA CHRONIC DIABETES MELLITUS - UNCONTROLLED FECAL INCONTINENCE, HX OF COLITIS FALLING EPISODE AT HOME DEMENTIA HYPERTENSION HYPERLIPIDEMIA Goals for Patient: improved strength and improved mobility, decreased confusion, improved diabetic control Patient Data-Allergies,Ht & Wt Patient Allergies: Coded Allergies: No Known Drug Allergies (Verified , 01/29/07) Height (Feet): 5 Height (Inches): 9.00 Weight (Pounds): 230 Weight (Ounces): 4.0 Home Health Need/Face to Face Date of Face to Face: Feb 07, 2020 Clinical Findings: Generalized weakness and fatigue, Instability, Muscle weakness I have seen Pt [id number]: Yes Discharged To: Home Diagnosis/Conditions: URINARY TRACT INFECTION ACUTE RENAL FAILURE HYPONATREMIA HYPERGLYCEMIA CHRONIC DIABETES MELLITUS - UNCONTROLLED FECAL INCONTINENCE, HX OF COLITIS FALLING EPISODE AT HOME DEMENTIA HYPERTENSION HYPERLIPIDEMIA Patient is Homebound due to: CognItive deficits, Muscle weakness, Shortness of breath/distress Homebound Status Due to the above stated illness, injury or surgical procedure (medical condition or diagnosis) and associated clinical findings, the patient is homebound because of his/her inability to leave home except with aid of a supportive device and/or person AND leaving the home requires a considerable and taxing effort or is medically contraindicated. Pt req the following assistanc: Eduardo [facility] Nursing Orders Home Health Services Order: Nursing Services, Wood Carving Lathe Operator-Evaluate & Treat, Physical Therapy-Evaluate & Treat cbc, cmp due on 02/10/2020 Home Health Infusion Therapy Line Start Date: Feb 06, 2020 Therapy Orders Therapy Orders: Physical Therapy, PT to assess for OT Therapy Specific Orders: Increase strength/endurance Certify Stmt I certify that this patient is under my care and that I, a nurse practitioner or a physician; a surgery assistant working with me, had a face to face encounter that - meets the physician face to face encounter requirements with this patient as dated. MOISÉS ARMSTRONG MD Feb 07, 2020 09:49
--- NOTE | 2020-02-07 09:58 | Discharge Summary ---
Diagnosis/Chief Complaint Date of Admission Feb 04, 2020 at 13:27 Date of Discharge Discharge Date: Feb 07, 2020 Discharge Time: 1000 Admission Diagnosis Admission Diagnosis URINARY TRACT INFECTION ACUTE RENAL FAILURE HYPONATREMIA HYPERGLYCEMIA CHRONIC DIABETES MELLITUS - UNCONTROLLED FECAL INCONTINENCE, HX OF COLITIS FALLING EPISODE AT HOME DEMENTIA HYPERTENSION HYPERLIPIDEMIA Discharge Diagnosis URINARY TRACT INFECTION GROUP B STREP ACUTE RENAL FAILURE HYPONATREMIA HYPERGLYCEMIA CHRONIC DIABETES MELLITUS - UNCONTROLLED FECAL INCONTINENCE, HX OF COLITIS FALLING EPISODE AT HOME DEMENTIA WITH DELIRIUM HYPERTENSION HYPERLIPIDEMIA Reason Hospital Visit TAMMIE SULLIVAN IS AN 79 Y/O MALE WHO IS WELL KNOWN TO ME FROM CLINIC. HE PRESENTED TO THE ER AFTER FALLING AT HOME WHILE ON HIS WAY TO THE [place]. HE HAD DIARRHEA WHEN HE FELL AND HIS WAS UNABLE TO GET HIM UP FROM HIS POSITION SO SHE CALLED EMS. HIS FSBS WAS OVER THE LIMIT OF THE GLUCOMETER AND HE WAS TRANSPORTED TO THE ER. IN THE ER HE WAS FOUND TO HAVE AN ELEVATED WHITE COUNT AND HIS CREATININE WAS GROSSLY ELEVATED AT 3.7. HE WAS ADMITTED TO THE HOSPITAL FOR RENAL FAILURE, HYPERGLYCEMIA, URINARY TRACT INFECTION, AND WEAKNESS AND FALLING. Discharge Summary Discharge Physical Examination Allergies: Coded Allergies: No Known Drug Allergies (Verified , 01/29/07) Vitals & I&Os Vital Signs Date Time Temp Pulse Resp B/P (MAP) Pulse Ox O2 Delivery O2 Flow Rate FiO2 02/07/20 07:48 36.6 82 16 141/56 (84) 95 Room Air General Appearance: Alert, Oriented X3, Cooperative HEENT: Atraumatic Respiratory: Clear to Auscultation Cardiovascular: Regular Rate Abdominal: Normal Bowel Sounds, Soft, No Tenderness Extremities: No Clubbing, No Cyanosis Neuro: Cranial Nerves 3-12 NL Psych/Mental Status: Mental Status NL, Mood NL Hospital Course Was the Problem List Reviewed?: Yes URINARY TRACT INFECTION GROUP B STREP ACUTE RENAL FAILURE HYPONATREMIA HYPERGLYCEMIA CHRONIC DIABETES MELLITUS - UNCONTROLLED FECAL INCONTINENCE, HX OF COLITIS FALLING EPISODE AT HOME DEMENTIA WITH DELIRIUM HYPERTENSION HYPERLIPIDEMIA URINARY TRACT INFECTION - PT TO BE ON ROCEPHIN GROUP B STREP - WILL TREAT WITH ORAL ANTIBIOTICS OUTPATIENT X 4 MORE DAYS ACUTE RENAL FAILURE - REPEAT LABS THIS MORNING (DID NOT GET DONE YESTERDAY) - FLUIDS, MONITOR LABS, SUPPORTIVE CARE AND MODIFICATION OF MEDICATIONS BASED ON RENAL FUNCTION HYPONATREMIA - SUPPORTIVE CARE AND FLUIDS - REPEAT LABS HYPERGLYCEMIA - IMPROVED WITH FLUIDS AND INSULIN, MONITOR FSBS CHRONIC DIABETES MELLITUS - UNCONTROLLED - RESTART HOME REGIMEN TOMORROW. FALLING EPISODE AT HOME - IMPULSIVE PER HOSPITAL THERAPY - MONITOR SYMPTOMS. - START PHYSICAL THERAPY DEMENTIA WITH DELIRIUM - SUPPORTIVE CARE HYPERTENSION - RESUME HOME REGIMEN OF TOPROL. HYPERLIPIDEMIA - HOLD HOME REGIMEN DVT PROPHYLAXIS WITH LOVENOX AND SCD'S GI PROPHYLAXIS WITH PEPCID AND PROBIOTICS Pending Labs Laboratory Tests 02/07/20 05:42: Glucometer 150 02/07/20 09:09: Sodium Level 134, Potassium Level 4.5, Chloride Level 103, Carbon Dioxide Level 19, Anion Gap 12, Blood Urea Nitrogen 28, Creatinine 2.46, Estimat Glomerular Filtration Rate 25, BUN/Creatinine Ratio 11, Glucose Level 194, Calcium Level 9.2, Corrected Calcium 9.8, Total Bilirubin 0.4, Aspartate Amino Transf (AST/SGOT) 31, Alanine Aminotransferase (ALT/SGPT) 17, Alkaline Phosphatase 79, Total Protein 7.4, Albumin 3.2 Discharge Condition at discharge IMPROVED, BUT CONFUSED Instructions to patient/family Please see electronic discharge instructions given to patient. Discharge Medications Reviewed and agree with Discharge Medication list on patient's Discharge Instruction sheet Clinical Quality Measures DVT/VTE Risk/Contraindication: Risk Factor Score Per Nursin RFS Level Per Nursing on Admit: 4+=Very High MOISÉS ARMSTRONG MD Feb 07, 2020 09:58
[2020-02-07 11:44] VITALS: BP 141/56
--- NOTE | 2020-02-07 11:50 | NUR ---
ERIC SULLIVAN demonstrates understanding of discharge instructions and accurately returns instructions upon questioning. Copy of Post-Discharge Instructions and Medication Discharge Instructions given to PT. ERIC SULLIVAN is able to manage continuing needs after discharge. Patients belongings returned to PT. Skin dry and intact; no breakdown noted. Patient discharged from 412-1 on at 1150. ERIC SULLIVAN left floor via WC, accompanied by STAFF.
== END 2020-02-07 11:50 | disposition home health service (06) | DRG 638 ==
LOC: EDUNIT# 12:23 → ER 12:25 → EDLOC 13:27 → 4TH 13:27
PROVIDERS: ADMIT Family Medicine; ATTEND Family Medicine
DX: E11.65 Type 2 diabetes mellitus with hyperglycemia (principal); N17.9 Acute kidney failure, unspecified; N39.0 Urinary tract infection, site not specified; E87.1 Hypo-osmolality and hyponatremia; E78.00 Pure hypercholesterolemia, unspecified; I10 Essential (primary) hypertension; B95.1 Streptococcus, group B, as the cause of diseases classified elsewhere; M19.90 Unspecified osteoarthritis, unspecified site; G89.29 Other chronic pain; M54.9 Dorsalgia, unspecified; K21.9 Gastro-esophageal reflux disease without esophagitis; R15.9 Full incontinence of feces; F03.90 Unspecified dementia, unspecified severity, without behavioral disturbance, psychotic disturbance, mood disturbance, and anxiety; D64.9 Anemia, unspecified; D72.829 Elevated white blood cell count, unspecified; R41.0 Disorientation, unspecified; K57.90 Diverticulosis of intestine, part unspecified, without perforation or abscess without bleeding
CPT/HCPCS: 36415; 71045; 80053; 81000; 82010; 82728; 82962; 83540; 85025; 87077; 87088; 90662

== ENCOUNTER 2021-04-05 06:13 | Inpatient (IN) | payer MEDICARE, OTHER ==
[~2021-04-05] VITALS: Ht 172.7 cm; Wt 93.7 kg
[~2021-04-05 06:13] MED LIST changes: +ATOR40TA70 PO; +CALC1CAP26 PO; +FOLIC ACID PO; +INSU100I34 SQ; -LISI-552 PO; -LISI-556 PO; +LISI20TA26 PO; +LISI5TAB20 PO; +MULT-646 PO; +THIA100T68 PO
[2021-04-05] MEDS ORDERED: ROCURONIUM 10 MG/ML 5 ML SYRINGE IV ONE (06:15)
[2021-04-05] MEDS ORDERED: ETOMIDATE IV SOLN 20 MG/10 ML VIAL IV ONE (06:15)
--- NOTE | 2021-04-05 06:29 | ED Neurological Problem ---
General Chief Complaint: Unresponsive Stated Complaint: UNRESPONSIVE Source: EMS Exam Limitations: clinical condition History of Present Illness Date Seen by Provider: Apr 05, 2021 Time Seen by Provider: 06:10 Initial Comments Patient is an 80-year-old male brought to the emergency department by ambulance this morning with a chief complaint of altered mental status. Apparently woke up this morning found him face down on the floor beside the bed. He was u nresponsive at this time. EMS reports that the police found him in the state as well. Blood sugar prior to arrival was in the 300 range, known to be a diabetic. Unknown last "well" time at this point. On arrival the patient is maintaining 99 to 100% SPO2 on a nonrebreather. He will not open his eyes, he will not respond to sternal rub. He is nonverbal at this time. He after a couple of seconds of pressure applied to the nailbeds with a tongue depressor to withdraw from stimulus. He does seem to do this with all 4 extremities. No obvious external signs of trauma. His pupils are 2-3 and briskly reactive. He does not appear to have vomited. Lungs are clear, heart rate is sinus tach around 100 bpm. Blood sugar at the bedside in the ED is in the 270 range. Review of systems, HPI, past medical family social history unobtainable from the patient secondary to his altered mental status. GCS at this time is 5-6 depending on if this is flexion pain or withdrawal from pain. We will hold off on intubation as his airway seems to be okay at this moment for CT. If significant infarct is noted on CT will discuss further resuscitative efforts/intubation with his via telephone as she is not also immediately available. I was able to quickly review medical history in the computer last admission was in January 2020. Patient has history of hypertension hyperlipidemia, chronic kidney disease and diabetes. Timing/Duration: other (unknown) Severity: severe Allergies and Home Medications Allergies Coded Allergies: No Known Drug Allergies (Verified , 01/29/07) Patient Home Medication List Home Medication List Reviewed: Yes Amitriptyline HCl (Amitriptyline HCl) 50 Mg Tablet, 50 MG PO BID, (Reported) Entered as Reported by: JUAN M MCKAY on 11/18/16 0829 Amoxicillin/Potassium Clav (Augmentin 875-125 Tablet) 1 Each Tablet, 1 EACH PO BID Prescribed by: MOISÉS ARMSTRONG on 02/07/20 0944 Atorvastatin Calcium (Atorvastatin Calcium) 40 Mg Tablet, 40 MG PO HS, (Reported) Entered as Reported by: SCHUYLER COFFEY on 02/04/20 153 Calcium Carbonate/Vitamin D3 (Calcium 600 + Vitamin D Sftgl) 1 Each Capsule, 2 EACH PO DAILY, (Reported) Entered as Reported by: SCHUYLER COFFEY on 02/04/20 153 Docusate Sodium (Colace) 100 Mg Capsule, 2 MG PO DAILY, (Reported) Entered as Reported by: SCHUYLER COFFEY on 02/04/201532 Insulin Aspart (Novolog) 100 Unit/1 Ml Susp, 7 UNIT SQ BIDAC, (Reported) Entered as Reported by: MIKE TENA on 02/27/18 1151 Insulin Glargine,Hum.rec.anlog (Basaglar Kwikpen U-100) 100 Unit/1 Ml Insuln.pen, 35 UNIT SC HS, (Reported) Entered as Reported by: SCHUYLER COFFEY on 02/04/201532 Lisinopril (Lisinopril) 5 Mg Tablet, 5 MG PO DAILY, (Reported) Entered as Reported by: SCHUYLER COFFEY on 02/04/201532 Metoprolol Succinate (Metoprolol Succinate) 25 Mg Tab.er.24h, 25 MG PO DAILY, (Reported) Entered as Reported by: ANNA AUSTIN on 07/10/15 1009 Multivits,Th W-Fe,Other Min (Complete Multivitamin) 1 Each Tablet, 1 EACH PO DAILY, (Reported) Entered as Reported by: SCHUYLER COFFEY on 02/04/201532 Pantoprazole Sodium (Pantoprazole Sodium) 40 Mg Tablet.dr, 40 MG PO BID, (Reported) Entered as Reported by: SCHUYLER COFFEY on 02/04/201532 Thiamine Mononitrate (Vitamin B-1) 100 Mg Tablet, 100 MG PO DAILY, (Reported) Entered as Reported by: SCHUYLER COFFEY on 02/04/201532 [Folic Acid] , 1 MG PO DAILY, (Reported) Entered as Reported by: SCHUYLER COFFEY on 02/04/201532 Review of Systems Review of Systems Constitutional: see HPI Unable to obtain secondary to critical state/unresponsive Past Edsoxir-Kqakbv-Yawixe Hx Immunizations Up To Date Tetanus Booster (TDap): Unknown PED Vaccines UTD: Yes Seasonal Allergies Seasonal Allergies: No Past Medical History Surgeries: Yes Appendectomy, Prostatectomy Respiratory: No Pneumonia Currently Using CPAP: No Currently Using BIPAP: No Cardiac: Yes High Cholesterol, Hypertension Neurological: Yes Dementia Reproductive Disorders: No Sexually Transmitted Disease: No HIV/AIDS: No Genitourinary: No Prostate Problems Gastrointestinal: Yes Chronic Constipation Musculoskeletal: Yes Arthritis Endocrine: Yes Diabetes, Insulin dep HEENT: Yes Loss of Vision: Denies Hearing Impairment: Hard of Hearing Cancer: Yes Prostate Did You Recieve Any Treatments: Yes What Type of Treatment Did You: Surgical Intervention Psychosocial: No Integumentary: No Blood Disorders: No Adverse Reaction/Blood Tranf: No Family Medical History Cancer G8 SISTER ( of lung cancer) History of - disorder 17 MOTHER (mother of old age) History of - respiratory disease 17 FATHER (worked in [employer] of resp disease from working in coal mines) Heart Disease, Cancer, Diabetes, Hypertension HAS HAD ADMITS FOR SEVERE SEPSIS/SEPTIC SHOCK WITH PNEUMONIA, GI BLEEDING Physical Exam Vital Signs Vital Signs - First Documented 04/05/21 04/05/21 07:16 07:21 B/P (MAP) 177/84 FiO2 40 Capillary Refill : Height, Weight, BMI Height: 5'9.00" Weight: 230lbs. 4.0oz. 104.122259pt; 27.95 BMI Method:Estimated General Appearance: WD/WN, no apparent distress HEENT: other (Pupils equal round and reactive to light, 2-3 bilaterally) Neck: normal inspection Respiratory: lungs clear, normal breath sounds, no respiratory distress, no accessory muscle use Cardiovascular: regular rate, rhythm, tachycardia (103) Gastrointestinal: soft, other (Nondistended) Genital/Rectal: normal genital exam Extremities: normal inspection Neurologic/Psychiatric: other (Unresponsive, GCS 5/6) Crainal Nerves: PERRL Skin: normal color, warm/dry, other (Abrasions across the nasal bridge and left eyebrow) Focused Exam Lactate Level 04/05/21 07:06: Lactic Acid Level 3.38*H Lactic Acid Level Laboratory Tests Test 04/05/21 07:06 Lactic Acid Level 3.38 MMOL/L (0.50-2.00) *H Procedures/Interventions Date of ETT Placement: Apr 05, 2021 Time of ETT Placement: 07:00 Intubation Method: orotracheal Tube Size: 8 Medications: Etomidate, Rocuronium Positive End Tide CO2: Yes Breath Sounds after Intubation: bilateral-equal Intubation Complications: no complications Post Intubation Xray: Yes Progress/Results/Core Measures Results/Orders Lab Results Laboratory Tests Test 04/05/21 06:15 04/05/21 06:19 04/05/21 06:35 04/05/21 06:36 Range/Units White Blood Count 19.3 H 4.3-11.0 10^3/uL Red Blood Count 3.97 L 4.30-5.52 10^6/uL Hemoglobin 11.5 L 13.3-17.7 g/dL Hematocrit 35 L 40-54 % Mean Corpuscular Volume 88 80-99 fL Mean Corpuscular Hemoglobin 29 25-34 pg Mean Corpuscular Hemoglobin Concent 33 32-36 g/dL Red Cell Distribution Width 13.0 10.0-14.5 % Platelet Count 250 130-400 10^3/uL Mean Platelet Volume 9.6 9.0-12.2 fL Immature Granulocyte % (Auto) 1 % Neutrophils (%) (Auto) 76 H 42-75 % Lymphocytes (%) (Auto) 15 12-44 % Monocytes (%) (Auto) 8 0-12 % Eosinophils (%) (Auto) 0 0-10 % Basophils (%) (Auto) 0 0-10 % Neutrophils # (Auto) 14.7 H 1.8-7.8 10^3/uL Lymphocytes # (Auto) 2.8 1.0-4.0 10^3/uL Monocytes # (Auto) 1.6 H 0.0-1.0 10^3/uL Eosinophils # (Auto) 0.0 0.0-0.3 10^3/uL Basophils # (Auto) 0.0 0.0-0.1 10^3/uL Immature Granulocyte # (Auto) 0.1 0.0-0.1 10^3/uL Neutrophils % (Manual) 75 % Lymphocytes % (Manual) 18 % Monocytes % (Manual) 6 % Band Neutrophils 1 % Blood Morphology Comment NORMAL Prothrombin Time 14.2 12.2-14.7 SEC INR Comment 1.1 0.8-1.4 Activated Partial Thromboplast Time 30 24-35 SEC Sodium Level 128 L 135-145 MMOL/L Potassium Level 4.4 3.6-5.0 MMOL/L Chloride Level 98 98-107 MMOL/L Carbon Dioxide Level 16 L 21-32 MMOL/L Anion Gap 14 5-14 MMOL/L Blood Urea Nitrogen 37 H 7-18 MG/DL Creatinine 2.90 H 0.60-1.30 MG/DL Estimat Glomerular Filtration Rate 21 BUN/Creatinine Ratio 13 Glucose Level 331 H 70-105 MG/DL Calcium Level 9.0 8.5-10.1 MG/DL Corrected Calcium 9.6 8.5-10.1 MG/DL Magnesium Level 1.7 1.6-2.4 MG/DL Total Bilirubin 0.7 0.1-1.0 MG/DL Aspartate Amino Transf (AST/SGOT) 21 5-34 U/L Alanine Aminotransferase (ALT/SGPT) 15 0-55 U/L Alkaline Phosphatase 110 40-136 U/L Total Creatine Kinase 221 H 30-200 U/L Troponin I 0.031 H <0.028 NG/ML C-Reactive Protein High Sensitivity 12.91 H 0.00-0.50 MG/DL Total Protein 7.0 6.4-8.2 GM/DL Albumin 3.2 3.2-4.5 GM/DL Triglycerides Level 105 <150 MG/DL Procalcitonin 0.23 H <0.10 NG/ML Glucometer 278 H 70-110 MG/DL Blood Gas Puncture Site LEFT RADIAL Blood Gas Patient Temperature 36.8 Arterial Blood pH 7.35 L 7.37-7.43 Arterial Blood Partial Pressure CO2 34 L 35-45 MMHG Arterial Blood Partial Pressure O2 143 H 79-93 MMHG Arterial Blood HCO3 18 L 23-27 MMOL/L Arterial Blood Total CO2 18.8 L 21.0-31.0 MMOL/L Arterial Blood Oxygen Saturation 99 94-100 % Arterial Blood Base Excess -7.0 L -2.5-2.5 MMOL/L Arsalan Test YES-POS Blood Gas Ventilator Setting NO Blood Gas Inspired Oxygen 10L Urine Color DARK YELLOW Urine Clarity CLEAR Urine pH 6.0 5-9 Urine Specific [place] 1.015 L 1.016-1.022 Urine Protein TRACE H NEGATIVE Urine Glucose (UA) 1+ H NEGATIVE Urine Ketones NEGATIVE NEGATIVE Urine Nitrite NEGATIVE NEGATIVE Urine Bilirubin NEGATIVE NEGATIVE Urine Urobilinogen 0.2 < = 1.0 MG/DL Urine Leukocyte Esterase NEGATIVE NEGATIVE Urine RBC (Auto) NEGATIVE NEGATIVE Urine RBC NONE /HPF Urine WBC RARE /HPF Urine Squamous Epithelial Cells 0-2 /HPF Urine Crystals NONE /LPF Urine Bacteria TRACE /HPF Urine Casts PRESENT /LPF Urine Hyaline Casts 0-2 H /LPF Urine Mucus NEGATIVE /LPF Urine Culture Indicated NO Test 04/05/21 06:55 04/05/21 07:00 04/05/21 07:06 Range/Units Influenza Type A (RT-PCR) Not Detecte SARS-CoV-2 RNA (RT-PCR) Not Detected Negative Influenza Type A Antigen NEGATIVE NEGATIVE Influenza Type B Antigen NEGATIVE NEGATIVE Lactic Acid Level 3.38 *H 0.50-2.00 MMOL/L My Orders Orders - TIANNA BREWER MD Ed Iv/Invasive Line Start (04/05/21 06:21) Cbc With Automated Diff (04/05/21 06:21) Comprehensive Metabolic Panel (04/05/21 06:21) Ua Culture If Indicated (04/05/21 06:21) Catheter(Urinary) Insert & Ass 03,15 (04/05/21 06:21) Ekg Tracing (04/05/21 06:21) Chest 1 View, Ap/Pa Only (04/05/21 06:21) Protime With Inr (04/05/21 06:21) Partial Thromboplastin Time (04/05/21 06:21) Ct Head Wo-R/O Stroke (04/05/21 06:21) Communication For Respiratory (04/05/21 06:21) Magnesium (04/05/21 06:23) Troponin I Mis (04/05/21 06:23) Creatine Kinase (04/05/21 06:23) Manual Differential (04/05/21 06:15) Arterial Blood Gas (04/05/21 06:36) Arterial Blood Draw - Obtain (04/05/21 ) Accucheck Stat ONCE (04/05/21 06:46) Blood Culture (04/05/21 06:51) Sputum Culture (04/05/21 06:51) Ed Iv/Invasive Line Start (04/05/21 06:51) Ed Iv/Invasive Line Start (04/05/21 06:51) Vital Signs Adult Sepsis Patie Q15M (04/05/21 06:51) O2 (04/05/21 06:51) Remove Rings In Anticipation O (04/05/21 06:51) Lactic Acid Analyzer (04/05/21 06:51) Covid 19 Inhouse Test (04/05/21 06:51) Coronavirus Sars-Cov-2 So 2018 (04/05/21 06:51) Isolation Central Supply Req (04/05/21 06:51) Ns Iv 1000 Ml (Sodium Chloride 0.9%) (04/05/21 07:15) Propofol Drip (Icu) (Diprivan Drip (Icu) (04/05/21 07:15) Sedation Communication Q48H (04/05/21 07:30) Triglycerides (04/05/21 07:03) Triglycerides (04/07/21 07:03) Triglycerides (04/09/21 07:03) Triglycerides (04/11/21 07:03) Triglycerides (04/13/21 07:03) Procalcitonin (Pct) (04/05/21 07:05) Hs C Reactive Protein (04/05/21 07:05) Influenza A & B Antigens (04/05/21 07:00) Etomidate Injection (Amidate Injection) (04/05/21 06:15) Rocuronium 5 Ml Syringe (Rocuronium 5 Ml (04/05/21 06:15) Piperacillin Sodium/Tazobactam (Zosyn Vi (04/05/21 08:30) Ns Iv 1000 Ml (Sodium Chloride 0.9%) (04/05/21 08:30) Ns Iv 500 Ml (Sodium Chloride 0.9%) (04/05/21 09:45) Aspirin Suppository (Aspirin Suppository (04/05/21 10:32) Ct Abdomen/Pelvis Wo (04/05/21 10:51) Enoxaparin Injection (Lovenox Injectio (04/05/21 11:15) Medications Given in ED Current Medications Medications Dose Ordered Sig/Pascale Route Start Time Stop Time Status Last Admin Dose Admin Enoxaparin Sodium 80 mg ONCE ONCE SC 04/05/21 11:15 04/05/21 11:16 DC 04/05/21 11:41 80 MG Piperacillin Sod/ Tazobactam Sod 4.5 gm/Sodium Chloride 100 ml @ 200 mls/hr ONCE ONCE IV 04/05/21 08:30 04/05/21 08:59 DC 04/05/21 08:40 200 MLS/HR Vital Signs/I&O 04/05/21 04/05/21 04/05/21 04/05/21 06:14 06:14 07:16 07:21 Temp 36.8 Pulse 102 107 104 Resp 30 18 B/P (MAP) 177/84 Pulse Ox 99 99 O2 Delivery Non Rebreather Non Rebreather O2 Flow Rate 10.00 10.00 FiO2 40 04/05/21 04/05/21 04/05/21 04/05/21 08:00 09:00 09:41 10:00 Temp 35.9 35.9 35.9 35.9 Pulse 101 96 92 88 Resp 17 23 24 22 B/P (MAP) 105/59 92/55 80/52 102/55 Pulse Ox 98 93 98 98 O2 Delivery Mechanical Ventilator Mechanical Ventilator Mechanical Ventilator Mechanical Ventilator 04/05/21 04/05/21 11:00 11:28 Temp 36.1 Pulse 89 89 Resp 22 18 B/P (MAP) 90/58 Pulse Ox 99 99 O2 Delivery Mechanical Ventilator FiO2 40 Admisison Planning May Need Admission (Planning): 07:00 Progress Progress Note #1: Time: 06:35 Progress Note First attempt to call ; got answering machine Progress Note #2: Time: 07:06 Progress Note Discussed with at 0 642. She states that he has made statements in the past that he would like "everything done" should he become sick. She indicated he would like CPR and intubation if necessary. She tells me that he does have a touch of dementia. He has been feeling "weak" for the last couple of days with no specific complaints. They saw their nurse practitioner about 10 days ago for a general checkup. She states at that time his evening insulin dosing was increased no other changes were made. She denies that he has previously had a stroke. He is on a medication to "regulate the beat of his heart". They have no children together, he does have children from a previous marriage but he does not have contact with them. I discussed with her the need for intubation secondary to his poor response of status and GCS of 5-6, I explained to her what that meant that he was unable to protect his airway secondary to his poor responsiveness. He was noted to have spontaneous movement of bilateral LE's, jerky movements prior to intubation - no purposeful movement. She states she wo uld like him intubated. This was done without incident. Progress Note #3: Time: 09:37 Progress Note Notified by nursing staff, Estefany WHATLEY patient's blood pressure has dropped down to 80 systolic. We will add a 500 cc fluid bolus at this time. We will see if he is responsive to the fluids before starting pressors. Awaiting callback from house detective on possible ICU placement here. He does have bibasilar, midlung patchy atelectasis, suspect may be pneumonia. He does have elevated lactic acid a little bit above 3. He has leukocytosis. Urine is clean. Preliminary Covid is negative. Progress Note #4: Time: 12:36 Progress Note discussed with eICU Initial ECG Impression Date: Apr 05, 2021 Initial ECG Impression Time: 06:17 Initial ECG Rate: 104 Initial ECG Rhythm: S.Tach Comment Sinus tachycardia with frequent PVCs, no ST segment elevation or depression is noted, Q waves in the inferior leads, first-degree AV block, widened QRS at 124 Diagnostic Imaging Diagonstic Imaging: CT Comments [facility]. [place], [place] NAME: ERIC SULLIVAN [facility] REC#: [id number] PT STATUS: REG ER : 1940 PHYSICIAN: TIANNA BREWER MD ADMIT DATE: 04/05/21/ER Signed Date of Exam:04/05/21 CT HEAD WO-R/O STROKE EXAMINATION: CT head without contrast. TECHNIQUE: Multiple contiguous axial images were obtained through the brain without the use of intravenous contrast. All CT scans use one or more of the following dose optimizing techniques: automated exposure control, MA and/or KvP adjustment based on patient size and exam type or iterative reconstruction. HISTORY: Unresponsive. Concern for acute ischemia. COMPARISON: 02/11/2019. FINDINGS: No large acute territorial ischemia, mass, or hemorrhage. No midline shift or mass effect. Decreased attenuation is seen in the periventricular and subcortical white matter. The ventricles and cortical sulci are prominent. The basilar cisterns are patent and unremarkable. The orbits are normal. Paranasal sinuses are normal. Mastoid air cells are clear. No soft tissue abnormality is seen. No osseus lesions or fractures are seen. IMPRESSION: 1. No large acute territorial ischemia, mass, or hemorrhage. 2. Chronic microvascular disease. 3. Generalized parenchymal volume loss. Dictated by: Dictated on workstation # [id number] Dict: 04/05/2133 Trans: 04/05/21639 CVB [id number] Interpreted by: IRENE QUIÑONEZ DO Electronically signed by: IRENE QUIÑONEZ DO 04/05/21639 Critical Care Note Critical Care Start Time: 06:10 Stop Time: 10:00 Total Time (minutes) 45 minutes critical care time in the evaluation and management of this 80-year-old unresponsive male. Time includes initial evaluation and management, discussion with regarding CODE STATUS, need for intubation. Fluid resuscitation, review and interpretation of laboratory studies, initiation of antibiotics, review and interpretation of imaging. Review of the medical record. Discussion with primary care provider/admitting physician. Discussion with cardiology, discussion with eICU. Departure Communication (Admissions) Time/Spoke to Admitting Phy: 10:[address] Armstrong Time/Spoke to Consulting Phy: 10:[address] Randhawa Impression Primary Impression: Altered mental status Qualified Codes: R40.1 - Stupor Additional Impressions: Sepsis Qualified Codes: A41.9 - Sepsis, unspecified organism Chronic kidney disease Qualified Codes: N18.9 - Chronic kidney disease, unspecified Disposition: ADMITTED INPATIENT Condition: Critical Admissions Decision to Admit Reason: Admit from ER (General) Decision to Admit/Date: Apr 05, 2021 Time/Decision to Admit Time: 11:06 Departure-Patient Inst. Referrals: MOISÉS ARMSTRONG MD (PCP/Family) Primary Care Physician TIANNA BREWER MD Apr 05, 2021 06:29
[2021-04-05 06:33] LABS: BASOPHILS % (AUTO) 0 % (0-10); EOSINOPHILS % (AUTO) 0 % (0-10); HEMATOCRIT 35 % (40-54); HEMOGLOBIN 11.5 g/dL (13.3-17.7); LYMPHOCYTES # (AUTO) 2.8 10^3/uL (1.0-4.0); LYMPHOCYTES % (AUTO) 15 % (12-44); MEAN CORPUSCULAR HEMOGLOBIN 29 pg (25-34); MEAN CORPUSCULAR HGB CONC 33 g/dL (32-36); MEAN CORPUSCULAR VOLUME 88 fL (80-99); MEAN PLATELET VOLUME 9.6 fL (9.0-12.2); MONOCYTES # (AUTO) 1.6 10^3/uL (0.0-1.0); MONOCYTES % (AUTO) 8 % (0-12); NEUTROPHILS # (AUTO) 14.7 10^3/uL (1.8-7.8); NEUTROPHILS % (AUTO) 76 % (42-75); PLATELET COUNT 250 10^3/uL (130-400); WHITE BLOOD COUNT 19.3 10^3/uL (4.3-11.0)
[2021-04-05 06:41] LABS: ABG OXYGEN SATURATION 99 % (94-100); ABG PCO2 34 MMHG (35-45); ABG PO2 143 MMHG (79-93); ABG TCO2 18.8 MMOL/L (21.0-31.0)
--- NOTE | 2021-04-05 06:41 | Diagnostic Imaging Report ---
EXAMINATION: CT head without contrast. TECHNIQUE: Multiple contiguous axial images were obtained through the brain without the use of intravenous contrast. All CT scans use one or more of the following dose optimizing techniques: automated exposure control, MA and/or KvP adjustment based on patient size and exam type or iterative reconstruction. HISTORY: Unresponsive. Concern for acute ischemia. COMPARISON: 02/11/2019. FINDINGS: No large acute territorial ischemia, mass, or hemorrhage. No midline shift or mass effect. Decreased attenuation is seen in the periventricular and subcortical white matter. The ventricles and cortical sulci are prominent. The basilar cisterns are patent and unremarkable. The orbits are normal. Paranasal sinuses are normal. Mastoid air cells are clear. No soft tissue abnormality is seen. No osseus lesions or fractures are seen. IMPRESSION: 1. No large acute territorial ischemia, mass, or hemorrhage. 2. Chronic microvascular disease. 3. Generalized parenchymal volume loss. Dictated by: Dictated on workstation # [id number]
[2021-04-05 06:42] LABS: ABG PH 7.35 (7.37-7.43)
[2021-04-05 06:43] LABS: ALLENS TEST YES-POS; INSPIRED O2 10L; PATIENT TEMP 36.8; VENTILATOR NO
[2021-04-05 06:48] LABS: BILIRUBIN,URINE NEGATIVE (NEGATIVE); CLARITY,URINE CLEAR; COLOR,URINE DARK YELLOW; GLUCOSE, URINE (UA) 1+ (NEGATIVE); KETONES,URINE NEGATIVE (NEGATIVE); LEUKOCYTE ESTERASE ,URINE NEGATIVE (NEGATIVE); NITRITE,URINE NEGATIVE (NEGATIVE); PROTEIN,URINE TRACE (NEGATIVE)
[2021-04-05 06:50] LABS: BAND NEUTROPHILS 1 %; LYMPHOCYTES % (MANUAL) 18 %; MONOCYTES % (MANUAL) 6 %; NEUTROPHILS % (MANUAL) 75 %; RBC MORPH NORMAL
[2021-04-05 06:55] LABS: INR 1.1 (0.8-1.4); PROTHROMBIN TIME PATIENT 14.2 SEC (12.2-14.7)
[2021-04-05 06:57] LABS: ALBUMIN 3.2 GM/DL (3.2-4.5); POTASSIUM 4.4 MMOL/L (3.6-5.0)
[2021-04-05 07:01] LABS: BILIRUBIN,TOTAL 0.7 MG/DL (0.1-1.0)
[2021-04-05 07:03] LABS: CREATININE SERUM 2.9 MG/DL (0.60-1.30)
[2021-04-05 07:06] LABS: MAGNESIUM 1.7 MG/DL (1.6-2.4)
[2021-04-05 07:11] LABS: BACTERIA,URINE TRACE /HPF; HYALINE CASTS, URINE 0-2 /LPF; SQUAMOUS EPITHELIAL CELL,UR 0-2 /HPF; WBC,URINE RARE /HPF
[2021-04-05] MEDS ORDERED: PROPOFOL DRIP (ICU) 100 ML IV SCH (07:15)
[2021-04-05] MEDS ORDERED: NS IV 1000 ML 1,000 ML IV SCH (07:15)
[2021-04-05 07:21] VITALS: BP 177/84
--- NOTE | 2021-04-05 07:35 | Diagnostic Imaging Report ---
EXAMINATION: Chest 1 view HISTORY: AMS COMPARISON: 02/04/2020 FINDINGS: Endotracheal tube tip terminates 7 cm above the chase. Gastric tube tip terminates below the field of view. No pleural effusion or pneumothorax. Heart size is normal. There are patchy areas of atelectasis in the mid and lower zones. IMPRESSION: 1. Patchy atelectasis, otherwise clear lungs. Dictated by: Dictated on workstation # [id number]
[2021-04-05] MEDS ORDERED: PIPERACILLIN SODIUM/TAZOBACTAM 4.5 GM in NS (IVPB) 100 ML IV ONE (08:30)
[2021-04-05] MEDS: NS IV 1000 ML 1,000 ML IV SCH ×4 (08:40→20:49)
[2021-04-05] MEDS ORDERED: NS IV 500 ML 500 ML IV SCH (09:45)
[2021-04-05] MEDS ORDERED: ASPIRIN 300 MG (5 GR) SUPPOSITORY PR STA (10:32)
[2021-04-05] MEDS ORDERED: ENOXAPARIN 80 MG/0.8 ML (LOVENOX) SYR SC ONE (11:15)
[2021-04-05 11:28] VITALS: BP 102/66
--- NOTE | 2021-04-05 14:27 | Diagnostic Imaging Report ---
CT ABDOMEN/PELVIS WO TECHNIQUE: Unenhanced CT imaging of the abdomen and pelvis was performed. 2-D reformats are created and submitted for interpretation. Automatic exposure controls were utilized to optimize patient dose. INDICATION: Altered mental status. Diverticulitis COMPARISON: None available. FINDINGS: Evaluation of the abdominal viscera is mildly limited without contrast. Lower chest: Patchy opacities in lung bases have increased. Moderate size hiatal hernia is unchanged. Peritoneum: No free intraperitoneal air or fluid. Liver and biliary system: Unenhanced liver is normal. Minimal layering hyperdensities in the gallbladder suggests cholelithiasis. Spleen and Pancreas: Spleen is normal. Unenhanced pancreas is grossly normal. Adrenals: Normal. tract: No renal or ureteral calculi. No obstructive uropathy. Urinary bladder is decompressed by Thomson catheter. Numerous surgical clips in the pelvis are likely due to prostatectomy. GI tract: Stomach is decompressed. No bowel obstruction. The transverse foramen has marked wall thickening with surrounding inflammatory stranding indicative of acute colitis. A large amount of stool is present in the rectosigmoid colon. Appendix has hyperdense structures within likely due to small appendicoliths. No features of acute cholecystitis. Vasculature and Lymph nodes: Normal caliber aorta. No abdominal or pelvic lymphadenopathy. Musculoskeletal: No concerning osseous lesion. IMPRESSION: 1. Acute colitis involving the entire transverse colon. 2. No perforation or abscess. 3. Patchy opacities in lung bases are likely due to atelectasis. Alternatively, aspiration could give this appearance. Dictated by: Dictated on workstation # [id number]
[2021-04-05 14:30] VITALS: BP 106/81
[2021-04-05] MEDS ORDERED: ASPIRIN 300 MG (5 GR) SUPPOSITORY PR PRN (15:00)
[2021-04-05 15:03] VITALS: BP 106/81
--- NOTE | 2021-04-05 15:09 | Tele-ICU Consult ---
History of Present Illness History of Present Illness Date Seen by Provider: Apr 05, 2021 Time Seen by Provider: 15:08 Date of Admission Allergies and Home Medications Allergies Coded Allergies: No Known Drug Allergies (Verified , 01/29/07) Home Medications Amitriptyline HCl 50 Mg Tablet, 50 MG PO BID, (Reported) Amoxicillin/Potassium Clav 1 Each Tablet, 1 EACH PO BID Prescribed by: MOISÉS ARMSTRONG on 02/07/20 0944 Atorvastatin Calcium 40 Mg Tablet, 40 MG PO HS, (Reported) Calcium Carbonate/Vitamin D3 1 Each Capsule, 2 EACH PO DAILY, (Reported) Docusate Sodium 100 Mg Capsule, 2 MG PO DAILY, (Reported) Insulin Aspart 100 Unit/1 Ml Susp, 7 UNIT SQ BIDAC, (Reported) Insulin Glargine,Hum.rec.anlog 100 Unit/1 Ml Insuln.pen, 35 UNIT SC HS, (Reported) Lisinopril 5 Mg Tablet, 5 MG PO DAILY, (Reported) Metoprolol Succinate 25 Mg Tab.er.24h, 25 MG PO DAILY, (Reported) Multivits, W-Fe,Other Min 1 Each Tablet, 1 EACH PO DAILY, (Reported) Pantoprazole Sodium 40 Mg Tablet.dr, 40 MG PO BID, (Reported) Thiamine Mononitrate 100 Mg Tablet, 100 MG PO DAILY, (Reported) [Folic Acid] , 1 MG PO DAILY, (Reported) Past Medical/Social/Family Hx Immunizations Up To Date Tetanus Booster (TDap): Unknown Hepatitis A: No Hepatitis B: No TB Skin Test: None Date of Pneumonia Vaccine: Dec 14, 2011 Current Status Primary Language: French Preferred Spoken Language: French Family Medical History Family Hx: HAS HAD ADMITS FOR SEVERE SEPSIS/SEPTIC SHOCK WITH PNEUMONIA, GI BLEEDING Review of Systems Constitutional: see HPI Focused Exam Lactate Level 04/05/21 07:06: Lactic Acid Level 3.38*H Height, Weight, BMI Height: 5'9.00" Weight: 230lbs. 4.0oz. 104.196706op; BMI Method:Estimated Exam Exam Patient acknowledged, consented, and participated in this virtual visit which was conducted using real time audio/video Vital Signs Date Time Temp Pulse Resp B/P (MAP) Pulse Ox O2 Delivery O2 Flow Rate FiO2 04/05/21 14:50 87 04/05/21 14:38 36.2 28 106/81 100 Mechanical Ventilator 30.00 04/05/21 14:30 89 27 99 30 04/05/21 14:05 84 18 104/61 97 Mechanical Ventilator 40.00 04/05/21 12:00 36.1 89 20 91/49 96 Mechanical Ventilator 04/05/21 11:28 89 18 99 40 04/05/21 11:00 36.1 89 22 90/58 99 Mechanical Ventilator 04/05/21 10:00 35.9 88 22 102/55 98 Mechanical Ventilator 04/05/21 09:41 35.9 92 24 80/52 98 Mechanical Ventilator 04/05/21 09:00 35.9 96 23 92/55 93 Mechanical Ventilator 04/05/21 08:00 35.9 101 17 105/59 98 Mechanical Ventilator 04/05/21 07:21 104 18 99 40 04/05/21 07:16 107 177/84 04/05/21 06:14 Non Rebreather 10.00 04/05/21 06:14 36.8 102 30 99 Non Rebreather 10.00 Height & Weight Height: 5'9.00" Weight: 230lbs. 4.0oz. 104.870405vt; BMI Method:Estimated General Appearance: No Apparent Distress Capillary Refill: Greater Than 3 Seconds Gastrointestinal: soft, other (Nondistended) Results Lab Laboratory Tests 04/05/21 06:15 Assessment/Plan Assessment/Plan (Tele-ICU Physician , consultation) Available chart/ vitals / labs / Images reviewed H&P is from ER notes Patient's information available about PMH, Shx, Fhx allergy reviewed in EMR. ROS as per chart and RN report Now in ICU, hemodynamically stable Video assessment done using teleICU camera, rest of exam as per RN Discussed with RN. Sedation gtt: propofol 20 ( RASS ) VENT SETTINGS and ABG reviewed Not candidate for SBT today REVIEWED Cardiovascular Stability / Sedation Score / FI02/PEEP / ABG / CXR Consultants: cards Hospital course: 04/05- unresponsive at home, intubated in ER A/P Acute resp failure - intubated 04/05 in ER due to unresponsibeness - AC 400 16 +5 405 -follow closely Change mental status - etiology is not clear , suspected TME ,? CVA , ?SZ - CTH 04/04 - no acute changes - follow images in 24 h - monitor ROSARIO / CKD - hydration , follow - CPK is slightly elevated ( was on the floor unknown duration - follow ) DM with hyperglycemia - ISS Infection , suspected Acute colitis involving the entire transverse colon.- mildly elev PCT - ( flu neg , covid rapid NEG , vaccinated) -- sepsis , not shock - follow UO and lactate - empiric abx started , cx pending - CT abd/pelvis 04/05 - colitis - change and for levoofloxacin and flagyl 04/05 - follow Hyponatremia - 128 on admission - chronic in part - follow closely for Sz Elev trop - acrd consulted = ECHJO pending - lovenox 80 given in ER ( x1 - with renal insufficiency ) Lines : (Central Line Necessity Reviewed) Thomson: OG: Nutrition: npo Analgesia: Anxiety/ delirium VTE Prophylaxis: Stress Ulcer Prophylaxis: h2bl Plans in collaboration with bedside consultants and IM MDs. Discussed with RN to reach out if any questions or concerns A total of 35 minutes of critical care time was devoted to this patient today, required to treat and/or prevent further deterioration of critical care condition ( as above JOSE JUAN VARELA MD Apr 05, 2021 15:09
[2021-04-05] MEDS ORDERED: RT-ALBUTEROL/IPRATROPIUM 3 ML (DUONEB) VIAL INH PRN (15:15)
[2021-04-05] MEDS: metroNIDAZOLE 500MG/100ML IVPB 100 ML IV SCH (15:16)
--- NOTE | 2021-04-05 15:30 | Consultation-Cardiology ---
HPI-Cardiology Cardiology Consultation Date of Consultation 04/05/21 Date of Admission Time Seen by Provider: 15:08 HPI Patient is an 80 y/o male with history of HTN, HLP, DM. Found by this morning unresponsive on floor by bed. Upon arrival to ER he was responsive to painful stimuli and able to withdrawal all for extremities, unable to open eyes. Was intubated in ER. HPI is obtained from reviewing medica Records. Patient was unable to provide any history, history was obtained by interviewing his and reviewing his record He is an 80 years old gentleman who started having increasing cough and vomited twice then became unresponsive, his called the ambulance and he was brought to the emergency room. On my evaluation he is intubated. Unable to provide any history. No chest pain was reported prior to the coughing episode. He was having some shortness of breath and cough for the past few days. Home Medications & Allergies Allergies: Coded Allergies: No Known Drug Allergies (Verified , 01/29/07) Home Medication List Reviewed: Yes [id number] Hx Patient Social History Marital Status: Drug of Choice: UDS + FOR THC 02/11/19 Former smoker/When Quit: Dec 13, 1996 Type Used: Cigarettes 2nd Hand Smoke Exposure: No Recent Hopitalizations: No Immunizations Up To Date Tetanus Booster (TDap): Unknown Date of Pneumonia Vaccine: Dec 14, 2011 Date of Influenza Vaccine: Feb 13, 2014 Past Medical History HTN, HLP, DM Family Medical History Significant Family History: Heart Disease, Cancer, Diabetes, Hypertension Family History: Cancer G8 SISTER ( of lung cancer) History of - disorder 17 MOTHER (mother of old age) History of - respiratory disease 17 FATHER (worked in coal mines of resp disease from working in coal mines) Review of Systems-General Review of Systems ROS-Unable to Obtain: currently sedated and intubated, unable to obtain ROS Constitutional: see HPI, other (Unable to provide review of system) Reviewed Test Results Reviewed Test Results Lab Laboratory Tests 04/05/21 06:15: White Blood Count 19.3H, Red Blood Count 3.97L, Hemoglobin 11.5L, Hematocrit 35L , Mean Corpuscular Volume 88, Mean Corpuscular Hemoglobin 29, Mean Corpuscular Hemoglobin Concent 33, Red Cell Distribution Width 13.0, Platelet Count 250, Mean Platelet Volume 9.6, Immature Granulocyte % (Auto) 1, Neutrophils (%) (Auto) 76H, Lymphocytes (%) (Auto) 15, Monocytes (%) (Auto) 8, Eosinophils (%) (Auto) 0, Basophils (%) (Auto) 0, Neutrophils # (Auto) 14.7H, Lymphocytes # (Auto) 2.8, Monocytes # (Auto) 1.6H, Eosinophils # (Auto) 0.0, Basophils # (Auto) 0.0, Immature Granulocyte # (Auto) 0.1, Neutrophils % (Manual) 75, Lymphocytes % (Manual) 18, Monocytes % (Manual) 6, Band Neutrophils 1, Blood Morphology Comment NORMAL, Prothrombin Time 14.2, INR Comment 1.1, Activated Partial Thromboplast Time 30, Sodium Level 128L, Potassium Level 4.4, Chloride Level 98, Carbon Dioxide Level 16L, Anion Gap 14, Blood Urea Nitrogen 37H, Creatinine 2.90H, Estimat Glomerular Filtration Rate 21, BUN/Creatinine Ratio 13, Glucose Level 331H, Calcium Level 9.0, Corrected Calcium 9.6, Magnesium Level 1.7, Total Bilirubin 0.7, Aspartate Amino Transf (AST/SGOT) 21, Alanine Aminotransferase (ALT/SGPT) 15, Alkaline Phosphatase 110, Total Creatine Kinase 221H, Troponin I 0.031H, C-Reactive Protein High Sensitivity 12.91H, Total Protein 7.0, Albumin 3.2, Triglycerides Level 105, Procalcitonin 0.23H 04/05/21 06:19: Glucometer 278H 04/05/21 06:35: Blood Gas Puncture Site LEFT RADIAL, Blood Gas Patient Temperature 36.8, Arterial Blood pH 7.35L, Arterial Blood Partial Pressure CO2 34L, Arterial Blood Partial Pressure O2 143H, Arterial Blood HCO3 18L, Arterial Blood Total CO2 18.8L, Arterial Blood Oxygen Saturation 99, Arterial Blood Base Excess -7.0L, Arsalan Test YES-POS, Blood Gas Ventilator Setting NO, Blood Gas Inspired Oxygen 10L 04/05/21 06:36: Urine Color DARK YELLOW, Urine Clarity CLEAR, Urine pH 6.0, Urine Specific [place] 1.015L, Urine Protein TRACEH, Urine Glucose (UA) 1+H, Urine Ketones NEGATIVE, Urine Nitrite NEGATIVE, Urine Bilirubin NEGATIVE, Urine Urobilinogen 0.2, Urine Leukocyte Esterase NEGATIVE, Urine RBC (Auto) NEGATIVE, Urine RBC NONE, Urine WBC RARE, Urine Squamous Epithelial Cells 0-2, Urine Crystals NONE, Urine Bacteria TRACE, Urine Casts PRESENT, Urine Hyaline Casts 0-2H, Urine Mucus NEGATIVE, Urine Culture Indicated NO 04/05/21 06:55: Influenza Type A (RT-PCR) , SARS-CoV-2 RNA (RT-PCR) Not Detected 04/05/21 07:00: Influenza Type A Antigen NEGATIVE, Influenza Type B Antigen NEGATIVE 04/05/21 07:06: Lactic Acid Level 3.38*H 04/05/21 13:33: Glucometer 302H 04/05/21 15:05: Sodium Level 130L, Potassium Level 4.1, Chloride Level 105, Glucose Level 306H, Lactic Acid Level 2.11*H, Calcium Level 8.1L Physical Exam Physical Exam Vital Signs Vital Signs - First Documented 04/05/21 04/05/21 07:16 07:21 B/P (MAP) 177/84 FiO2 40 Capillary Refill : Greater Than 3 Seconds Height, Weight, BMI Height: 5'9.00" Weight: 230lbs. 4.0oz. 104.548999qi; 32.55 BMI Method:Estimated General Appearance: No Apparent Distress, WD/WN HEENT: TMs Normal, Pharynx Normal Neck: Normal Inspection, Supple; No Carotid Bruit Respiratory: Chest Non Tender, Decreased Breath Sounds Cardiovascular: Regular Rate, Rhythm, No JVD Neurologic/Psychiatric: Other (sedated and intubated) A/P-Cardiology Admission Diagnosis Acute respiratory failure AMS Sepsis Elevated troponin Assessment/Plan Acute resp failure, ventilator dependent, managed by medical team. Altered mental status,was found on floor by bed by this morning, unknown etiology, CT head done showing no acute changes. Currently sedated and intubated, continue to monitor. Sepsis, CT abd/pelvis showing acute colitis involving entire transverse colon, started on levoloxacin and flagyl, management per medical services. Mildly elevated troponin, EKG showing sinus tachy with PVC's. Probably type II myocardial infarction due to respiratory failure. Stress test in 2019 showed no significant ischemia or infarction. We will continue monitoring closely. Chronic kidney disease with ROSARIO, continue to monitor renal function. DM, management per medical services Hyponatremia, monitor electrolytes Hx of Hypertension, currently hypotensive Thank you for allowing us to participate in the management of Mr. Gutierrez. This is Zofia Oropeza PA-C, as a scribe for Dr. Darby. Patient was seen and evaluated, interviewed at the and examined the patient, reviewed his record Patient is currently sedated and intubated, unknown cause of his change in mental status but probably sepsis and pneumonia Started on empiric antibiotic, planning to evaluate 2D echo Monitor blood pressure, monitor electrolytes closely Underlying coronary artery disease cannot be excluded entirely, will continue m onitoring and adjusting his medication. ZOFIA GARZA Apr 05, 2021 15:30 INDIGO DARBY MD Apr 05, 2021 16:20
[2021-04-05 15:41] LABS: POTASSIUM 4.1 MMOL/L (3.6-5.0)
[2021-04-05 15:42] LABS: CALCIUM 8.1 MG/DL (8.5-10.1)
[2021-04-05] MEDS ORDERED: FLU QUAD HIGH DOSE 240 MCG/0.7 ML 2021-22 (FLUZONE) IM ONE (15:45)
[2021-04-05 15:47] LABS: CREATININE SERUM 2.31 MG/DL (0.60-1.30)
[2021-04-05] MEDS ORDERED: inSUlin ASPART (NovoLOG) 1 UNIT/0.01 ML (CHARGE PER UNIT) SC SCH (16:00)
[2021-04-05] MEDS: PIPERACILLIN SODIUM/TAZOBACTAM 4.5 GM in NS (IVPB) 100 ML IV SCH ×2 (16:20→21:29)
[2021-04-05] MEDS: inSUlin ASPART (NovoLOG) 1 UNIT/0.01 ML (CHARGE PER UNIT) SC SCH (17:43)
[2021-04-05 18:36] VITALS: BP 121/57
--- NOTE | 2021-04-05 19:19 | History & Physical ---
History of Present Illness History of Present Illness Reason for visit/HPI PT IS AN 80 Y/O MALE WHO IS KNOWN TO ME FROM CLINIC AND MULTIPLE PREVIOUS HOSPITALIZATION FOR GI ILLNESS. PT IS INTUBATED AND HAS BEEN OFF OF THE PROPOFOL FOR 2.5 HOURS AT THE TIME OF THIS EVALUATION. HISTORY IS TAKEN FROM HIS , KIRILL. SHE REPORTS THAT HE WAS NOT FEELING WELL YESTERDAY BUT WAS UNABLE TO TELL HER WHAT WAS WRONG. HE REPORTED TO HER THAT HE JUST WASN'T FEELING VERY GOOD. HE HAD NOT HAD ANY NAUSEA, EMESIS OR DIARRHEA. SHE FOUND HIM EARLY THIS MORNING BETWEEN THE BED AND WALL, CALLED EMS AND THEY BROUGHT HIM TO THE HOSPITAL. HE WAS SOMEWHAT WILD UPON EVAL IN THE ER, WAS INTUBATED AND SEDATED. NURSING STAFF REPORTS THAT HE DID NOT RESPOND TO PAINFUL STIMULI ON ANY OF THEIR EVALUATIONS. Date of Admission Apr 05, 2021 at 10:48 Date Seen by a Provider: Apr 05, 2021 Time Seen by a Provider: 18:45 Attending Physician Moisés Alfaro MD Admitting Physician Moisés Alfaro MD Consult CRITICAL CARE EICU DR. BULL Allergies and Home Medications Allergies Coded Allergies: No Known Drug Allergies (Verified , 01/29/07) Patient Home Medication List Home Medication List Reviewed: Yes Amitriptyline HCl (Amitriptyline HCl) 50 Mg Tablet, 50 MG PO BID, (Reported) Entered as Reported by: JUAN M MCKAY on 11/18/16 0829 Last Action: Held Amoxicillin/Potassium Clav (Augmentin 875-125 Tablet) 1 Each Tablet, 1 EACH PO BID Prescribed by: MOISÉS ALFARO on 02/07/20 0944 Last Action: Held Atorvastatin Calcium (Atorvastatin Calcium) 40 Mg Tablet, 40 MG PO HS, (Re ported) Entered as Reported by: SCHUYLER COFFEY on 02/04/201532 Last Action: Held Calcium Carbonate/Vitamin D3 (Calcium 600 + Vitamin D Sftgl) 1 Each Capsule, 2 EACH PO DAILY, (Reported) Entered as Reported by: SCHUYLER COFFEY on 02/04/201532 Last Action: Held Docusate Sodium (Colace) 100 Mg Capsule, 2 MG PO DAILY, (Reported) Entered as Reported by: SCHUYLER COFFEY on 02/04/201532 Last Action: Held Insulin Aspart (Novolog) 100 Unit/1 Ml Susp, 7 UNIT SQ BIDAC, (Reported) Entered as Reported by: MIKE TENA on 02/27/18 1151 Last Action: Held Insulin Glargine,Hum.rec.anlog (Basaglar Kwikpen U-100) 100 Unit/1 Ml Insuln.pen, 35 UNIT SC HS, (Reported) Entered as Reported by: SCHUYLER COFFEY on 02/04/201532 Last Action: Held Lisinopril (Lisinopril) 5 Mg Tablet, 5 MG PO DAILY, (Reported) Entered as Reported by: SCHUYLER COFFEY on 02/04/201532 Last Action: Held Metoprolol Succinate (Metoprolol Succinate) 25 Mg Tab.er.24h, 25 MG PO DAILY, (Reported) Entered as Reported by: ANNA AUSTIN on 07/10/15 1009 Last Action: Held Multivits,Th W-Fe,Other Min (Complete Multivitamin) 1 Each Tablet, 1 EACH PO DAILY, (Reported) Entered as Reported by: SCHUYLER COFFEY on 02/04/201532 Last Action: Held Pantoprazole Sodium (Pantoprazole Sodium) 40 Mg Tablet.dr, 40 MG PO BID, (Reported) Entered as Reported by: SCHUYLER COFFEY on 02/04/201532 Last Action: Held Thiamine Mononitrate (Vitamin B-1) 100 Mg Tablet, 100 MG PO DAILY, (Reported) Entered as Reported by: SCHUYLER COFFEY on 02/04/201532 Last Action: Held [Folic Acid] , 1 MG PO DAILY, (Reported) Entered as Reported by: SCHUYLER COFFEY on 02/04/201532 Last Action: Held Past Yymhuql-Knplbp-Bgqjii Hx Patient Social History Marrital Status: Number of Children: 5 Number of living children: 4 Living Status: LIVING WITH SPOUSE, HER GRANDSON HELPS CARE FOR THEM Employed/Student: retired (WORKED AT [employer]) Tobacco Use?: Yes Tobacco type used: Cigarettes Smoking Status: Former Smoker (SMOKED FOR 30 YEARS) Use of E-Cig and/or Vaping dev: No Substance use?: No Alcohol Use?: No Pt feels they are or have been: No Immunizations Up To Date Date of Influenza Vaccine: Feb 13, 2014 Tetanus Booster (TDap): Unknown Hepatitis A: No Hepatitis B: No PED Vaccines UTD: Yes Date of Pneumonia Vaccine: Dec 14, 2011 Seasonal Allergies Seasonal Allergies: No Current Status Advance Directives: No Communicates: Unable To Communicate Primary Language: Turkmen Preferred Spoken Language: Turkmen Is interpretation needed?: Unable to obtain Implanted or Applied Medical D: None Past Medical History Surgeries: Appendectomy, Prostatectomy Pneumonia Currently Using CPAP: No Currently Using BIPAP: No High Cholesterol, Hypertension Dementia Sexually Transmitted Disease: No HIV/AIDS: No Prostate Problems Chronic Constipation Arthritis Diabetes, Insulin dep Loss of Vision: Denies Hearing Impairment: Hard of Hearing Prostate Did You Recieve Any Treatments: Yes What Type of Treatment Did You: Surgical Intervention Anxiety Nursing Suicide Risk Notes: UNRESPONSIVE Blood Disorders: No Adverse Reaction/Blood Tranf: No Family Medical History Reviewed Nursing Family Hx Cancer G8 SISTER ( of lung cancer) History of - disorder 19 MOTHER (mother of old age) History of - respiratory disease 19 FATHER (worked in [employer] of resp disease from working in coal mines) Heart Disease, Cancer, Diabetes, Hypertension HAS HAD ADMITS FOR SEVERE SEPSIS/SEPTIC SHOCK WITH PNEUMONIA, GI BLEEDING Review of Systems Constitutional: No chills, No fever; malaise, weakness EENTM: other (PT OBTUNDED ON VENTILATOR) Respiratory: other (PT ON VENTILATOR) Gastrointestinal: abdominal pain (PER ), constipation (CHRONIC PER ); No diarrhea, No nausea, No vomiting Genitourinary: other (ODELL IN PLACE) Musculoskeletal: other (CHRONIC BACK PAIN - PT OBTUNDED UNABLE TO ANSWER ROS) Skin: no symptoms reported Psychiatric/Neurological: Other (PT OBTUNDED) All Other Systems Reviewed Negative Unless Noted: Yes Physical Exam Vital Signs Vital Signs - First Documented 04/05/21 04/05/21 07:16 07:21 B/P (MAP) 177/84 FiO2 40 Capillary Refill : Greater Than 3 Seconds Height, Weight, BMI Height: 5'9.00" Weight: 230lbs. 4.0oz. 104.178386ab; 32.55 BMI Method:Estimated General Appearance: Other (PT OBTUNDED) HEENT: Other (PUPILS PINPOINT, NOT RESPONSIVE, DOES NOT FOLLOW COMMANDS OR MOVE EYES) Respiratory: Other (VENTILATOR ASSISTED BREATHES, NO CRACKLES) Cardiovascular: Regular Rate, Rhythm Gastrointestinal: Normal Bowel Sounds, Soft Rectal: Deferred Extremity: Normal Capillary Refill, Pedal Edema (TRACE AT ANKLES) Neurologic/Psychiatric: Other (OBTUNDED ON VENTILATOR) Skin: Warm/Dry Lymphatic: No Adenopathy Assessment/Plan Assessment and Plan SEVERE SEPSIS TRANSVERSE COLITIS RESPIRATORY FAILURE ACUTE ON CHRONIC RENAL FAILURE CHRONIC HYPERTENSION CHRONIC CONSTIPATION DIABETES MELLITUS WITH HYPERGLYCEMIA LEUKOCYTOSIS HYPONATREMIA LACTIC ACIDOSIS SEVERE SEPSIS DUE TO TRANSVERSE COLITIS - PT ON IV ANTIBIOTICS OF ZOSYN, LEVAQUIN, FLAGYL, CONTINUE WITH CURRENT ANTIBIOTIC CHOICE, MONITOR RENAL FUNCTION ON ZOSYN AND LEVAQUIN, AND WILL CONTINUE WITH FLUIDS AND CURRENT PLAN. RESPIRATORY FAILURE - PT VENTILATED - CURRENTLY NOT SEDATED, DISCUSSED TREATMENT PLAN WITH PT'S AND GRANDSON - ISABEL. - CONTINUE WITH CURRENT MANAGEMENT -WILL DEFER TO E-ICU TO MANAGE VENTILATOR. ACUTE ON CHRONIC RENAL FAILURE - ANTICIPATE WORSENING DUE TO HIS SHOCK FROM SEPSIS - WILL NEED TO CLOSELY MONITOR HIS RENAL FUNCTION ON CURRENT MEDICATION REGIMEN. CHRONIC HYPERTENSION - PT CURRENTLY HYPOTENSIVE, MONITOR BP AND START ON IV ANTIHYPERTENSIVES IF NEEDED. CHRONIC CONSTIPATION - LARGE BOWEL MOVEMENT THIS EVENING. DIABETES MELLITUS WITH HYPERGLYCEMIA - SLIDING SCALE INSULIN PROTOCOL LEUKOCYTOSIS - SHOULD IMPROVE WITH TREATMENT OF SHOCK. HYPONATREMIA - 130 ON ADMISSION - IV FLUIDS GIVEN FROM SEPSIS PROTOCOL, MONITOR SODIUM WITH LABS. LACTIC ACIDOSIS - ON IV FLUIDS PER PROTOCOL. LONG DISCUSSION TONIGHT WITH KIRILL () AND ISABEL (GRANDSON) - THEY ARE DISCUSSING PT TO BE MADE DNR/DNI SHOULD HE EXTUBATE HIMSELF, KIRILL IS NOT WANTING TO RE-INSERT THE VENTILATOR TUBE AND IF HIS HEART SHOULD STOP SHE IS NOT WANTING CPR, BUT WANTS ISABEL TO HELP HER MAKE THE DECISION. I HAVE ADVISED THAT BASED ON HIS CURRENT HEALTH SITUATION AND HIS USUAL HEALTH STATUS AN OUTPATIENT, IT WOULD BE ADVISABLE TO MAKE HIM DNR/DNI, BUT WE WILL LET THEM MAKE THAT DECISION TOGETHER AND LET THE NURSING STAFF KNOW THEIR DECISION. TAMMIE IS QUITE ILL AND IS AT VERY HIGH RISK OF IN-HOSPITAL DECLINE AND . Admission Diagnosis SEVERE SEPSIS TRANSVERSE COLITIS RESPIRATORY FAILURE ACUTE ON CHRONIC RENAL FAILURE CHRONIC HYPERTENSION CHRONIC CONSTIPATION DIABETES MELLITUS WITH HYPERGLYCEMIA LEUKOCYTOSIS HYPONATREMIA LACTIC ACIDOSIS Admission Status: Inpatient Order (span 2 midnights) Reason for Inpatient Admission: INPATIENT ADMISSION FOR SEVERE SEPSIS WITH RESPIRATORY FAILURE - WILL REQUIRE AT LEAST 3-4 DAYS IN HOSPITAL FOR STABILIZATION AND PLANS FOR TREATMENT PAST ACUTE ILLNESS MOISÉS ALFARO MD Apr 05, 2021 19:19
[2021-04-05] MEDS ORDERED: morphine INJ 4 MG/ML 1 ML (VIAL/SYRINGE) IVP PRN (20:30)
[2021-04-05] MEDS ORDERED: morphine INJ 4 MG/ML 1 ML (VIAL/SYRINGE) ONE (21:00)
[2021-04-05 22:45] VITALS: BP 100/58
[2021-04-05] MEDS: RT-ALBUTEROL/IPRATROPIUM 3 ML (DUONEB) VIAL INH SCH (22:49)
[2021-04-06] MEDS: metroNIDAZOLE 500MG/100ML IVPB 100 ML IV SCH ×2 (00:11→09:03)
[2021-04-06] MEDS: inSUlin ASPART (NovoLOG) 1 UNIT/0.01 ML (CHARGE PER UNIT) SC SCH ×5 (01:15→23:26)
[2021-04-06] MEDS: NS IV 1000 ML 1,000 ML IV SCH ×7 (01:16→23:26)
[2021-04-06 02:31] VITALS: BP 84/53
[2021-04-06 05:04] LABS: BASOPHILS % (AUTO) 0 % (0-10); EOSINOPHILS % (AUTO) 0 % (0-10); HEMATOCRIT 34 % (40-54); LYMPHOCYTES # (AUTO) 1.5 10^3/uL (1.0-4.0); LYMPHOCYTES % (AUTO) 11 % (12-44); MEAN CORPUSCULAR HEMOGLOBIN 29 pg (25-34); MEAN CORPUSCULAR HGB CONC 32 g/dL (32-36); MEAN CORPUSCULAR VOLUME 91 fL (80-99); MEAN PLATELET VOLUME 9.8 fL (9.0-12.2); MONOCYTES % (AUTO) 7 % (0-12); NEUTROPHILS # (AUTO) 10.7 10^3/uL (1.8-7.8); NEUTROPHILS % (AUTO) 81 % (42-75); PLATELET COUNT 213 10^3/uL (130-400); WHITE BLOOD COUNT 13.3 10^3/uL (4.3-11.0)
[2021-04-06 05:23] LABS: ALBUMIN 2.6 GM/DL (3.2-4.5); POTASSIUM 3.9 MMOL/L (3.6-5.0)
[2021-04-06 05:24] LABS: CALCIUM 7.7 MG/DL (8.5-10.1)
[2021-04-06 05:26] LABS: TOTAL PROTEIN 5.9 GM/DL (6.4-8.2)
[2021-04-06 05:27] LABS: BILIRUBIN,TOTAL 0.7 MG/DL (0.1-1.0)
[2021-04-06 05:29] LABS: CREATININE SERUM 1.98 MG/DL (0.60-1.30); PHOSPHORUS 2.6 MG/DL (2.3-4.7)
[2021-04-06 05:32] LABS: MAGNESIUM 1.7 MG/DL (1.6-2.4)
[2021-04-06] MEDS: PIPERACILLIN SODIUM/TAZOBACTAM 4.5 GM in NS (IVPB) 100 ML IV SCH ×3 (05:38→22:43)
[2021-04-06 07:11] VITALS: BP 86/55
[2021-04-06] MEDS: MAGNESIUM 1 GM/100 ML IVPB 100 ML IV SCH (07:28)
[2021-04-06] MEDS: POTASSIUM CL 10MEQ/50ML IVPB 50 ML IV SCH (07:28)
[2021-04-06] MEDS: KCL 20 MEQ TAB (K-DUR) PO SCH (07:28)
--- NOTE | 2021-04-06 08:27 | Cardiology Progress Note ---
Subjective Date Seen by Provider: Apr 06, 2021 Time Seen by Provider: 08:26 Subjective/Events-last exam Patient is laying down in bed, intubated, unresponsive. Did not receive sedation overnight. Review of Systems General: Other (Unable to provide review of system) Focused Exam Lactate Level 04/05/21 19:35: Lactic Acid Level 2.46*H 04/06/21 04:23: Lactic Acid Level 2.90*H 04/06/21 06:56: Lactic Acid Level 1.50 Lactic Acid Level Laboratory Tests Test 04/06/21 06:56 Lactic Acid Level 1.50 MMOL/L (0.50-2.00) Objective-Cardiology Exam Last Set of Vital Signs Vital Signs 04/06/21 04/06/21 04/06/21 07:11 07:35 08:00 Temp 36.1 Pulse 81 Resp 18 B/P (MAP) 105/64 Pulse Ox 100 O2 Delivery Mechanical Ventilator O2 Flow Rate 30.00 FiO2 30 I&O Intake and Output 04/06/21 00:00 Intake Total 2400 ml Output Total 1475 ml Balance 925 ml Intake Oral 0 ml IV Total 2400 ml Output Urine Total 1475 ml Daily Weight Change No General: Other (Intubated unresponsive) HEENT: Atraumatic Neck: Supple Lungs: Other (Bilateral rhonchi) Heart: Regular Rate Abdomen: Normal Bowel Sounds Extremities: No Clubbing, No Cyanosis Skin: No Rashes Neuro: Other (Unresponsive and intubated) Psych/Mental Status: Other (Unresponsive and intubated) Results Lab Laboratory Tests 04/05/21 15:05 04/06/21 04:23 A/P-Cardiology Admission Diagnosis Acute respiratory failure AMS Sepsis Elevated troponin Assessment/Plan Acute resp failure, ventilator dependent, unresponsive, has been off sedation. Managed by medical team. Altered mental status,was found on floor by bed by this morning, unknown etiology, CT head done showing no acute changes. Currently unresponsive and ventilator dependent Sepsis, CT abd/pelvis showing acute colitis involving entire transverse colon, started on levoloxacin and flagyl, management per medical services. Mildly elevated troponin, EKG showing sinus tachy with PVC's. Probably type II myocardial infarction due to respiratory failure. Stress test in 2019 showed no significant ischemia or infarction. We will continue monitoring closely. Chronic kidney disease with ROSARIO, continue to monitor renal function. DM, management per medical services Hyponatremia, monitor electrolytes Hx of Hypertension, currently hypotensive INDIGO BULL MD Apr 06, 2021 08:27
[2021-04-06] MEDS ORDERED: MAGNESIUM 2 GM/50 ML IVPB 50 ML IV ONE (08:30)
--- NOTE | 2021-04-06 08:46 | Progress Note ---
Subjective Subjective Date Seen by Provider: Apr 06, 2021 Time Seen by Provider: 07:15 Mr. Gutierrez is currently intubated but not on any sedation. He is not responsive to painful stimuli. He has an NG tube in place. Vent settings are as follows: 30% FiO2, 5 PEEP, 450 TV, and 18 RR. His ABG yesterday showed a metabolic acidosis with respiratory compensation. His lactic acid is elevated today. CXR shoed patchy atelectasis. Head CT showed no acute ischemic changes but did show volume loss. Abdominal CT showed transverse colitis without evidence of perforation or abscess. Review of Systems ROS Unable to Obtain: Currently intubated and unable to obtain ROS General: Other (Intubated) All Other Systems Reviewed All Other Systems Reviewed: Yes Objective Exam Vital Signs Vital Signs Date Time Temp Pulse Resp B/P (MAP) Pulse Ox O2 Delivery O2 Flow Rate FiO2 04/06/21 08:00 81 18 105/64 100 Mechanical Ventilator 30.00 04/06/21 07:35 36.1 04/06/21 07:11 80 18 100 30 04/06/21 07:00 80 04/06/21 07:00 81 14 86/55 100 Mechanical Ventilator 30.00 04/06/21 06:00 82 18 117/64 100 Mechanical Ventilator 30.00 04/06/21 05:00 81 12 82/49 100 Mechanical Ventilator 30.00 04/06/21 04:10 Mechanical Ventilator 04/06/21 04:00 36.6 04/06/21 04:00 81 82/51 100 Mechanical Ventilator 30.00 04/06/21 03:00 83 18 105/61 100 Mechanical Ventilator 30.00 04/06/21 02:31 82 18 100 30 04/06/21 02:00 85 18 109/58 100 Mechanical Ventilator 30.00 04/06/21 01:16 99/51 04/06/21 01:00 91 18 99/51 100 Mechanical Ventilator 30.00 04/06/21 01:00 91 04/06/21 00:00 84 18 105/57 100 Mechanical Ventilator 30.00 04/05/21 23:48 Mechanical Ventilator 04/05/21 23:47 36.8 Mechanical Ventilator 30.00 04/05/21 23:00 86 18 97/53 100 Mechanical Ventilator 30.00 04/05/21 22:45 87 19 100 30 04/05/21 22:00 92 18 110/58 100 Mechanical Ventilator 30.00 04/05/21 21:00 96 18 124/64 100 Mechanical Ventilator 30.00 04/05/21 20:00 97 29 111/63 97 Mechanical Ventilator 30.00 04/05/21 20:00 Mechanical Ventilator 04/05/21 19:35 36.6 04/05/21 19:00 101 04/05/21 19:00 92 32 130/66 97 Mechanical Ventilator 30.00 04/05/21 18:36 89 21 100 30 04/05/21 18:00 93 26 141/68 100 Mechanical Ventilator 30.00 04/05/21 17:00 95 29 138/74 100 Mechanical Ventilator 30.00 04/05/21 16:00 Mechanical Ventilator 04/05/21 16:00 89 25 101/81 100 Mechanical Ventilator 30.00 04/05/21 15:25 36.3 04/05/21 15:03 36.2 87 100 04/05/21 15:00 85 20 104/61 100 Mechanical Ventilator 30.00 04/05/21 14:50 87 04/05/21 14:38 36.2 28 106/81 100 Mechanical Ventilator 30.00 04/05/21 14:30 Mechanical Ventilator 30 04/05/21 14:30 89 27 99 30 04/05/21 14:05 84 18 104/61 97 Mechanical Ventilator 40.00 04/05/21 13:00 36.1 85 24 108/60 97 Mechanical Ventilator 04/05/21 12:00 36.1 89 20 91/49 96 Mechanical Ventilator 04/05/21 11:28 89 18 99 40 04/05/21 11:00 36.1 89 22 90/58 99 Mechanical Ventilator 04/05/21 10:00 35.9 88 22 102/55 98 Mechanical Ventilator 04/05/21 09:41 35.9 92 24 80/52 98 Mechanical Ventilator 04/05/21 09:00 35.9 96 23 92/55 93 Mechanical Ventilator I & O 04/06/21 07:00 Intake Total 3600 ml Output Total 1850 ml Balance 1750 ml General Appearance: No Apparent Distress, Other (Intubated and unresponsive to stimuli) Neck: Normal Inspection Respiratory: Chest Non Tender, Lungs Clear, Normal Breath Sounds, No Accessory Muscle Use, No Respiratory Distress, Other (Ventilator) Cardiovascular: Regular Rate, Rhythm, No Murmur, Normal Peripheral Pulses Gastrointestinal: Normal Bowel Sounds, Soft Extremity: Normal Capillary Refill, Pedal Edema (Minor) Neurologic/Psychiatric: Other (Unresponsive) Skin: Normal Color, Warm/Dry, Other (Wound on left ankle. Dressed.) Lymphatic: No Adenopathy Results Lab Laboratory Tests 04/05/21 13:33: Glucometer 302H 04/05/21 15:05: Sodium Level 130L, Potassium Level 4.1, Chloride Level 105, Carbon Dioxide Level 14L, Anion Gap 11, Blood Urea Nitrogen 35H, Creatinine 2.31H, Estimat Glomerular Filtration Rate 28, BUN/Creatinine Ratio 15, Glucose Level 306H, Lactic Acid Level 2.11*H, Calcium Level 8.1L, Total Creatine Kinase 496H, Troponin I 0.090H 04/05/21 17:10: Lactic Acid Level 2.10*H 04/05/21 17:12: Glucometer 257H 04/05/21 19:35: Lactic Acid Level 2.46*H 04/06/21 00:49: Glucometer 190H 04/06/21 04:23: Lactic Acid Level 2.90*H, White Blood Count 13.3H, Red Blood Count 3.74L, Hemoglobin 11.0L, Hematocrit 34L, Mean Corpuscular Volume 91, Mean Corpuscular Hemoglobin 29, Mean Corpuscular Hemoglobin Concent 32, Red Cell Distribution Width 13.3, Platelet Count 213, Mean Platelet Volume 9.8, Immature Granulocyte % (Auto) 0, Neutrophils (%) (Auto) 81H, Lymphocytes (%) (Auto) 11L, Monocytes (%) (Auto) 7, Eosinophils (%) (Auto) 0, Basophils (%) (Auto) 0, Neutrophils # (Auto) 10.7H, Lymphocytes # (Auto) 1.5, Monocytes # (Auto) 1.0, Eosinophils # (Auto) 0.0, Basophils # (Auto) 0.0, Immature Granulocyte # (Auto) 0.0, Sodium Level 132L, Potassium Level 3.9, Chloride Level 109H, Carbon Dioxide Level 14L, Anion Gap 9, Blood Urea Nitrogen 30H, Creatinine 1.98H, Estimat Glomerular Filtration Rate 33, BUN/Creatinine Ratio 15, Glucose Level 178H, Calcium Level 7.7L, Corrected Calcium 8.8, Phosphorus Level 2.6, Magnesium Level 1.7, Total Bilirubin 0.7, Aspartate Amino Transf (AST/SGOT) 22, Alanine Aminotransferase (ALT/SGPT) 13, Alkaline Phosphatase 89, Total Protein 5.9L, Albumin 2.6L 04/06/21 06:56: Lactic Acid Level 1.50 Microbiology 04/05/21 Gram Stain - Final, Resulted 04/05/21 Sputum Culture - Preliminary, Resulted No growth Assessment/Plan Assessment/Plan Assessment and Plan Assessment: Sepsis d/t transverse colitis - On fluids and antibiotics - CT abdomen showed transverse colitis without perforation or abscess Respiratory failure - Ventilated but not sedated Acute on chronic renal failure - Elevated BUN/Cr Leukocytosis - Trend down from 19.3 to 13.3 Lactic acidosis - Up to 2.9 Metabolic acidosis with respiratory compensation - pH 7.35 HTN Diabetes Plan: Continue IVF, Pip/tazo, and metronidazole Patient has been made DNR/DNI after conversations with family Plan is to keep him intubated until grandson arrives from [place]. At that point will have more discussions with family Prognosis poor but patient has endured similar situations before Supervisory-Addendum Brief Verification & Attestation Participated in pt care: history, MDM, physical Personally performed: exam, history, MDM, supervision of care Care discussed with: Medical Student Procedures: n/a Results interpretation: Verified all documentation AGREE WITH STUDENT DOCUMENTATION WITH THE FOLLOWING CHANGES PT ON ZOSYN, WITH THE BROAD [employer] COVERAGE, WILL DC LEVAQUIN AND FLAGYL, WHITE COUNT TRENDED DOWN FROM YESTERDAY - WAS 19 DOWN TO 13, WILL REPEAT CBC, MONITOR FOR CONTINUED IMPROVEMENT. SEVERE SEPSIS TRANSVERSE COLITIS RESPIRATORY FAILURE ACUTE ON CHRONIC RENAL FAILURE CHRONIC HYPERTENSION CHRONIC CONSTIPATION DIABETES MELLITUS WITH HYPERGLYCEMIA LEUKOCYTOSIS HYPONATREMIA LACTIC ACIDOSIS SEVERE SEPSIS DUE TO TRANSVERSE COLITIS - PT ON IV ANTIBIOTIC OF ZOSYN CONTINUE WITH CURRENT ANTIBIOTIC CHOICE, MONITOR RENAL FUNCTION ON ZOSYN AND WILL CONTINUE WITH FLUIDS AND CURRENT PLAN. - ANOTHER FAMILY MEETING TONIGHT WITH PT'S AND GRANDSON (DIDI) (THIS MORNING DISCUSSED WITH OTHER GRANDSON ISABEL AND HIS DTR) - ERIC IS STILL QUITE ILL, HAS NOT REALLY HAD MUCH PURPOSEFUL ACTIVITY - A FEW TIMES OF OPENING HIS EYES AND SQUEEZING FAMILY'S HANDS - WHICH MAY OR MAY NOT HAVE BEEN PURPOSEFUL VERSUS REFLEX. WILL SEE HOW HE IS TOMORROW, IF THERE IS ANY CLEARING OF HIS SENSORIUM AND POTENTIALLY DISCUSS EXTUBATION VERSUS CONTINUED SUPPORT IF HE IS SHOWING IMPROVEMENT. - THE PLAN FORWARD WILL DEPEND ON HOW ERIC RESPONDS OVER THE NEXT FEW DAYS. - HOWEVER, THE PLAN WILL STILL BE THAT SHOULD HIS HEART STOP OR IF HE SELF-EXTUBATES, HE WILL NOT BE RE-INTUBATED OR RESUSCITATED. RESPIRATORY FAILURE - PT VENTILATED - CURRENTLY NOT SEDATED - CONTINUE WITH CURRENT MANAGEMENT -WILL DEFER TO E-ICU TO MANAGE VENTILATOR. ACUTE ON CHRONIC RENAL FAILURE - WILL NEED TO CLOSELY MONITOR HIS RENAL FUNCTION ON CURRENT MEDICATION REGIMEN. CHRONIC HYPERTENSION - PT WITH IMPROVED BLOOD PRESSURE FROM ADMISSION - MONITOR PRESSURES, PT IS CURRENTLY HEMODYNAMICALLY STABLE. DIABETES MELLITUS WITH HYPERGLYCEMIA - SLIDING SCALE INSULIN PROTOCOL HYPONATREMIA - 130 ON ADMISSION - IMPROVED WITH FLUIDS - MONITOR LABS SERIALLY LACTIC ACIDOSIS -RESOLVED WITH LAST LAB JANICE TORRES Apr 06, 2021 08:45 MOISÉS ARMSTRONG MD Apr 06, 2021 20:19
[2021-04-06] MEDS: FAMOTIDINE 20MG/2ML IV (PEPCID) IVP SCH (09:03)
[2021-04-06] MEDS: MAGNESIUM 1 GM/100 ML IV SCH ×2 (09:03→10:02)
[2021-04-06] MEDS: ENOXAPARIN 100 MG/1 ML (LOVENOX) SYR SC SCH (09:03)
[2021-04-06 10:31] VITALS: BP 104/57
--- NOTE | 2021-04-06 11:17 | Tele-ICU Progress Note ---
Subjective Date Seen by a Provider: Apr 06, 2021 Time Seen by a Provider: 11:16 Sepsis Event Evaluation Height, Weight, BMI Height: 5'9.00" Weight: 230lbs. 4.0oz. [id number]; 32.55 BMI Method:Estimated Focused Exam Lactate Level 04/05/21 19:35: Lactic Acid Level 2.46*H 04/06/21 04:23: Lactic Acid Level 2.90*H 04/06/21 06:56: Lactic Acid Level 1.50 Exam Exam Patient acknowledged, consented, and participated in this virtual visit which was conducted using real time audio/video Vital Signs Date Time Temp Pulse Resp B/P (MAP) Pulse Ox O2 Delivery O2 Flow Rate FiO2 04/06/21 11:00 83 14 116/65 99 Mechanical Ventilator 30.00 04/06/21 10:31 80 18 99 30 04/06/21 10:00 78 18 94/54 98 Mechanical Ventilator 30.00 04/06/21 09:00 86 18 115/61 100 Mechanical Ventilator 30.00 04/06/21 08:00 Mechanical Ventilator 30 04/06/21 08:00 81 18 105/64 100 Mechanical Ventilator 30.00 04/06/21 07:35 36.1 04/06/21 07:11 80 18 100 30 04/06/21 07:00 80 04/06/21 07:00 81 14 86/55 100 Mechanical Ventilator 30.00 04/06/21 06:00 82 18 117/64 100 Mechanical Ventilator 30.00 04/06/21 05:00 81 12 82/49 100 Mechanical Ventilator 30.00 04/06/21 04:10 Mechanical Ventilator 04/06/21 04:00 36.6 04/06/21 04:00 81 82/51 100 Mechanical Ventilator 30.00 04/06/21 03:00 83 18 105/61 100 Mechanical Ventilator 30.00 04/06/21 02:31 82 18 100 30 04/06/21 02:00 85 18 109/58 100 Mechanical Ventilator 30.00 04/06/21 01:16 99/51 04/06/21 01:00 91 18 99/51 100 Mechanical Ventilator 30.00 04/06/21 01:00 91 04/06/21 00:00 84 18 105/57 100 Mechanical Ventilator 30.00 04/05/21 23:48 Mechanical Ventilator 04/05/21 23:47 36.8 Mechanical Ventilator 30.00 04/05/21 23:00 86 18 97/53 100 Mechanical Ventilator 30.00 04/05/21 22:45 87 19 100 30 04/05/21 22:00 92 18 110/58 100 Mechanical Ventilator 30.00 04/05/21 21:00 96 18 124/64 100 Mechanical Ventilator 30.00 04/05/21 20:00 97 29 111/63 97 Mechanical Ventilator 30.00 04/05/21 20:00 Mechanical Ventilator 04/05/21 19:35 36.6 04/05/21 19:00 101 04/05/21 19:00 92 32 130/66 97 Mechanical Ventilator 30.00 04/05/21 18:36 89 21 100 30 04/05/21 18:00 93 26 141/68 100 Mechanical Ventilator 30.00 04/05/21 17:00 95 29 138/74 100 Mechanical Ventilator 30.00 04/05/21 16:00 Mechanical Ventilator 04/05/21 16:00 89 25 101/81 100 Mechanical Ventilator 30.00 04/05/21 15:25 36.3 04/05/21 15:03 36.2 87 100 04/05/21 15:00 85 20 104/61 100 Mechanical Ventilator 30.00 04/05/21 14:50 87 04/05/21 14:38 36.2 28 106/81 100 Mechanical Ventilator 30.00 04/05/21 14:30 Mechanical Ventilator 30 04/05/21 14:30 89 27 99 30 04/05/21 14:05 84 18 104/61 97 Mechanical Ventilator 40.00 04/05/21 13:00 36.1 85 24 108/60 97 Mechanical Ventilator 04/05/21 12:00 36.1 89 20 91/49 96 Mechanical Ventilator 04/05/21 11:28 89 18 99 40 I & O 04/06/21 07:00 Intake Total 3600 ml Output Total 1850 ml Balance 1750 ml Height & Weight Height: 5'9.00" Weight: 230lbs. 4.0oz. [id number]; 32.55 BMI Method:Estimated General Appearance: No Apparent Distress, Other (Intubated and unresponsive to stimuli) Neck: Normal Inspection Respiratory: Chest Non Tender, Lungs Clear, Normal Breath Sounds, No Accessory Muscle Use, No Respiratory Distress, Other (Ventilator) Cardiovascular: Regular Rate, Rhythm, No Murmur, Normal Peripheral Pulses Capillary Refill: Greater Than 3 Seconds Gastrointestinal: soft, other (Nondistended) Extremity: Normal Capillary Refill, Pedal Edema (Minor) Neurologic/Psychiatric: Other (Unresponsive) Skin: Normal Color, Warm/Dry, Other (Wound on left ankle. Dressed.) Lymphatic: No Adenopathy Results Lab Laboratory Tests 04/05/21 06:15 04/05/21 15:05 04/06/21 04:23 Assessment/Plan Assessment/Plan (Tele-ICU Physician , Progress Note ) Available chart/ vitals / labs / Images reviewed Video assessment done using teleICU camera, rest of exam as per RN Discussed with RN , EXAM PER RN Events overnight : Afebrile FiO2 - 30 I/O = pos Drips: Pressors: , hemodynamically stable Sedation gtt: propofol 20 ( RASS ) VENT SETTINGS and ABG reviewed Not candidate for SBT today REVIEWED Cardiovascular Stability / Sedation Score / FI02/PEEP / ABG / CXR Consultants: nikolay Hospital course: 04/05- unresponsive at home, intubated in ER , colitis A/P Acute resp failure - intubated 04/05 in ER due to unresponsibeness - AC 400 16 +5 405 -follow closely, Change mental status - etiology is not clear , suspected TME ,? CVA , ?SZ - CTH 04/04 - no acute changes - follow images in 24 h - monitor , OFF SEDATION TODAY , MOVES ALL 4 EXTR, NOT FOLLOW ANY COMMANDS ROSARIO / CKD - hydration , follow - CPK is slightly elevated ( was on the floor unknown duration - follow ) DM with hyperglycemia - ISS Infection , suspected Acute colitis involving the entire transverse colon.- mildly elev PCT - ( flu neg , covid rapid NEG -vaccinated) -- sepsis , not shock - follow UO and lactate - CT abd/pelvis 04/05 - colitis - change for levofloxacin and flagyl 04/05 - follow Hyponatremia - 128 on admission -RESOLVED Elev trop - cards consulted = ECHO pending - lovenox 100 q 12 - as per cards . pharm to ffollow with decreased GFR Lines : (Central Line Necessity Reviewed) Thomson: OG: Nutrition: npo Analgesia: Anxiety/ delirium VTE Prophylaxis: fran 100 q12 Stress Ulcer Prophylaxis: h2bl Plans in collaboration with bedside consultants and IM MDs. Discussed with RN to reach out if any questions or concerns A total of 35 minutes of critical care time was devoted to this patient today, required to treat and/or prevent further deterioration of critical care condition ( as above JOSE JUAN VARELA MD Apr 06, 2021 11:17
[2021-04-06 14:17] VITALS: BP 119/62
[2021-04-06 18:11] VITALS: BP 116/61
[2021-04-06 21:19] VITALS: BP 119/64
[2021-04-06] MEDS: RT-ALBUTEROL/IPRATROPIUM 3 ML (DUONEB) VIAL INH SCH (21:19)
[2021-04-07 01:07] VITALS: BP 116/61
[2021-04-07 04:42] LABS: BASOPHILS % (AUTO) 0 % (0-10); EOSINOPHILS % (AUTO) 0 % (0-10); HEMATOCRIT 29 % (40-54); HEMOGLOBIN 9.6 g/dL (13.3-17.7); LYMPHOCYTES # (AUTO) 1.3 10^3/uL (1.0-4.0); LYMPHOCYTES % (AUTO) 12 % (12-44); MEAN CORPUSCULAR HEMOGLOBIN 30 pg (25-34); MEAN CORPUSCULAR HGB CONC 33 g/dL (32-36); MEAN CORPUSCULAR VOLUME 89 fL (80-99); MEAN PLATELET VOLUME 9.2 fL (9.0-12.2); MONOCYTES # (AUTO) 0.7 10^3/uL (0.0-1.0); MONOCYTES % (AUTO) 6 % (0-12); NEUTROPHILS % (AUTO) 82 % (42-75); PLATELET COUNT 227 10^3/uL (130-400); WHITE BLOOD COUNT 11.1 10^3/uL (4.3-11.0)
[2021-04-07 04:58] LABS: ALBUMIN 2.4 GM/DL (3.2-4.5); POTASSIUM 3.5 MMOL/L (3.6-5.0)
[2021-04-07 04:59] LABS: CALCIUM 7.4 MG/DL (8.5-10.1)
[2021-04-07 05:01] LABS: TOTAL PROTEIN 5.5 GM/DL (6.4-8.2)
[2021-04-07 05:02] LABS: BILIRUBIN,TOTAL 0.6 MG/DL (0.1-1.0)
[2021-04-07 05:04] LABS: CREATININE SERUM 1.61 MG/DL (0.60-1.30); PHOSPHORUS 1.8 MG/DL (2.3-4.7)
[2021-04-07 05:07] LABS: MAGNESIUM 1.9 MG/DL (1.6-2.4)
[2021-04-07] MEDS: POTASSIUM CL 10MEQ/50ML IVPB 50 ML IV SCH ×3 (05:13→06:17)
[2021-04-07] MEDS: inSUlin ASPART (NovoLOG) 1 UNIT/0.01 ML (CHARGE PER UNIT) SC SCH ×4 (05:13→23:07)
[2021-04-07] MEDS: MAGNESIUM 1 GM/100 ML IVPB 100 ML IV SCH (05:13)
[2021-04-07] MEDS: KCL 20 MEQ TAB (K-DUR) PO SCH (05:13)
[2021-04-07] MEDS: NS IV 1000 ML 1,000 ML IV SCH ×6 (06:17→23:07)
[2021-04-07] MEDS: PIPERACILLIN SODIUM/TAZOBACTAM 4.5 GM in NS (IVPB) 100 ML IV SCH ×3 (06:17→23:05)
[2021-04-07 06:36] VITALS: BP 131/70
[2021-04-07] MEDS: RT-ALBUTEROL/IPRATROPIUM 3 ML (DUONEB) VIAL INH SCH ×2 (06:36→21:49)
--- NOTE | 2021-04-07 07:52 | Progress Note ---
Subjective Subjective Date Seen by Provider: Apr 08, 2021 Time Seen by Provider: 08:10 Mr. Gutierrez is currently intubated but not on any sedation. During our encounter this morning his eyes were open and he was able to track movement. He could not respond to commands or make purposeful movements. He would occasionally grimace and move his legs or head. Nursing reported that throughout the night he would go between periods of seeming aware of his surroundings and periods of being totally unaware. He has an NG tube in place collecting dark, straw colored fluid. Nursing reported copious amounts of white secretions from his ET tube. Vent settings are as follows: 21% FiO2, 5 PEEP, 450 TV, and 18 RR. His lactic acid, sodium, and potassium have returned to normal levels this morning. He is scheduled for a head CT later today. Review of Systems ROS Unable to Obtain: Currently intubated and unable to obtain ROS General: Other (Intubated) All Other Systems Reviewed All Other Systems Reviewed: Yes Objective Exam Vital Signs Vital Signs Date Time Temp Pulse Resp B/P (MAP) Pulse Ox O2 Delivery O2 Flow Rate FiO2 04/07/21 07:00 92 04/07/21 06:36 89 24 97 21 04/07/21 06:00 89 28 128/64 100 Mechanical Ventilator 21.00 04/07/21 05:00 90 20 120/69 97 Mechanical Ventilator 21.00 04/07/21 04:00 Mechanical Ventilator 30 04/07/21 04:00 36.9 04/07/21 04:00 98 24 120/65 97 Mechanical Ventilator 21.00 04/07/21 03:00 86 20 122/61 97 Mechanical Ventilator 21.00 04/07/21 02:00 98 25 131/61 97 Mechanical Ventilator 21.00 04/07/21 01:07 92 24 98 21 04/07/21 01:00 92 25 116/61 98 Mechanical Ventilator 21.00 04/07/21 01:00 92 04/07/21 00:00 37.4 04/07/21 00:00 96 26 115/60 98 Mechanical Ventilator 21.00 04/06/21 23:59 Mechanical Ventilator 30 04/06/21 23:00 91 26 115/58 100 Mechanical Ventilator 21.00 04/06/21 22:00 95 19 120/64 99 Mechanical Ventilator 21.00 04/06/21 21:39 Mechanical Ventilator 21.00 04/06/21 21:19 88 18 100 21 04/06/21 21:00 92 24 122/65 100 Mechanical Ventilator 30.00 04/06/21 20:00 89 24 125/68 99 Mechanical Ventilator 30.00 04/06/21 20:00 36.6 04/06/21 20:00 Mechanical Ventilator 30 04/06/21 19:00 88 22 125/69 100 Mechanical Ventilator 30.00 04/06/21 19:00 91 04/06/21 18:11 92 21 100 30 04/06/21 18:00 89 22 116/61 99 Mechanical Ventilator 30.00 04/06/21 17:00 91 10 116/68 100 Mechanical Ventilator 30.00 04/06/21 16:20 Mechanical Ventilator 30 04/06/21 16:00 95 31 133/69 100 Mechanical Ventilator 30.00 04/06/21 16:00 36.3 04/06/21 15:00 86 18 118/63 100 Mechanical Ventilator 30.00 04/06/21 14:17 85 20 100 30 04/06/21 14:00 78 18 9/57 100 Mechanical Ventilator 30.00 04/06/21 13:00 93 20 132/73 100 Mechanical Ventilator 30.00 04/06/21 12:36 88 04/06/21 12:36 100 Mechanical Ventilator 30 04/06/21 12:27 36.2 04/06/21 12:00 77 18 88/59 100 Mechanical Ventilator 30.00 04/06/21 11:00 83 14 116/65 99 Mechanical Ventilator 30.00 04/06/21 10:31 80 18 99 30 04/06/21 10:00 78 18 94/54 98 Mechanical Ventilator 30.00 04/06/21 09:00 86 18 115/61 100 Mechanical Ventilator 30.00 04/06/21 08:00 Mechanical Ventilator 30 04/06/21 08:00 81 18 105/64 100 Mechanical Ventilator 30.00 I & O 04/07/21 07:00 Intake Total 1400 ml Output Total 975 ml Balance 425 ml General Appearance: No Apparent Distress, Other (Intubated with eyes open and tracking movement) Neck: Normal Inspection; No Lymphadenopathy (L), No Lymphadenopathy (R) Respiratory: Chest Non Tender, Lungs Clear, Normal Breath Sounds, No Accessory Muscle Use, No Respiratory Distress, Other (Ventilator) Cardiovascular: Regular Rate, Rhythm, No Murmur, Normal Peripheral Pulses Gastrointestinal: Normal Bowel Sounds, Soft Extremity: Normal Capillary Refill, Pedal Edema (Minor) Neurologic/Psychiatric: No Oriented x3; Other (Eyes open but could not follow commands) Skin: Normal Color, Warm/Dry, Other (Wound on left ankle. Dressed.) Lymphatic: No Adenopathy (Head and neck) Results Lab Laboratory Tests 04/06/21 11:42: Glucometer 170H 04/06/21 18:03: Glucometer 152H 04/07/21 04:35: White Blood Count 11.1H, Red Blood Count 3.25L, Hemoglobin 9.6L, Hematocrit 29L, Mean Corpuscular Volume 89, Mean Corpuscular Hemoglobin 30, Mean Corpuscular Hemoglobin Concent 33, Red Cell Distribution Width 13.7, Platelet Count 227, Mean Platelet Volume 9.2, Immature Granulocyte % (Auto) 0, Neutrophils (%) (Auto) 82H, Lymphocytes (%) (Auto) 12, Monocytes (%) (Auto) 6, Eosinophils (%) (Auto) 0, Basophils (%) (Auto) 0, Neutrophils # (Auto) 9.0H, Lymphocytes # (Auto) 1.3, Monocytes # (Auto) 0.7, Eosinophils # (Auto) 0.0, Basophils # (Auto) 0.0, Immature Granulocyte # (Auto) 0.0, Sodium Level 136, Potassium Level 3.5L, Chloride Level 114H, Carbon Dioxide Level 12L, Anion Gap 10, Blood Urea Nitrogen 23H, Creatinine 1.61H, Estimat Glomerular Filtration Rate 42, BUN/Creatinine Rat io 14, Glucose Level 168H, Calcium Level 7.4L, Corrected Calcium 8.7, Phosphorus Level 1.8L, Magnesium Level 1.9, Total Bilirubin 0.6, Aspartate Amino Transf (AST/SGOT) 30, Alanine Aminotransferase (ALT/SGPT) 13, Alkaline Phosphatase 69, Total Protein 5.5L, Albumin 2.4L, Triglycerides Level 72 Microbiology 04/05/21 MRSA Screen - Final, Complete MRSA not isolated 04/05/21 Blood Culture - Preliminary, Resulted No growth Assessment/Plan Assessment/Plan Assessment and Plan Assessment: Sepsis d/t transverse colitis - On fluids and antibiotics - CT abdomen showed transverse colitis without perforation or abscess Respiratory failure - Ventilated but not sedated Acute on chronic renal failure - Elevated BUN/Cr Anemia - Hgb at 9.6 today - Likely dilutional, no obvious source of acute bleeding Leukocytosis - Trending down to 11.1 today Hyponatremia - Resolved - 136 today Lactic acidosis - Resolved - 1.50 today Metabolic acidosis with respiratory compensation - pH 7.35 HTN Diabetes Plan: Continue IVF and Pip/tazo. Metronidazole has been d/c. Patient has been made DNR/DNI after conversations with family Patient can either be kept on intubation, tried to be moved to Bipap, or extubated. I am not confident on his ability to breath on his own with extubation or bipap. Patient is showing a different clinical picture today with increased awareness Further conversations with family regarding next steps in care would be appropriate Supervisory-Addendum Brief Verification & Attestation Participated in pt care: history, MDM, physical Personally performed: exam, history, MDM, supervision of care Care discussed with: Medical Student Procedures: n/a Results interpretation: Verified all documentation AGREE WITH STUDENT DOCUMENTATION WITH THE FOLLOWING CHANGES PT ON ZOSYN, WITH THE BROAD [employer] COVERAGE, WILL DC LEVAQUIN AND FLAGYL, WHIT E COUNT TRENDED DOWN FROM YESTERDAY - WAS 19 DOWN TO 13, WILL REPEAT CBC, MONITOR FOR CONTINUED IMPROVEMENT. SEVERE SEPSIS TRANSVERSE COLITIS RESPIRATORY FAILURE ACUTE ON CHRONIC RENAL FAILURE CHRONIC HYPERTENSION CHRONIC CONSTIPATION DIABETES MELLITUS WITH HYPERGLYCEMIA LEUKOCYTOSIS HYPONATREMIA LACTIC ACIDOSIS SEVERE SEPSIS DUE TO TRANSVERSE COLITIS - PT ON IV ANTIBIOTIC OF ZOSYN CONTINUE WITH CURRENT ANTIBIOTIC CHOICE, MONITOR RENAL FUNCTION ON ZOSYN AND WILL CONTINUE WITH FLUIDS AND CURRENT PLAN. - THE PLAN FORWARD WILL DEPEND ON HOW ERIC RESPONDS OVER THE NEXT FEW DAYS. - HOWEVER, THE PLAN WILL STILL BE THAT SHOULD HIS HEART STOP OR IF HE SELF-EXTUBATES, HE WILL NOT BE RE-INTUBATED OR RESUSCITATED. RESPIRATORY FAILURE - PT VENTILATED - SEDATION WAS RESTARTED AT LOW DOSE, WILL CONTINUE TO WEAN ABLE - DEFER VENTILATOR MANAGEMENT to THE EICU. ACUTE ON CHRONIC RENAL FAILURE - IMPROVED, HOWEVER WILL NEED TO CONTINUE MONITOR HIS RENAL FUNCTION ON CURRENT MEDICATION REGIMEN. CHRONIC HYPERTENSION - PT WITH IMPROVED BLOOD PRESSURE FROM ADMISSION - MONITOR PRESSURES, PT IS CURRENTLY HEMODYNAMICALLY STABLE. DIABETES MELLITUS WITH HYPERGLYCEMIA - SLIDING SCALE INSULIN PROTOCOL HYPONATREMIA - 130 ON ADMISSION - IMPROVED WITH FLUIDS - MONITOR LABS SERIALLY LACTIC ACIDOSIS -RESOLVED WITH LAST LAB JANICE TORRES Apr 07, 2021 07:52 MOISÉS ARMSTRONG MD Apr 08, 2021 21:10
[2021-04-07] MEDS: FAMOTIDINE 20MG/2ML IV (PEPCID) IVP SCH (08:28)
[2021-04-07] MEDS: ENOXAPARIN 100 MG/1 ML (LOVENOX) SYR SC SCH ×2 (08:28→20:54)
--- NOTE | 2021-04-07 08:31 | Tele-ICU Progress Note ---
Subjective Date Seen by a Provider: Apr 07, 2021 Time Seen by a Provider: 08:31 Subjective/Events-last exam This patient with mild dementia admitted with a pancolitis and a sepsis with a decrease in the bicarbonate and increase in the anion gap. He is on mechanical ventilation. Repeat blood gas today revealed metabolic acidosis hence I have ordered sodium bicarbonate push and continue IV fluids. Based on his clinical's scenario I do not think he is ready for extubation. I made a video visit and discussed with the YOUTH PROGRAM DIRECTOR. Review of Systems ROS PER RN Sepsis Event Evaluation Height, Weight, BMI Height: 5'9.00" Weight: 230lbs. 4.0oz. 104.354437uk; 32.55 BMI Method:Estimated Focused Exam Lactate Level 04/05/21 19:35: Lactic Acid Level 2.46*H 04/06/21 04:23: Lactic Acid Level 2.90*H 04/06/21 06:56: Lactic Acid Level 1.50 Exam Exam Patient acknowledged, consented, and participated in this virtual visit which was conducted using real time audio/video Vital Signs Date Time Temp Pulse Resp B/P (MAP) Pulse Ox O2 Delivery O2 Flow Rate FiO2 04/07/21 08:21 37.8 04/07/21 07:00 92 04/07/21 06:36 89 24 97 21 04/07/21 06:00 89 28 128/64 100 Mechanical Ventilator 21.00 04/07/21 05:00 90 20 120/69 97 Mechanical Ventilator 21.00 04/07/21 04:00 Mechanical Ventilator 30 04/07/21 04:00 36.9 04/07/21 04:00 98 24 120/65 97 Mechanical Ventilator 21.00 04/07/21 03:00 86 20 122/61 97 Mechanical Ventilator 21.00 04/07/21 02:00 98 25 131/61 97 Mechanical Ventilator 21.00 04/07/21 01:07 92 24 98 21 04/07/21 01:00 92 25 116/61 98 Mechanical Ventilator 21.00 04/07/21 01:00 92 04/07/21 00:00 37.4 04/07/21 00:00 96 26 115/60 98 Mechanical Ventilator 21.00 04/06/21 23:59 Mechanical Ventilator 30 04/06/21 23:00 91 26 115/58 100 Mechanical Ventilator 21.00 04/06/21 22:00 95 19 120/64 99 Mechanical Ventilator 21.00 04/06/21 21:39 Mechanical Ventilator 21.00 04/06/21 21:19 88 18 100 21 04/06/21 21:00 92 24 122/65 100 Mechanical Ventilator 30.00 04/06/21 20:00 89 24 125/68 99 Mechanical Ventilator 30.00 04/06/21 20:00 36.6 04/06/21 20:00 Mechanical Ventilator 30 04/06/21 19:00 88 22 125/69 100 Mechanical Ventilator 30.00 04/06/21 19:00 91 04/06/21 18:11 92 21 100 30 04/06/21 18:00 89 22 116/61 99 Mechanical Ventilator 30.00 04/06/21 17:00 91 10 116/68 100 Mechanical Ventilator 30.00 04/06/21 16:20 Mechanical Ventilator 30 04/06/21 16:00 95 31 133/69 100 Mechanical Ventilator 30.00 04/06/21 16:00 36.3 04/06/21 15:00 86 18 118/63 100 Mechanical Ventilator 30.00 04/06/21 14:17 85 20 100 30 04/06/21 14:00 78 18 9/57 100 Mechanical Ventilator 30.00 04/06/21 13:00 93 20 132/73 100 Mechanical Ventilator 30.00 04/06/21 12:36 88 04/06/21 12:36 100 Mechanical Ventilator 30 04/06/21 12:27 36.2 04/06/21 12:00 77 18 88/59 100 Mechanical Ventilator 30.00 04/06/21 11:00 83 14 116/65 99 Mechanical Ventilator 30.00 04/06/21 10:31 80 18 99 30 04/06/21 10:00 78 18 94/54 98 Mechanical Ventilator 30.00 04/06/21 09:00 86 18 115/61 100 Mechanical Ventilator 30.00 I & O 04/07/21 06:59 Intake Total 1400 ml Output Total 975 ml Balance 425 ml Height & Weight Height: 5'9.00" Weight: 230lbs. 4.0oz. 104.727235vb; 32.55 BMI Method:Estimated General Appearance: No Apparent Distress, Other (Intubated with eyes open and tracking movement) Neck: Normal Inspection; No Lymphadenopathy (L), No Lymphadenopathy (R) Respiratory: Chest Non Tender, Lungs Clear, Normal Breath Sounds, No Accessory Muscle Use, No Respiratory Distress, Other (Ventilator) Cardiovascular: Regular Rate, Rhythm, No Murmur, Normal Peripheral Pulses Capillary Refill: Less Than 3 Seconds Gastrointestinal: soft, other (Nondistended) Extremity: Normal Capillary Refill, Pedal Edema (Minor) Neurologic/Psychiatric: No Oriented x3; Other (Eyes open but could not follow commands) Skin: Normal Color, Warm/Dry, Other (Wound on left ankle. Dressed.) Lymphatic: No Adenopathy (Head and neck) Other comments PE PER RN Results Lab Laboratory Tests 04/05/21 15:05 04/06/21 04:23 04/07/21 04:35 Assessment/Plan Assessment/Plan 1. Acute hypoxic respiratory failure secondary to metabolic abnormalities. 2. Metabolic encephalopathy secondary to sepsis 3. Acute pancolitis and surgery is following. 4. Mildly elevated troponin probably due to type II myocardial infarction. 5. Acute and chronic kidney disease due to sepsis 6. History of diabetes mellitus type 2 7. Hyponatremia secondary to volume deficiency 8. History of hypertension 9. History of mild dementia for patient's . Recommendations 1. Continue mechanical ventilatory support I do not think he is ready for extubation today. 2. We will give IV sodium bicarbonate 3. Continue IV antibiotics per primary care team 4. Colitis per general surgeon 5. Continue hydration with normal saline and monitor urine output, serum sodium and other electrolytes. 6. DVT prophylaxis and ulcer prophylaxis. 7. Try to wean Levophed as tolerated. 8. Prognosis is guarded Critical Care: Ventilator Management Time spent with patient (mins): 35 ALFONZO PADRON MD Apr 07, 2021 08:31
[2021-04-07] MEDS ORDERED: POTASSIUM PHOSPHATE INJ 15 MM in NS (IVPB) 250 ML IV NR (08:32)
[2021-04-07] MEDS ORDERED: APAP 325 MG/10.15 ML LIQ (TYLENOL) UDC PO PRN (09:00)
--- NOTE | 2021-04-07 09:02 | Diagnostic Imaging Report ---
INDICATION: Respiratory failure. TIME OF EXAM: 8:49 AM Correlation is made with prior chest from 04/05/2021. ET tube has tip above the chase. NG tube passes below the diaphragm. Heart size is stable. Minimal atelectasis mid and lower lung valente is unchanged. There is no effusion or pneumothorax. IMPRESSION: Stable chest since examination 2 days earlier. Dictated by: Dictated on workstation # [id number]
[2021-04-07 09:33] LABS: ABG BASE EXCESS -9.1 MMOL/L (-2.5-2.5); ABG OXYGEN SATURATION 95 % (94-100); ABG PCO2 30 MMHG (35-45); ABG PO2 75 MMHG (79-93); ABG TCO2 16.4 MMOL/L (21.0-31.0)
--- NOTE | 2021-04-07 09:36 | Cardiology Progress Note ---
Subjective Date Seen by Provider: Apr 07, 2021 Time Seen by Provider: 08:40 Subjective/Events-last exam Patient intubated but awake and following some commands this morning. Review of Systems General: Other (Unable to provide review of system) Focused Exam Lactate Level 04/05/21 19:35: Lactic Acid Level 2.46*H 04/06/21 04:23: Lactic Acid Level 2.90*H 04/06/21 06:56: Lactic Acid Level 1.50 Objective-Cardiology Exam Last Set of Vital Signs Vital Signs 04/07/21 04/07/21 04/07/21 12:55 14:42 15:00 Temp 36.8 Pulse 69 Resp 19 B/P (MAP) 107/56 Pulse Ox 97 O2 Delivery Mechanical Ventilator O2 Flow Rate 21.00 FiO2 21 I&O Intake and Output 04/07/21 00:00 Intake Total 2600 ml Output Total 1000 ml Balance 1600 ml Intake Oral 0 ml IV Total 2600 ml Output Urine Total 1000 ml # Bowel Movements 4 General: Alert HEENT: Atraumatic Neck: Supple Lungs: Other (Bilateral rhonchi) Heart: Regular Rate Abdomen: Normal Bowel Sounds Extremities: No Clubbing, No Cyanosis Skin: No Rashes Neuro: Other (intubated, but able to squeeze right hand when asked) Results Lab Laboratory Tests 04/07/21 04:35 A/P-Cardiology Admission Diagnosis Acute respiratory failure AMS Sepsis Elevated troponin Assessment/Plan Acute resp failure, ventilator dependent, patient is awake this morning and following some commands. Possible extubation soon. Altered mental status,was found on floor by bed by , unknown etiology, CT head done showing no acute changes. Currently ventilator dependent Sepsis, CT abd/pelvis showing acute colitis involving entire transverse colon, started on levoloxacin and flagyl, management per medical services. Mildly elevated troponin, EKG showing sinus tachy with PVC's. Probably type II myocardial infarction due to respiratory failure. Stress test in 2019 showed no significant ischemia or infarction. We will continue monitoring closely. Chronic kidney disease with ROSARIO, continue to monitor renal function. DM, management per medical services Hyponatremia, monitor electrolytes Hx of Hypertension, currently hypotensive Supervisory-Addendum Brief Supervisory Addendum Participated in pt care: history, MDM, physical Personally performed: exam, history, MDM Care discussed with: CAROLIN Results interpretation: Verified all documentation Notes: Patient was seen and evaluated with Zofia, examination performed, management plan was discussed, agree with the current scribed note, I made few changes to the note using Italic font ZOFIA GARZA Apr 07, 2021 09:36 INDIGO BULL MD Apr 07, 2021 15:32
[2021-04-07 09:41] LABS: ABG PH 7.33 (7.37-7.43); INSPIRED O2 21%; PATIENT TEMP 37.8; VENTILATOR YES
[2021-04-07] MEDS ORDERED: SODIUM BICARB 8.4% 50 MEQ/50 ML (ABBOTT) SYR IV ONE (10:00)
[2021-04-07 10:09] VITALS: BP 119/63
[2021-04-07 14:42] VITALS: BP 121/63
[2021-04-07 18:50] VITALS: BP 118/61
[2021-04-07 21:49] VITALS: BP 115/58
[2021-04-08 02:52] VITALS: BP 111/58
[2021-04-08] MEDS: NS IV 1000 ML 1,000 ML IV SCH ×2 (04:57→08:30)
[2021-04-08 05:07] LABS: BASOPHILS % (AUTO) 0 % (0-10); EOSINOPHILS # (AUTO) 0.2 10^3/uL (0.0-0.3); EOSINOPHILS % (AUTO) 2 % (0-10); HEMATOCRIT 29 % (40-54); HEMOGLOBIN 9.3 g/dL (13.3-17.7); LYMPHOCYTES # (AUTO) 1.8 10^3/uL (1.0-4.0); LYMPHOCYTES % (AUTO) 17 % (12-44); MEAN CORPUSCULAR HEMOGLOBIN 29 pg (25-34); MEAN CORPUSCULAR HGB CONC 33 g/dL (32-36); MEAN CORPUSCULAR VOLUME 89 fL (80-99); MEAN PLATELET VOLUME 8.9 fL (9.0-12.2); MONOCYTES # (AUTO) 0.6 10^3/uL (0.0-1.0); MONOCYTES % (AUTO) 6 % (0-12); NEUTROPHILS # (AUTO) 7.7 10^3/uL (1.8-7.8); NEUTROPHILS % (AUTO) 75 % (42-75); PLATELET COUNT 262 10^3/uL (130-400); WHITE BLOOD COUNT 10.3 10^3/uL (4.3-11.0)
[2021-04-08 05:33] LABS: ALBUMIN 2.4 GM/DL (3.2-4.5); POTASSIUM 3.6 MMOL/L (3.6-5.0)
[2021-04-08 05:34] LABS: CALCIUM 7.4 MG/DL (8.5-10.1)
[2021-04-08 05:35] LABS: TOTAL PROTEIN 5.7 GM/DL (6.4-8.2)
[2021-04-08 05:37] LABS: BILIRUBIN,TOTAL 0.4 MG/DL (0.1-1.0)
[2021-04-08 05:39] LABS: CREATININE SERUM 1.46 MG/DL (0.60-1.30); PHOSPHORUS 1.7 MG/DL (2.3-4.7)
[2021-04-08 05:42] LABS: MAGNESIUM 1.8 MG/DL (1.6-2.4)
[2021-04-08] MEDS: KCL 20 MEQ TAB (K-DUR) PO SCH (05:43)
[2021-04-08] MEDS: inSUlin ASPART (NovoLOG) 1 UNIT/0.01 ML (CHARGE PER UNIT) SC SCH ×4 (05:43→23:22)
[2021-04-08] MEDS: POTASSIUM CL 10MEQ/50ML IVPB 50 ML IV SCH ×3 (05:44→06:04)
[2021-04-08] MEDS: MAGNESIUM 1 GM/100 ML IVPB 100 ML IV SCH (06:04)
[2021-04-08] MEDS: PIPERACILLIN SODIUM/TAZOBACTAM 4.5 GM in NS (IVPB) 100 ML IV SCH ×3 (06:04→23:18)
[2021-04-08 07:07] VITALS: BP 153/78
[2021-04-08] MEDS: RT-ALBUTEROL/IPRATROPIUM 3 ML (DUONEB) VIAL INH SCH ×2 (07:07→21:34)
--- NOTE | 2021-04-08 07:42 | Progress Note ---
Subjective Subjective Date Seen by Provider: Apr 08, 2021 Time Seen by Provider: 07:15 Mr. Gutierrez is currently intubated and sedated this morning. He was unresponsive this morning and did not open his eyes. He could not respond to commands or make purposeful movements. He would occasionally turn his head. Nursing reported that overnight he was less alert than the previous day most likely due to sedation. He has an NG tube in place. Vent settings are as follows: 21% FiO2, 5 PEEP, 450 TV, and 18 RR. A repeat ABG yesterday showed a worsening metabolic acidosis. The head CT ordered was cancelled. A CXR yesterday was unremarkable with no changes from previous imaging. Review of Systems ROS Unable to Obtain: Currently intubated and unable to obtain ROS General: Other (Unable to provide review of system) All Other Systems Reviewed All Other Systems Reviewed: Yes Objective Exam Vital Signs Vital Signs Date Time Temp Pulse Resp B/P (MAP) Pulse Ox O2 Delivery O2 Flow Rate FiO2 04/08/21 07:07 79 25 95 21 04/08/21 06:00 78 22 155/81 98 Mechanical Ventilator 21.00 04/08/21 05:00 75 18 142/75 97 Mechanical Ventilator 21.00 04/08/21 04:57 68 120/68 04/08/21 04:00 98 Mechanical Ventilator 21 04/08/21 04:00 36.8 Mechanical Ventilator 21.00 04/08/21 04:00 73 32 143/73 95 Mechanical Ventilator 21.00 04/08/21 03:00 82 33 120/59 98 Mechanical Ventilator 21.00 04/08/21 02:52 83 30 100 21 04/08/21 02:00 85 31 111/57 100 Mechanical Ventilator 21.00 04/08/21 01:00 87 04/08/21 01:00 87 31 135/73 99 Mechanical Ventilator 21.00 04/08/21 00:02 37.0 Mechanical Ventilator 21.00 04/08/21 00:00 91 24 131/77 97 Mechanical Ventilator 21.00 04/07/21 23:59 98 Mechanical Ventilator 21 04/07/21 23:00 95 26 145/67 97 Mechanical Ventilator 21.00 04/07/21 22:00 79 25 130/61 91 Mechanical Ventilator 21.00 04/07/21 21:49 74 18 95 21 04/07/21 21:12 84 126/62 2/9/22 21:00 85 21 138/70 100 Mechanical Ventilator 21.00 04/07/21 20:24 36.9 04/07/21 20:00 98 Mechanical Ventilator 21 04/07/21 20:00 76 18 130/68 98 Mechanical Ventilator 21.00 04/07/21 19:00 77 22 141/74 98 Mechanical Ventilator 21.00 04/07/21 19:00 77 04/07/21 18:50 74 21 100 21 04/07/21 18:00 80 20 156/83 98 Mechanical Ventilator 21.00 04/07/21 17:00 73 18 136/72 98 Mechanical Ventilator 21.00 04/07/21 16:27 36.4 04/07/21 16:00 97 Mechanical Ventilator 21 04/07/21 16:00 64 18 96/53 98 Mechanical Ventilator 21.00 04/07/21 15:00 69 19 107/56 97 Mechanical Ventilator 21.00 04/07/21 14:42 74 18 97 21 04/07/21 14:00 82 25 147/78 100 Mechanical Ventilator 21.00 04/07/21 13:00 78 22 125/64 95 Mechanical Ventilator 21.00 04/07/21 12:55 36.8 04/07/21 12:18 86 04/07/21 12:04 89 140/70 04/07/21 12:00 97 Mechanical Ventilator 21 04/07/21 12:00 85 23 135/71 98 Mechanical Ventilator 21.00 04/07/21 11:00 89 13 140/70 97 Mechanical Ventilator 21.00 04/07/21 10:09 84 22 98 21 04/07/21 10:00 80 21 119/63 97 Mechanical Ventilator 21.00 04/07/21 09:00 89 24 127/63 97 Mechanical Ventilator 21.00 04/07/21 08:21 37.8 04/07/21 08:00 90 25 133/66 97 Mechanical Ventilator 21.00 04/07/21 07:45 97 Mechanical Ventilator 21 I & O 04/08/21 07:00 Intake Total 1455 ml Output Total 1100 ml Balance 355 ml General Appearance: No Apparent Distress, Other (Intubated and sedated) Neck: Normal Inspection, Non Tender; No Lymphadenopathy (L), No Lymphadenopathy (R) Respiratory: Chest Non Tender, No Accessory Muscle Use, No Respiratory Distress, Rhonci (Bilateral), Other (Ventilator) Cardiovascular: Regular Rate, Rhythm, No Murmur, Normal Peripheral Pulses Gastrointestinal: Normal Bowel Sounds, Non Tender, Soft Extremity: Normal Capillary Refill, Pedal Edema (Minor) Neurologic/Psychiatric: No Alert, No Oriented x3; Other (Eyes closed) Skin: Normal Color, Warm/Dry, Other (Wound on left ankle. Dressed.) Lymphatic: No Adenopathy (Head and neck) Results Lab Laboratory Tests 04/07/21 09:25: Blood Gas Puncture Site UNK, Blood Gas Patient Temperature 37.8, Arterial Blood pH 7.33*L, Arterial Blood Partial Pressure CO2 30L, Arterial Blood Partial Pre ssure O2 75L, Arterial Blood HCO3 16*L, Arterial Blood Total CO2 16.4L, Arterial Blood Oxygen Saturation 95, Arterial Blood Base Excess -9.1L, Arsalan Test UNK, Blood Gas Ventilator Setting YES, Blood Gas Inspired Oxygen 21% 04/07/21 12:27: Glucometer 186H 04/07/21 17:29: Glucometer 165H 04/07/21 23:06: Glucometer 163H 04/08/21 04:45: White Blood Count 10.3, Red Blood Count 3.20L, Hemoglobin 9.3L, Hematocrit 29L, Mean Corpuscular Volume 89, Mean Corpuscular Hemoglobin 29, Mean Corpuscular Hemoglobin Concent 33, Red Cell Distribution Width 14.1, Platelet Count 262, Mean Platelet Volume 8.9L, Immature Granulocyte % (Auto) 0, Neutrophils (%) (Auto) 75, Lymphocytes (%) (Auto) 17, Monocytes (%) (Auto) 6, Eosinophils (%) ( Auto) 2, Basophils (%) (Auto) 0, Neutrophils # (Auto) 7.7, Lymphocytes # (Auto) 1.8, Monocytes # (Auto) 0.6, Eosinophils # (Auto) 0.2, Basophils # (Auto) 0.0, Immature Granulocyte # (Auto) 0.0, Sodium Level 142, Potassium Level 3.6, Chloride Level 117H, Carbon Dioxide Level 14L, Anion Gap 11, Blood Urea Nitrogen 16, Creatinine 1.46H, Estimat Glomerular Filtration Rate 48, BUN/Creatinine Ratio 11, Glucose Level 178H, Calcium Level 7.4L, Corrected Calcium 8.7, Phosphorus Level 1.7L, Magnesium Level 1.8, Total Bilirubin 0.4, Aspartate Amino Transf (AST/SGOT) 32, Alanine Aminotransferase (ALT/SGPT) 11, Alkaline Phosphatase 65, Total Protein 5.7L, Albumin 2.4L Microbiology 04/05/21 MRSA Screen - Final, Complete MRSA not isolated 04/05/21 Blood Culture - Preliminary, Resulted No growth Assessment/Plan Assessment/Plan Assessment and Plan Assessment: Sepsis d/t transverse colitis - On fluids and antibiotics - CT abdomen showed transverse colitis without perforation or abscess Respiratory failure - Ventilated and sedated Acute on chronic renal failure - Acute elevation of BUN/Cr normalizing Anemia - Hgb at 9.3 today - Likely dilutional, no obvious source of acute bleeding Leukocytosis - Resolved - 10.3 today Hyponatremia - Resolved - 142 today Lactic acidosis - Resolved - 1.50 yesterday Metabolic acidosis with respiratory compensation - Repeat ABG showed a pH of 7.33 with HCO3 of 16 - Managed by eICU HTN Diabetes Plan: Continue IVF and Pip/tazo. Metronidazole has been d/c. Patient has been made DNR/DNI after conversations with family. Sodium bicarb ordered by eICU to help correct acid-base status. Patient is intubated and sedated. Most likely continue with current status until metabolic acidosis is corrected and then consider weaning him off the ventilator and attempting Bipap. Patient shows decreased awareness today compared to yesterday. This is likely d/t sedation. Further conversations with family regarding next steps in care would be appropriate. Patient may recover. Talk with family and d/c plans if patient continues to improve. SNF vs. going home. Supervisory-Addendum Brief Verification & Attestation Participated in pt care: history, MDM, physical Personally performed: exam, history, MDM, supervision of care Care discussed with: Medical Student Procedures: n/a Results interpretation: Verified all documentation AGREE WITH STUDENT DOCUMENTATION WITH THE FOLLOWING CHANGES PT ON ZOSYN, WITH THE [employer] COVERAGE, WILL DC LEVAQUIN AND FLAGYL, WHITE COUNT TRENDED DOWN FROM YESTERDAY - WAS 19 DOWN TO 13, WILL REPEAT CBC, MONITOR FOR CONTINUED IMPROVEMENT. SEVERE SEPSIS TRANSVERSE COLITIS RESPIRATORY FAILURE ACUTE ON CHRONIC RENAL FAILURE CHRONIC HYPERTENSION CHRONIC CONSTIPATION DIABETES MELLITUS WITH HYPERGLYCEMIA LEUKOCYTOSIS HYPONATREMIA LACTIC ACIDOSIS SEVERE SEPSIS DUE TO TRANSVERSE COLITIS - PT ON IV ANTIBIOTIC OF ZOSYN CONTINUE WITH CURRENT ANTIBIOTIC CHOICE, MONITOR RENAL FUNCTION ON ZOSYN AND WILL CONTINUE WITH FLUIDS AND CURRENT PLAN. - THE PLAN FORWARD WILL DEPEND ON HOW ERIC RESPONDS OVER THE NEXT FEW DAYS. - HOWEVER, THE PLAN WILL STILL BE THAT SHOULD HIS HEART STOP OR IF HE SELF-EXTUBATES, HE WILL NOT BE RE-INTUBATED OR RESUSCITATED. RESPIRATORY FAILURE - PT VENTILATED - SEDATION WAS RESTARTED AT LOW DOSE, WILL CONTINUE TO WEAN ABLE - DEFER VENTILATOR MANAGEMENT to THE EICU. ACUTE ON CHRONIC RENAL FAILURE - IMPROVED, HOWEVER WILL NEED TO CONTINUE MONITOR HIS RENAL FUNCTION ON CURRENT MEDICATION REGIMEN. CHRONIC HYPERTENSION - PT WITH IMPROVED BLOOD PRESSURE FROM ADMISSION - MONITOR PRESSURES, PT IS CURRENTLY HEMODYNAMICALLY STABLE. DIABETES MELLITUS WITH HYPERGLYCEMIA - SLIDING SCALE INSULIN PROTOCOL HYPONATREMIA - 130 ON ADMISSION - IMPROVED WITH FLUIDS - MONITOR LABS SERIALLY LACTIC ACIDOSIS -RESOLVED WITH LAST LAB JANICE TORRES Apr 08, 2021 07:42 MOISÉS ARMSTRONG MD Apr 08, 2021 21:13
--- NOTE | 2021-04-08 07:44 | Tele-ICU Progress Note ---
Subjective Date Seen by a Provider: Apr 08, 2021 Time Seen by a Provider: 07:43 Subjective/Events-last exam Patient today remained on mechanical ventilation. He opens eyes and occasionally follows commands. However his arterial blood gas revealed a persistence of metabolic acidosis most likely due to hyperchloremic. Hence I will change IV fluids to bicarbonate drip. Once his metabolic acidosis is corrected I would like to try him on CPAP and extubate him. I made a video visit and discussed with the DEVELOPMENT TECHNICAL LEADrigging slinger of Systems ROS PER RN Sepsis Event Evaluation Height, Weight, BMI Height: 5'9.00" Weight: 230lbs. 4.0oz. 104.127541fm; 32.55 BMI Method:Estimated Focused Exam Lactate Level 04/05/21 19:35: Lactic Acid Level 2.46*H 04/06/21 04:23: Lactic Acid Level 2.90*H 04/06/21 06:56: Lactic Acid Level 1.50 Exam Exam Patient acknowledged, consented, and participated in this virtual visit which was conducted using real time audio/video Vital Signs Date Time Temp Pulse Resp B/P (MAP) Pulse Ox O2 Delivery O2 Flow Rate FiO2 04/08/21 07:07 79 25 95 21 04/08/21 06:00 78 22 155/81 98 Mechanical Ventilator 21.00 04/08/21 05:00 75 18 142/75 97 Mechanical Ventilator 21.00 04/08/21 04:57 68 120/68 04/08/21 04:00 98 Mechanical Ventilator 21 04/08/21 04:00 36.8 Mechanical Ventilator 21.00 04/08/21 04:00 73 32 143/73 95 Mechanical Ventilator 21.00 04/08/21 03:00 82 33 120/59 98 Mechanical Ventilator 21.00 04/08/21 02:52 83 30 100 21 04/08/21 02:00 85 31 111/57 100 Mechanical Ventilator 21.00 04/08/21 01:00 87 04/08/21 01:00 87 31 135/73 99 Mechanical Ventilator 21.00 04/08/21 00:02 37.0 Mechanical Ventilator 21.00 04/08/21 00:00 91 24 131/77 97 Mechanical Ventilator 21.00 04/07/21 23:59 98 Mechanical Ventilator 21 04/07/21 23:00 95 26 145/67 97 Mechanical Ventilator 21.00 04/07/21 22:00 79 25 130/61 91 Mechanical Ventilator 21.00 04/07/21 21:49 74 18 95 21 04/07/21 21:12 84 126/62 04/07/21 21:00 85 21 138/70 100 Mechanical Ventilator 21.00 04/07/21 20:24 36.9 04/07/21 20:00 98 Mechanical Ventilator 21 04/07/21 20:00 76 18 130/68 98 Mechanical Ventilator 21.00 04/07/21 19:00 77 22 141/74 98 Mechanical Ventilator 21.00 04/07/21 19:00 77 04/07/21 18:50 74 21 100 21 04/07/21 18:00 80 20 156/83 98 Mechanical Ventilator 21.00 04/07/21 17:00 73 18 136/72 98 Mechanical Ventilator 21.00 04/07/21 16:27 36.4 04/07/21 16:00 97 Mechanical Ventilator 21 04/07/21 16:00 64 18 96/53 98 Mechanical Ventilator 21.00 04/07/21 15:00 69 19 107/56 97 Mechanical Ventilator 21.00 04/07/21 14:42 74 18 97 21 04/07/21 14:00 82 25 147/78 100 Mechanical Ventilator 21.00 04/07/21 13:00 78 22 125/64 95 Mechanical Ventilator 21.00 04/07/21 12:55 36.8 04/07/21 12:18 86 04/07/21 12:04 89 140/70 04/07/21 12:00 97 Mechanical Ventilator 21 04/07/21 12:00 85 23 135/71 98 Mechanical Ventilator 21.00 04/07/21 11:00 89 13 140/70 97 Mechanical Ventilator 21.00 04/07/21 10:09 84 22 98 21 04/07/21 10:00 80 21 119/63 97 Mechanical Ventilator 21.00 04/07/21 09:00 89 24 127/63 97 Mechanical Ventilator 21.00 04/07/21 08:21 37.8 04/07/21 08:00 90 25 133/66 97 Mechanical Ventilator 21.00 04/07/21 07:45 97 Mechanical Ventilator 21 I & O 04/08/21 07:00 Intake Total 1455 ml Output Total 1100 ml Balance 355 ml Height & Weight Height: 5'9.00" Weight: 230lbs. 4.0oz. 104.195106jx; 32.55 BMI Method:Estimated General Appearance: No Apparent Distress, Other (Intubated with eyes open and tracking movement) Neck: Normal Inspection; No Lymphadenopathy (L), No Lymphadenopathy (R) Respiratory: Chest Non Tender, Lungs Clear, Normal Breath Sounds, No Accessory Muscle Use, No Respiratory Distress, Other (Ventilator) Cardiovascular: Regular Rate, Rhythm, No Murmur, Normal Peripheral Pulses Capillary Refill: Less Than 3 Seconds Gastrointestinal: soft, other (Nondistended) Extremity: Normal Capillary Refill, Pedal Edema (Minor) Neurologic/Psychiatric: No Oriented x3; Other (Eyes open but could not follow commands) Skin: Normal Color, Warm/Dry, Other (Wound on left ankle. Dressed.) Lymphatic: No Adenopathy (Head and neck) Other comments pe per rn Results Lab Laboratory Tests 04/07/21 04:35 04/08/21 04:45 Assessment/Plan Assessment/Plan 1. Acute hypoxic respiratory failure secondary to metabolic abnormalities. 2. Metabolic encephalopathy secondary to sepsis 3. Acute pancolitis and surgery is following. 4. Mildly elevated troponin probably due to type II myocardial infarction. 5. Acute and chronic kidney disease due to sepsis 6. History of diabetes mellitus type 2 7. Hyponatremia secondary to volume deficiency 8. History of hypertension 9. History of mild dementia for patient's . Recommendations 1. Continue mechanical ventilatory support I do not think he is ready for extubation today. 2. We will discontinue normal saline and start bicarb drip to correct metabolic acidosis and then will try on cpap and consider extubate on 04/09/21. 3. Continue IV antibiotics per primary care team 4. Colitis per general surgeon 5. Continue hydration with normal saline and monitor urine output, serum sodium and other electrolytes. 6. DVT prophylaxis and ulcer prophylaxis. 7. Try to wean Levophed as tolerated. 8. Prognosis is guarded 9.discussed with process inspector Izzy Critical Care: Ventilator Management ALFONZO PADRON MD Apr 08, 2021 07:44
[2021-04-08] MEDS ORDERED: SODIUM PHOSPHATE INJ 30 MM in NS (IVPB) 250 ML INJ ONE (08:00)
[2021-04-08] MEDS: FAMOTIDINE 20MG/2ML IV (PEPCID) IVP SCH (08:17)
[2021-04-08] MEDS: ENOXAPARIN 100 MG/1 ML (LOVENOX) SYR SC SCH ×2 (08:17→21:11)
--- NOTE | 2021-04-08 08:41 | Cardiology Progress Note ---
Subjective Date Seen by Provider: Apr 08, 2021 Time Seen by Provider: 08:35 Subjective/Events-last exam Patient intubated, but alert and following some commands. Review of Systems General: Other (Unable to provide review of) Focused Exam Lactate Level 04/05/21 19:35: Lactic Acid Level 2.46*H 04/06/21 04:23: Lactic Acid Level 2.90*H 04/06/21 06:56: Lactic Acid Level 1.50 Objective-Cardiology Exam Last Set of Vital Signs Vital Signs 04/08/21 04/08/21 04/08/21 06:00 07:07 07:56 Temp 36.5 Pulse 79 Resp 25 B/P (MAP) 155/81 Pulse Ox 95 O2 Delivery Mechanical Ventilator O2 Flow Rate 21.00 FiO2 21 I&O Intake and Output 04/08/21 00:00 Intake Total 1455 ml Output Total 1125 ml Balance 330 ml Intake Oral 0 ml IV Total 1455 ml Output Urine Total 1025 ml Gastric Drainage Total 100 ml # Bowel Movements 1 General: Alert HEENT: Atraumatic Neck: Supple Lungs: Clear to Auscultation Heart: Regular Rate Abdomen: Normal Bowel Sounds Extremities: No Clubbing, No Cyanosis Skin: No Rashes Neuro: Other (intubated, but able to squeeze right hand when asked) Results Lab Laboratory Tests 04/08/21 04:45 A/P-Cardiology Admission Diagnosis Acute respiratory failure AMS Sepsis Elevated troponin Assessment/Plan Acute resp failure, ventilator dependent, patient is awake this morning and following some commands. Possible extubation soon. Altered mental status,was found on floor by bed by , unknown etiology, CT head done showing no acute changes. Currently ventilator dependent Sepsis, CT abd/pelvis showing acute colitis involving entire transverse colon, started on levoloxacin and flagyl, management per medical services. Mildly elevated troponin, EKG showing sinus tachy with PVC's. Probably type II myocardial infarction due to respiratory failure. Stress test in 2019 showed no significant ischemia or infarction. We will continue monitoring closely. Chronic kidney disease with ROSARIO, continue to monitor renal function. DM, management per medical services Hyponatremia, monitor electrolytes Hx of Hypertension, currently hypotensive Supervisory-Addendum Brief Supervisory Addendum Participated in pt care: history, MDM, physical Personally performed: exam, history, MDM Care discussed with: CAROLIN Results interpretation: Verified all documentation Notes: Patient was seen and evaluated with Zofia, I examined the patient, he was awake Following commands, still ventilator dependent Possible extubation today. Continue to monitor blood pressure ZOFIA GARZA Apr 08, 2021 08:41 INDIGO BULL MD Apr 08, 2021 09:00
[2021-04-08 09:55] VITALS: BP 135/70
[2021-04-08 09:59] LABS: ABG BASE EXCESS -7.7 MMOL/L (-2.5-2.5); ABG OXYGEN SATURATION 95 % (94-100); ABG PCO2 31 MMHG (35-45); ABG PH 7.35 (7.37-7.43); ABG PO2 70 MMHG (79-93); ABG TCO2 17.7 MMOL/L (21.0-31.0)
[2021-04-08 10:03] LABS: ALLENS TEST YES-POS; INSPIRED O2 21%; PATIENT TEMP 37; VENTILATOR YES
[2021-04-08] MEDS ORDERED: MIRA25TA PO (10:33)
[2021-04-08] MEDS ORDERED: FOLI1TAB33 PO (10:33)
[2021-04-08] MEDS ORDERED: MULT-1136 PO (10:33)
[2021-04-08] MEDS ORDERED: CALC600T80 PO (10:33)
[2021-04-08] MEDS ORDERED: D5W 1000 ML IV SOLUTION 1,000 ML IV SCH (10:45)
[2021-04-08] MEDS ORDERED: SODIUM BICARB 8.4% 50 MEQ/50 ML (ABBOTT) SYR IV NR (10:45)
[2021-04-08] MEDS: SODIUM BICARBONATE 8.4% VIAL 150 MEQ in D5W 1000 ML IV SOLUTION 1,000 ML IV SCH (11:57)
[2021-04-08 15:11] VITALS: BP 135/71
--- NOTE | 2021-04-08 17:59 | Physician Query Clarification ---
Physician Query-General Query to Physician: The medical record reflects the following clinical scenario: The patient, in the setting of History/Risk factors, Found unresponsive, Sepsis, Colitis, Clinical Findings Sa02 143 on 10L NRB P/F 143/95 on admission admission RR 30, Treatment Emergent intubation in the ER, albuterol, IV ABX, Question: Can you further specify Respiratory Failure per the clinical indicators above? Please document your response in the Progress Notes or Discharge Summary. 1. Acute hypoxic Respiratory Failure, present on admission 2. Other, with explanation of clinical findings 3. Clinically undetermined, no explanation for clinical findings Please clarify and document your clinical opinion in the Progress Notes and Discharge Summary including the definitive and/or presumptive diagnosis, (suspected or probable), related to the above clinical findings. Please include clinical findings supporting your diagnosis. In responding to this query, please exercise your independent professional judgment. The purpose of this communication is to more accurately reflect the complexity of your patients condition. The fact that a question is asked does not imply that any particular answer is desired or expected. Please remember a lack of response to the above will prompt a phone page by CDI/coding staff. Thank you for timely response to this clarification. Kyung Walker MSN, RN Clinical Manager Advanced [phone] [email or web address] PHYSICIAN RESPONSE: Based on the clinical findings in the record, please respond to the query above on this document as an addendum. Physician Response: Physician Response ACUTE HYPOXIC RESPIRATOrY FAILURE PRESENT ON ADMISSION If you have questions please contact: Design Engineer [employer]: Ext: Thank you for your time and cooperation. Clinical Manager Advanced/[employer] Engineer [employer] This is a permanent part of the medical record KYUNG WALKER Apr 08, 2021 17:58 MOISÉS ARMSTRONG MD Apr 08, 2021 21:14
[2021-04-08 18:54] VITALS: BP 149/76
[2021-04-08 21:34] VITALS: BP 158/82
[2021-04-09] MEDS: SODIUM BICARBONATE 8.4% VIAL 150 MEQ in D5W 1000 ML IV SOLUTION 1,000 ML IV SCH ×2 (01:46→16:00)
[2021-04-09 02:56] VITALS: BP 121/59
[2021-04-09 04:24] LABS: BASOPHILS % (AUTO) 0 % (0-10); EOSINOPHILS # (AUTO) 0.4 10^3/uL (0.0-0.3); EOSINOPHILS % (AUTO) 5 % (0-10); HEMATOCRIT 28 % (40-54); HEMOGLOBIN 9.4 g/dL (13.3-17.7); LYMPHOCYTES # (AUTO) 1.7 10^3/uL (1.0-4.0); LYMPHOCYTES % (AUTO) 23 % (12-44); MEAN CORPUSCULAR HEMOGLOBIN 29 pg (25-34); MEAN CORPUSCULAR HGB CONC 33 g/dL (32-36); MEAN CORPUSCULAR VOLUME 88 fL (80-99); MEAN PLATELET VOLUME 8.9 fL (9.0-12.2); MONOCYTES # (AUTO) 0.6 10^3/uL (0.0-1.0); MONOCYTES % (AUTO) 7 % (0-12); NEUTROPHILS % (AUTO) 65 % (42-75); PLATELET COUNT 251 10^3/uL (130-400); WHITE BLOOD COUNT 7.7 10^3/uL (4.3-11.0)
[2021-04-09 04:40] LABS: ALBUMIN 2.3 GM/DL (3.2-4.5); POTASSIUM 2.9 MMOL/L (3.6-5.0)
[2021-04-09 04:42] LABS: CALCIUM 7.4 MG/DL (8.5-10.1)
[2021-04-09 04:43] LABS: TOTAL PROTEIN 5.4 GM/DL (6.4-8.2)
[2021-04-09 04:44] LABS: BILIRUBIN,TOTAL 0.3 MG/DL (0.1-1.0)
[2021-04-09 04:46] LABS: CREATININE SERUM 1.23 MG/DL (0.60-1.30); PHOSPHORUS 2.1 MG/DL (2.3-4.7)
[2021-04-09 04:49] LABS: MAGNESIUM 1.6 MG/DL (1.6-2.4)
[2021-04-09] MEDS: PIPERACILLIN SODIUM/TAZOBACTAM 4.5 GM in NS (IVPB) 100 ML IV SCH ×3 (05:45→22:23)
[2021-04-09 05:48] LABS: ABG BASE EXCESS 1.2 MMOL/L (-2.5-2.5); ABG OXYGEN SATURATION 98 % (94-100); ABG PCO2 32 MMHG (35-45); ABG PO2 87 MMHG (79-93); ABG TCO2 25.4 MMOL/L (21.0-31.0)
[2021-04-09 05:51] LABS: ALLENS TEST YES-POS; INSPIRED O2 25%; PATIENT TEMP 36.2; VENTILATOR YES
[2021-04-09] MEDS: MAGNESIUM 1 GM/100 ML IVPB 100 ML IV SCH ×2 (06:04→06:13)
[2021-04-09] MEDS: KCL 20 MEQ TAB (K-DUR) PO SCH (06:05)
[2021-04-09] MEDS: POTASSIUM CL 10MEQ/50ML IVPB 50 ML IV SCH ×6 (06:05→09:19)
[2021-04-09] MEDS: inSUlin ASPART (NovoLOG) 1 UNIT/0.01 ML (CHARGE PER UNIT) SC SCH ×3 (06:05→18:34)
--- NOTE | 2021-04-09 07:13 | Progress Note ---
Subjective Subjective Date Seen by Provider: Apr 09, 2021 Time Seen by Provider: 07:55 Mr. Gutierrez is currently intubated and sedated this morning. He was unresponsive this morning and did not open his eyes. He could not respond to commands or make purposeful movements. He has an NG tube in place. Vent settings are as follows: 25% FiO2, 5 PEEP, 450 TV, and 18 RR. An ABG yesterday showed a pH of 7.5 indicating a respiratory alkalosis. His labs have generally continued to normalize. Review of Systems ROS Unable to Obtain: Currently intubated and unable to obtain ROS General: Other (Unable to provide review of system) All Other Systems Reviewed All Other Systems Reviewed: Yes Objective Exam Vital Signs Vital Signs Date Time Temp Pulse Resp B/P (MAP) Pulse Ox O2 Delivery O2 Flow Rate FiO2 04/09/21 06:00 61 18 163/75 97 Mechanical Ventilator 25.00 04/09/21 05:37 36.2 04/09/21 05:00 61 18 149/71 98 Mechanical Ventilator 25.00 04/09/21 04:00 98 Mechanical Ventilator 25 04/09/21 04:00 63 18 143/69 98 Mechanical Ventilator 25.00 04/09/21 03:00 68 18 149/71 98 Mechanical Ventilator 25.00 04/09/21 02:56 68 18 97 25 04/09/21 02:22 68 119/60 04/09/21 02:00 58 18 119/60 99 Mechanical Ventilator 25.00 04/09/21 01:00 62 04/09/21 01:00 62 18 120/67 98 Mechanical Ventilator 25.00 04/09/21 00:00 98 Mechanical Ventilator 25 04/09/21 00:00 76 23 118/60 98 Mechanical Ventilator 25.00 04/08/21 23:17 36.5 04/08/21 23:04 36.9 04/08/21 23:00 80 19 173/89 99 Mechanical Ventilator 25.00 04/08/21 22:00 79 25 158/82 97 Mechanical Ventilator 25.00 04/08/21 21:34 71 20 96 25 04/08/21 21:00 62 18 165/84 98 Mechanical Ventilator 25.00 04/08/21 20:00 65 18 161/82 98 Mechanical Ventilator 25.00 04/08/21 20:00 98 Mechanical Ventilator 25 04/08/21 19:35 Mechanical Ventilator 25.00 04/08/21 19:00 70 04/08/21 19:00 Mechanical Ventilator 28.00 04/08/21 19:00 70 18 161/87 98 Mechanical Ventilator 28.00 04/08/21 18:54 71 18 97 28 04/08/21 16:00 98 Mechanical Ventilator 21 04/08/21 16:00 79 18 168/86 94 Mechanical Ventilator 21.00 04/08/21 15:50 36.6 04/08/21 15:11 76 18 94 21 04/08/21 15:00 72 18 154/80 89 Mechanical Ventilator 21.00 04/08/21 14:01 83 151/75 04/08/21 14:00 84 21 145/76 98 Mechanical Ventilator 21.00 04/08/21 13:00 84 13 163/85 95 Mechanical Ventilator 21.00 04/08/21 12:47 75 04/08/21 12:00 73 18 141/79 95 Mechanical Ventilator 21.00 04/08/21 11:56 36.4 04/08/21 11:54 98 Mechanical Ventilator 21 04/08/21 11:00 78 18 141/70 94 Mechanical Ventilator 21.00 04/08/21 10:00 84 28 145/75 94 Mechanical Ventilator 21.00 04/08/21 09:55 79 20 96 21 04/08/21 09:00 82 24 135/70 98 Mechanical Ventilator 21.00 04/08/21 08:30 98 Mechanical Ventilator 21 04/08/21 08:00 82 22 151/72 98 Mechanical Ventilator 21.00 04/08/21 07:56 36.5 I & O 04/09/21 07:00 Intake Total 2010 ml Output Total 1200 ml Balance 810 ml General Appearance: No Apparent Distress, Other (Intubated and sedated) Neck: Normal Inspection, Non Tender; No Lymphadenopathy (L), No Lymphadenopathy (R) Respiratory: Chest Non Tender, Lungs Clear, Normal Breath Sounds, No Accessory Muscle Use, No Respiratory Distress, Other (Ventilator) Cardiovascular: Regular Rate, Rhythm, No Murmur, Normal Peripheral Pulses, Other (Edema in B/L hands and feet) Gastrointestinal: Non Tender, Soft, Abnormal Bowel Sounds (Decreased) Extremity: Normal Capillary Refill, Pedal Edema Neurologic/Psychiatric: No Alert, No Oriented x3; Other (Eyes closed) Skin: Normal Color, Warm/Dry, Other (Wound on left ankle. Dressed.) Lymphatic: No Adenopathy (Head and neck) Results Lab Laboratory Tests 04/08/21 09:52: Blood Gas Puncture Site RT RADIAL, Blood Gas Patient Temperature 37, Arterial Blood pH 7.35L, Arterial Blood Partial Pressure CO2 31L, Arterial Blood Partial Pressure O2 70L, Arterial Blood HCO3 17*L, Arterial Blood Total CO2 17.7L, Arterial Blood Oxygen Saturation 95, Arterial Blood Base Excess -7.7L, Arsalan Test YES-POS, Blood Gas Ventilator Setting YES, Blood Gas Inspired Oxygen 21% 04/08/21 12:01: Glucometer 187H 04/08/21 17:43: Glucometer 200H 04/08/21 23:16: Glucometer 202H 04/09/21 04:15: White Blood Count 7.7, Red Blood Count 3.22L, Hemoglobin 9.4L, Hematocrit 28L, Mean Corpuscular Volume 88, Mean Corpuscular Hemoglobin 29, Mean Corpuscular Hemoglobin Concent 33, Red Cell Distribution Width 14.1, Platelet Count 251, Mean Platelet Volume 8.9L, Immature Granulocyte % (Auto) 0, Neutrophils (%) (Auto) 65, Lymphocytes (%) (Auto) 23, Monocytes (%) (Auto) 7, Eosinophils (%) (Auto) 5, Basophils (%) (Auto) 0, Neutrophils # (Auto) 5.0, Lymphocytes # (Auto) 1.7, Monocytes # (Auto) 0.6, Eosinophils # (Auto) 0.4H, Basophils # (Auto) 0.0, Immature Granulocyte # (Auto) 0.0, Sodium Level 144, Potassium Level 2.9L, Chloride Level 113H, Carbon Dioxide Level 20L, Anion Gap 11, Blood Urea Nitrogen 12, Creatinine 1.23, Estimat Glomerular Filtration Rate 59, BUN/Creatinine Ratio 10, Glucose Level 184H, Calcium Level 7.4L, Corrected Calcium 8.8, Phosphorus [place] nile 2.1L, Magnesium Level 1.6, Total Bilirubin 0.3, Aspartate Amino Transf (AST/SGOT) 43H, Alanine Aminotransferase (ALT/SGPT) 15, Alkaline Phosphatase 65, Total Protein 5.4L, Albumin 2.3L, Triglycerides Level 120 04/09/21 05:45: Blood Gas Puncture Site RIGHT RADIAL, Blood Gas Patient Temperature 36.2, Arterial Blood pH 7.50H, Arterial Blood Partial Pressure CO2 32L, Arterial Blood Partial Pressure O2 87, Arterial Blood HCO3 24, Arterial Blood Total CO2 25.4, Arterial Blood Oxygen Saturation 98, Arterial Blood Base Excess 1.2, Arsalan Test YES-POS, Blood Gas Ventilator Setting YES, Blood Gas Inspired Oxygen 25% Microbiology 04/05/21 MRSA Screen - Final, Complete MRSA not isolated 04/05/21 Blood Culture - Preliminary, Resulted No growth Assessment/Plan Assessment/Plan Assessment and Plan Assessment: Sepsis d/t transverse colitis - On fluids and antibiotics - CT abdomen showed transverse colitis without perforation or abscess Respiratory failure - Ventilated and sedated Acute on chronic renal failure - BUN/Cr normalized Anemia - Hgb at 9.4 today - Likely dilutional, no obvious source of acute bleeding Hypokalemia - 2.9 today Leukocytosis - Resolved - 7.7 today Hyponatremia - Resolved - 144 today - Has been trending up. Monitor to ensure hypernatremia does not develop. Lactic acidosis - Resolved Respiratory alkalosis without compensation - Repeat ABG showed a pH of 7.5 with a HCO3 of 24 and CO2 of 32 - Managed by eICU HTN Diabetes Plan: Continue IVF and Pip/tazo Magnesium supplementation started. Consider potassium replacement as well. Patient has been made DNR/DNI after conversations with family. Consider decreasing RR or TV on the ventilator to help correct acid-base status. Patient is intubated and sedated. Extubation will be managed by eICU, consider extubation today. Further conversations with family regarding next steps in care would be appropriate. Patient may recover. Talk with family and d/c plans if patient continues to improve. SNF vs. going home. Supervisory-Addendum Brief Verification & Attestation Participated in pt care: history, MDM, physical Personally performed: exam, history, MDM, supervision of care Care discussed with: Medical Student Procedures: n/a Results interpretation: Verified all documentation AGREE WITH STUDENT DOCUMENTATION WITH THE FOLLOWING CHANGES WEIGHT UP ALMOST 30POUNDS - WILL GIVE A LOW DOSE OF LASIX TONIGHT, REPEAT CHEST XRAY IN MORNING. CRITICAL CARE - EICU IS MANAGING PT'S VENT, PLAN WILL BE FOR EXTUBATION WHEN ABLE. DISCUSSED WITH FAMILY TODAY ABOUT EXTUBATION AND THE POSSIBLE RESPIRATORY SUPPORT THAT WILL BE GIVEN ONCE HE IS EXTUBATED. THEY UNDERSTAND THE GRAVITY OF ERIC'S ILLNESS AND STILL DESIRE PT TO BE DNR AND DO NOT RE-INTUBATE SHOULD HIS RESPIRATORY STATUS CONTINUE BE POOR ON EXTUBATION. SEVERE SEPSIS TRANSVERSE COLITIS RESPIRATORY FAILURE ACUTE ON CHRONIC RENAL FAILURE CHRONIC HYPERTENSION CHRONIC CONSTIPATION DIABETES MELLITUS WITH HYPERGLYCEMIA LEUKOCYTOSIS HYPONATREMIA LACTIC ACIDOSIS SEVERE SEPSIS DUE TO TRANSVERSE COLITIS - PT ON IV ANTIBIOTIC OF ZOSYN CONTINUE WITH CURRENT ANTIBIOTIC CHOICE, MONITOR RENAL FUNCTION ON ZOSYN AND WILL CONTINUE WITH FLUIDS AND CURRENT PLAN. - THE PLAN FORWARD WILL DEPEND ON HOW ERIC RESPONDS OVER THE NEXT FEW DAYS. - HOWEVER, THE PLAN WILL STILL BE THAT SHOULD HIS HEART STOP OR IF HE SELF-EXTUBATES, HE WILL NOT BE RE-INTUBATED OR RESUSCITATED. RESPIRATORY FAILURE - PT VENTILATED - SEDATION STOPPED THIS MORNING, PENDING OUTCOME OF EXTUBATION PLANS, MAY HAVE To RESTART SEDATION WILL CONTINUE TO WEAN ABLE - DEFER VENTILATOR MANAGEMENT to THE EICU. ACUTE ON CHRONIC RENAL FAILURE - IMPROVED, HOWEVER WILL NEED TO CONTINUE MONITOR HIS RENAL FUNCTION ON CURRENT MEDICATION REGIMEN. CHRONIC HYPERTENSION - PT WITH IMPROVED BLOOD PRESSURE FROM ADMISSION - MONITOR PRESSURES, PT IS CURRENTLY HEMODYNAMICALLY STABLE. DIABETES MELLITUS WITH HYPERGLYCEMIA - SLIDING SCALE INSULIN PROTOCOL ILL PATIENT WITH HIGH RISK OF IN-HOSPITAL JANICE TORRES Apr 09, 2021 07:13 MOISÉS ARMSTRONG MD Apr 09, 2021 21:52
[2021-04-09 07:29] VITALS: BP 147/70
[2021-04-09] MEDS: RT-ALBUTEROL/IPRATROPIUM 3 ML (DUONEB) VIAL INH SCH ×2 (07:29→20:44)
--- NOTE | 2021-04-09 08:28 | Cardiology Progress Note ---
Subjective Date Seen by Provider: Apr 09, 2021 Time Seen by Provider: 08:26 Subjective/Events-last exam Patient is sedated and intubated, failed weaning Review of Systems General: No Chills, No Night Sweats, No Fatigue, No Malaise, No Appetite, No Other HEENT: No Head Aches, No Visual Changes, No Eye Pain, No Ear Pain, No Dysphasia, No Sinus Congestion, No Post Nasal Drip, No Sore Throat, No Other Pulmonary: No Dyspnea, No Cough, No Pleuritic Chest Pain, No Other Cardiovascular: No: Chest Pain, Palpitations, Orthopnea, Paroxysmal Noc. Dyspnea, Edema, Lt Headedness, Other Objective-Cardiology Exam Last Set of Vital Signs Vital Signs 04/09/21 04/09/21 04/09/21 07:30 07:48 08:00 Temp 36.6 Pulse 74 Resp 26 B/P (MAP) 145/79 Pulse Ox 100 O2 Delivery Mechanical Ventilator O2 Flow Rate 25.00 FiO2 25 I&O Intake and Output 04/09/21 00:00 Intake Total 660 ml Output Total 1250 ml Balance -590 ml Intake Oral 0 ml IV Total 660 ml Output Urine Total 1250 ml # Bowel Movements 2 General: Alert, Other (sedated) HEENT: Atraumatic Neck: Supple Lungs: Clear to Auscultation Heart: Regular Rate Abdomen: Normal Bowel Sounds Extremities: No Clubbing, No Cyanosis Skin: No Rashes Neuro: Other (sedated) Results Lab Laboratory Tests 04/09/21 04:15 A/P-Cardiology Admission Diagnosis Acute respiratory failure AMS Sepsis Elevated troponin Assessment/Plan Acute resp failure, ventilator dependent, failed weaning yesterday, possible another trial today Metabolic acidosis received sodium bicarbonate, improving. managed by medical team Altered mental status,was found on floor by bed by , unknown etiology, CT head done showing no acute changes. Currently ventilator dependent Sepsis, CT abd/pelvis showing acute colitis involving entire transverse colon, started on levoloxacin and flagyl, management per medical services. Mildly elevated troponin, EKG showing sinus tachy with PVC's. Probably type II myocardial infarction due to respiratory failure. Stress test in 2019 showed no significant ischemia or infarction. We will c ontinue monitoring closely. Chronic kidney disease with ROSARIO, continue to monitor renal function. DM, management per medical services Hyponatremia, monitor electrolytes Hx of Hypertension, currently hypotensive INDIGO BULL MD Apr 09, 2021 08:28
--- NOTE | 2021-04-09 08:39 | Tele-ICU Progress Note ---
Subjective Date Seen by a Provider: Apr 09, 2021 Time Seen by a Provider: 07:00 Subjective/Events-last exam This virtual visit was conducted using real time audio/video. Thank you for asking us to see this patient for respiratory insufficiency due to encephalopathy, pancolitis, pna. Recent events: Remains on vent. PE: Sedated on vent. VSS. O2 sat 98% on 25%/+5 HEENT: No obvious masses, adenopathy or JVD. Chest: clear to auscultation. Diminished. CV: RRR S1 S2 No murmur or added sounds. Abd: Non-tender. Bowel sounds Y. : Unremarkable. Thomson Y. CVICU NURSE/psychiatric: Grossly intact. No obvious focal findings. Extremities: 1-2 + edema. Capillary refill < 3 seconds. Skin: unremarkable. Results: Na rising. Decreased K 2.9, Phos 2.1. BG: .7. CXR: no change. Available chart/ vitals / labs / images reviewed. Video assessment done using teleICU camera, rest of exam as per RN. A/P: Respiratory insufficiency: Correct K, Mag, PO4. Give 1000 ml free H2O, repeat BMP, Mag, PO4 and consider an SBT later today. Cont duonebs, Propofol for now. Critical Care: critically ill patient. Cont. Zosyn, NaHCO3, SSI, Neal. Discussed with PHYLICIA Magana. Asked RN to reach out to eICU if any questions or concerns later. Time spent with patient/coordination of care with other health professionals (mins): 25 Sepsis Event Evaluation Height, Weight, BMI Height: 5'9.00" Weight: 230lbs. 4.0oz. [id number]; 32.55 BMI Method:Estimated Exam Exam Patient acknowledged, consented, and participated in this virtual visit which was conducted using real time audio/video Vital Signs Date Time Temp Pulse Resp B/P (MAP) Pulse Ox O2 Delivery O2 Flow Rate FiO2 04/09/21 08:00 74 26 145/79 100 Mechanical Ventilator 25.00 04/09/21 07:48 36.6 04/09/21 07:30 98 Mechanical Ventilator 25 04/09/21 07:29 61 18 96 21 04/09/21 07:00 58 04/09/21 07:00 59 18 151/70 97 Mechanical Ventilator 25.00 04/09/21 06:00 61 18 163/75 97 Mechanical Ventilator 25.00 04/09/21 05:37 36.2 04/09/21 05:00 61 18 149/71 98 Mechanical Ventilator 25.00 04/09/21 04:00 98 Mechanical Ventilator 25 04/09/21 04:00 63 18 143/69 98 Mechanical Ventilator 25.00 04/09/21 03:00 68 18 149/71 98 Mechanical Ventilator 25.00 04/09/21 02:56 68 18 97 25 04/09/21 02:22 68 119/60 04/09/21 02:00 58 18 119/60 99 Mechanical Ventilator 25.00 04/09/21 01:00 62 04/09/21 01:00 62 18 120/67 98 Mechanical Ventilator 25.00 04/09/21 00:00 98 Mechanical Ventilator 25 04/09/21 00:00 76 23 118/60 98 Mechanical Ventilator 25.00 04/08/21 23:17 36.5 04/08/21 23:04 36.9 04/08/21 23:00 80 19 173/89 99 Mechanical Ventilator 25.00 04/08/21 22:00 79 25 158/82 97 Mechanical Ventilator 25.00 04/08/21 21:34 71 20 96 25 04/08/21 21:00 62 18 165/84 98 Mechanical Ventilator 25.00 04/08/21 20:00 65 18 161/82 98 Mechanical Ventilator 25.00 04/08/21 20:00 98 Mechanical Ventilator 25 04/08/21 19:35 Mechanical Ventilator 25.00 04/08/21 19:00 70 04/08/21 19:00 Mechanical Ventilator 28.00 04/08/21 19:00 70 18 161/87 98 Mechanical Ventilator 28.00 04/08/21 18:54 71 18 97 28 04/08/21 16:00 98 Mechanical Ventilator 21 04/08/21 16:00 79 18 168/86 94 Mechanical Ventilator 21.00 04/08/21 15:50 36.6 04/08/21 15:11 76 18 94 21 04/08/21 15:00 72 18 154/80 89 Mechanical Ventilator 21.00 04/08/21 14:01 83 151/75 04/08/21 14:00 84 21 145/76 98 Mechanical Ventilator 21.00 04/08/21 13:00 84 13 163/85 95 Mechanical Ventilator 21.00 04/08/21 12:47 75 04/08/21 12:00 73 18 141/79 95 Mechanical Ventilator 21.00 04/08/21 11:56 36.4 04/08/21 11:54 98 Mechanical Ventilator 21 04/08/21 11:00 78 18 141/70 94 Mechanical Ventilator 21.00 04/08/21 10:00 84 28 145/75 94 Mechanical Ventilator 21.00 04/08/21 09:55 79 20 96 21 04/08/21 09:00 82 24 135/70 98 Mechanical Ventilator 21.00 I & O 04/09/21 07:00 Intake Total 2010 ml Output Total 1200 ml Balance 810 ml Height & Weight Height: 5'9.00" Weight: 230lbs. 4.0oz. [id number]; 32.55 BMI Method:Estimated General Appearance: No Apparent Distress, Other (Intubated and sedated) Neck: Normal Inspection, Non Tender; No Lymphadenopathy (L), No Lymphadenopathy (R) Respiratory: Chest Non Tender, Lungs Clear, Normal Breath Sounds, No Accessory Muscle Use, No Respiratory Distress, Other (Ventilator) Cardiovascular: Regular Rate, Rhythm, No Murmur, Normal Peripheral Pulses, Other (Edema in B/L hands and feet) Capillary Refill: Less Than 3 Seconds Gastrointestinal: soft, other (Nondistended) Extremity: Normal Capillary Refill, Pedal Edema Neurologic/Psychiatric: No Alert, No Oriented x3; Other (Eyes closed) Skin: Normal Color, Warm/Dry, Other (Wound on left ankle. Dressed.) Lymphatic: No Adenopathy (Head and neck) Results Lab Laboratory Tests 04/08/21 04:45 04/09/21 04:15 Assessment/Plan Assessment/Plan See free text. Critical Care: Ventilator Management CHAIM WOOD MD Apr 09, 2021 08:39
[2021-04-09] MEDS ORDERED: POTASSIUM PHOSPHATE INJ 15 MM in NS (IVPB) 250 ML IV NR (08:46)
[2021-04-09] MEDS: ENOXAPARIN 100 MG/1 ML (LOVENOX) SYR SC SCH ×2 (08:55→19:32)
[2021-04-09] MEDS: FAMOTIDINE 20MG/2ML IV (PEPCID) IVP SCH (08:55)
[2021-04-09 13:07] LABS: CALCIUM 7.2 MG/DL (8.5-10.1); CREATININE SERUM 1.21 MG/DL (0.60-1.30); POTASSIUM 3.6 MMOL/L (3.6-5.0)
[2021-04-09 13:43] LABS: PHOSPHORUS 2.5 MG/DL (2.3-4.7)
[2021-04-09 13:45] LABS: MAGNESIUM 1.8 MG/DL (1.6-2.4)
[2021-04-09 16:35] LABS: ABG BASE EXCESS 1.6 MMOL/L (-2.5-2.5); ABG OXYGEN SATURATION 95 % (94-100); ABG PCO2 35 MMHG (35-45); ABG PH 7.47 (7.37-7.43); ABG PO2 68 MMHG (79-93); ABG TCO2 25.9 MMOL/L (21.0-31.0)
[2021-04-09 16:36] LABS: ALLENS TEST YES-POS; PATIENT TEMP 37.4; VENTILATOR YES
[2021-04-09] MEDS ORDERED: FUROSEMIDE 40 MG/4 ML INJ (LASIX) IVP ONE (22:00)
[2021-04-09] MEDS ORDERED: FUROSEMIDE 40 MG/4 ML INJ (LASIX) ONE (22:12)
[2021-04-09] MEDS ORDERED: NS (IVPB) 100 ML ONE (22:12)
[2021-04-09] MEDS ORDERED: PIPERACILLIN/TAZO 4.5 GM VIAL (ZOSYN) IV ONE (22:12)
[2021-04-09] MEDS: morphine INJ 4 MG/ML 1 ML (VIAL/SYRINGE) IVP PRN (22:34)
[2021-04-10] MEDS: inSUlin ASPART (NovoLOG) 1 UNIT/0.01 ML (CHARGE PER UNIT) SC SCH ×5 (00:18→23:10)
[2021-04-10 04:29] LABS: BASOPHILS % (AUTO) 0 % (0-10); EOSINOPHILS # (AUTO) 0.5 10^3/uL (0.0-0.3); EOSINOPHILS % (AUTO) 6 % (0-10); HEMATOCRIT 31 % (40-54); HEMOGLOBIN 10.2 g/dL (13.3-17.7); LYMPHOCYTES % (AUTO) 21 % (12-44); MEAN CORPUSCULAR HEMOGLOBIN 29 pg (25-34); MEAN CORPUSCULAR HGB CONC 33 g/dL (32-36); MEAN CORPUSCULAR VOLUME 88 fL (80-99); MEAN PLATELET VOLUME 8.8 fL (9.0-12.2); MONOCYTES # (AUTO) 0.7 10^3/uL (0.0-1.0); MONOCYTES % (AUTO) 7 % (0-12); NEUTROPHILS # (AUTO) 6.2 10^3/uL (1.8-7.8); NEUTROPHILS % (AUTO) 65 % (42-75); PLATELET COUNT 267 10^3/uL (130-400); WHITE BLOOD COUNT 9.5 10^3/uL (4.3-11.0)
[2021-04-10 05:32] LABS: ALBUMIN 2.5 GM/DL (3.2-4.5); POTASSIUM 3.3 MMOL/L (3.6-5.0)
[2021-04-10 05:33] LABS: CALCIUM 7.8 MG/DL (8.5-10.1)
[2021-04-10 05:36] LABS: BILIRUBIN,TOTAL 0.6 MG/DL (0.1-1.0)
[2021-04-10 05:37] LABS: PHOSPHORUS 2.4 MG/DL (2.3-4.7)
[2021-04-10 05:38] LABS: CREATININE SERUM 1.22 MG/DL (0.60-1.30)
[2021-04-10 05:41] LABS: MAGNESIUM 1.7 MG/DL (1.6-2.4)
[2021-04-10] MEDS: morphine INJ 4 MG/ML 1 ML (VIAL/SYRINGE) IVP PRN (06:01)
[2021-04-10] MEDS: POTASSIUM CL 10MEQ/50ML IVPB 50 ML IV SCH ×4 (06:11→08:17)
[2021-04-10] MEDS: MAGNESIUM 1 GM/100 ML IVPB 100 ML IV SCH ×2 (06:11→06:19)
[2021-04-10] MEDS: KCL 20 MEQ TAB (K-DUR) PO SCH (06:11)
[2021-04-10] MEDS: SODIUM BICARBONATE 8.4% VIAL 150 MEQ in D5W 1000 ML IV SOLUTION 1,000 ML IV SCH (06:12)
--- NOTE | 2021-04-10 06:45 | Progress Note - Hospitalist ---
Subjective HPI/CC On Admission Date Seen by Provider: Apr 10, 2021 Time Seen by Provider: 10:30 Subjective/Events-last exam Patient doing very well Still confused so cannot eat or drink anything Labs reviewed Moving out of ICU to fourth floor DNR maintained Family member at the bedside and updated Review of Systems General: Fatigue, Malaise Pulmonary: Cough Neurological: Confusion Objective Exam Vital Signs Vital Signs Date Time Temp Pulse Resp B/P (MAP) Pulse Ox O2 Delivery O2 Flow Rate FiO2 04/11/21 04:07 36.8 82 19 177/94 (121) 98 High Flow N/C 1.00 04/09/21 16:00 25 Capillary Refill : Less Than 3 Seconds General Appearance: No Apparent Distress, WD/WN, Chronically ill Respiratory: No Accessory Muscle Use, No Respiratory Distress, Decreased Breath Sounds Cardiovascular: Regular Rate, Rhythm Neurologic/Psychiatric: Alert, Disoriented Results/Procedures Lab Patient resulted labs reviewed. Assessment/Plan Assessment and Plan Assess & Plan/Chief Complaint Assessment: Sepsis d/t transverse colitis - On fluids and antibiotics - CT abdomen showed transverse colitis without perforation or abscess Respiratory failure -Status post extubation Acute on chronic renal failure - BUN/Cr normalized Anemia - Hgb stable Hypokalemia -Stable Leukocytosis - Resolved Hyponatremia - Resolved -Monitor to ensure hypernatremia does not develop. Lactic acidosis - Resolved HTN Diabetes Plan: Move to fourth floor Critical Care Ventilator Management JAIMIE VALENCIA DO Apr 10, 2021 06:45
--- NOTE | 2021-04-10 06:54 | Diagnostic Imaging Report ---
INDICATION: Respiratory failure COMPARISON: 04/07/2021 TECHNIQUE: Single radiograph of the chest dated 04/10/2021 FINDINGS: Interval removal of previously noted endotracheal tube and enteric catheter. The cardiac silhouette is enlarged. Central pulmonary vascular congestion is present, slightly increased since the prior examination. Slightly increased prominence of the pulmonary interstitium with developing small pleural effusions. No pneumothorax. Scattered osseous degenerative changes without acute osseous abnormality. IMPRESSION: Interval extubation and removal of enteric catheter. Constellation of findings suggests developing congestive heart failure with interstitial edema and developing small bibasilar pleural effusions. Superimposed infectious infiltrate not excluded. Dictated by: Dictated on workstation # [id number]
[2021-04-10] MEDS: ENOXAPARIN 100 MG/1 ML (LOVENOX) SYR SC SCH (08:17)
[2021-04-10] MEDS: FAMOTIDINE 20MG/2ML IV (PEPCID) IVP SCH (08:17)
[2021-04-10] MEDS: RT-ALBUTEROL/IPRATROPIUM 3 ML (DUONEB) VIAL INH SCH ×2 (08:39→20:15)
--- NOTE | 2021-04-10 09:20 | Tele-ICU Progress Note ---
Subjective Date Seen by a Provider: Apr 10, 2021 Time Seen by a Provider: 08:20 Subjective/Events-last exam This virtual visit was conducted using real time audio/video. Thank you for asking us to see this patient for respiratory insufficiency due to encephalopathy, pancolitis, pna. Recent events: Extubated 04/09 at approx 1700. PE: Comfortable. VSS. O2 sat 94% on 1 LPM NC. HEENT: No obvious masses, adenopathy or JVD. Chest: clear to auscultation. Diminished. Right sided wheeze. CV: RRR S1 S2 No murmur or added sounds. Abd: Non-tender. Bowel sounds Y. : Unremarkable. Thomson Y. [employer]/psychiatric: Grossly intact. No obvious focal findings. Extremities: 1-2 + edema. Capillary refill < 3 seconds. Skin: unremarkable. Results: Na 144. Decreased K 3.3. CXR: no change. Available chart/ vitals / labs / images reviewed. Video assessment done using teleICU camera, rest of exam as per RN. A/P: Respiratory insufficiency: Much improved, now on 1 LPM NC. Cont duonebs PRN. Critical Care: critically ill patient. Cont. Zosyn, Pepcid, SSI, Neal. Replace K. Discussed with RN Anushka. Asked RN to reach out to eICU if any questions or concerns later. Time spent with patient/coordination of care with other health professionals (mins): 28 Sepsis Event Evaluation Height, Weight, BMI Height: 5'9.00" Weight: 230lbs. 4.0oz. [id number]; 32.55 BMI Method:Estimated Exam Exam Patient acknowledged, consented, and participated in this virtual visit which was conducted using real time audio/video Vital Signs Date Time Temp Pulse Resp B/P (MAP) Pulse Ox O2 Delivery O2 Flow Rate FiO2 04/10/21 09:00 Nasal Cannula 1.00 04/10/21 09:00 83 23 158/83 88 Nasal Cannula 1.00 04/10/21 08:44 Room Air 04/10/21 08:36 94 Nasal Cannula 1.00 04/10/21 08:16 36.6 04/10/21 08:00 75 20 164/86 93 Nasal Cannula 1.00 04/10/21 07:00 73 04/10/21 07:00 73 20 143/79 93 Nasal Cannula 1.00 04/10/21 06:00 81 23 175/97 95 Nasal Cannula 1.00 04/10/21 05:00 81 25 168/90 90 Nasal Cannula 1.00 04/10/21 04:00 Nasal Cannula 4.00 04/10/21 04:00 77 21 175/93 95 Nasal Cannula 1.00 04/10/21 03:00 77 24 164/90 96 Nasal Cannula 1.00 04/10/21 02:00 80 27 157/83 95 Nasal Cannula 1.00 04/10/21 01:00 81 28 163/84 94 Nasal Cannula 1.00 04/10/21 00:21 84 04/10/21 00:19 Nasal Cannula 4.00 04/10/21 00:18 37.3 04/10/21 00:00 80 27 165/80 95 Nasal Cannula 1.00 04/09/21 23:00 81 24 146/76 93 Nasal Cannula 1.00 04/09/21 22:00 84 19 147/78 92 Nasal Cannula 1.00 04/09/21 21:00 86 22 162/80 94 Nasal Cannula 1.00 04/09/21 20:45 96 Nasal Cannula 1.00 04/09/21 20:00 87 21 161/90 91 Nasal Cannula 1.00 04/09/21 19:36 Nasal Cannula 4.00 04/09/21 19:35 37.3 04/09/21 19:27 89 23 172/94 93 Nasal Cannula 1.00 04/09/21 19:00 87 04/09/21 19:00 88 24 164/85 95 Nasal Cannula 1.00 04/09/21 18:00 91 36 158/90 95 Nasal Cannula 1.00 04/09/21 17:30 89 11 167/82 87 Nasal Cannula 1.00 04/09/21 17:00 90 27 99 Nasal Cannula 1.00 04/09/21 16:53 Nasal Cannula 1.00 04/09/21 16:00 90 9 146/72 97 Mechanical Ventilator 24.00 04/09/21 16:00 98 Mechanical Ventilator 25 04/09/21 15:24 37.4 04/09/21 15:18 Mechanical Ventilator 04/09/21 15:00 87 20 141/76 96 Mechanical Ventilator 24.00 04/09/21 14:00 77 16 151/74 98 Mechanical Ventilator 24.00 04/09/21 13:00 77 18 173/87 98 Mechanical Ventilator 24.00 04/09/21 12:11 71 04/09/21 12:00 98 Mechanical Ventilator 25 04/09/21 12:00 71 18 131/63 96 Mechanical Ventilator 24.00 04/09/21 11:00 82 18 162/79 95 Mechanical Ventilator 24.00 04/09/21 10:49 79 143/68 04/09/21 10:30 Mechanical Ventilator 24.00 04/09/21 10:00 85 26 153/70 100 Mechanical Ventilator 25.00 I & O0 04/10/21 07:00 Intake Total 2005 ml Output Total 3025 ml Balance -1020 ml Height & Weight Height: 5'9.00" Weight: 230lbs. 4.0oz. [id number]; 32.55 BMI Method:Estimated General Appearance: No Apparent Distress, Other (Intubated and sedated) Neck: Normal Inspection, Non Tender; No Lymphadenopathy (L), No Lymphadenopathy (R) Respiratory: Chest Non Tender, Lungs Clear, Normal Breath Sounds, No Accessory Muscle Use, No Respiratory Distress, Other (Ventilator) Cardiovascular: Regular Rate, Rhythm, No Murmur, Normal Peripheral Pulses, Other (Edema in B/L hands and feet) Capillary Refill: Less Than 3 Seconds Gastrointestinal: soft, other (Nondistended) Extremity: Normal Capillary Refill, Pedal Edema Neurologic/Psychiatric: No Alert, No Oriented x3; Other (Eyes closed) Skin: Normal Color, Warm/Dry, Other (Wound on left ankle. Dressed.) Lymphatic: No Adenopathy (Head and neck) Results Lab Laboratory Tests 04/09/21 04:15 04/09/21 12:48 04/10/21 04:15 Assessment/Plan Assessment/Plan See free text. Critical Care: Critically Ill Patient CHAIM WOOD MD Apr 10, 2021 09:20
--- NOTE | 2021-04-10 10:04 | Cardiology Progress Note ---
Progress Note-Cardiology Events since last exam Date Seen by Provider: Apr 10, 2021 Time Seen by Provider: 10:01 Events since last exam We are following him due to elevated troponin level in the setting of acute respiratory failure, acute kidney injury on chronic kidney disease and sepsis. He was extubated on 04/09. He remains in the intensive care unit on nasal cannula oxygen. His was at the bedside. She tells me that he does not have any neurologic issues at his baseline. Today he is opening his eyes but not really speaking and not following any commands. He failed a bedside swallow study due to inability to cooperate. I cannot obtain any history from the patient due to his altered mental status. His does not know of any previous cardiac history. He did [facility] Dar[facility] in [facility]. I also spoke with the patient's nurse of today. He has not required any vasopressors and his blood pressure has been intermittently elevated but has not received any antihypertensive medication. Certain portions of this document may have been dictated utilizing voice recognition technology. Inherent to this technology, typographical and grammatical errors may exist. As much as I am diligent to identify and correct these mistakes, some errors may remain in the document. Vitals Last set of Vitals Signs Vital Signs 04/09/21 04/10/21 04/10/21 16:00 08:16 10:00 Temp 36.6 Pulse 77 Resp 20 B/P (MAP) 174/92 Pulse Ox 96 O2 Delivery Nasal Cannula O2 Flow Rate 1.00 FiO2 25 Labs Labs Laboratory Tests 04/09/21 12:48 04/10/21 04:15 Exam Vital Signs Vital Signs Date Time Temp Pulse Resp B/P (MAP) Pulse Ox O2 Delivery O2 Flow Rate FiO2 04/10/21 10:00 77 20 174/92 96 Nasal Cannula 1.00 04/10/21 08:16 36.6 04/09/21 16:00 25 Physical Exam General: Awake but not answering questions or following commands. No acute distress. Eye: No xanthelasma. HENT: Normocephalic. Neck: Jugular venous pressure does not appear elevated. Respiratory: Lungs have coarse upper airway sounds bilaterally. Respirations are non-labored. Breath sounds are equal. Symmetrical chest wall expansion. Cardiovascular: Normal rate. Regular rhythm. No murmur. No gallop. 1+ bilateral pretibial edema. Gastrointestinal: Soft. Normal bowel sounds. Skin: Warm. Dry. Neurologic: Awake but not answering questions or following commands, as above. Cranial nerves 3-11 grossly intact. Psychiatric: As above. Labs Laboratory Tests Test 04/09/21 11:20 04/09/21 12:48 04/09/21 16:25 04/09/21 17:19 Range/Units Glucometer 230 H 202 H 70-110 MG/DL Sodium Level 143 135-145 MMOL/L Potassium Level 3.6 3.6-5.0 MMOL/L Chloride Level 111 H 98-107 MMOL/L Carbon Dioxide Level 21 21-32 MMOL/L Anion Gap 11 5-14 MMOL/L Blood Urea Nitrogen 10 7-18 MG/DL Creatinine 1.21 0.60-1.30 MG/DL Estimat Glomerular Filtration Rate 60 BUN/Creatinine Ratio 8 Glucose Level 256 H 70-105 MG/DL Calcium Level 7.2 L 8.5-10.1 MG/DL Phosphorus Level 2.5 2.3-4.7 MG/DL Magnesium Level 1.8 1.6-2.4 MG/DL Blood Gas Puncture Site L RADIAL Blood Gas Patient Temperature 37.4 Arterial Blood pH 7.47 H 7.37-7.43 Arterial Blood Partial Pressure CO2 35 35-45 MMHG Arterial Blood Partial Pressure O2 68 L 79-93 MMHG Arterial Blood HCO3 25 23-27 MMOL/L Arterial Blood Total CO2 25.9 21.0-31.0 MMOL/L Arterial Blood Oxygen Saturation 95 94-100 % Arterial Blood Base Excess 1.6 -2.5-2.5 MMOL/L Arsalan Test YES-POS Blood Gas Ventilator Setting YES Blood Gas Inspired Oxygen NA Test 04/10/21 00:18 04/10/21 04:15 Range/Units Glucometer 173 H 70-110 MG/DL White Blood Count 9.5 4.3-11.0 10^3/uL Red Blood Count 3.50 L 4.30-5.52 10^6/uL Hemoglobin 10.2 L 13.3-17.7 g/dL Hematocrit 31 L 40-54 % Mean Corpuscular Volume 88 80-99 fL Mean Corpuscular Hemoglobin 29 25-34 pg Mean Corpuscular Hemoglobin Concent 33 32-36 g/dL Red Cell Distribution Width 14.0 10.0-14.5 % Platelet Count 267 130-400 10^3/uL Mean Platelet Volume 8.8 L 9.0-12.2 fL Immature Granulocyte % (Auto) 1 % Neutrophils (%) (Auto) 65 42-75 % Lymphocytes (%) (Auto) 21 12-44 % Monocytes (%) (Auto) 7 0-12 % Eosinophils (%) (Auto) 6 0-10 % Basophils (%) (Auto) 0 0-10 % Neutrophils # (Auto) 6.2 1.8-7.8 10^3/uL Lymphocytes # (Auto) 2.0 1.0-4.0 10^3/uL Monocytes # (Auto) 0.7 0.0-1.0 10^3/uL Eosinophils # (Auto) 0.5 H 0.0-0.3 10^3/uL Basophils # (Auto) 0.0 0.0-0.1 10^3/uL Immature Granulocyte # (Auto) 0.1 0.0-0.1 10^3/uL Sodium Level 144 135-145 MMOL/L Potassium Level 3.3 L 3.6-5.0 MMOL/L Chloride Level 109 H 98-107 MMOL/L Carbon Dioxide Level 23 21-32 MMOL/L Anion Gap 12 5-14 MMOL/L Blood Urea Nitrogen 8 7-18 MG/DL Creatinine 1.22 0.60-1.30 MG/DL Estimat Glomerular Filtration Rate 59 BUN/Creatinine Ratio 7 Glucose Level 173 H 70-105 MG/DL Calcium Level 7.8 L 8.5-10.1 MG/DL Corrected Calcium 9.0 8.5-10.1 MG/DL Phosphorus Level 2.4 2.3-4.7 MG/DL Magnesium Level 1.7 1.6-2.4 MG/DL Total Bilirubin 0.6 0.1-1.0 MG/DL Aspartate Amino Transf (AST/SGOT) 81 H 5-34 U/L Alanine Aminotransferase (ALT/SGPT) 32 0-55 U/L Alkaline Phosphatase 71 40-136 U/L Total Protein 6.0 L 6.4-8.2 GM/DL Albumin 2.5 L 3.2-4.5 GM/DL Diagnosis/Problems Diagnosis/Problems (1) Troponin level elevated Assessment & Plan: This troponin level ovation was in the setting of sepsis, acute respiratory failure and acute kidney injury on chronic kidney disease. He may have suffered a type II non-ST elevation myocardial infarction related to supply/demand mismatch as well as some noncardiac elevation of the troponin due to the acute kidney injury. Due to his encephalopathy, he is not able to give any history today. He has been receiving rectal aspirin and therapeutic dosing of enoxaparin. Once he can take oral, we can change the aspirin over to oral. He has received 6 doses of therapeutic strength enoxaparin. I will cut this back to DVT prophylactic dosing. Once he can swallow pills, we may want to consider starting beta-lisa and statin medication. I have also added a lipid panel to previous blood sample. He is not currently a good candidate for cardiac catheterization. (2) Primary hypertension Assessment & Plan: He was hypotensive on admission and all of his antihypertensive medications have been on hold. We will continue to monitor his blood pressure and resume outpatient medication when able. If he cannot swallow and blood pressures become more significantly elevated, then we may need to start some intravenous antihypertensive medication. (3) Acute kidney injury superimposed on chronic kidney disease Assessment & Plan: Probably brought on by sepsis. His renal function now seems to have stabilized. If we decide he needs an invasive cardiac evaluation, he would just need vigorous intravenous hydration to help avoid contrast-induced nephropathy. However, as above, due to his concurrent conditions, he is not presently a good candidate for invasive cardiac evaluation. (4) Metabolic encephalopathy Assessment & Plan: This may just be delayed effect from sedation he received while he was intubated. We will continue to monitor his neurologic progress and correct any metabolic abnormalities as needed. JULIO CESAR NICOLE JR, MD Apr 10, 2021 10:04
[2021-04-10] MEDS ORDERED: HALOPERIDOL 5 MG/ML (HALDOL) VIAL IM PRN (11:15)
[2021-04-10] MEDS ORDERED: ACETAMINOPHEN 650 MG SUPP (TYLENOL) PR PRN (11:15)
[2021-04-10] MEDS ORDERED: ZIPRASIDONE 20 MG INJ (GEODON) VIAL IM PRN (11:15)
[2021-04-10] MEDS ORDERED: WATER (STERILE) FOR INJ 10 ML BTL INJ SCH (11:15)
[2021-04-10 11:22] LABS: TRIGLYCERIDES 122 MG/DL (<150); VLDL CHOLESTEROL 24 MG/DL (5-40)
[2021-04-10 11:27] LABS: CHOLESTEROL 98 MG/DL (< 200); HDL CHOLESTEROL 18 MG/DL (40-60)
[2021-04-10] MEDS: meTOprolol 5 MG/5 ML (LOPRESSOR) VIAL IV SCH ×3 (11:39→23:17)
--- NOTE | 2021-04-10 11:49 | Physical Therapy Evaluation ---
PT Evaluation-General Medical Diagnosis Admission Date Apr 05, 2021 at 10:48 Medical Diagnosis: SEVERE SEPSIS Onset Date: Apr 05, 2021 Therapy Diagnosis Therapy Diagnosis: Gait deficit, strength deficit Height/Weight Height (Feet): 5 Height (Inches): 9.00 Weight (Pounds): 230 Weight (Ounces): 4.0 Precautions Precautions/Isolations: Aspiration, Fall Prevention, Standard Precautions, P ressure Ulcer Referral Physician: Dr. Hoyt Reason for Referral: Evaluation/Treatment Medical History Pertinent Medical History: Arthritis, DM, Dementia, GERD, HTN, Neuropathy Social History Home: Apartment Current Living Status: Spouse Entry Into Home: Stairs Without Railing PT Steps Into Home: 1 Prior Prior Level of Function SCALE: Activities may be completed with or without assistive devices. 4-Oxkgnlktlk-mjidvtu completes the activity by him/herself with no assistance from a helper. 5-Set-up or Clean-up Assistance-helper sets up or cleans up; patient completes activity. [place] assists only prior to or following the activity. 4-Supervision or Touching Assistance-helper provides verbal cues and/or touching/steadying and/or contact guard assistance as patient completes activity. Assistance may be provided throughout the activity or intermittently. 3-Partial/Moderate Assistance-helper does LESS THAN HALF the effort. [place] lifts, holds or supports trunk or limbs, but provides less than half the effort. 2-Substantial/Maximal Assistance-helper does MORE THAN HALF the effort. [place] lifts or holds trunk or limbs and provides more than half the effort. 4-Dxetjqctr-mmwahk does ALL the effort. Patient does none of the effort to complete the activity. Or, the assistance of 2 or more helpers is required for the patient to complete the activity. If activity was not attempted, code reason: 7-Patient Refused. 9-Not Applicable-not attempted and the patient did not perform the activity before the current illness, exacerbation or injury. 10-Not Attempted due to Environmental Limitations-(lack of equipment, weather restraints, etc.). 88-Not Attempted due to Medical Conditions or Safety Concerns. Bed Mobility: 6 Transfers (B,C,W/C): 6 Gait: 6 Stairs: 6 Indoor Mobility (Ambulation): Independent Stairs: Independent PT Evaluation-Current Subjective Patient attempts to respond verbally, however his reports that "since they took the tube out, he hasn't really been able to talk." Subjective information obtained mostly from her. Objective Patient Orientation: Person Attachments: Thomson Catheter, IV ROM/Strength ROM Lower Extremities WFLs to PROM Strength Lower Extremities 3-/5 BLEs all planes Sensory Vision: Functional Hearing: Impaired Sensation Right Lower Extremit: Impaired Sensation Left Lower Extremity: Impaired Sensation Lower Extremities reports he has had DPN for many years. Transfers Roll Left to Right (QC): 2 Sit to Lying (QC): 1 Lying to Sitting/Side of Bed(Q: 1 Sit to Stand (QC): 1 Gait Does the Patient Walk?: No and Walking Goal IS indicated Mode of Locomotion: Walk Anticipated Mode of Locomotion: Walk Balance Sitting Static: Poor Sitting Dynamic: Poor Standing Static: Poor Standing Dynamic: Poor Assessment/Needs Patient lying supine in bed upon PT arrival with patient and family in the room. Patient performs all observed bed mobility and transfers with max to dependent assistance. Patient was able to sit at the edge of the bed ~ 5 minutes with mod A, however any attempt to remove assistance and the patient would fall back and to the right. Patient attempted to stand, however was unable to generate any LE force. Patient required total assistance for sit to supine and scooting up in the bed. Patient in bed post treatment with all needs met, nursing notified, call light in reach, and nurse in the room. Rehab Potential: Guarded PT Short Term Goals Short Term Goals Time Frame: Apr 17, 2021 Roll Left & Right: 3 Sit to lyin Lying to sitting on side of be: 3 Sit to stand: 3 Chair/mox-rj-ixaco transfer: 3 PT Shelter Goals Digital Media Coordinator Goals PT Shelter Goals Time Frame: Apr 26, 2021 Roll Left & Right (QC): 5 Sit to Lying (QC): 5 Lying-Sitting on Side/Bed(QC): 5 Sit to Stand (QC): 4 Chair/Mbn-ku-Peevm Xfer(QC): 4 Toilet Transfer (QC): 4 Does the Patient Walk: Yes Walk 10 feet (QC): 3 PT Plan Problem List Problem List: Activity Tolerance, Functional Strength, Safety, Balance, Gait, Transfer, Bed Mobility, ROM Treatment/Plan Treatment Plan: Continue Plan of Care Treatment Plan: Bed Mobility, Education, Functional Activity [place], Functional Strength, Group Therapy, Gait, Safety, Therapeutic Exercise, Transfers Treatment Duration: May 22, 2021 Frequency: 6 times per week Estimated Hrs Per Day: .25 hour per day Patient and/or Family Agrees t: Yes Safety Risks/Education Patient Education: Transfer Techniques Teaching Recipient: Patient, Family Teaching Methods: Demonstration, Discussion Response to Teaching: Reinforcement Needed Discharge Recommendations Target Placement Post Acute placement recommended Time/GCodes Time In: 1115 Time Out: 1135 Total Billed Treatment Time: 20 Total Billed Treatment Visit, ERIC Fontaine PT Apr 10, 2021 11:49
[2021-04-10 14:25] VITALS: BP 179/85
[2021-04-10 16:20] VITALS: BP 174/88
[2021-04-10 19:35] VITALS: BP 183/83
[2021-04-10 23:05] VITALS: BP 160/88
[2021-04-10] MEDS: LORazepam INJ 2 MG/ML (ATIVAN) VIAL IVP PRN (23:17)
[2021-04-11 04:07] VITALS: BP_SYST 177; BP_SYST 66; BP_DIAS 88; BP_DIAS 94
[2021-04-11] MEDS: inSUlin ASPART (NovoLOG) 1 UNIT/0.01 ML (CHARGE PER UNIT) SC SCH ×3 (06:13→18:32)
[2021-04-11 06:16] LABS: BASOPHILS # (AUTO) 0.1 10^3/uL (0.0-0.1); BASOPHILS % (AUTO) 1 % (0-10); EOSINOPHILS # (AUTO) 0.4 10^3/uL (0.0-0.3); EOSINOPHILS % (AUTO) 4 % (0-10); HEMATOCRIT 28 % (40-54); HEMOGLOBIN 9.1 g/dL (13.3-17.7); LYMPHOCYTES # (AUTO) 2.3 10^3/uL (1.0-4.0); LYMPHOCYTES % (AUTO) 21 % (12-44); MEAN CORPUSCULAR HEMOGLOBIN 29 pg (25-34); MEAN CORPUSCULAR HGB CONC 32 g/dL (32-36); MEAN CORPUSCULAR VOLUME 90 fL (80-99); MEAN PLATELET VOLUME 8.8 fL (9.0-12.2); MONOCYTES # (AUTO) 0.7 10^3/uL (0.0-1.0); MONOCYTES % (AUTO) 7 % (0-12); NEUTROPHILS # (AUTO) 7.3 10^3/uL (1.8-7.8); NEUTROPHILS % (AUTO) 67 % (42-75); PLATELET COUNT 323 10^3/uL (130-400)
[2021-04-11 06:30] LABS: ALBUMIN 2.5 GM/DL (3.2-4.5); POTASSIUM 3.9 MMOL/L (3.6-5.0)
[2021-04-11 06:31] LABS: CALCIUM 8.1 MG/DL (8.5-10.1)
[2021-04-11 06:32] LABS: TOTAL PROTEIN 6.2 GM/DL (6.4-8.2)
[2021-04-11 06:34] LABS: BILIRUBIN,TOTAL 0.4 MG/DL (0.1-1.0)
[2021-04-11 06:36] LABS: CREATININE SERUM 1.04 MG/DL (0.60-1.30)
--- NOTE | 2021-04-11 06:46 | Progress Note - Hospitalist ---
Subjective HPI/CC On Admission Date Seen by Provider: Apr 11, 2021 Time Seen by Provider: 10:00 Subjective/Events-last exam Patient about the same Too confused to eat and drink Family at the bedside Not able to follow commands We will start gentle IV fluids in order to keep hydrated Swallow study needed tomorrow Review of Systems General: Fatigue, Malaise Objective Exam Vital Signs Vital Signs Date Time Temp Pulse Resp B/P (MAP) Pulse Ox O2 Delivery O2 Flow Rate FiO2 04/12/21 04:00 36.4 83 20 172/82 (112) 90 High Flow N/C 1.00 04/09/21 16:00 25 Capillary Refill : Less Than 3 Seconds General Appearance: Anxious, Chronically ill Respiratory: Lungs Clear, Normal Breath Sounds, No Accessory Muscle Use, No Respiratory Distress Cardiovascular: Regular Rate, Rhythm, No Edema, No Gallop, No JVD, No Murmur, Normal Peripheral Pulses Neurologic/Psychiatric: Alert, Depressed Affect, Motor Weakness Results/Procedures Lab Laboratory Tests 04/11/21 05:45 Patient resulted labs reviewed. Assessment/Plan Assessment and Plan Assess & Plan/Chief Complaint Assessment: Sepsis d/t transverse colitis - On fluids and antibiotics - CT abdomen showed transverse colitis without perforation or abscess Respiratory failure -Status post extubation Acute on chronic renal failure - BUN/Cr normalized Anemia - Hgb stable Hypokalemia -Stable Leukocytosis - Resolved Hyponatremia - Resolved -Monitor to ensure hypernatremia does not develop. Lactic acidosis - Resolved HTN Diabetes Plan: Move to fourth floor 04/11/21: IVF since not eating Critical Care Critically Ill Patient JAIMIE VALENCIA DO Apr 11, 2021 06:46
[2021-04-11] MEDS: meTOprolol 5 MG/5 ML (LOPRESSOR) VIAL IV SCH ×3 (06:55→18:32)
[2021-04-11 07:45] VITALS: BP 178/85
[2021-04-11] MEDS: RT-ALBUTEROL/IPRATROPIUM 3 ML (DUONEB) VIAL INH SCH ×2 (08:12→18:30)
[2021-04-11] MEDS: ENOXAPARIN 40 MG/0.4 ML (LOVENOX) SYR SC SCH (09:55)
[2021-04-11] MEDS: FAMOTIDINE 20MG/2ML IV (PEPCID) IVP SCH (09:55)
[2021-04-11 11:40] VITALS: BP 165/84
--- NOTE | 2021-04-11 11:40 | Cardiology Progress Note ---
Progress Note-Cardiology Events since last exam Date Seen by Provider: Apr 11, 2021 Time Seen by Provider: 11:37 Events since last exam We are following him due to elevated troponin level in the setting of acute respiratory failure, acute kidney injury on chronic kidney disease and sepsis. He was extubated on 04/09 and transferred to the medical floor on 04/10. He is tracking people in the room and occasionally trying to mumble words but is not intelligible. He is following some commands such as hand squeezing for his who is at the bedside. Otherwise, he is not following commands. His again reports that he was completely functional at home prior to this admission. Certain portions of this document may have been dictated utilizing voice recognition technology. Inherent to this technology, typographical and grammatical errors may exist. As much as I am diligent to identify and correct these mistakes, some errors may remain in the document. Vitals Last set of Vitals Signs Vital Signs 04/09/21 04/11/21 04/11/21 16:00 11:40 13:00 Temp 36.9 Pulse 89 Resp 24 B/P (MAP) 165/84 (111) Pulse Ox 93 O2 Delivery High Flow N/C O2 Flow Rate 1.00 FiO2 25 Labs Labs Laboratory Tests 04/11/21 05:45 Exam Vital Signs Vital Signs Date Time Temp Pulse Resp B/P (MAP) Pulse Ox O2 Delivery O2 Flow Rate FiO2 04/11/21 13:00 89 04/11/21 11:40 36.9 24 165/84 (111) 93 High Flow N/C 1.00 04/09/21 16:00 25 Physical Exam General: Awake but not following commands other than squeezing his left hand. No acute distress. Eye: No xanthelasma. HENT: Normocephalic. Neck: Jugular venous pressure does not appear elevated. Respiratory: Lungs have coarse upper airway sounds. Respirations are non-labored. Breath sounds are equal. Symmetrical chest wall expansion. Cardiovascular: Normal rate. Regular rhythm. No murmur. No gallop. 1+ bilateral pretibial edema as well as edema of both arms. Gastrointestinal: Soft. Normal bowel sounds. Skin: Warm. Dry. Neurologic: Awake but not answering questions. Cranial nerves 3-11 grossly intact. Psychiatric: As above. Labs Laboratory Tests Test 2/12/22 17:21 04/10/21 23:05 04/11/21 05:34 04/11/21 05:45 Range/Units Glucometer 172 H 168 H 155 H 70-110 MG/DL White Blood Count 11.0 4.3-11.0 10^3/uL Red Blood Count 3.15 L 4.30-5.52 10^6/uL Hemoglobin 9.1 L 13.3-17.7 g/dL Hematocrit 28 L 40-54 % Mean Corpuscular Volume 90 80-99 fL Mean Corpuscular Hemoglobin 29 25-34 pg Mean Corpuscular Hemoglobin Concent 32 32-36 g/dL Red Cell Distribution Width 13.8 10.0-14.5 % Platelet Count 323 130-400 10^3/uL Mean Platelet Volume 8.8 L 9.0-12.2 fL Immature Granulocyte % (Auto) 1 % Neutrophils (%) (Auto) 67 42-75 % Lymphocytes (%) (Auto) 21 12-44 % Monocytes (%) (Auto) 7 0-12 % Eosinophils (%) (Auto) 4 0-10 % Basophils (%) (Auto) 1 0-10 % Neutrophils # (Auto) 7.3 1.8-7.8 10^3/uL Lymphocytes # (Auto) 2.3 1.0-4.0 10^3/uL Monocytes # (Auto) 0.7 0.0-1.0 10^3/uL Eosinophils # (Auto) 0.4 H 0.0-0.3 10^3/uL Basophils # (Auto) 0.1 0.0-0.1 10^3/uL Immature Granulocyte # (Auto) 0.1 0.0-0.1 10^3/uL Sodium Level 142 135-145 MMOL/L Potassium Level 3.9 3.6-5.0 MMOL/L Chloride Level 108 H 98-107 MMOL/L Carbon Dioxide Level 21 21-32 MMOL/L Anion Gap 13 5-14 MMOL/L Blood Urea Nitrogen 9 7-18 MG/DL Creatinine 1.04 0.60-1.30 MG/DL Estimat Glomerular Filtration Rate 72 BUN/Creatinine Ratio 9 Glucose Level 162 H 70-105 MG/DL Calcium Level 8.1 L 8.5-10.1 MG/DL Corrected Calcium 9.3 8.5-10.1 MG/DL Total Bilirubin 0.4 0.1-1.0 MG/DL Aspartate Amino Transf (AST/SGOT) 98 H 5-34 U/L Alanine Aminotransferase (ALT/SGPT) 49 0-55 U/L Alkaline Phosphatase 86 40-136 U/L Total Protein 6.2 L 6.4-8.2 GM/DL Albumin 2.5 L 3.2-4.5 GM/DL Test 04/11/21 11:49 Range/Units Glucometer 185 H 70-110 MG/DL Diagnosis/Problems Diagnosis/Problems (1) Troponin level elevated Assessment & Plan: This troponin level ovation was in the setting of sepsis, acute respiratory failure and acute kidney injury on chronic kidney disease. He may have suffered a type II non-ST elevation myocardial infarction related to supply/demand mismatch as well as some noncardiac elevation of the troponin due to the acute kidney injury. He has been receiving rectal aspirin and therapeutic dosing of enoxaparin. Once he can take oral, we can change the aspirin over to oral. I changed his enoxaparin to DVT prophylactic dosing on 04/10. Once he can swallow pills, we may want to consider starting beta-lisa and statin medication. However, his LDL level is actually quite good on no statin medication. He is not currently a good candidate for cardiac catheterization. (2) Primary hypertension Assessment & Plan: He was hypotensive on admission and all of his antihypertensive medications have been on hold. His blood pressures were trending up on 04/10. I started intravenous metoprolol 2.5 mg every 6 hours. His blood pressures are still elevated at times. I will increase the intravenous metoprolol to 5 mg every 6 hours. Once he can take oral medication, we can change this over to oral. (3) Acute kidney injury superimposed on chronic kidney disease Assessment & Plan: This was probably brought on by sepsis. His renal function now seems to have stabilized. If we decide he needs an invasive cardiac evaluation, he would just need vigorous intravenous hydration to help avoid contrast-induced nephropathy. However, as above, due to his concurrent conditions, he is not presently a good candidate for an invasive cardiac evaluation. (4) Metabolic encephalopathy Assessment & Plan: He is still not answering question or seeming to follow commands today. This may just be delayed effect from sedation he received while he was intubated. We will continue to monitor his neurologic progress and correct any metabolic abnormalities as needed. If he does not improve soon, we may want to consider a head CT. JULIO CESAR NICOLE JR, MD Apr 11, 2021 11:40
[2021-04-11] MEDS: 1/2 NS IV SOLUTION 1,000 ML IV SCH (13:51)
[2021-04-11 16:00] VITALS: BP 177/83
[2021-04-11] MEDS ORDERED: FLUCONAZOLE 100 MG/50 ML 50 ML IV ONE ×2 (18:00→21:19)
[2021-04-11 19:57] VITALS: BP 183/93
[2021-04-11] MEDS: morphine INJ 4 MG/ML 1 ML (VIAL/SYRINGE) IVP PRN (21:33)
[2021-04-12] VITALS (8 sets, daily range): BP systolic 169–180; BP diastolic 77–95
[2021-04-12] MEDS: meTOprolol 5 MG/5 ML (LOPRESSOR) VIAL IV SCH ×5 (00:23→23:48)
[2021-04-12] MEDS: inSUlin ASPART (NovoLOG) 1 UNIT/0.01 ML (CHARGE PER UNIT) SC SCH ×5 (00:23→23:48)
[2021-04-12] MEDS: 1/2 NS IV SOLUTION 1,000 ML IV SCH ×2 (02:55→12:45)
[2021-04-12 06:09] LABS: BASOPHILS # (AUTO) 0.1 10^3/uL (0.0-0.1); BASOPHILS % (AUTO) 1 % (0-10); EOSINOPHILS # (AUTO) 0.3 10^3/uL (0.0-0.3); EOSINOPHILS % (AUTO) 4 % (0-10); HEMATOCRIT 33 % (40-54); HEMOGLOBIN 10.7 g/dL (13.3-17.7); LYMPHOCYTES # (AUTO) 2.1 10^3/uL (1.0-4.0); LYMPHOCYTES % (AUTO) 22 % (12-44); MEAN CORPUSCULAR HEMOGLOBIN 29 pg (25-34); MEAN CORPUSCULAR HGB CONC 32 g/dL (32-36); MEAN CORPUSCULAR VOLUME 89 fL (80-99); MEAN PLATELET VOLUME 8.8 fL (9.0-12.2); MONOCYTES # (AUTO) 0.6 10^3/uL (0.0-1.0); MONOCYTES % (AUTO) 7 % (0-12); NEUTROPHILS # (AUTO) 6.3 10^3/uL (1.8-7.8); NEUTROPHILS % (AUTO) 66 % (42-75); PLATELET COUNT 319 10^3/uL (130-400); WHITE BLOOD COUNT 9.5 10^3/uL (4.3-11.0)
[2021-04-12 06:18] LABS: ALBUMIN 2.5 GM/DL (3.2-4.5); POTASSIUM 3.6 MMOL/L (3.6-5.0)
[2021-04-12 06:19] LABS: CALCIUM 8.1 MG/DL (8.5-10.1)
[2021-04-12 06:20] LABS: TOTAL PROTEIN 6.1 GM/DL (6.4-8.2)
[2021-04-12 06:22] LABS: BILIRUBIN,TOTAL 0.5 MG/DL (0.1-1.0)
[2021-04-12 06:24] LABS: CREATININE SERUM 1.06 MG/DL (0.60-1.30)
[2021-04-12] MEDS: RT-ALBUTEROL/IPRATROPIUM 3 ML (DUONEB) VIAL INH SCH ×2 (07:50→20:17)
--- NOTE | 2021-04-12 07:56 | Progress Note ---
Subjective Subjective Date Seen by Provider: Apr 12, 2021 Time Seen by Provider: 08:20 Mr. Gutierrez was extubated on Monday afternoon around 1700. He was then moved to the 4th floor from ICU on Monday. Over the weekend he has been too confused to eat or drink. During my encounter with him today he was alert but he was not oriented to person, place, or time. He could not answer any questions and was continually moaning when asked questions. He was able to move his left arm when asked but was not able to move his right arm much more than a wiggle. He was not able to squeeze his hands on command. Nursing reports that he was able to eat some applesauce yesterday. A CXR Monday showed vascular congestion that is possibly suggestive of CHF. ATTENDING NOTE - THIS MORNING ON MY EVALUATION, TAMMIE WAS MORE AWAKE THAN FAMILY NATALIA AT BEDSIDE, NOTES THAT HE WAS LIKE THIS MOANING OFF AND ON OVER THE WEEKEND. HE SEEMS TO BECOME FRUSTRATED AND THEN, IF HE CANNOT GET HIS WORDS OUT HE WILL MUMBLE "BLAH, BLAH BLAH" OR BLOW AIR HARD OUT OF HIS MOUTH IN FRUSTRATION. HIS FAMILY NOTES THAT HE WAS ABLE TO SAY "I LOVE YOU" TO FAMILY SOMEWHAT CLEARLY, AND TO RAISE HIS RIGHT ARM BUT DOES NOT SEEM TO HAVE FULL CONTROL OF HIS ARM/HAND. Review of Systems ROS Unable to Obtain: Unable to obtain ROS; patient unable to answer questions General: Other (PT ALERT, LOOKS TO THIS ROLL WEIGHER WHEN I SAY HIS NAME, MUMBLES RESPONSES THAT ARE NOT INTELLIGIBLE) Pulmonary: No Cough Genitourinary: Other (ODELL IN PLACE) Neurological: Weakness, Change in speech, Confusion All Other Systems Reviewed All Other Systems Reviewed: Yes Objective Exam Vital Signs Vital Signs Date Time Temp Pulse Resp B/P (MAP) Pulse Ox O2 Delivery O2 Flow Rate FiO2 04/12/21 07:37 36.0 67 20 172/84 (113) 93 High Flow N/C 1.00 04/12/21 04:00 36.4 83 20 172/82 (112) 90 High Flow N/C 1.00 04/12/21 01:00 80 04/12/21 00:00 37.1 82 20 171/77 (108) 92 High Flow N/C 1.00 04/11/21 20:59 94 Nasal Cannula 1.00 04/11/21 19:57 36.3 79 22 183/93 (123) 93 High Flow N/C 1.00 04/11/21 19:00 76 04/11/21 18:31 90 Nasal Cannula 1.00 04/11/21 16:00 36.4 90 20 177/83 (114) 94 High Flow N/C 1.00 04/11/21 13:00 89 04/11/21 11:40 36.9 82 24 165/84 (111) 93 High Flow N/C 1.00 04/11/21 09:00 94 Nasal Cannula 1.00 I & O 04/12/21 06:59 Intake Total 50 ml Output Total 1825 ml Balance -1775 ml General Appearance: No Apparent Distress, Anxious, Chronically ill HEENT: No Scleral Icterus (L), No Scleral Icterus (R); Other (DRY MOUTH, TONGUE APPEARS TO BE PUSHED MORE TO THE LEFT ON LIMITED EXAM) Neck: Normal Inspection, Non Tender, Supple; No Lymphadenopathy (L), No Lymphadenopathy (R) Respiratory: Chest Non Tender, No Accessory Muscle Use, No Respiratory Distress, Other (PT WITH GROWLING/MOANING NOISES, BUT NO CRACKLES AUSCULTATED) Cardiovascular: Regular Rate, Rhythm, No Murmur, Normal Peripheral Pulses, Other (Patient was moaning during physical exam, could not appreciate heart or lung sounds) Gastrointestinal: Non Tender, Soft, Abnormal Bowel Sounds (Decreased) Extremity: Normal Capillary Refill, Normal Inspection, Pedal Edema, Other (Edema of right arm and hand) Neurologic/Psychiatric: Alert; No Oriented x3; Depressed Affect, Disoriented, Motor Weakness (Right sided) Skin: Normal Color, Warm/Dry Lymphatic: No Adenopathy (Head and neck) Results Lab Laboratory Tests 04/11/21 11:49: Glucometer 185H 04/11/21 17:21: Glucometer 198H 04/12/21 00:03: Glucometer 183H 04/12/21 05:13: Glucometer 165H 04/12/21 05:46: White Blood Count 9.5, Red Blood Count 3.72L, Hemoglobin 10.7L, Hematocrit 33L, Mean Corpuscular Volume 89, Mean Corpuscular Hemoglobin 29, Mean Corpuscular Hemoglobin Concent 32, Red Cell Distribution Width 13.6, Platelet Count 319, Mean Platelet Volume 8.8L, Immature Granulocyte % (Auto) 2, Neutrophils (%) (Auto) 66, Lymphocytes (%) (Auto) 22, Monocytes (%) (Auto) 7, Eosinophils (%) (Auto) 4, Basophils (%) (Auto) 1, Neutrophils # (Auto) 6.3, Lymphocytes # (Auto) 2.1, Monocytes # (Auto) 0.6, Eosinophils # (Auto) 0.3, Basophils # (Auto) 0.1, Immature Granulocyte # (Auto) 0.2H, Sodium Level 141, Potassium Level 3.6, Chloride Level 108H, Carbon Dioxide Level 21, Anion Gap 12, Blood Urea Nitrogen 12, Creatinine 1.06, Estimat Glomerular Filtration Rate 70, BUN/Creatinine Ratio 11, Glucose Level 174H, Calcium Level 8.1L, Corrected Calcium 9.3, Total Bilirubin 0.5, Aspartate Amino Transf (AST/SGOT) 68H, Alanine Aminotransferase (ALT/SGPT) 43, Alkaline Phosphatase 71, Total Protein 6.1L, Albumin 2.5L Microbiology 04/05/21 MRSA Screen - Final, Complete MRSA not isolated 04/05/21 Blood Culture - Final, Complete No growth Assessment/Plan Assessment/Plan Assessment and Plan Assessment: Sepsis d/t transverse colitis - CT abdomen showed transverse colitis without perforation or abscess Right-sided weakness - Noticeable in right upper extremity AMS - Patient not oriented to person, place, or time - This in conjunction with his right-sided weakness makes it hard to determine etiology of weakness Respiratory failure - Extubated on Monday around 1700 Acute on chronic renal failure - BUN/Cr normalized Anemia - Hgb at 10.7 today - Likely dilutional, no obvious source of acute bleeding Hypokalemia - Resolved - 3.6 today. Continue to monitor. Leukocytosis - Resolved - 9.5 today Hyponatremia - Resolved - 141 today Lactic acidosis - Resolved Respiratory alkalosis without compensation - Resolved HTN Diabetes Plan: Continue IVF Consider adding furosemide. CXR Monday showed evidence of vascular congestion possibly suggestive of CHF. Patient continues to be edematous Consider repeat head CT. Prior study was 7 days ago and patient shows right- sided weakness Plan for swallow study today Consider dysphagia I diet as patient begins to eat again Talk with family about d/c plans as patient continues to improve. Plan will most likely be d/c to SNF before returning to home Supervisory-Addendum Brief Verification & Attestation Participated in pt care: history, MDM, physical Personally performed: exam, history, MDM, supervision of care Care discussed with: Medical Student Procedures: n/a Results interpretation: Verified all documentation AGREE WITH STUDENT DOCUMENTATION WITH THE FOLLOWING CHANGES DISCUSSED WITH FAMILY TODAY ABOUT THE GRAVITY OF ARISTEO ILLNESS AND THEY UNDERSTAND THE PLAN WILL BE FOR TRANSFER TO [facility] ONCE WE HAVE MORE STABILITY OF HIS ACUTE ILLNESS. THE FAMILY CONTINUES TO DESIRE PT TO BE DNR AND DO NOT RE-INTUBATE. SEVERE SEPSIS TRANSVERSE COLITIS POSSIBLE STROKE RESPIRATORY FAILURE ACUTE ON CHRONIC RENAL FAILURE CHRONIC HYPERTENSION CHRONIC CONSTIPATION DIABETES MELLITUS WITH HYPERGLYCEMIA LEUKOCYTOSIS HYPONATREMIA LACTIC ACIDOSIS SEVERE SEPSIS WITH RESPIRATORY FAILURE DUE TO TRANSVERSE COLITIS - PT ON IV ANTIBIOTIC OF ZOSYN CONTINUE WITH CURRENT ANTIBIOTIC CHOICE, MONITOR RENAL FUNCTION ON ZOSYN AND WILL CONTINUE WITH FLUIDS AND CURRENT PLAN. - PT EXTUBATED OVER THE WEEKEND - DOING WELL ON MINIMAL OXYGEN VIA NC. ACUTE ON CHRONIC RENAL FAILURE - IMPROVED, - CONTINUE TO MONITOR VIA LABS. CHRONIC HYPERTENSION -PT HYPERTENSIVE - DR. BULL TO ADJUST MEDICATIONS RIGHT SIDED WEAKNESS - CONCERN FOR STROKE WHILE INTUBATED - CT OF HEAD TODAY, CAROTID US TODA - SPEECH THERAPY EVAL AND BARIUM SWALLOW TODAY. DIABETES MELLITUS WITH HYPERGLYCEMIA - SLIDING SCALE INSULIN PROTOCOL COVID SWAB TODAY IN PREPARATION FOR TRANSFER TO A [facility] FOR SKILLED REHAB ILL PATIENT WITH HIGH RISK OF IN-HOSPITAL JANICE TORRES Apr 12, 2021 07:56 MOISÉS ARMSTRONG MD Apr 12, 2021 09:07
[2021-04-12] MEDS: ENOXAPARIN 40 MG/0.4 ML (LOVENOX) SYR SC SCH (08:36)
[2021-04-12] MEDS: FAMOTIDINE 20MG/2ML IV (PEPCID) IVP SCH (08:36)
[2021-04-12] MEDS: FLUCONAZOLE 100 MG/50 ML 50 ML IV SCH (08:36)
[2021-04-12] MEDS ORDERED: ASPIRIN 300 MG (5 GR) SUPPOSITORY PR SCH (09:00)
[2021-04-12] MEDS ORDERED: FUROSEMIDE 40 MG/4 ML INJ (LASIX) IVP ONE (09:15)
--- NOTE | 2021-04-12 09:25 | Cardiology Progress Note ---
Subjective Date Seen by Provider: Apr 12, 2021 Time Seen by Provider: 08:00 Subjective/Events-last exam Patient in bed, no new events. Continues to have difficulty speaking. Able to follow commands Review of Systems General: Other (Unable to provide review of system) Objective-Cardiology Exam Last Set of Vital Signs Vital Signs 04/09/21 04/12/21 04/12/21 16:00 07:37 09:33 Temp 36.0 Resp 20 B/P (MAP) 172/84 (113) Pulse Ox 94 O2 Delivery Nasal Cannula O2 Flow Rate 1.00 FiO2 25 I&O Intake and Output 04/11/21 23:59 Intake Total 50 ml Output Total 1500 ml Balance -1450 ml Intake Oral 0 ml IV Total 50 ml Output Urine Total 1500 ml # Bowel Movements 3 General: Alert, Cooperative HEENT: Atraumatic Neck: Supple Lungs: Clear to Auscultation Heart: Regular Rate Abdomen: Normal Bowel Sounds Extremities: No Clubbing, No Cyanosis Skin: No Rashes Results Lab Laboratory Tests 04/12/21 05:46 A/P-Cardiology Admission Diagnosis Acute respiratory failure AMS Sepsis Elevated troponin Assessment/Plan Status post acute resp failure, extubated and continuing to improve. Asphasia, dysphagia and upper extremity weakness R>L, likely anoxic brain injury, questionable CVA. Planning for repeat CT Head today Metabolic acidosis received sodium bicarbonate, improving. managed by medical team Altered mental status,was found on floor by bed by , unknown etiology, CT head done showing no acute changes. Sepsis, CT abd/pelvis showing acute colitis involving entire transverse colon, started on levoloxacin and flagyl, management per medical services. Mildly elevated troponin, EKG showing sinus tachy with PVC's. Probably type II myocardial infarction due to respiratory failure. Stress test in 2019 showed no significant ischemia or infarction. We will continue monitoring closely. Hypertension, currently on IV Lopressor Chronic kidney disease with ROSARIO, continue to monitor renal function. DM, management per medical services Hyponatremia, monitor electrolytes Supervisory-Addendum Brief Supervisory Addendum Participated in pt care: history, MDM, physical Personally performed: exam, history, MDM Care discussed with: CAROLIN Results interpretation: Verified all documentation Notes: Patient was seen and evaluated with Zofia, examination performed, management plan was discussed, agree with the current scribed note, I made few changes to the note using Italic font Patient was seen at bedside, laying down comfortably, opening his eyes and trying to follow commands Does not answer questions verbally CT scan did not show any acute injury Probably underlying anoxic brain injury. Continue to monitor blood pressure ZOFIA GARZA Apr 12, 2021 09:25 INDIGO BULL MD Apr 12, 2021 11:06
--- NOTE | 2021-04-12 09:29 | Diagnostic Imaging Report ---
PROCEDURE: CT head wo r/o stroke. TECHNIQUE: Multiple contiguous axial images were obtained through the brain without the use of intravenous contrast. Auto Exposure Controls were utilized during the CT exam to meet ALARA standards for radiation dose reduction. INDICATION: CVA, right-sided weakness There is no mass, shift of midline or hemorrhage to suggest an acute intracranial abnormality. The ventricles are not abnormally dilated and stable in size when compared to the prior exam of 04/05/2021. The cortical atrophy and periventricular encephalomalacia noted previously is again evident and no different. The bone windows show no sign of a fracture or for destructive lesion. The orbits are symmetrical and within normal limits. The sinuses are generally clear. IMPRESSION: 1. There is no evidence for an acute intracranial abnormality. 2. If clinical concern regarding an underlying abnormality persists, then MRI would be recommended for further study. Dictated by: Dictated on workstation # [id number]
--- NOTE | 2021-04-12 10:23 | Diagnostic Imaging Report ---
INDICATION: Respiratory distress. Stroke. COMPARISON: CT scan of the chest from 02/11/2019. EXAMINATION: Chest, PA and lateral views. FINDINGS: There has been development of diffuse 5 lobe interstitial infiltrates with some alveolar infiltrate in the left lung base as well. There is a probable pleural effusion. The heart does appear enlarged. IMPRESSION: Bilateral interstitial and alveolar infiltrates with cardiomegaly. These findings are likely secondary to congestive failure. Dictated by: Dictated on workstation # [id number]
[2021-04-12] MEDS: SALIVA STIMULANT MOUTH SPRAY (BIOTENE) 1.5 OZ MM SCH ×5 (10:51→23:48)
[2021-04-12] MEDS: POTASSIUM CL 10MEQ/50ML IVPB 50 ML IV SCH ×2 (10:52→11:40)
--- NOTE | 2021-04-12 11:42 | Diagnostic Imaging Report ---
PROCEDURE: US carotid duplex, bilateral. TECHNIQUE: Multiple real-time grayscale images were obtained over the carotid arteries in various projections, bilaterally. Additional spectral analysis and color Doppler duplex images were also obtained. INDICATION: TIA. FINDINGS: Real-time imaging shows mild atherosclerotic plaquing within the carotid arteries. The color Doppler imaging shows antegrade flow throughout the carotid and vertebral arteries. Waveforms and peak velocities appear normal. Carotid ratios are normal. IMPRESSION: Mild bilateral atherosclerotic disease of the carotid arteries with no hemodynamic changes. Stenosis is estimated less than 30% within the internal carotid arteries. Parameters based on the consensus panel Bañuelos-Scale and Doppler ultrasound criteria published December 2002, Radiology, Volume 229. DOPPLER (peak systolic velocity M/S Right Left CCA .98 .88 ICA Proximal .85 .63 ICA Mid .82 .47 ICA Distal .49 .57 RATIO .87 .72 ECA 1.01 .93 VERT .42 .47 Dictated by: Dictated on workstation # [id number]
--- NOTE | 2021-04-12 13:11 | ST Mod Barium Swallow ---
Speech Evaluation-General Medical Diagnosis Severe Sepsis Onset Date: Apr 05, 2021 Therapy Diagnosis Therapy Diagnosis: Moderate Oropharyngeal Dysphagia Precautions Precautions: Fall, Aspiration Precautions/Isolations: Standard Precautions Referral Referring Physician: Dr. Marybeth Alfaro Reason for Referral: Evaluation/Treatment Medical History Pertinent Medical History: Arthritis, DM, Dementia, GERD, HTN, Neuropathy Current History The patient is an 80 year old male with a past medical history of HTN and de mentia, who presented to [facility] after being found "between the wall and the bed" by his . The patient was found to have severe sepsis, was intubated upon arrival (04/05/21) and extubated on 04/09/21. CXR: 04/12/21: Bilateral interstitial and alveolar infiltrates with cardiomegaly. These findings are likely secondary to congestive failure. Reviewed History: Yes Social History Current Living Status: Spouse Speech Mod Barium Swallow Prior Level of Function The patient's prior level of function or prior level of PO consistency is unknown to this clinician. The information was not present following an extensive chart review and the patient's family member was not present throughout the modified barium swallowing evaluation. The patient arrived to the fluoroscopy suite sleeping, with reduced alertness levels and the inability to follow verbal commands (regardless of direct modeling). The patient was transferred to the video swallow chair via slide board. The patient's head was elevated and he was safely secured to the seat via seat belt. The patient is unable to remain upright or re-position for an appropriate, clear view of the oropharyngeal region. Due to the patient's inability to follow verbal directions and his overall poor alertness level, the video swallow is limited by view and cooperation. Oral Motor Skills Dentition Natural Dentures: Full (The patient appears to have full upper and lower dentures present at bedside. The dentures were not placed or present for the modified barium swallowing evaluation.) Lingual Protrusion Comments: The patient is unable to follow verbal commands at this time. Abnormal L/P Comments: The patient is unable to follow verbal commands at this time. Lingual ROM Comments: The patient is unable to follow verbal commands at this time. Lingual Strength Comments: The patient is unable to follow verbal commands at this time. Volitional Dry Swallow: No Voluntary Cough: No Can Clear Throat Volitionally: No Textures-Lateral View Lateral View Food Presentation: Thin Liquid via Spoon, Thin Liquid via Straw, Kinnelon Liquid via Spoon, Honey Liquid via Spoon, Pureed Solids Oral Phase Labial Closure: Mild Impairment Bolus Formation Pooling L/R: Moderate Impairment Bolus Formation Placement: Moderate Impairment A/P Lingual Propulsion: Moderate Impairment Lingual Movement: Moderate Impairment Oral Phase Residue: Moderate Impairment With maximum verbal encouragement and prompting, the patient was able to remove the bolus material from the teaspoon. The patient displayed minimal anterior spillage of thin liquid and nectar-thick liquid, bilaterally. Moderately reduced lingual coordination was present which resulted in poor bolus formation and inconsistent anterior to posterior transfer of the bolus material. The patient remained with the puree bolus near the anterior lingual surface while displaying multiple tongue pumps in attempts to transfer the bolus posterior in the oral cavity. Once transfer, a delayed initiation of the pharyngeal swallow was appreciated. Posterior bolus loss was visualized with thin liquid and honey-t hick liquid to the level of the pyriform sinuses. Moderate oral residue remained on the lingual surface and oral structures following the swallow. Due to lack of alertness and cooperation, a solid bolus was not attempted for patient safety. Pharyngeal Phase Swallow Response: Moderate Impairment Base of Tongue: Moderate Impairment Epiglottic Movement: No Impairment (WFL) Laryngeal Elevation: Mild Impairment Vallecular Residue: Mild Pharyngeal Wall Residue: Mild Piriform Sinus Residue: Mild Laryngeal Penetration: Mild Aspiration Observations: None The patient displayed a moderate delay in the pharyngeal swallow response, as bolus material reached the pyriform sinuses prior to the pharyngeal swallow trigger. Mildly decreased laryngeal elevation and hyo-laryngeal excursion was present, with complete epiglottic inversion appreciated. The delayed pharyngeal swallow onset allowed for mild laryngeal penetration during the swallow with thin liquid consistencies. The laryngeal penetration was eliminated with nectar- thick liquid and honey-thick liquid. NO ASPIRATION was visualized with any consistency tested. Moderate base of tongue retraction and pharyngeal wall contraction were present resulting in mild vallecular and pyriform sinus residue. The patient does not follow verbal commands in attempts to practice swallowing maneuvers. The patient does display a natural, chin-tucked position which may aid in protecting the patient's airway during the swallow. Performed-A/P View Not Applicable/Performed Observations An anterior to posterior view of the swallowing function was unable to be obtained secondary to the patient's reduced cooperation and alertness. Summary/Impressions Oral Phase Impression: Moderate Impairment The patient displayed moderate oropharyngeal dysphagia characterized by moderately decreased oral and lingual coordination, a delayed onset of the pharyngeal swallow, mildly decreased laryngeal elevation, moderately decreased base of tongue retraction, and moderately reduced pharyngeal contractions. The deficits results in mild laryngeal penetration during the swallow with thin liquid consistencies. Laryngeal penetration was eliminated with the use of nectar-thick liquid consistencies. No aspiration occurred with any consistency tested during the video swallow examination. Recommendations: - Dysphagia one (pureed) diet consistency with NECTAR-THICK liquids, as tolerated. - Fully upright, alert, and cognitively appropriate for any PO intake (IF the patient is not alert, the patient should remain NPO for safety). - 1:1 feeding assistance and supervision. - Small, single bites and sips, only. - Monitor for s/s of suspected aspiration with PO intake. If demonstrated, place the patient NPO and contact speech pathology. - Speech pathology to assess diet tolerance two to three times per week (or as appropriate). The results and recommendations were shared with the patient, the patient's family member, and the assigned RN. The patient was provided nectar-thick liquid by the clinician and consumed multiple drinks without the presence of suspected aspiration. The patient's family member denied additional questions or concerns for the clinician at this time. Speech Short Term Goals Short Term Goals Short Term Goals 1. The patient and staff will demonstrate 90% accuracy with safe swallowing strategies and procedures. Speech Development Trainer Goals Development Trainer Goals 1. The patient will tolerate the least restrictive diet without s/s of suspected aspiration with 90% accuracy. Speech-Plan Treatment Plan Speech Therapy Treatment Plan: Continue Plan of Care Treatment Duration: Apr 19, 2021 Frequency: 2 times per week Estimated Hrs Per Day: .25 hour per day Rehab Potential: Guarded Pt/Family Agrees to Plan: Yes Safety Risks/Education Teaching Recipient: Patient, Family Teaching Methods: Discussion Response to Teaching: Reinforcement Needed Education Topics Provided: Results of Modified Barium Swallow, Recommendations, Safe Swallowing Strategies Time Speech Therapy Time In: 10:00 Speech Therapy Time Out: 10:30 Total Billed Time: 30 Billed Treatment Time 1, DONNELL GIFFORD [facility] ST Apr 12, 2021 13:11
--- NOTE | 2021-04-12 13:30 | Occupational Therapy Eval ---
OT Evaluation-General/PLF Medical Diagnosis Admission Date Apr 05, 2021 at 10:48 Medical Diagnosis: SEVERE SEPSIS Onset Date: Apr 05, 2021 Therapy Diagnosis Therapy Diagnosis: reduced adl status Height/Weight Height (Feet): 5 Height (Inches): 9.00 Weight (Pounds): 230 Weight (Ounces): 4.0 Precautions Precautions/Isolations: Aspiration, Fall Prevention, Standard Precautions, Pressure Ulcer Referral Physician: Dr. Hoyt Referral Reason: Evaluation/Treatment Medical History Pertinent Medical History: Arthritis, DM, Dementia, GERD, HTN, Neuropathy Current History Pt admitted with severe sepsis. Per , pt was indep with adls prior to admission. He owns a cane but was not using. performs all iadls except pt will help with taking out the trash or unloading the groceries. Social History Home: Apartment Current Living Status: Spouse Entry Into Home: Stairs Without Railing Steps Into Home: 1 ADL-Prior Level of Function SCALE: Activities may be completed with or without assistive devices. 9-Zscajkcafl-ioaneqb completes the activity by him/herself with no assistance from a helper. 5-Set-up or Clean-up Assistance-helper sets up or cleans up; patient completes activity. [place] assists only prior to or following the activity. 4-Supervision or Touching Assistance-helper provides verbal cues and/or touching/steadying and/or contact guard assistance as patient completes activity. Assistance may be provided throughout the activity or intermittently. 3-Partial/Moderate Assistance-helper does LESS THAN HALF the effort. [place] lifts, holds or supports trunk or limbs, but provides less than half the effort. 2-Substantial/Maximal Assistance-helper does MORE THAN HALF the effort. [place] lifts or holds trunk or limbs and provides more than half the effort. 8-Ihrwwxppi-rhktyt does ALL the effort. Patient does none of the effort to complete the activity. Or, the assistance of 2 or more helpers is required for the patient to complete the activity. If activity was not attempted, code reason: 7-Patient Refused. 9-Not Applicable-not attempted and the patient did not perform the activity before the current illness, exacerbation or injury. 10-Not Attempted due to Environmental Limitations-(lack of equipment, weather restraints, etc.). 88-Not Attempted due to Medical Conditions or Safety Concerns. Self Care: Independent Functional Cognition: Needed Some Help DME/Equipment: Tub/Shower Drive Self: No OT Current Status Subjective Pt with limited communication; garbled speech. Appearance Pt left supine in bed, in room. alarm set. Mental Status/Objective Patient Orientation: Person, Confused Attachments: Oxygen Current Glasses/Contacts: Yes Hearing Aids: No Hand Dominance: Right Upper Extremity ROM Difficulty following directions. PROM-AAROM R shoulder flex: ~160 degrees, L shoulder flex: ~150 degrees. 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 RN reports patient had difficulty maintaining sitting balance without assist as he had tendency to list right. Assist x2 to stand per report. Thus, pt would be dependent for LB dressing and toileting hygiene at this time. Pt presents with significant edema in RUE. OT educates on gentle ROM exercises and correct positioning to aid in reducing swelling. Education OT Patient Education: Correct positioning, Modified ADL techniques, Purpose of tx/functional activities, Rehab process, Safety issues Teaching Recipient: Patient, Family Teaching Methods: Demonstration, Discussion OT Chcf Goals Tools Developer Goals Time Frame: Apr 26, 2021 Oral Hygiene (QC): 4 Toileting Hygiene (QC): 3 Shower/Bathe Self (QC): 3 Upper Body Dressing (QC): 3 Lower Body Dressing (QC): 3 On/Off Footwear (QC): 3 1=Demonstrate adherence to instructed precautions during ADL tasks. 2=Patient will verbalize/demonstrate understanding of assistive devices/modifications for ADL. 3=Patient will improve strength/tolerance for activity to enable patient to perform ADL's. OT Education/Plan Problem List/Assessment Assessment: Decreased Activ Tolerance, Decreased Safety Aware, Decreased UE Strength, Dependent Transfers, Impaired Cognition, Impaired Coordination, Impaired Funct Balance, Impaired I ADL's, Impaired Self-Care Skills, Restricted Funct UE ROM Discharge Recommendations Plan/Recommendations: Continue POC Therapy Discharge Recommendati: Post Acute OT Comment ongoing assessment Treatment Plan/Plan of Care Treatment,Training & Education: Yes Patient would benefit from OT for education, treatment and training to promote independence in ADL's, mobility, safety and/or upper extremity function for ADL's. Plan of Care: ADL Retraining, Cognitive Retraining, Functional Mobility, Group Exercise/Act as Ind, UE Funct Exercise/Act Treatment Duration: Apr 26, 2021 Frequency: 3 times per week (3-5x/week) Rehab Potential: Guarded Time/GCodes Start Time: 13:14 Stop Time: 13:24 Total Time Billed (hr/min): 10 Billed Treatment Time 1 visit Nabila Freed OT Apr 12, 2021 13:30
--- NOTE | 2021-04-12 13:58 | Physical Therapy Daily Note ---
PT Daily Note-Current Subjective Patient presents laying down and is almost done with speech therapy. Mental Status Attachments: Thomson Catheter, IV Transfers SCALE: Activities may be completed with or without assistive devices. 8-Xcvccetqdn-ukcmepu completes the activity by him/herself with no assistance from a helper. 5-Set-up or Clean-up Assistance-helper sets up or cleans up; patient completes activity. [place] assists only prior to or following the activity. 4-Supervision or Touching Assistance-helper provides verbal cues and/or touching/steadying and/or contact guard assistance as patient completes activity. Assistance may be provided throughout the activity or intermittently. 3-Partial/Moderate Assistance-helper does LESS THAN HALF the effort. [place] lifts, holds or supports trunk or limbs, but provides less than half the effort. 2-Substantial/Maximal Assistance-helper does MORE THAN HALF the effort. [place] lifts or holds trunk or limbs and provides more than half the effort. 9-Dizecngjy-pljqgr does ALL the effort. Patient does none of the effort to complete the activity. Or, the assistance of 2 or more helpers is required for the patient to complete the activity. If activity was not attempted, code reason: 7-Patient Refused. 9-Not Applicable-not attempted and the patient did not perform the activity before the current illness, exacerbation or injury. 10-Not Attempted due to Environmental Limitations-(lack of equipment, weather restraints, etc.). 88-Not Attempted due to Medical Conditions or Safety Concerns. Sit to Lying (QC): 1 Lying to Sitting/Side of Bed(Q: 1 Sit to Stand (QC): 1 Patient was max assist x2 for all bed mobility and sit to stand transfer. Patient was unable to sit EOB without max assist. Exercises Seated Therapy Exercises: Sit to stand (2) Treatments Sitting EOB tolerance Sit to stand and standing tolerance Assessment Patient performed bed mobility and 2 sit to stands during therapy session. Patient required max assist x2 for sit to stand exercise and standing endurance. Patient required max assist x1 for sitting EOB. Patient sat EOB for about 5 minutes but required constant assistance. When standing the patient leaned to the right heavily and could not correct it with verbal or tactile cues. Patient stood with FWW and max assist x2. Patient was very difficult to understand and mostly only grunted during therapy session. PT Short Term Goals Short Term Goals Time Frame: Apr 17, 2021 Roll Left & Right: 3 Sit to lyin Lying to sitting on side of be: 3 Sit to stand: 3 Chair/biz-zm-splbk transfer: 3 PT Half-Way Goals Half-Way Goals PT Bioprocess Development Engineer Goals Time Frame: Apr 26, 2021 Roll Left & Right (QC): 5 Sit to Lying (QC): 5 Lying-Sitting on Side/Bed(QC): 5 Sit to Stand (QC): 4 Chair/Jcs-wn-Tbyvy Xfer(QC): 4 Toilet Transfer (QC): 4 Does the Patient Walk: Yes Walk 10 feet (QC): 3 PT Plan Problem List Problem List: Activity Tolerance, Functional Strength, Safety, Balance, Gait, Transfer, Bed Mobility, ROM Treatment/Plan Treatment Plan: Continue Plan of Care Treatment Plan: Bed Mobility, Education, Functional Activity [place], Functional Strength, Group Therapy, Gait, Safety, Therapeutic Exercise, Transfers Treatment Duration: May 22, 2021 Frequency: 6 times per week Estimated Hrs Per Day: .25 hour per day Patient and/or Family Agrees t: Yes Time/GCodes Time In: 1300 Time Out: 1314 Total Billed Treatment Time: 14 Total Billed Treatment 1 Visit FA 14 min MELISA LIANG PT Apr 12, 2021 13:58
--- NOTE | 2021-04-12 15:01 | Diagnostic Imaging Report ---
EXAMINATION: Modified barium swallow. INDICATION: Dysphagia. COMPARISON: There are no prior studies available for comparison. This exam was performed in the presence of a speech pathologistJanel. FINDINGS: The patient was given barium in different substances to swallow. This included honey, nectar, thin nectar through a straw and thin liquid through a straw as well as pudding. The patient was able to swallow all the materials without difficulty except for the thin liquid through the straw. There was transient penetration when the patient swallowed that substance. IMPRESSION: The swallowing mechanism is slightly compromised as there was one episode of transient penetration with the thin liquid through a straw. There is no other evidence for aspiration or penetration. Dictated by: Dictated on workstation # [id number]
[2021-04-13 03:42] VITALS: BP 173/87
[2021-04-13] MEDS: 1/2 NS IV SOLUTION 1,000 ML IV SCH ×3 (03:50→18:16)
[2021-04-13] MEDS: SALIVA STIMULANT MOUTH SPRAY (BIOTENE) 1.5 OZ MM SCH ×5 (03:50→20:58)
[2021-04-13] MEDS: morphine INJ 4 MG/ML 1 ML (VIAL/SYRINGE) IVP PRN ×2 (03:56→22:44)
[2021-04-13] MEDS: inSUlin ASPART (NovoLOG) 1 UNIT/0.01 ML (CHARGE PER UNIT) SC SCH ×4 (05:57→20:59)
[2021-04-13] MEDS: meTOprolol 5 MG/5 ML (LOPRESSOR) VIAL IV SCH (05:58)
[2021-04-13 06:24] LABS: BASOPHILS % (AUTO) 0 % (0-10); EOSINOPHILS # (AUTO) 0.4 10^3/uL (0.0-0.3); EOSINOPHILS % (AUTO) 4 % (0-10); HEMATOCRIT 32 % (40-54); HEMOGLOBIN 10.6 g/dL (13.3-17.7); LYMPHOCYTES # (AUTO) 1.6 10^3/uL (1.0-4.0); LYMPHOCYTES % (AUTO) 17 % (12-44); MEAN CORPUSCULAR HEMOGLOBIN 29 pg (25-34); MEAN CORPUSCULAR HGB CONC 33 g/dL (32-36); MEAN CORPUSCULAR VOLUME 88 fL (80-99); MEAN PLATELET VOLUME 8.7 fL (9.0-12.2); MONOCYTES # (AUTO) 0.6 10^3/uL (0.0-1.0); MONOCYTES % (AUTO) 7 % (0-12); NEUTROPHILS # (AUTO) 6.4 10^3/uL (1.8-7.8); NEUTROPHILS % (AUTO) 69 % (42-75); PLATELET COUNT 291 10^3/uL (130-400); WHITE BLOOD COUNT 9.2 10^3/uL (4.3-11.0)
[2021-04-13 06:44] LABS: ALBUMIN 2.4 GM/DL (3.2-4.5); POTASSIUM 3.4 MMOL/L (3.6-5.0)
[2021-04-13] MEDS: RT-ALBUTEROL/IPRATROPIUM 3 ML (DUONEB) VIAL INH SCH ×2 (06:44→21:14)
[2021-04-13 06:45] LABS: CALCIUM 7.8 MG/DL (8.5-10.1)
[2021-04-13 06:46] LABS: TOTAL PROTEIN 5.8 GM/DL (6.4-8.2)
[2021-04-13 06:48] LABS: BILIRUBIN,TOTAL 0.4 MG/DL (0.1-1.0)
[2021-04-13 06:50] LABS: CREATININE SERUM 0.98 MG/DL (0.60-1.30)
--- NOTE | 2021-04-13 07:54 | Progress Note ---
Subjective Subjective Date Seen by Provider: Apr 13, 2021 Time Seen by Provider: 08:20 Mr. Gutierrez was sleeping in bed during our encounter this morning. This morning he was able to take a drink of water with assistance. He continues to use his left arm more than his right arm. He is alert this morning but he is unable to answer questions. He responds with mumbles but appears as if he is trying to articulate an answer but is unable. Multiple studies were done yesterday. A CXR showed alveolar infiltrate with cardiomegaly most likely d/t CHF. A carotid ultrasound showed < 30% stenosis. A head CT showed no acute changes or abnormalities. A swallow study indicated a slightly compromised swallowing mechanism. TAMMIE WAS ALERT AND BEING FED BY MARKETING PROFESSIONAL THIS MORNING, WHEN THIS COMMUNICATIONS CLERK WAS IN THE ROOM, TAMMIE STATES THAT HE KNOWS THIS COMMUNICATIONS CLERK AND HE WAS VERY ANIMATED WHEN TRYING TO ANSWER QUESTIONS. HE WAS EATING WITHOUT CHOKING THIS MORNING PER VISUAL EVAL. Review of Systems General: Other (ROS MINIMAL DUE TO PT BEING DIFFICULT TO UNDERSTAND AT TIMES) Genitourinary: Other (Thom[place]) Neurological: Weakness, Incoordination, Change in speech, Confusion All Other Systems Reviewed All Other Systems Reviewed: Yes Objective Exam Vital Signs Vital Signs Date Time Temp Pulse Resp B/P (MAP) Pulse Ox O2 Delivery O2 Flow Rate FiO2 04/13/21 07:00 69 04/13/21 06:44 95 Nasal Cannula 3.00 04/13/21 03:42 36.9 80 20 173/87 (115) 96 High Flow N/C 1.00 04/13/21 01:00 78 04/12/21 23:27 36.8 83 20 169/95 (119) 93 High Flow N/C 1.00 04/12/21 21:01 36.0 78 18 176/88 (117) 98 Room Air 04/12/21 20:25 Nasal Cannula 1.00 04/12/21 20:21 79 90 04/12/21 20:17 90 Nasal Cannula 3.00 04/12/21 20:00 36.0 78 18 176/88 (117) 98 High Flow N/C 1.00 04/12/21 19:00 75 04/12/21 16:00 36.2 78 20 180/84 (116) 93 High Flow N/C 1.00 04/12/21 13:39 82 04/12/21 11:46 36.1 82 20 179/94 (122) 95 High Flow N/C 1.00 04/12/21 09:33 94 Nasal Cannula 1.00 04/12/21 07:52 75 04/12/21 07:52 90 Nasal Cannula 2.00 I & O 04/13/21 07:00 Intake Total 1040 ml Output Total 3625 ml Balance -2585 ml General Appearance: No Apparent Distress, Chronically ill HEENT: PERRL/EOMI; No Scleral Icterus (L), No Scleral Icterus (R); Other (Limited movement of left side of mouth) Neck: Normal Inspection, Non Tender, Supple; No Lymphadenopathy (L), No Lymphadenopathy (R) Respiratory: Chest Non Tender, Lungs Clear, Normal Breath Sounds, No Accessory Muscle Use, No Respiratory Distress Cardiovascular: Regular Rate, Rhythm, No Murmur, Normal Peripheral Pulses, Other (Edema present in UE and LE but decreased from yesterday) Gastrointestinal: Normal Bowel Sounds, Non Tender, Soft Extremity: Normal Capillary Refill, Normal Inspection, Pedal Edema, Other (Dressing on left heel) Neurologic/Psychiatric: Alert; No Oriented x3; Aphasia, Depressed Affect, Disoriented, Motor Weakness (Right sided) Skin: Normal Color, Warm/Dry Lymphatic: No Adenopathy (Head and neck) Results Lab Laboratory Tests 04/12/21 08:52: SARS-CoV-2 RNA (RT-PCR) Not Detected 04/12/21 11:41: Glucometer 169H 04/12/21 17:05: Glucometer 179H 04/12/21 23:32: Glucometer 189H 04/13/21 05:53: Glucometer 161H 04/13/21 06:01: White Blood Count 9.2, Red Blood Count 3.62L, Hemoglobin 10.6L, Hematocrit 32L, Mean Corpuscular Volume 88, Mean Corpuscular Hemoglobin 29, Mean Corpuscular Hemoglobin Concent 33, Red Cell Distribution Width 13.3, Platelet Count 291, Mean Platelet Volume 8.7L, Immature Granulocyte % (Auto) 2, Neutrophils (%) (Auto) 69, Lymphocytes (%) (Auto) 17, Monocytes (%) (Auto) 7, Eosinophils (%) (Auto) 4, Basophils (%) (Auto) 0, Neutrophils # (Auto) 6.4, Lymphocytes # (Auto) 1.6, Monocytes # (Auto) 0.6, Eosinophils # (Auto) 0.4H, Basophils # (Auto) 0.0, Immature Granulocyte # (Auto) 0.2H, Sodium Level 135, Potassium Level 3.4L, Chloride Level 102, Carbon Dioxide Level 21, Anion Gap 12, Blood Urea Nitrogen 12, Creatinine 0.98, Estimat Glomerular Filtration Rate 77, BUN/Creatinine Ratio 12, Glucose Level 168H, Calcium Level 7.8L, Corrected Calcium 9.1, Total Bilirubin 0.4, Aspartate Amino Transf (AST/SGOT) 59H, Alanine Aminotransferase (ALT/SGPT) 40, Alkaline Phosphatase 69, Total Protein 5.8L, Albumin 2.4L Microbiology 04/05/21 MRSA Screen - Final, Complete MRSA not isolated 04/05/21 Blood Culture - Final, Complete No growth Assessment/Plan Assessment/Plan Assessment and Plan Assessment: Sepsis d/t transverse colitis - CT abdomen showed transverse colitis without perforation or abscess Right-sided weakness - Noticeable in right upper extremity AMS - Patient not oriented to person, place, or time - This in conjunction with his right-sided weakness makes it hard to determine etiology of weakness Respiratory failure - Extubated on Monday around 1700 Acute on chronic renal failure - BUN/Cr normalized Anemia - Hgb at 10.6 today - Likely dilutional, no obvious source of acute bleeding Hypokalemia - 3.4 today Leukocytosis - Resolved - 9.2 today Hyponatremia - Resolved - 135 today Lactic acidosis - Resolved Respiratory alkalosis without compensation - Resolved HTN Diabetes Plan: Continue IVF and current medications. Consider potassium replacement. Continue dressing changes on left heel with wound care as needed. Repeat head CT was negative. Plan for MRI of head to check for ischemic changes. Continue patient on regular diet d/t results of swallow study. Patient will have a lot of recovery ahead of him. Plan will be d/c to SNF either today or tomorrow. The family is looking at [facility]. Supervisory-Addendum Brief Verification & Attestation Participated in pt care: history, MDM, physical Personally performed: exam, history, MDM, supervision of care Care discussed with: Medical Student Procedures: n/a Results interpretation: Verified all documentation AGREE WITH STUDENT DOCUMENTATION WITH THE FOLLOWING CHANGES PT ON DYSPHAGIA 1 DIET, WILL ADVANCE TOLERATED ADDING A ONE TIME DOSE OF POTASSIUM SUPPLEMENT CHANGED FROM IV METOPROLOL AND RECTAL ASPIRIN TO METOPROLOL TARTATE 25MG BID AND ASPIRIN 81MG DAILY CHEWABLE. COVID SCREEN NEGATIVE - PLANNING ON DISCHARGE TO [facility] TOMORROW. SEVERE SEPSIS TRANSVERSE COLITIS POSSIBLE STROKE RESPIRATORY FAILURE ACUTE ON CHRONIC RENAL FAILURE CHRONIC HYPERTENSION CHRONIC CONSTIPATION DIABETES MELLITUS WITH HYPERGLYCEMIA LEUKOCYTOSIS HYPONATREMIA LACTIC ACIDOSIS JANICE TORRES Apr 13, 2021 07:54 MOISÉS ARMSTRONG MD Apr 13, 2021 09:01
[2021-04-13 07:59] VITALS: BP 169/79
--- NOTE | 2021-04-13 08:18 | Cardiology Progress Note ---
Subjective Date Seen by Provider: Apr 13, 2021 Time Seen by Provider: 08:17 Subjective/Events-last exam Patient asleep in bed, NAD. Objective-Cardiology Exam Last Set of Vital Signs Vital Signs 04/09/21 04/13/21 04/13/21 16:00 07:59 09:00 Temp 36.1 Pulse 74 Resp 22 B/P (MAP) 169/79 (109) Pulse Ox 95 O2 Delivery Nasal Cannula O2 Flow Rate 3.00 FiO2 25 I&O Intake and Output 04/12/21 23:59 Intake Total 940 ml Output Total 3300 ml Balance -2360 ml Intake Oral 940 ml Output Urine Total 3300 ml General: Alert, Cooperative HEENT: Atraumatic Neck: Supple Lungs: Clear to Auscultation Heart: Regular Rate Abdomen: Normal Bowel Sounds Extremities: No Clubbing, No Cyanosis Skin: No Rashes Results Lab Laboratory Tests 04/13/21 06:01 A/P-Cardiology Admission Diagnosis Acute respiratory failure AMS Sepsis Elevated troponin Assessment/Plan Status post acute resp failure, extubated and continuing to improve. 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 managed by medical team Altered mental status,was found on floor by bed by , unknown etiology, CT head done showing no acute changes. Sepsis, CT abd/pelvis showing acute colitis involving entire transverse colon, improvingl, management per medical services. Mildly elevated troponin, EKG showing sinus tachy with PVC's. Probably type II myocardial infarction due to respiratory failure. Stress test in 2019 showed no significant ischemia or infarction. We will continue monitoring closely. Hypertension, currently on IV Lopressor Chronic kidney disease with ROSARIO, continue to monitor renal function. DM, management per medical services Hyponatremia, monitor electrolytes Patient was seen and evaluated with Zofia, examination performed, management plan was discussed, agree with the current scribed note, I made few changes to the note using Italic font Patient was laying down in bed, moving his arms, still having slurred speech. Had some dysphagia. Continue to monitor blood pressure, regular chambers are recommended ZOFIA GARZA Apr 13, 2021 08:18 INDIGO BULL MD Apr 13, 2021 12:12
[2021-04-13] MEDS ORDERED: POTASSIUM BICARB 20 MEQ (EFFER-K) TABLET PO ONE (08:45)
[2021-04-13] MEDS: ASPIRIN 81 MG CHEW (CHILDREN'S ASA) PO SCH (09:10)
[2021-04-13] MEDS: ENOXAPARIN 40 MG/0.4 ML (LOVENOX) SYR SC SCH (09:11)
[2021-04-13] MEDS: meTOprolol TARTRATE 25 MG (LOPRESSOR) TABLET PO SCH ×2 (09:11→20:59)
[2021-04-13] MEDS: FLUCONAZOLE 100 MG/50 ML 50 ML IV SCH (09:11)
[2021-04-13] MEDS: FAMOTIDINE 20MG/2ML IV (PEPCID) IVP SCH (09:11)
--- NOTE | 2021-04-13 09:50 | Occupational Ther Daily Note ---
OT Current Status-Daily Note Subjective Pt alert, lying in bed. Unable to assess orientation and pain due to pt's using vocalizations for communication. Mental Status/Objective Patient Orientation: Person ADL-Treatment Dependent for bathing. Using bath pack, nrsg and MCCLAIN completed bed bath. Assist x2 for turning pt side to side to cleanse back and buttocks. After therapy, pt lying in bed with call light/phone in reach. Nrsg in room. All needs met. Therapy Code Descriptions/Definitions Functional [place] Measure: 0=Not Assessed/NA 4=Minimal Assistance 1=Total Assistance 5=Supervision or Setup 2=Maximal Assistance 6=Modified [place] 3=Moderate Assistance 7=Complete IndependenceSCALE: Activities may be completed with or without assistive devices. 5-Qavabvxprh-zksldta completes the activity by him/herself with no assistance from a helper. 5-Set-up or Clean-up Assistance-helper sets up or cleans up; patient completes activity. Humphreys assists only prior to or following the activity. 4-Supervision or Touching Assistance-helper provides verbal cues and/or touc erum/steadying and/or contact guard assistance as patient completes activity. Assistance may be provided throughout the activity or intermittently. 3-Partial/Moderate Assistance-helper does LESS THAN HALF the effort. Humphreys lifts, holds or supports trunk or limbs, but provides less than half the effort. 2-Substantial/Maximal Assistance-helper does MORE THAN HALF the effort. Humphreys lifts or holds trunk or limbs and provides more than half the effort. 3-Evgpyaxmy-krqsps does ALL the effort. Patient does none of the effort to complete the activity. Or, the assistance of 2 or more helpers is required for the patient to complete the activity. If activity was not attempted, code reason: 7-Patient Refused. 9-Not Applicable-not attempted and the patient did not perform the activity before the current illness, exacerbation or injury. 10-Not Attempted due to Environmental Limitations-(lack of equipment, weather restraints, etc.). 88-Not Attempted due to Medical Conditions or Safety Concerns. Shower/Bathe Self (QC): 1 Upper Body Dressing (QC): 2 On/Off Footwear: 1 Toileting Hygiene (QC): 1 (per clinical judgment) OT Counter Molder Goals Skilled Nursing Goals Time Frame: Apr 26, 2021 Oral Hygiene (QC): 4 Toileting Hygiene (QC): 3 Shower/Bathe Self (QC): 3 Upper Body Dressing (QC): 3 Lower Body Dressing (QC): 3 On/Off Footwear (QC): 3 1=Demonstrate adherence to instructed precautions during ADL tasks. 2=Patient will verbalize/demonstrate understanding of assistive devices/modifications for ADL. 3=Patient will improve strength/tolerance for activity to enable patient to perform ADL's. OT Education/Plan Problem List/Assessment Assessment: Decreased Activ Tolerance, Dependent Transfers, Impaired Bed Mobility, Impaired Self-Care Skills Discharge Recommendations Plan/Recommendations: Continue POC Treatment Plan/Plan of Care Patient would benefit from OT for education, treatment and training to promote independence in ADL's, mobility, safety and/or upper extremity function for ADL's. Plan of Care: ADL Retraining, Cognitive Retraining, Functional Mobility, Group Exercise/Act as Ind, UE Funct Exercise/Act Treatment Duration: Apr 26, 2021 Frequency: 3 times per week (3-5x/week) Rehab Potential: Guarded Time/GCodes Start Time: 09:15 Stop Time: 09:30 Total Time Billed (hr/min): 15 Billed Treatment Time 1 visit-ADL 1 (15 min) SCOTTIE DELCID Apr 13, 2021 09:50
--- NOTE | 2021-04-13 11:20 | Physical Therapy Daily Note ---
PT Daily Note-Current Subjective Patient presented laying in bed with his at bedside. His reports that he is talking a little more today than yesterday. Mental Status Patient Orientation: Non-Verbal/Aphasic Attachments: Thomson Catheter, IV Transfers SCALE: Activities may be completed with or without assistive devices. 8-Mpfkhglisx-rijwbko completes the activity by him/herself with no assistance from a helper. 5-Set-up or Clean-up Assistance-helper sets up or cleans up; patient completes activity. Mcalister assists only prior to or following the activity. 4-Supervision or Touching Assistance-helper provides verbal cues and/or touching/steadying and/or contact guard assistance as patient completes activity. Assistance may be provided throughout the activity or intermittently. 3-Partial/Moderate Assistance-helper does LESS THAN HALF the effort. Mcalister lifts, holds or supports trunk or limbs, but provides less than half the effort. 2-Substantial/Maximal Assistance-helper does MORE THAN HALF the effort. Mcalister lifts or holds trunk or limbs and provides more than half the effort. 4-Kxjdnqtgo-onjjph does ALL the effort. Patient does none of the effort to complete the activity. Or, the assistance of 2 or more helpers is required for the patient to complete the activity. If activity was not attempted, code reason: 7-Patient Refused. 9-Not Applicable-not attempted and the patient did not perform the activity before the current illness, exacerbation or injury. 10-Not Attempted due to Environmental Limitations-(lack of equipment, weather restraints, etc.). 88-Not Attempted due to Medical Conditions or Safety Concerns. Sit to Lying (QC): 1 Lying to Sitting/Side of Bed(Q: 1 Patient was dependent x2 for bed mobility. Exercises Supine Ex: Ankle pumps, Heel Slides Supine Reps: 10 Seated Therapy Exercises: Long arc quads Seated Reps: 10 Treatments Seated and supine exercises were completed but patient could not assist with the exercise. Exercises were completed with PROM. Patient sat EOB for 5 minutes but required max assist x2 to stay upright. Patient could not stay upright with verbal or tactile cues. Assessment Patient was dependent for all transfers and while sitting EOB. PROM exercises were performed on the patient in sitting and supine. Patient was dependent to move to sitting EOB and to move back to supine. Out of bed exercises were not performed due to lack of patient strength and cognitive function. PT Short Term Goals Short Term Goals Time Frame: Apr 17, 2021 Roll Left & Right: 3 Sit to lyin Lying to sitting on side of be: 3 Sit to stand: 3 Chair/jgo-ba-qypbr transfer: 3 PT Shelter Goals Communications Attendant Goals PT Communications Attendant Goals Time Frame: Apr 26, 2021 Roll Left & Right (QC): 5 Sit to Lying (QC): 5 Lying-Sitting on Side/Bed(QC): 5 Sit to Stand (QC): 4 Chair/Xos-vl-[place] Xfer(QC): 4 Toilet Transfer (QC): 4 Does the Patient Walk: Yes Walk 10 feet (QC): 3 PT Plan Problem List Problem List: Activity Tolerance, Functional Strength, Safety, Balance, Gait, Transfer, Bed Mobility, ROM Treatment/Plan Treatment Plan: Continue Plan of Care Treatment Plan: Bed Mobility, Education, Functional Activity [place], Functional Strength, Group Therapy, Gait, Safety, Therapeutic Exercise, Transfers Treatment Duration: May 22, 2021 Frequency: 6 times per week Estimated Hrs Per Day: .25 hour per day Patient and/or Family Agrees t: Yes Time/GCodes Time In: 957 Time Out: 1012 Total Billed Treatment Time: 15 Total Billed Treatment 1 Visit FA 15 min MELISA LIANG PT Apr 13, 2021 11:20
[2021-04-13 12:00] VITALS: BP 171/92
[2021-04-13 15:30] VITALS: BP 184/93
[2021-04-13] MEDS: LORazepam INJ 2 MG/ML (ATIVAN) VIAL IVP PRN (16:03)
[2021-04-13 19:30] VITALS: BP 177/103
[2021-04-14 00:25] VITALS: BP 159/74
[2021-04-14] MEDS: SALIVA STIMULANT MOUTH SPRAY (BIOTENE) 1.5 OZ MM SCH ×4 (01:48→11:50)
[2021-04-14 04:23] VITALS: BP 144/74
[2021-04-14] MEDS: inSUlin ASPART (NovoLOG) 1 UNIT/0.01 ML (CHARGE PER UNIT) SC SCH ×2 (05:47→11:39)
[2021-04-14 05:49] LABS: BASOPHILS % (AUTO) 1 % (0-10); EOSINOPHILS # (AUTO) 0.4 10^3/uL (0.0-0.3); EOSINOPHILS % (AUTO) 4 % (0-10); HEMATOCRIT 31 % (40-54); LYMPHOCYTES # (AUTO) 1.9 10^3/uL (1.0-4.0); LYMPHOCYTES % (AUTO) 22 % (12-44); MEAN CORPUSCULAR HEMOGLOBIN 29 pg (25-34); MEAN CORPUSCULAR HGB CONC 33 g/dL (32-36); MEAN CORPUSCULAR VOLUME 88 fL (80-99); MEAN PLATELET VOLUME 8.7 fL (9.0-12.2); MONOCYTES # (AUTO) 0.6 10^3/uL (0.0-1.0); MONOCYTES % (AUTO) 7 % (0-12); NEUTROPHILS # (AUTO) 5.5 10^3/uL (1.8-7.8); NEUTROPHILS % (AUTO) 65 % (42-75); PLATELET COUNT 279 10^3/uL (130-400); WHITE BLOOD COUNT 8.5 10^3/uL (4.3-11.0)
[2021-04-14 06:15] LABS: ALBUMIN 2.4 GM/DL (3.2-4.5); BILIRUBIN,TOTAL 0.4 MG/DL (0.1-1.0); CALCIUM 7.7 MG/DL (8.5-10.1); CREATININE SERUM 0.98 MG/DL (0.60-1.30); POTASSIUM 3.3 MMOL/L (3.6-5.0); TOTAL PROTEIN 5.7 GM/DL (6.4-8.2)
[2021-04-14] MEDS: 1/2 NS IV SOLUTION 1,000 ML IV SCH (06:53)
--- NOTE | 2021-04-14 07:54 | Progress Note ---
Subjective Subjective Date Seen by Provider: Apr 14, 2021 Time Seen by Provider: 08:45 Mr. Gutierrez was sleeping in bed during our encounter this morning. He is alert and this morning he was trying to communicate and was slightly more understandable. He said "Are you the doctor?" and could say "no." Most of his speech remains unintelligible which causes him to become frustrated. He said he is not sleeping well but could not verbalize why. He was unable to answer how he feels. He was not able to respond to commands well but he was just woken up during our encounter. He had an MRI yesterday but no imaging reports are available. PT ALERT, ANSWERS QUESTIONS TODAY, HE REPORTS THAT HE IS OKAY WITH GOING TO THE [facility]. Review of Systems ROS Unable to Obtain: Unable to obtain majority of ROS Genitourinary: Other ([place]) Neurological: Weakness, Incoordination, Change in speech, Confusion All Other Systems Reviewed All Other Systems Reviewed: Yes Objective Exam Vital Signs Vital Signs Date Time Temp Pulse Resp B/P (MAP) Pulse Ox O2 Delivery O2 Flow Rate FiO2 04/14/21 07:00 76 04/14/21 04:23 37.4 76 20 144/74 (97) 90 High Flow N/C 3.00 04/14/21 01:00 64 04/14/21 00:25 72 20 159/74 (102) 98 High Flow N/C 3.00 04/13/21 21:43 Nasal Cannula 3.00 04/13/21 21:14 83 Room Air 04/13/21 19:30 36.3 79 20 177/103 (127) 94 High Flow N/C 3.00 04/13/21 19:00 68 04/13/21 15:35 Nasal Cannula 3.00 04/13/21 15:30 36.7 77 22 184/93 (123) 94 High Flow N/C 2.50 04/13/21 13:00 77 04/13/21 12:00 36.4 71 22 171/92 (118) 94 High Flow N/C 1.00 04/13/21 09:00 Nasal Cannula 3.00 04/13/21 07:59 36.1 74 22 169/79 (109) 95 High Flow N/C 1.00 I & O 04/14/21 07:00 Intake Total 820 ml Output Total 2850 ml Balance -2030 ml General Appearance: No Apparent Distress, Chronically ill HEENT: PERRL/EOMI; No Scleral Icterus (L), No Scleral Icterus (R) Neck: Normal Inspection, Non Tender, Supple; No Lymphadenopathy (L), No Lymphadenopathy (R) Respiratory: Chest Non Tender, Lungs Clear, Normal Breath Sounds, No Accessory Muscle Use, No Respiratory Distress Cardiovascular: Regular Rate, Rhythm, No Murmur, Normal Peripheral Pulses, Other (Minor edema in UE and LE. Right arm more than left.) Gastrointestinal: Normal Bowel Sounds, Non Tender, Soft Extremity: Normal Capillary Refill, Normal Inspection, Pedal Edema, Other (Dressing on left heel) Neurologic/Psychiatric: Alert; No Oriented x3; Aphasia, Depressed Affect, Disoriented, Motor Weakness (Right sided) Skin: Normal Color, Warm/Dry Lymphatic: No Adenopathy (Head and neck) Results Lab Laboratory Tests 04/13/21 13:21: Glucometer 251H 04/13/21 16:50: Glucometer 227H 04/13/21 20:28: Glucometer 165H 04/14/21 05:34: Glucometer 140H 04/14/21 05:35: White Blood Count 8.5, Red Blood Count 3.47L, Hemoglobin 10.0L, Hematocrit 31L, Mean Corpuscular Volume 88, Mean Corpuscular Hemoglobin 29, Mean Corpuscular Hemoglobin Concent 33, Red Cell Distribution Width 13.4, Platelet Count 279, Mean Platelet Volume 8.7L, Immature Granulocyte % (Auto) 1, Neutrophils (%) (Auto) 65, Lymphocytes (%) (Auto) 22, Monocytes (%) (Auto) 7, Eosinophils (%) (Auto) 4, Basophils (%) (Auto) 1, Neutrophils # (Auto) 5.5, Lymphocytes # (Auto) 1.9, Monocytes # (Auto) 0.6, Eosinophils # (Auto) 0.4H, Basophils # (Auto) 0.0, Immature Granulocyte # (Auto) 0.1, Sodium Level 135, Potassium Level 3.3L, Chloride Level 103, Carbon Dioxide Level 21, Anion Gap 11, Blood Urea Nitrogen 11, Creatinine 0.98, Estimat Glomerular Filtration Rate 77, BUN/Creatinine Ratio 11, Glucose Level 146H, Calcium Level 7.7L, Corrected Calcium 9.0, Total Bilirubin 0.4, Aspartate Amino Transf (AST/SGOT) 41H, Alanine Aminotransferase (ALT/SGPT) 31, Alkaline Phosphatase 66, Total Protein 5.7L, Albumin 2.4L Microbiology 04/12/21 Gram Stain - Final, Resulted 04/12/21 Wound Culture - Preliminary, Resulted Staphylococcus aureus Culture In Progress 04/05/21 MRSA Screen - Final, Complete MRSA not isolated 04/05/21 Blood Culture - Final, Complete No growth Assessment/Plan Assessment/Plan Assessment and Plan Assessment: Sepsis d/t transverse colitis - CT abdomen showed transverse colitis without perforation or abscess Right-sided weakness - Noticeable in right upper extremity Suspected MSSA - Left heel AMS - Patient not oriented to person, place, or time - This in conjunction with his right-sided weakness makes it hard to determine etiology of weakness Respiratory failure - Extubated on Monday around 1700 Acute on chronic renal failure - BUN/Cr normalized Anemia - Hgb at 10.0 today - Likely dilutional, no obvious source of acute bleeding Hypokalemia - 3.3 today Leukocytosis - Resolved - 8.5 today Hyponatremia - Resolved - 135 today Lactic acidosis - Resolved Respiratory alkalosis without compensation - Resolved HTN Diabetes Plan: Continue IVF and current medications. Consider further potassium replacement today Continue dressing changes on left heel with wound care as needed. Waiting on report from MRI Continue patient on regular diet d/t results of swallow study. Patient will have a lot of recovery ahead of him. Plan is to d/c to [facility] today. Supervisory-Addendum Brief Verification & Attestation Participated in pt care: history, MDM, physical Personally performed: exam, history, MDM, supervision of care Care discussed with: Medical Student Procedures: n/a Results interpretation: Verified all documentation PT WITH OXYGEN AT 85% AT BEDSIDE - TUBING UNDER HIS CHIN, SLIGHTLY CYANOTIC AROUND LIPS, HIS OXYGEN WAS TO 92% AFTER APPLICATION OF OXYGEN AT 3 L NC WITH IMPROVEMENT IN CYANOSIS - TAMMIE WILL REQUIRE 3 LITERS CONTINUOUSLY OF OXYGEN. SEE MY DC SUMMARY FOR FURTHER DETAILS. JANICE TORRES Apr 14, 2021 07:53 MOISÉS ARMSTRONG MD Apr 14, 2021 09:13
[2021-04-14 07:57] VITALS: BP 164/79
[2021-04-14] MEDS: meTOprolol TARTRATE 25 MG (LOPRESSOR) TABLET PO SCH (08:07)
[2021-04-14] MEDS: FLUCONAZOLE 100 MG/50 ML 50 ML IV SCH (08:07)
[2021-04-14] MEDS: ENOXAPARIN 40 MG/0.4 ML (LOVENOX) SYR SC SCH (08:07)
[2021-04-14] MEDS: FAMOTIDINE 20MG/2ML IV (PEPCID) IVP SCH (08:07)
[2021-04-14] MEDS: ASPIRIN 81 MG CHEW (CHILDREN'S ASA) PO SCH (08:07)
[2021-04-14] MEDS: RT-ALBUTEROL/IPRATROPIUM 3 ML (DUONEB) VIAL INH SCH (08:14)
--- NOTE | 2021-04-14 08:53 | Discharge Summary ---
Diagnosis/Chief Complaint Date of Admission Apr 05, 2021 at 10:48 Date of Discharge Reason Hospital Visit PT IS AN 80 Y/O MALE WHO IS KNOWN TO ME FROM CLINIC AND MULTIPLE PREVIOUS H OSPITALIZATION FOR GI ILLNESS. PT IS INTUBATED AND HAS BEEN OFF OF THE PROPOFOL FOR 2.5 HOURS AT THE TIME OF THIS EVALUATION. HISTORY IS TAKEN FROM HIS , KIRILL. SHE REPORTS THAT HE WAS NOT FEELING WELL YESTERDAY BUT WAS UNABLE TO TELL HER WHAT WAS WRONG. HE REPORTED TO HER THAT HE JUST WASN'T FEELING VERY GOOD. HE HAD NOT HAD ANY NAUSEA, EMESIS OR DIARRHEA. SHE FOUND HIM EARLY THIS MORNING BETWEEN THE BED AND WALL, CALLED EMS AND THEY BROUGHT HIM TO THE HOSPITAL. HE WAS SOMEWHAT WILD UPON EVAL IN THE ER, WAS INTUBATED AND SEDATED. NURSING STAFF REPORTS THAT HE DID NOT RESPOND TO PAINFUL STIMULI ON ANY OF THEIR EVALUATIONS. Discharge Summary Discharge Physical Examination Allergies: Coded Allergies: No Known Drug Allergies (Verified , 01/29/07) Vitals & I&Os Vital Signs Date Time Temp Pulse Resp B/P (MAP) Pulse Ox O2 Delivery O2 Flow Rate FiO2 04/14/21 08:15 95 Nasal Cannula 3.00 04/14/21 07:57 36.8 74 18 164/79 (107) 04/09/21 16:00 25 General Appearance: Alert, Cooperative, Other (ORIENTED TO PERSON, NOT PLACE TIME) Respiratory: Other (FAINT CRACKLES ON BASES LATERALLY) Cardiovascular: Regular Rate Abdominal: Normal Bowel Sounds, Soft, No Tenderness Extremities: No Cyanosis, Other (EDEMA RIGHT UPPER EXTREMITY AND TRACE IN LOWER LEGS) Psych/Mental Status: Other (NOT DEPRESSED APPEARING, BUT FRUSTRATED WITH LACK OF ABILITY TO COMMUNICATE NORMALLY) Hospital Course Was the Problem List Reviewed?: Yes PT WITH OXYGEN AT 85% AT BEDSIDE - TUBING UNDER HIS CHIN, SLIGHTLY CYANOTIC AROUND LIPS, HIS OXYGEN WAS TO 92% AFTER APPLICATION OF OXYGEN AT 3 L NC WITH IMPROVEMENT IN CYANOSIS - TAMMIE WILL REQUIRE 3 LITERS CONTINUOUSLY OF OXYGEN. Pending Labs Laboratory Tests 04/14/21 05:34: Glucometer 140 04/14/21 05:35: White Blood Count 8.5, Red Blood Count 3.47, Hemoglobin 10.0, Hematocrit 31, Mean Corpuscular Volume 88, Mean Corpuscular Hemoglobin 29, Mean Corpuscular Hemoglobin Concent 33, Red Cell Distribution Width 13.4, Platelet Count 279, Mean Platelet Volume 8.7, Immature Granulocyte % (Auto) 1, Neutrophils (%) (Auto) 65, Lymphocytes (%) (Auto) 22, Monocytes (%) (Auto) 7, Eosinophils (%) (Auto) 4, Basophils (%) (Auto) 1, Neutrophils # (Auto) 5.5, Lymphocytes # (Auto) 1.9, Monocytes # (Auto) 0.6, Eosinophils # (Auto) 0.4, Basophils # (Auto) 0.0, Immature Granulocyte # (Auto) 0.1, Sodium Level 135, Potassium Level 3.3, Chl oride Level 103, Carbon Dioxide Level 21, Anion Gap 11, Blood Urea Nitrogen 11, Creatinine 0.98, Estimat Glomerular Filtration Rate 77, BUN/Creatinine Ratio 11, Glucose Level 146, Calcium Level 7.7, Corrected Calcium 9.0, Total Bilirubin 0.4, Aspartate Amino Transf (AST/SGOT) 41, Alanine Aminotransferase (ALT/SGPT) 31, Alkaline Phosphatase 66, Total Protein 5.7, Albumin 2.4 Discharge Condition at discharge IMPROVED Instructions to patient/family Please see electronic discharge instructions given to patient. Discharge Medications Reviewed and agree with Discharge Medication list on patient's Discharge Instruction sheet MOISÉS ARMSTRONG MD Apr 14, 2021 08:53
[2021-04-14] MEDS ORDERED: SALI45SP MM (08:58)
[2021-04-14] MEDS ORDERED: CLOP75TA69 PO (08:58)
[2021-04-14] MEDS ORDERED: ACET-2650 PO (08:58)
[2021-04-14] MEDS ORDERED: DOCU-143 PO (09:04)
[2021-04-14] MEDS ORDERED: ATOR40TA70 PO (09:04)
[2021-04-14] MEDS ORDERED: INSU100I34 SQ (09:04)
[2021-04-14] MEDS ORDERED: METO-333 PO (09:04)
[2021-04-14] MEDS ORDERED: LISI5TAB20 PO (09:04)
[2021-04-14] MEDS ORDERED: ASPI81TA64 PO (09:04)
[2021-04-14] MEDS ORDERED: INSU100V16 SC (09:04)
[2021-04-14] MEDS ORDERED: MIRA25TA PO (09:04)
--- NOTE | 2021-04-14 09:05 | Cardiology Progress Note ---
Subjective Date Seen by Provider: Apr 14, 2021 Time Seen by Provider: 08:50 Subjective/Events-last exam Patient sitting up in bed, speech slightly improved. Denies any chest pain Review of Systems General: No Chills, No Night Sweats, No Fatigue, No Malaise, No Appetite, No Other HEENT: No Head Aches, No Visual Changes, No Eye Pain, No Ear Pain, No Dysphasia, No Sinus Congestion, No Post Nasal Drip, No Sore Throat, No Other Pulmonary: No Dyspnea, No Cough, No Pleuritic Chest Pain, No Other Cardiovascular: No: Chest Pain, Palpitations, Orthopnea, Paroxysmal Noc. Dyspnea, Edema, Lt Headedness, Other Objective-Cardiology Exam Last Set of Vital Signs Vital Signs 04/09/21 04/14/21 04/14/21 16:00 11:11 12:25 Temp 36.8 Pulse 84 Resp 18 B/P (MAP) 175/89 (117) Pulse Ox 95 O2 Delivery Nasal Cannula O2 Flow Rate 3.00 FiO2 25 I&O Intake and Output 04/14/21 00:00 Intake Total 820 ml Output Total 3300 ml Balance -2480 ml Intake Oral 820 ml Output Urine Total 3300 ml # Bowel Movements 3 General: Alert, Cooperative HEENT: Atraumatic Neck: Supple Lungs: Clear to Auscultation Heart: Regular Rate Abdomen: Normal Bowel Sounds Extremities: No Clubbing, No Cyanosis Skin: No Rashes Results Lab Laboratory Tests 04/14/21 05:35 A/P-Cardiology Admission Diagnosis Acute respiratory failure AMS Sepsis Elevated troponin Assessment/Plan Status post acute resp failure, extubated and continuing to improve. Asphasia, dysphagia and upper extremity weakness R>L, likely anoxic brain injury, Repeat CT Head showing no acute changes. MRI inconclusive d/t motion artifact Metabolic acidosis received sodium bicarbonate, improved, has been managed by primary care team Altered mental status,was found on floor by bed by , unknown etiology, CT head done showing no acute changes. Sepsis, CT abd/pelvis showing acute colitis involving entire transverse colon, improvingl, management per medical services. Mildly elevated troponin, EKG showing sinus tachy with PVC's. Probably type II myocardial infarction due to respiratory failure. Stress test in 2019 showed no significant ischemia or infarction. We will continue monitoring closely. Hypertension, continue to monitor. Supervisory-Addendum Brief Supervisory Addendum Participated in pt care: history, MDM, physical Personally performed: exam, history, MDM Care discussed with: CAROLIN Results interpretation: Verified all documentation Notes: Patient was seen and evaluated with Jeff, examination performed, management plan was discussed, agree with the current scribed note, I made few changes to the note using Italic font JEFF GARZA Apr 14, 2021 09:05 INDIGO BULL MD Apr 14, 2021 13:52
--- NOTE | 2021-04-14 09:08 | Discharge Inst-Skilled Nursing ---
Discharge Inst-Skilled NF Reconcile Patient Problems Problems Reviewed?: Yes Patient Instructions Patient Problems: SEVERE SEPSIS TRANSVERSE COLITIS POSSIBLE STROKE RESPIRATORY FAILURE ACUTE ON CHRONIC RENAL FAILURE CHRONIC HYPERTENSION CHRONIC CONSTIPATION DIABETES MELLITUS WITH HYPERGLYCEMIA LEUKOCYTOSIS HYPONATREMIA LACTIC ACIDOSIS HYPOXIA WITH NEW OXYGEN REQUIREMENT SUSPECTED STROKE (UNABLE TO DO MRI DUE TO PATIENT MOVEMENT) WEAKNESS WITH PARTIAL RIGHT SIDED NEGLECT WOUND ON HEELS Goal: INCREASED STRENGTH, HEALING OF WOUND, WEAN OFF OF OXYGEN Consult/Follow Up/Orders Follow Up Appt.: [facility] Skilled NF Admit to: [facility] [place] Certification ([facility]) I certify that [facility] services are required to be given on an inpatient basis because of the above named patient's need for senior living care on a continuing basis for the conditions(s) for which he/she was receiving inpatient hospital services prior to his/her transfer to the [facility]. Ret[facility] Facility Order: Nursing Services, Supervising Film Or Videotape Editor-Evaluate & Treat, Physical Therapy-Evaluate & Treat, Speech Language-Evaluate & Treat, Wound Care-Eval/Treat (WOUND ON LEFT HEEL AND PRE-ULCER ON RIGHT) Oxygen Delivery Method: Nasal Cannula Oxygen Flow Rate L/min (Range): 3 Discharge Diet: Other Diet (DYSPHAGIA DIET) Daily Activity as Tolerated: Yes Resuscitation Status: Do Not Resuscitate New & Resume Previous Orders New & Resume Previous Orders CBC, CMP IN 1 WK FROM [facility] WOUND CARE EVAL AND TREAT - KEEP FEET IN BOOTS/ELEVATED WHILE IN BED LEFT HEEL NEW AQUACEL PLACED INTO WOUND BED, COVERED WITH ALLEVYN DRESSING. HEEL BOOTIES TO PROTECT AND PREVENT PRESSURE. Moisés Alfaro Apr 14, 2021 09:04 MOISÉS ALFARO MD Apr 14, 2021 09:08
[2021-04-14 11:11] VITALS: BP 175/89
[2021-04-14 14:25] VITALS: BP 175/89
== END 2021-04-14 13:46 | DRG 870 ==
LOC: EDUNIT# 06:13 → ER 06:14 → ICU 10:48 → 4TH 04-10 11:59
PROVIDERS: ADMIT Family Medicine; ATTEND Family Medicine
PROC: 5A1955Z Respiratory Ventilation, Greater than 96 Consecutive Hours (ICD-10-PCS; principal; 2021-04-05)
PROC: 0BH17EZ Insertion of Endotracheal Airway into Trachea, Via Natural or Artificial Opening (ICD-10-PCS; 2021-04-05)
DX: A41.9 Sepsis, unspecified organism (principal); J18.9 Pneumonia, unspecified organism; J96.01 Acute respiratory failure with hypoxia; I21.A1 Myocardial infarction type 2; G93.41 Metabolic encephalopathy; N17.9 Acute kidney failure, unspecified; E87.1 Hypo-osmolality and hyponatremia; A09 Infectious gastroenteritis and colitis, unspecified; E87.2 Acidosis; K51.00 Ulcerative (chronic) pancolitis without complications; R65.20 Severe sepsis without septic shock; E78.00 Pure hypercholesterolemia, unspecified; F03.90 Unspecified dementia, unspecified severity, without behavioral disturbance, psychotic disturbance, mood disturbance, and anxiety; M19.90 Unspecified osteoarthritis, unspecified site; Z79.4 Long term (current) use of insulin; Z79.899 Other long term (current) drug therapy; E11.65 Type 2 diabetes mellitus with hyperglycemia; E11.22 Type 2 diabetes mellitus with diabetic chronic kidney disease; I12.9 Hypertensive chronic kidney disease with stage 1 through stage 4 chronic kidney disease, or unspecified chronic kidney disease; N18.9 Chronic kidney disease, unspecified; Z87.891 Personal history of nicotine dependence; K59.09 Other constipation; D72.829 Elevated white blood cell count, unspecified; R53.1 Weakness; D64.9 Anemia, unspecified; E87.6 Hypokalemia; R13.0 Aphagia; R13.10 Dysphagia, unspecified; Z20.822 Contact with and (suspected) exposure to COVID-19
CPT/HCPCS: 31500; 36415; 36600; 51702; 70450; 71045; 71046; 74176; 74230; 80048; 80053; 80061; 81000; 82550; 82805; 82947; 83605; 83735; 84100; 84145; 84478; 84484; 85007; 85025; 85027; 85610; 85730; 86141; 87040; 87070; 87077; 87081; 87205; 87635; 87636; 87804; 93005; 93306; 93880; 94002; 94003; 94640; 94760; 94799; 96361; 96365; 96372; 99291

== ENCOUNTER → 2021-05-17 | Outpatient (CLI) | payer MEDICARE ==
[~2021-05-17] MED LIST changes: +ACET-2650 PO; +ASPI81TA64 PO; +CALC600T80 PO; +CLOP75TA69 PO; +FOLI1TAB33 PO; +METO-333 PO; +MIRA25TA PO; +MULT-1136 PO; +SALI45SP MM
== END ==
LOC: WOUNDCARE 12:47
PROVIDERS: ATTEND Family Medicine
DX: L89.623 Pressure ulcer of left heel, stage 3 (principal); E11.621 Type 2 diabetes mellitus with foot ulcer; I70.244 Atherosclerosis of native arteries of left leg with ulceration of heel and midfoot; N18.30 Chronic kidney disease, stage 3 unspecified; E11.65 Type 2 diabetes mellitus with hyperglycemia; E44.0 Moderate protein-calorie malnutrition
CPT/HCPCS: A6197; G0463; 99212

== ENCOUNTER → 2021-05-27 | Outpatient (CLI) | payer MEDICARE | LOC: WOUNDCARE 13:13 | PROVIDERS: ATTEND Family Medicine | DX: L89.623 Pressure ulcer of left heel, stage 3 (principal); E11.621 Type 2 diabetes mellitus with foot ulcer; I70.244 Atherosclerosis of native arteries of left leg with ulceration of heel and midfoot; E11.22 Type 2 diabetes mellitus with diabetic chronic kidney disease; N18.30 Chronic kidney disease, stage 3 unspecified; E11.65 Type 2 diabetes mellitus with hyperglycemia; E44.0 Moderate protein-calorie malnutrition; E11.52 Type 2 diabetes mellitus with diabetic peripheral angiopathy with gangrene | CPT/HCPCS: 11042; G0463 ==

== ENCOUNTER → 2021-06-04 | Outpatient (CLI) | payer MEDICARE ==
--- NOTE | 2021-06-04 14:37 | Diagnostic Imaging Report ---
INDICATION: Left foot ulcer. TIME OF EXAM: 1:37 p.m. FINDINGS: Three views of the left foot were obtained. The metatarsals are intact. Phalanges appear intact. No bony destructive changes are seen. Midfoot and hindfoot are unremarkable. There are no fractures. IMPRESSION: No acute abnormality is detected. Dictated by: Dictated on workstation # [id number]
== END ==
LOC: RAD 13:15
PROVIDERS: ATTEND Orthopaedic Surgery Hand Surgery
DX: L89.623 Pressure ulcer of left heel, stage 3 (principal); E11.621 Type 2 diabetes mellitus with foot ulcer; I70.244 Atherosclerosis of native arteries of left leg with ulceration of heel and midfoot; E11.22 Type 2 diabetes mellitus with diabetic chronic kidney disease; N18.30 Chronic kidney disease, stage 3 unspecified; E11.65 Type 2 diabetes mellitus with hyperglycemia; E44.0 Moderate protein-calorie malnutrition
CPT/HCPCS: 73630

== ENCOUNTER → 2021-06-04 | Outpatient (CLI) | payer MEDICARE | LOC: WOUNDCARE 12:16 | PROVIDERS: ATTEND Orthopaedic Surgery Hand Surgery | DX: L89.623 Pressure ulcer of left heel, stage 3 (principal); E11.621 Type 2 diabetes mellitus with foot ulcer; I70.244 Atherosclerosis of native arteries of left leg with ulceration of heel and midfoot; N18.30 Chronic kidney disease, stage 3 unspecified; E11.65 Type 2 diabetes mellitus with hyperglycemia; E11.52 Type 2 diabetes mellitus with diabetic peripheral angiopathy with gangrene; E44.0 Moderate protein-calorie malnutrition; Z68.29 Body mass index [BMI] 29.0-29.9, adult | CPT/HCPCS: 11042; G0463 ==

== ENCOUNTER → 2021-06-14 | Outpatient (CLI) | payer MEDICARE | LOC: WOUNDCARE 12:36 | PROVIDERS: ATTEND Family Medicine | DX: E11.621 Type 2 diabetes mellitus with foot ulcer (principal); L89.623 Pressure ulcer of left heel, stage 3; I70.244 Atherosclerosis of native arteries of left leg with ulceration of heel and midfoot; E11.22 Type 2 diabetes mellitus with diabetic chronic kidney disease; N18.30 Chronic kidney disease, stage 3 unspecified; E11.65 Type 2 diabetes mellitus with hyperglycemia; E44.1 Mild protein-calorie malnutrition; I96 Gangrene, not elsewhere classified | CPT/HCPCS: 11042; A6212; G0463 ==

== ENCOUNTER → 2021-06-21 | Outpatient (CLI) | payer MEDICARE | LOC: WOUNDCARE 12:38 | PROVIDERS: ATTEND Family Medicine | DX: L89.623 Pressure ulcer of left heel, stage 3 (principal); E11.621 Type 2 diabetes mellitus with foot ulcer; I70.244 Atherosclerosis of native arteries of left leg with ulceration of heel and midfoot; E11.22 Type 2 diabetes mellitus with diabetic chronic kidney disease; N18.30 Chronic kidney disease, stage 3 unspecified; E11.65 Type 2 diabetes mellitus with hyperglycemia; E44.0 Moderate protein-calorie malnutrition; E11.52 Type 2 diabetes mellitus with diabetic peripheral angiopathy with gangrene | CPT/HCPCS: 11042; A6212; G0463 ==

== ENCOUNTER → 2021-06-29 | Outpatient (CLI) | payer MEDICARE | LOC: WOUNDCARE 12:14 | PROVIDERS: ATTEND Family Medicine | DX: L89.623 Pressure ulcer of left heel, stage 3 (principal); E11.621 Type 2 diabetes mellitus with foot ulcer; I70.244 Atherosclerosis of native arteries of left leg with ulceration of heel and midfoot; N18.30 Chronic kidney disease, stage 3 unspecified; E11.65 Type 2 diabetes mellitus with hyperglycemia; E11.22 Type 2 diabetes mellitus with diabetic chronic kidney disease; E44.0 Moderate protein-calorie malnutrition; E11.52 Type 2 diabetes mellitus with diabetic peripheral angiopathy with gangrene | CPT/HCPCS: 15275; G0463 ==

== ENCOUNTER → 2021-07-05 | Outpatient (CLI) | payer MEDICARE | LOC: WOUNDCARE 12:36 | PROVIDERS: ATTEND Family Medicine | DX: E11.52 Type 2 diabetes mellitus with diabetic peripheral angiopathy with gangrene (principal); L89.623 Pressure ulcer of left heel, stage 3; E11.621 Type 2 diabetes mellitus with foot ulcer; I96 Gangrene, not elsewhere classified; I70.244 Atherosclerosis of native arteries of left leg with ulceration of heel and midfoot; N18.30 Chronic kidney disease, stage 3 unspecified; E11.65 Type 2 diabetes mellitus with hyperglycemia; E44.0 Moderate protein-calorie malnutrition | CPT/HCPCS: 15275; G0463 ==

== ENCOUNTER → 2021-07-14 | Outpatient (CLI) | payer MEDICARE | LOC: WOUNDCARE 10:41 | PROVIDERS: ATTEND Family Medicine | DX: L89.623 Pressure ulcer of left heel, stage 3 (principal); E11.621 Type 2 diabetes mellitus with foot ulcer; I70.244 Atherosclerosis of native arteries of left leg with ulceration of heel and midfoot; E11.22 Type 2 diabetes mellitus with diabetic chronic kidney disease; N18.30 Chronic kidney disease, stage 3 unspecified; E11.65 Type 2 diabetes mellitus with hyperglycemia; E44.0 Moderate protein-calorie malnutrition; E11.52 Type 2 diabetes mellitus with diabetic peripheral angiopathy with gangrene | CPT/HCPCS: 15275; G0463 ==

== ENCOUNTER → 2021-07-20 | Outpatient (CLI) | payer MEDICARE | LOC: WOUNDCARE 12:22 | PROVIDERS: ATTEND Family Medicine | DX: E11.621 Type 2 diabetes mellitus with foot ulcer (principal); L89.623 Pressure ulcer of left heel, stage 3; E11.51 Type 2 diabetes mellitus with diabetic peripheral angiopathy without gangrene; I70.244 Atherosclerosis of native arteries of left leg with ulceration of heel and midfoot; E11.65 Type 2 diabetes mellitus with hyperglycemia; N18.30 Chronic kidney disease, stage 3 unspecified; E44.0 Moderate protein-calorie malnutrition; Z79.4 Long term (current) use of insulin | CPT/HCPCS: 15275; G0463 ==

== ENCOUNTER → 2021-07-27 | Outpatient (CLI) | payer MEDICARE | LOC: WOUNDCARE 12:09 | PROVIDERS: ATTEND Family Medicine | DX: L89.623 Pressure ulcer of left heel, stage 3 (principal); E11.621 Type 2 diabetes mellitus with foot ulcer; I70.244 Atherosclerosis of native arteries of left leg with ulceration of heel and midfoot; E11.22 Type 2 diabetes mellitus with diabetic chronic kidney disease; N18.30 Chronic kidney disease, stage 3 unspecified; E11.65 Type 2 diabetes mellitus with hyperglycemia; E44.0 Moderate protein-calorie malnutrition | CPT/HCPCS: 15271; G0463; 15275 ==

== ENCOUNTER → 2021-08-03 | Outpatient (CLI) | payer MEDICARE | LOC: WOUNDCARE 12:20 | PROVIDERS: ATTEND Family Medicine | DX: E11.621 Type 2 diabetes mellitus with foot ulcer (principal); L89.623 Pressure ulcer of left heel, stage 3; E11.22 Type 2 diabetes mellitus with diabetic chronic kidney disease; N18.30 Chronic kidney disease, stage 3 unspecified; I70.244 Atherosclerosis of native arteries of left leg with ulceration of heel and midfoot; E11.65 Type 2 diabetes mellitus with hyperglycemia; E44.1 Mild protein-calorie malnutrition; Z91.11 Patient's noncompliance with dietary regimen | CPT/HCPCS: 11042; A6197; A6212; G0463 ==

== ENCOUNTER → 2021-08-10 | Outpatient (CLI) | payer MEDICARE | LOC: WOUNDCARE 12:24 | PROVIDERS: ATTEND Family Medicine | DX: L89.623 Pressure ulcer of left heel, stage 3 (principal); E11.621 Type 2 diabetes mellitus with foot ulcer; E11.22 Type 2 diabetes mellitus with diabetic chronic kidney disease; N18.30 Chronic kidney disease, stage 3 unspecified; E11.65 Type 2 diabetes mellitus with hyperglycemia; I70.244 Atherosclerosis of native arteries of left leg with ulceration of heel and midfoot; E44.1 Mild protein-calorie malnutrition; Z91.11 Patient's noncompliance with dietary regimen; E11.52 Type 2 diabetes mellitus with diabetic peripheral angiopathy with gangrene; I96 Gangrene, not elsewhere classified | CPT/HCPCS: 11042; A6207; G0463 ==

== ENCOUNTER → 2021-08-24 | Outpatient (CLI) | payer MEDICARE | LOC: WOUNDCARE 12:18 | PROVIDERS: ATTEND Family Medicine | DX: I96 Gangrene, not elsewhere classified (principal); L89.623 Pressure ulcer of left heel, stage 3; E11.621 Type 2 diabetes mellitus with foot ulcer; I70.244 Atherosclerosis of native arteries of left leg with ulceration of heel and midfoot; N18.30 Chronic kidney disease, stage 3 unspecified; E11.65 Type 2 diabetes mellitus with hyperglycemia; E44.0 Moderate protein-calorie malnutrition; E11.52 Type 2 diabetes mellitus with diabetic peripheral angiopathy with gangrene; Z91.11 Patient's noncompliance with dietary regimen | CPT/HCPCS: 11042; A6197; A6212; G0463 ==

== ENCOUNTER → 2021-08-31 | Outpatient (CLI) | payer MEDICARE | LOC: WOUNDCARE 12:29 | PROVIDERS: ATTEND Family Medicine | DX: E11.621 Type 2 diabetes mellitus with foot ulcer (principal); L89.623 Pressure ulcer of left heel, stage 3; E11.22 Type 2 diabetes mellitus with diabetic chronic kidney disease; N18.30 Chronic kidney disease, stage 3 unspecified; E11.65 Type 2 diabetes mellitus with hyperglycemia; I70.244 Atherosclerosis of native arteries of left leg with ulceration of heel and midfoot; E44.0 Moderate protein-calorie malnutrition; Z91.11 Patient's noncompliance with dietary regimen; E11.52 Type 2 diabetes mellitus with diabetic peripheral angiopathy with gangrene; I96 Gangrene, not elsewhere classified | CPT/HCPCS: 11042; A6212; G0463 ==

== ENCOUNTER → 2021-09-14 | Outpatient (CLI) | payer MEDICARE | LOC: WOUNDCARE 12:13 | PROVIDERS: ATTEND Family Medicine | DX: L89.623 Pressure ulcer of left heel, stage 3 (principal); E11.621 Type 2 diabetes mellitus with foot ulcer; I70.244 Atherosclerosis of native arteries of left leg with ulceration of heel and midfoot; E11.22 Type 2 diabetes mellitus with diabetic chronic kidney disease; N18.30 Chronic kidney disease, stage 3 unspecified; E11.65 Type 2 diabetes mellitus with hyperglycemia; E44.1 Mild protein-calorie malnutrition; Z91.11 Patient's noncompliance with dietary regimen; Z91.19 Patient's noncompliance with other medical treatment and regimen; E11.52 Type 2 diabetes mellitus with diabetic peripheral angiopathy with gangrene; I96 Gangrene, not elsewhere classified | CPT/HCPCS: 11042; G0463 ==

== ENCOUNTER → 2021-09-14 | Outpatient (CLI) | payer MEDICARE ==
[2021-09-14 13:46] LABS: CALCIUM 8.9 MG/DL (8.5-10.1); CREATININE SERUM 2.13 MG/DL (0.60-1.30); POTASSIUM 4.6 MMOL/L (3.6-5.0)
== END ==
LOC: LAB 13:05
PROVIDERS: ATTEND Family Medicine
DX: L89.623 Pressure ulcer of left heel, stage 3 (principal)
CPT/HCPCS: 36415; 80048; 84134

== ENCOUNTER → 2021-09-20 | Outpatient (CLI) | payer MEDICARE ==
--- NOTE | 2021-09-20 15:55 | Diagnostic Imaging Report ---
EXAMINATION: MRI of the left lower extremity without contrast, 09/20/2021. TECHNIQUE: Multiplanar, multisequence [id number] MR imaging of the left lower extremity was accomplished. INDICATION: Ulcer, posterior heel. Diabetic. Evaluate for osteomyelitis. FINDINGS: There is a marker along the posterior aspect of the foot at the heel marking the area of concern. An underlying soft tissue irregularity consistent with known ulceration. No significant surrounding edema is seen with no underlying abscess or drainable fluid collection appreciated. The osseous structures demonstrate normal signal intensity with no destructive change nor evidence for osteomyelitis. There is diffuse T2 hyperintensity within the soft tissues of the foot and ankle consistent with edema versus cellulitis. Edema or high signal on T2-weighted imaging noted throughout the plantar musculature of the foot, which may be reactive or possibly due to myositis or even denervation injury. No intramuscular lesions appreciated. Plantar fascia appears intact. The Achilles tendon is intact. The peroneal tendons are intact. The flexor and extensor tendons are intact. The anterior talofibular ligament appears thickened likely due to an old injury. There is no discontinuity. Posterior talofibular ligament is intact. Anterior and posterior inferior tibiofibular ligaments are intact. The deltoid ligament appears intact. The ankle mortise is intact. IMPRESSION: 1. No gross abnormality underlying the known ulceration along the posterior heel with no abscess formation appreciated. 2. No evidence for osteomyelitis. 3. Likely old injury to the anterior talofibular ligament which is thickened but intact. Remaining visualized ligaments and tendons intact. 4. Findings of diffuse edema versus cellulitis with possible myositis versus reactive change within the musculature in the plantar surface of the foot. Dictated by: Dictated on workstation # [id number]
== END ==
LOC: RAD 13:57
PROVIDERS: ATTEND Family Medicine
DX: E11.621 Type 2 diabetes mellitus with foot ulcer (principal)

== ENCOUNTER → 2021-09-21 | Outpatient (CLI) | payer MEDICARE | LOC: WOUNDCARE 12:16 | PROVIDERS: ATTEND Family Medicine | DX: I96 Gangrene, not elsewhere classified (principal); L89.623 Pressure ulcer of left heel, stage 3; N18.30 Chronic kidney disease, stage 3 unspecified; E11.52 Type 2 diabetes mellitus with diabetic peripheral angiopathy with gangrene; E11.621 Type 2 diabetes mellitus with foot ulcer; I70.244 Atherosclerosis of native arteries of left leg with ulceration of heel and midfoot; E11.65 Type 2 diabetes mellitus with hyperglycemia; E44.0 Moderate protein-calorie malnutrition; Z91.11 Patient's noncompliance with dietary regimen; Z91.19 Patient's noncompliance with other medical treatment and regimen | CPT/HCPCS: 11042; A6207; A6212; G0463 ==

== ENCOUNTER → 2021-09-29 | Outpatient (CLI) | payer MEDICARE | LOC: WOUNDCARE 13:14 | PROVIDERS: ATTEND Family Medicine | DX: L89.623 Pressure ulcer of left heel, stage 3 (principal); E11.621 Type 2 diabetes mellitus with foot ulcer; I70.244 Atherosclerosis of native arteries of left leg with ulceration of heel and midfoot; E11.22 Type 2 diabetes mellitus with diabetic chronic kidney disease; N18.30 Chronic kidney disease, stage 3 unspecified; E11.65 Type 2 diabetes mellitus with hyperglycemia; E44.0 Moderate protein-calorie malnutrition; Z91.11 Patient's noncompliance with dietary regimen; Z91.19 Patient's noncompliance with other medical treatment and regimen; E11.52 Type 2 diabetes mellitus with diabetic peripheral angiopathy with gangrene | CPT/HCPCS: 11042; G0463 ==

== ENCOUNTER → 2021-10-06 | Outpatient (CLI) | payer MEDICARE | LOC: WOUNDCARE 13:15 | PROVIDERS: ATTEND Family Medicine | DX: L89.623 Pressure ulcer of left heel, stage 3 (principal); E11.621 Type 2 diabetes mellitus with foot ulcer; I70.244 Atherosclerosis of native arteries of left leg with ulceration of heel and midfoot; E11.22 Type 2 diabetes mellitus with diabetic chronic kidney disease; N18.30 Chronic kidney disease, stage 3 unspecified; E11.65 Type 2 diabetes mellitus with hyperglycemia; E44.0 Moderate protein-calorie malnutrition; E11.52 Type 2 diabetes mellitus with diabetic peripheral angiopathy with gangrene; Z91.11 Patient's noncompliance with dietary regimen; Z91.19 Patient's noncompliance with other medical treatment and regimen | CPT/HCPCS: 11042; A6212; G0463 ==

== ENCOUNTER → 2021-10-13 | Outpatient (CLI) | payer MEDICARE | LOC: WOUNDCARE 12:58 | PROVIDERS: ATTEND Family Medicine | DX: L89.623 Pressure ulcer of left heel, stage 3 (principal); E11.621 Type 2 diabetes mellitus with foot ulcer; I70.244 Atherosclerosis of native arteries of left leg with ulceration of heel and midfoot; E11.22 Type 2 diabetes mellitus with diabetic chronic kidney disease; N18.30 Chronic kidney disease, stage 3 unspecified; E11.65 Type 2 diabetes mellitus with hyperglycemia; E44.0 Moderate protein-calorie malnutrition; E11.52 Type 2 diabetes mellitus with diabetic peripheral angiopathy with gangrene; Z91.11 Patient's noncompliance with dietary regimen; Z91.19 Patient's noncompliance with other medical treatment and regimen | CPT/HCPCS: 11042; A6212; G0463 ==

== ENCOUNTER → 2021-10-20 | Outpatient (CLI) | payer MEDICARE ==
[2021-10-20 10:21] LABS: BASOPHILS # (AUTO) 0.1 10^3/uL (0.0-0.1); BASOPHILS % (AUTO) 1 % (0-10); EOSINOPHILS # (AUTO) 0.3 10^3/uL (0.0-0.3); EOSINOPHILS % (AUTO) 3 % (0-10); HEMATOCRIT 36 % (40-54); HEMOGLOBIN 11.9 g/dL (13.3-17.7); LYMPHOCYTES # (AUTO) 3.2 10^3/uL (1.0-4.0); LYMPHOCYTES % (AUTO) 34 % (12-44); MEAN CORPUSCULAR HEMOGLOBIN 28 pg (25-34); MEAN CORPUSCULAR HGB CONC 33 g/dL (32-36); MEAN CORPUSCULAR VOLUME 86 fL (80-99); MEAN PLATELET VOLUME 9.4 fL (9.0-12.2); MONOCYTES # (AUTO) 0.7 10^3/uL (0.0-1.0); MONOCYTES % (AUTO) 8 % (0-12); NEUTROPHILS % (AUTO) 55 % (42-75); PLATELET COUNT 233 10^3/uL (130-400); WHITE BLOOD COUNT 9.2 10^3/uL (4.3-11.0)
[2021-10-20 10:58] LABS: ERYTHROCYTE SEDIMENTATION RATE 39 MM/HR (0-30)
== END ==
LOC: WOUNDCARE 09:20
PROVIDERS: ATTEND Family Medicine
DX: L89.623 Pressure ulcer of left heel, stage 3 (principal); E11.621 Type 2 diabetes mellitus with foot ulcer; I70.244 Atherosclerosis of native arteries of left leg with ulceration of heel and midfoot; E11.22 Type 2 diabetes mellitus with diabetic chronic kidney disease; N18.30 Chronic kidney disease, stage 3 unspecified; E11.65 Type 2 diabetes mellitus with hyperglycemia; E44.0 Moderate protein-calorie malnutrition; E11.52 Type 2 diabetes mellitus with diabetic peripheral angiopathy with gangrene; Z91.11 Patient's noncompliance with dietary regimen; Z91.19 Patient's noncompliance with other medical treatment and regimen
CPT/HCPCS: 11042; 82728; 83036; 83540; 83550; 85025; 85652; 86141; A6212; G0463; 36415

== ENCOUNTER → 2021-10-26 | Outpatient (CLI) | payer MEDICARE | LOC: WOUNDCARE 12:23 | PROVIDERS: ATTEND Family Medicine | DX: L89.623 Pressure ulcer of left heel, stage 3 (principal); E11.621 Type 2 diabetes mellitus with foot ulcer; I70.244 Atherosclerosis of native arteries of left leg with ulceration of heel and midfoot; E11.22 Type 2 diabetes mellitus with diabetic chronic kidney disease; N18.30 Chronic kidney disease, stage 3 unspecified; E11.65 Type 2 diabetes mellitus with hyperglycemia; E44.0 Moderate protein-calorie malnutrition; Z91.11 Patient's noncompliance with dietary regimen; Z91.19 Patient's noncompliance with other medical treatment and regimen; E11.52 Type 2 diabetes mellitus with diabetic peripheral angiopathy with gangrene | CPT/HCPCS: 11042; A6212; G0463 ==

== ENCOUNTER → 2021-11-02 | Outpatient (CLI) | payer MEDICARE | LOC: WOUNDCARE 12:10 | PROVIDERS: ATTEND Family Medicine | DX: L89.623 Pressure ulcer of left heel, stage 3 (principal); E11.621 Type 2 diabetes mellitus with foot ulcer; I70.244 Atherosclerosis of native arteries of left leg with ulceration of heel and midfoot; N18.30 Chronic kidney disease, stage 3 unspecified; E11.65 Type 2 diabetes mellitus with hyperglycemia; E44.0 Moderate protein-calorie malnutrition; Z91.11 Patient's noncompliance with dietary regimen; Z91.19 Patient's noncompliance with other medical treatment and regimen | CPT/HCPCS: 11042; A6212; G0463 ==

== ENCOUNTER → 2021-11-18 | Outpatient (CLI) | payer MEDICARE | LOC: WOUNDCARE 12:10 | PROVIDERS: ATTEND Family Medicine | DX: L89.623 Pressure ulcer of left heel, stage 3 (principal); E11.621 Type 2 diabetes mellitus with foot ulcer; I70.244 Atherosclerosis of native arteries of left leg with ulceration of heel and midfoot; E11.22 Type 2 diabetes mellitus with diabetic chronic kidney disease; N18.30 Chronic kidney disease, stage 3 unspecified; E11.65 Type 2 diabetes mellitus with hyperglycemia; E44.0 Moderate protein-calorie malnutrition; E11.52 Type 2 diabetes mellitus with diabetic peripheral angiopathy with gangrene; Z91.11 Patient's noncompliance with dietary regimen; Z91.19 Patient's noncompliance with other medical treatment and regimen | CPT/HCPCS: 11042; 87070; 87077; 87186; 87205; A6212; G0463 ==

== ENCOUNTER → 2021-12-02 | Outpatient (CLI) | payer MEDICARE | LOC: WOUNDCARE 12:10 | PROVIDERS: ATTEND Family Medicine | DX: L89.623 Pressure ulcer of left heel, stage 3 (principal); E11.621 Type 2 diabetes mellitus with foot ulcer; I70.244 Atherosclerosis of native arteries of left leg with ulceration of heel and midfoot; E11.22 Type 2 diabetes mellitus with diabetic chronic kidney disease; N18.30 Chronic kidney disease, stage 3 unspecified; E11.65 Type 2 diabetes mellitus with hyperglycemia; E44.0 Moderate protein-calorie malnutrition; E11.52 Type 2 diabetes mellitus with diabetic peripheral angiopathy with gangrene; Z91.199 Patient's noncompliance with other medical treatment and regimen due to unspecified reason; Z91.119 Patient's noncompliance with dietary regimen due to unspecified reason | CPT/HCPCS: 11042; A6212; G0463 ==

== ENCOUNTER → 2021-12-23 | Outpatient (CLI) | payer MEDICARE | LOC: WOUNDCARE 12:14 | PROVIDERS: ATTEND Family Medicine | DX: I96 Gangrene, not elsewhere classified (principal); L89.623 Pressure ulcer of left heel, stage 3; E11.621 Type 2 diabetes mellitus with foot ulcer; I70.244 Atherosclerosis of native arteries of left leg with ulceration of heel and midfoot; N18.30 Chronic kidney disease, stage 3 unspecified; E11.22 Type 2 diabetes mellitus with diabetic chronic kidney disease; E11.65 Type 2 diabetes mellitus with hyperglycemia; E11.52 Type 2 diabetes mellitus with diabetic peripheral angiopathy with gangrene; E44.0 Moderate protein-calorie malnutrition; Z91.119 Patient's noncompliance with dietary regimen due to unspecified reason; Z91.199 Patient's noncompliance with other medical treatment and regimen due to unspecified reason; Z68.29 Body mass index [BMI] 29.0-29.9, adult | CPT/HCPCS: 11042; A6212; G0463 ==

== ENCOUNTER → 2022-01-13 | Outpatient (CLI) | payer MEDICARE | LOC: WOUNDCARE 11:48 | PROVIDERS: ATTEND Family Medicine | DX: L89.623 Pressure ulcer of left heel, stage 3 (principal); E11.621 Type 2 diabetes mellitus with foot ulcer; I70.244 Atherosclerosis of native arteries of left leg with ulceration of heel and midfoot; E11.22 Type 2 diabetes mellitus with diabetic chronic kidney disease; N18.30 Chronic kidney disease, stage 3 unspecified; E11.65 Type 2 diabetes mellitus with hyperglycemia; E44.0 Moderate protein-calorie malnutrition; Z91.119 Patient's noncompliance with dietary regimen due to unspecified reason; Z91.199 Patient's noncompliance with other medical treatment and regimen due to unspecified reason; E11.52 Type 2 diabetes mellitus with diabetic peripheral angiopathy with gangrene; I96 Gangrene, not elsewhere classified | CPT/HCPCS: 11042; A6212; G0463 ==

== ENCOUNTER → 2022-02-04 | Outpatient (CLI) | payer MEDICARE ==
[~2022-02-04] MED LIST changes: +CLOP-31 PO; -CLOP75TA69 PO
== END ==
LOC: WOUNDCARE 10:52
PROVIDERS: ATTEND Family Medicine
DX: E11.621 Type 2 diabetes mellitus with foot ulcer (principal); I70.244 Atherosclerosis of native arteries of left leg with ulceration of heel and midfoot; E11.22 Type 2 diabetes mellitus with diabetic chronic kidney disease; N18.30 Chronic kidney disease, stage 3 unspecified; E11.65 Type 2 diabetes mellitus with hyperglycemia; E44.0 Moderate protein-calorie malnutrition; Z91.119 Patient's noncompliance with dietary regimen due to unspecified reason; Z91.199 Patient's noncompliance with other medical treatment and regimen due to unspecified reason
CPT/HCPCS: A6212; G0463; 99212